=== PATIENT | female | born 1940 | race Caucasian/White ===

== ENCOUNTER 2020-05-16 11:43 | Outpatient (REF) | payer MEDICARE, SELFPAY ==
--- NOTE | 2020-05-16 | CT_ITS ---
CT ANGIOGRAM BRAIN, HEAD CLINICAL INFORMATION: Cerebral aneurysm. COMPARISON: MRA head 01/11/2019. TECHNIQUE: Test bolus sequences followed by intravenous administration 75 mL of Omnipaque 350 intravenous contrast. Helical imaging was performed in the axial plane from the skull base to the vertex. Delayed postcontrast imaging of the head was also performed. The data was processed at the creative technologist workstation for generation of MIP sequences. Three-dimensional volume rendered reformatted images were also generated at an offline 3-D workstation. Stenoses are graded per criteria similar to NASCET. This CT examination was performed using dose optimization techniques as appropriate, variously including the following: *Automated exposure control *Adjustment of mA and/or kV according to patient size (this includes techniques or standardized protocols for targeted exams where dose is matched to indication/reason for exam; i.e. 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 No new aneurysms. There is a stable 1.8 cm arachnoid cyst within the anterior aspect of left middle cranial fossa. There is no pathologic enhancement intracranially. There is no intracranial hemorrhage, hydrocephalus, extra-axial surface collection, midline shift, or other herniation pattern. Culver to white matter differentiation is diffusely maintained without evidence of an evolved acute territorial infarct. The basilar cisterns are preserved. No significant soft tissue abnormality. No acute osseous abnormality. There is a fluid level within the right sphenoid sinus. The remaining paranasal sinuses and the mastoid air cells are clear. 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 - Stable 1.8 cm arachnoid cyst within the anterior aspect of the left middle cranial fossa.
[2020-05-16] MEDS: iohexoL 350 MG/ML 100 ML INFUS..BTL IV (10:15)
== END 2020-05-16 11:44 | disposition home or self-care (01) ==
LOC: HO.CT 11:43
PROVIDERS: PCP Internal Medicine; Visit Provider Psychiatry & Neurology Neurology
DX: I67.1 Cerebral aneurysm, nonruptured (principal)
CPT/HCPCS: 70496; Q9967

== ENCOUNTER 2020-11-25 11:35 | Emergency (ER) | payer MEDICARE, SELFPAY ==
--- NOTE | ~2020-11-25 | XR_ITS ---
EXAMINATION: XR ABDOMEN KUB CLINICAL INDICATION: Question obstruction COMPARISON: CT abdomen pelvis 02/22/2019 TECHNIQUE: AP view of the abdomen. FINDINGS: No dilated air-filled loops of small bowel to suggest an obstructive process. Mild to moderate stool burden throughout the colon. Surgical clips in the right upper quadrant consistent with prior cholecystectomy. Visualized lung bases are well aerated. Small pelvic calcifications are likely vascular in nature. No acute osseous abnormality. XR/XR KUB IMPRESSION: Nonobstructing bowel gas pattern.
--- NOTE | ~2020-11-25 | CT_ITS ---
EXAMINATION: CT HEAD WITHOUT CONTRAST CLINICAL INFORMATION: Left arm numbness. COMPARISON: None TECHNIQUE: Contiguous axial imaging was performed from the skull base to vertex without intravenous administration of contrast. This CT examination was performed using dose optimization techniques as appropriate, variously including the following: *Automated exposure control *Adjustment of mA and/or kV according to patient size (this includes techniques or standardized protocols for targeted exams where dose is matched to indication/reason for exam; i.e. extremities or head) *Use of iterative reconstruction technique DLP: 597 mGy-cm FINDINGS: There is no evidence of acute intracranial hemorrhage or territorial infarction. No abnormal mass effect or midline shift is seen. Culver to white matter differentiation is well preserved. No extra-axial fluid collections are identified. There is a punctate calcification in the left basal ganglia likely vascular. The ventricles are normal in size. There is no abnormal attenuation within the brain parenchyma. The osseous structures and soft tissues are normal. The mastoid air cells and visualized portions of the paranasal sinuses are well aerated. CT/CT head/brain wo con IMPRESSION: No acute intracranial process seen.
--- NOTE | ~2020-11-25 | CT_ITS ---
EXAMINATION: CT ANGIOGRAM OF THE HEAD CT ANGIOGRAM OF THE NECK CLINICAL INFORMATION: Headache and aneurysm. COMPARISON: Concurrent CT scan of the head 11/25/2020. CT angiogram of the head 05/16/2020. MRA scan of the head 01/11/2019. TECHNIQUE: Test bolus series followed by intravenous administration 70 mL of Omnipaque 350. Helical imaging was performed in the axial plane from the mediastinum to the skull vertex. The degree of stenosis is based off NASCET criteria. The data was processed at the cytotechnologist/histotechnologist workstation for generation of MIP images. Three-dimensional volume rendered reformatted images were also generated at an offline 3-D workstation. This CT examination was performed using dose optimization techniques as appropriate, variously including the following: *Automated exposure control *Adjustment of mA and/or kV according to patient size (this includes techniques or standardized protocols for targeted exams where dose is matched to indication/reason for exam; i.e. extremities or head) *Use of iterative reconstruction technique DLP: 1421 mGy-cm. FINDINGS: CT Head: There is no evidence of acute intracranial hemorrhage or territorial infarction. No abnormal mass-effect or midline shift is seen. Culver to white matter differentiation is well preserved. No extra-axial fluid collections are identified. There is no abnormal enhancement. The ventricles are normal in size. There are a few scattered foci of low-attenuation in the periventricular and subcortical white matter, most consistent with chronic microvascular ischemic changes. The study redemonstrates an arachnoid cyst in the anterior left middle cranial fossa, which appears stable. The osseous structures and soft tissues are normal. The mastoid air cells and visualized portions of the paranasal sinuses are well-aerated. CTA Neck: There is a classic configuration of the arch of the aorta. There are mild atheromatous calcifications at the origins of the brachiocephalic and left subclavian arteries and of the aortic arch. The great vessels of the neck are patent. The proximal right common carotid artery is ectatic and tortuous, but not frankly aneurysmal. Both common carotid arteries are patent. There are mild atheromatous calcifications at the bilateral carotid bifurcations without evidence of significant stenosis. There are mild atheromatous calcifications of the proximal left internal carotid artery. Both internal carotid arteries are patent. The origins of both vertebral arteries are well-demonstrated. The vertebral arteries are codominant and are patent throughout their cervical course extending intradurally. Nonvascular: The visualized lung west are well-aerated. The thyroid gland is not enlarged. There is no cervical lymphadenopathy. There are degenerative anterolistheses of C4 on C5 and C5 on C6 and there are spondylitic changes at C6-C7. The patient is edentulous in the mandible and the maxilla. CTA Head: There are atheromatous calcifications of the bilateral cavernous internal carotid arteries, but the vessels are patent bilaterally. There are also calcifications of the bilateral supraclinoid internal carotid arteries. The study redemonstrates a bilobed aneurysm off the bifurcation of the left middle cerebral artery posteriorly, which measures 0.7 cm, similar compared to prior imaging. The right middle and bilateral anterior cerebral arteries demonstrate normal caliber with no evidence of focal stenosis, aneurysm or vascular malformation. There is normal arborization of the middle cerebral artery branches. The anterior communicating artery is normal. In the posterior circulation, the vertebral arteries are codominant. They have minimal atheromatous calcification. The basilar artery is patent with uniform caliber. The posterior cerebral arteries are patent bilaterally. The venous sinuses opacify normally. CT/CT angio head neck IMPRESSION: CTA head and neck: 1. The study redemonstrates a bilobed aneurysm projecting posteriorly at the level of the left middle cerebral artery bifurcation. 2. There are atheromatous calcifications at multiple levels in the head and neck circulation without significant stenosis. There are no vascular malformations. CT head and neck: 1. There are no acute bleeds or infarcts. There are no masses or areas of abnormal enhancement. 2. The study redemonstrates an arachnoid cyst in the anterior left middle cranial fossa. 3. There are multilevel spondylitic changes in the cervical spine.
[2020-11-25 11:44] VITALS: BP 184/88; PULSE 80; RESP 18; TEMP 36.6; O2SAT 99; BMI 29.1
--- NOTE | 2020-11-25 13:06 | ECG_ITS ---
Test Reason : FACIAL NUMBNESS Blood Pressure : / mmHG Vent. Rate : 063 BPM Atrial Rate : 063 BPM P-R Int : 170 ms QRS Dur : 086 ms QT Int : 398 ms P-R-T Axes : 030 011 052 degrees QTc Int : 407 ms Normal sinus rhythm with sinus arrhythmia Normal ECG When compared with ECG of 22-FEB-2019 16:35, No significant change was found Referred By: Vj Jones Electronically Signed By:KATHIE JASSO
--- NOTE | 2020-11-25 13:08 | ED_ITS ---
HPI - General Adult General Chief complaint: General Medical Stated complaint: L ARM AND TOUNGE NUMBNESS Time Seen by Provider: 11/25/20 12:58 Source: patient Mode of arrival: ambulatory Limitations: no limitations History of Present Illness HPI narrative: Patient presents to ED for multiple complaints. Patient's 1st complaint tongue and left arm numbness since yesterday at 13:00. patient states she also had headache yesterday that resolved on its own. Patient states no facial droop, paralysis of extremities, dizziness, chest pain, shortness of breath, or loss of vision. Patient states tongue of left arm numbness has actually improved. Patient's secondary complaint is epigastric pain. Patient states history of gastritis but does not have any of her antacid medication. Patient states pain after she eats. Patient's gallbladder removed in the past Related Data Allergies Allergy/AdvReac Type Severity Reaction Status Date / Time No Known Allergies Allergy Unverified 03/21/20 15:16 [No Known Allergies*] Review of Systems Review of Systems: Yes all other systems are reviewed and are negative Constitutional: Constitutional: Reports as per HPI and Reports no additional constitutional complaints Eyes: Eyes: Reports as per HPI and Reports no additional eye complaints ENT: Reports system reviewed and no additional complaints, except as documented and Reports as per HPI Cardiovascular: Cardiovascular: Reports as per HPI and Reports no additional cardiovascular complaints Respiratory: Respiratory: Reports as per HPI and Reports no additional respiratory complaints Gastrointestinal: Gastrointestinal: Reports as per HPI, Reports no additional gastrointestinal complaints and Reports abdominal pain (Epigastric) Comments: Epigastric abdominal pain Genitourinary: Genitourinary: Reports no additional female genitourinary complaints and Reports as per HPI Musculoskeletal: Musculoskeletal: Reports no additional musculoskeletal complaints, Reports as per HPI and Reports numbness (Tongue/left arm) Neurologic: Reports system reviewed and no additional complaints, except as documented and Reports numbness (Tongue/left arm) Psychiatric: Psychiatric: Reports no additional psychiatric complaints and Reports as per HPI [facility] Past Medical History Medical History (Updated 11/25/20 @ 19:02 by COURTNEY Link) Anxiety Asthma Diabetes HTN (hypertension) Social History Social History Alcohol intake: never Smoking Status: Never smoker Use of substances other than those prescribed or required for medical reasons: No Advance Directives: No Advance Directives Information Provided: Yes Physical Exam Vital Signs: Vital Signs: Last Vital Signs Temp 98.6 F 11/25/20 13:31 Pulse 63 11/25/20 13:31 Resp 12 11/25/20 13:31 BP 178/83 H 11/25/20 13:31 Pulse Ox 100 11/25/20 13:31 Body Mass Index 29.1 Const: General: cooperative, healthy appearing, comfortable, no acute distress, well developed, alert, awake and Physically active Orientation/consciousness: patient oriented x3 HENMT: Head: Yes normal to inspection, Yes No palpable skull fracture present, Yes normocephalic, Yes atraumatic and No abrasion Eyes: General: appearance normal, both eyes and all related structures Neck: Neck: Yes normal visual inspection, Yes full ROM, Yes no lymphadenopathy, Yes no meningeal signs, Yes trachea midline, Yes supple and No tender Chest: Chest palpation & inspection: normal inspection of the chest and normal palpation of entire chest wall Resp: Effort & Inspection: normal respiratory effort and able to speak in complete sentences Auscultation: clear to auscultation bilaterally Cardio: Jugular venous distension: no JVD Heart sounds: S1 normal heart sound present and S2 normal heart sound present GI: Inspection: Yes normal to inspection and No abdominal wall ecchymosis Palpation (GI): Soft to palpation, not firm, Tenderness to palpation present (GI) in the epigastrum; not in the LLQ, not in the RLQ, not in the LUQ, not in the RUQ, not at McBurney's point, not periumbilically, not suprapubicly, Herr's sign negative, obturator sign negative, psoas sign negative, with no rebound tenderness and Rovsing's sign negative, no guarding and not rigid : General: No CVA tenderness and Yes no CVA tenderness Back/Spine/Pelvis: Back: no CVA tenderness, No CVA tenderness and No back tenderness Skin: General skin exam: no rashes or lesions noted and elasticity normal Neuro: Other: Negative facial droop. Negative slurred speech. All extremities equal strength 5+. Negative pronator drift. Vascular/motor/neuro exam of all extremities are intact and equal. Niilvy-mr-ehjl and rapid hand m ovements intact. Negative Romberg General: patient oriented x3, gait normal, no meningeal signs and CN's II-XI intact bilaterally Extrem: General: Yes normal to inspection and Yes full ROM Psych: Appearance: grossly normal, well kempt and not disheveled Course Course Course Narrative: Presently negative for any neuro deficits. A due to symptoms of numbness will send for head CT. EKG and troponin and other labs will be ordered. Antacid med will be given. Reevaluation(s) Reevaluation #1: Head CT normal. Patient was sent for head CT a. Patient labs at baseline. Will send patient for head CTA aneurysm has worsening. Patient has a Knoqn aneurysm from prior head CT a. Patient presently is asymptomatic. Abdominal CT scan was ordered to evaluate for epigastric pain. Radiologist Dr. Moreno calling state abdominal CT should not be recommended because patient will have too much exposure to radiation. Recommends KUB and ultrasound. Patient will be sent for ultrasound to evaluate for dilated CBD/retained gallstones. Patient will be sent for abdominal x-ray to make sure there is no obstruction although very unlikely. Patient having normal bowel movement. Patient presently like to leave and wants to eat food. Was encouraged to wait for imaging and results. Reevaluation #2: Head CT does not show stroke or any other new acute changes. No increased aneurysm size. Patient does not want to wait for 2nd troponin. Patient refused ultrasound to evaluate common bile duct. Patient would like to be discharged. Patient alert oriented x3. No neuro deficits. Patient states she follow-up with her doctor. Son was witness and states patient does not want to stay and he will bring her back if she has any new complaints. Patient was informed of risk of due to her not having 2nd troponin to rule out MO. patient informal ultrasound is necessary to make sure there is no retained gallstone due to her stating epigastric pain but patient also refused. Patient educated on risk of infection, , decreased quality of life, disability, and patient still agreeable to sign out against medical advice. Son states he will bring mother back to the ER if she has any complaints Medical Decision Making MDM Narrative Medical decision making narrative: Paresthesia, GERD, abdominal pain Lab Data Result diagrams: 11/25/20 13:48 11/25/20 13:47 Labs: Lab Results 11/25/20 11/25/20 11/25/20 Range/Units 13:47 13:47 13:47 WBC (4.8-10.8) X10*3/uL RBC (4.20-5.50) X10*6/uL Hgb (12.0-16.0) g/dl Hct (37-47) % MCV (80-98) fL MCH (27.0-33.0) pg MCHC (31.0-35.0) g/dl RDW (11.0-16.0) % Plt Count (160-400) X10*3/uL MPV (9.4-12.3) fL Immature Gran % (Auto) (0.0-0.4) % Neut % (Auto) (45-73) % Lymph % (Auto) (20-40) % Mcdonough % (Auto) (2-11) % Eos % (Auto) (0-4) % Baso % (Auto) (0-2) % Lymph # (Auto) (1.2-4.9) X10*3/uL Mcdonough # (Auto) (0.1-1.2) X10*3/uL Eos # (Auto) (0.0-0.4) X10*3/uL Baso # (Auto) (0.0-0.2) X10*3/uL Abs Immat Gran (auto) (0.00-0.03) X10*3/uL Absolute Neuts (auto) (2.0-8.3) X10*3/uL Absolute Nucleated RBC (0.0-0.012) X10*3/uL Nucleated RBC % (auto) (0.0-0.2) /100WBC PT 12.9 (10.8-13.0) SEC INR 1.1 (0.9-1.1) APTT 32.3 (24.1-38.0) SEC Sodium 140 (135-145) mmol/L Potassium 4.2 (3.3-5.1) mmol/L Chloride 111 H (96-108) mmol/L Carbon Dioxide 19 L (22-29) mmol/L Anion Gap 14 (12-20) BUN 21 H (9-16) mg/dL Creatinine 1.20 (0.5-1.4) mg/dL Estim Creat Clear Calc 39.5 Estimated GFR 43 Random Glucose 102 (60-115) mg/dL Calcium 9.9 (8.4-10.2) mg/dL Magnesium (1.6-2.6) mg/dL Total Bilirubin 0.6 (0.0-1.0) mg/dL Direct Bilirubin 0.2 (0.0-0.5) mg/dL AST 20 (5-31) U/L ALT 13 (0-31) U/L Alkaline Phosphatase 49 (39-117) U/L Total Creatine Kinase (26-140) U/L Troponin I High Sens 6.6 (<3.5-17.0) ng/L Total Protein 7.1 (6.5-8.0) g/dL Albumin 4.1 (3.5-5.0) g/dL Lipase 36 (8-78) U/L Urine Color Urine Appearance Urine pH (5.0-8.0) Ur Specific [place] (1.005-1.025) Urine Protein (NEG-TRACE) MG/DL Urine Glucose (UA) (NEG) MG/DL Urine Ketones (NEG) MG/DL Urine Blood (NEG) Urine Nitrite (NEG) Ur Leukocyte Esterase (NEG) COVID-19 (RUSSELL) (Negative) COVID-19 Clin Com 11/25/20 11/25/20 11/25/20 Range/Units 13:47 13:48 13:48 WBC 4.0 L (4.8-10.8) X10*3/uL RBC 3.66 L (4.20-5.50) X10*6/uL Hgb 11.6 L (12.0-16.0) g/dl Hct 36.1 L (37-47) % MCV 98.6 H (80-98) fL MCH 31.7 (27.0-33.0) pg MCHC 32.1 (31.0-35.0) g/dl RDW 13.6 (11.0-16.0) % Plt Count 152 L (160-400) X10*3/uL MPV 9.9 (9.4-12.3) fL Immature Gran % (Auto) 0.0 (0.0-0.4) % Neut % (Auto) 61.1 (45-73) % Lymph % (Auto) 26.3 (20-40) % Mcdonough % (Auto) 11.3 H (2-11) % Eos % (Auto) 0.8 (0-4) % Baso % (Auto) 0.5 (0-2) % Lymph # (Auto) 1.1 L (1.2-4.9) X10*3/uL Mcdonough # (Auto) 0.5 (0.1-1.2) X10*3/uL Eos # (Auto) 0.0 (0.0-0.4) X10*3/uL Baso # (Auto) 0.0 (0.0-0.2) X10*3/uL Abs Immat Gran (auto) 0.00 (0.00-0.03) X10*3/uL Absolute Neuts (auto) 2.4 (2.0-8.3) X10*3/uL Absolute Nucleated RBC 0.000 (0.0-0.012) X10*3/uL Nucleated RBC % (auto) 0.0 (0.0-0.2) /100WBC PT (10.8-13.0) SEC INR (0.9-1.1) APTT (24.1-38.0) SEC Sodium (135-145) mmol/L Potassium (3.3-5.1) mmol/L Chloride (96-108) mmol/L Carbon Dioxide (22-29) mmol/L Anion Gap (12-20) BUN (9-16) mg/dL Creatinine (0.5-1.4) mg/dL Estim Creat Clear Calc Estimated GFR Random Glucose (60-115) mg/dL Calcium (8.4-10.2) mg/dL Magnesium 2.3 (1.6-2.6) mg/dL Total Bilirubin (0.0-1.0) mg/dL Direct Bilirubin (0.0-0.5) mg/dL AST (5-31) U/L ALT (0-31) U/L Alkaline Phosphatase (39-117) U/L Total Creatine Kinase 143 H (26-140) U/L Troponin I High Sens (<3.5-17.0) ng/L Total Protein (6.5-8.0) g/dL Albumin (3.5-5.0) g/dL Lipase (8-78) U/L Urine Color Urine Appearance Urine pH (5.0-8.0) Ur Specific [place] (1.005-1.025) Urine Protein (NEG-TRACE) MG/DL Urine Glucose (UA) (NEG) MG/DL Urine Ketones (NEG) MG/DL Urine Blood (NEG) Urine Nitrite (NEG) Ur Leukocyte Esterase (NEG) COVID-19 (RUSSELL) Negative (Negative) COVID-19 Clin Com See Note 11/25/20 Range/Units 16:31 WBC (4.8-10.8) X10*3/uL RBC (4.20-5.50) X10*6/uL Hgb (12.0-16.0) g/dl Hct (37-47) % MCV (80-98) fL MCH (27.0-33.0) pg MCHC (31.0-35.0) g/dl RDW (11.0-16.0) % Plt Count (160-400) X10*3/uL MPV (9.4-12.3) fL Immature Gran % (Auto) (0.0-0.4) % Neut % (Auto) (45-73) % Lymph % (Auto) (20-40) % Mcdonough % (Auto) (2-11) % Eos % (Auto) (0-4) % Baso % (Auto) (0-2) % Lymph # (Auto) (1.2-4.9) X10*3/uL Mcd[place] # (Auto) (0.1-1.2) X10*3/uL Eos # (Auto) (0.0-0.4) X10*3/uL Baso # (Auto) (0.0-0.2) X10*3/uL Abs Immat Gran (auto) (0.00-0.03) X10*3/uL Absolute Neuts (auto) (2.0-8.3) X10*3/uL Absolute Nucleated RBC (0.0-0.012) X10*3/uL Nucleated RBC % (auto) (0.0-0.2) /100WBC PT (10.8-13.0) SEC INR (0.9-1.1) APTT (24.1-38.0) SEC Sodium (135-145) mmol/L Potassium (3.3-5.1) mmol/L Chloride (96-108) mmol/L Carbon Dioxide (22-29) mmol/L Anion Gap (12-20) BUN (9-16) mg/dL Creatinine (0.5-1.4) mg/dL Estim Creat Clear Calc Estimated GFR Random Glucose (60-115) mg/dL Calcium (8.4-10.2) mg/dL Magnesium (1.6-2.6) mg/dL Total Bilirubin (0.0-1.0) mg/dL Direct Bilirubin (0.0-0.5) mg/dL AST (5-31) U/L ALT (0-31) U/L Alkaline Phosphatase (39-117) U/L Total Creatine Kinase (26-140) U/L Troponin I High Sens (<3.5-17.0) ng/L Total Protein (6.5-8.0) g/dL Albumin (3.5-5.0) g/dL Lipase (8-78) U/L Urine Color YELLOW Urine Appearance CLEAR Urine pH 7.0 (5.0-8.0) Ur Specific [place] 1.010 (1.005-1.025) Urine Protein NEG (NEG-TRACE) MG/DL Urine Glucose (UA) NEG (NEG) MG/DL Urine Ketones NEG (NEG) MG/DL Urine Blood NEG (NEG) Urine Nitrite NEG (NEG) Ur Leukocyte Esterase NEG (NEG) COVID-19 (RUSSELL) (Negative) COVID-19 Clin Com ECG Data Interpretation: Normal sinus rhythm. Ventricular rate 63. Pr interval 170. QRS 86. QTC 4 7. Negative STEMI Discharge Plan Discharge Clinical Impression: Paresthesia, Gastritis Patient Disposition: Left Against Medical Advice Instructions: Gastritis (ED), Paresthesia (ED) Additional Instructions: Regrese al servicio de urgencias si tiene dolor en el pecho, dificultad para respirar, v?mitos con pete, pete en las heces, empeoramiento del dolor abdominal, mareos, dificultad para hablar, p?rdida de la visi?n, par?lisis de las extremidades, ca?da de la lin o cualquier otro s?ntoma preocupante. No quer?a quedarse en la anthony de emergencias para que le hicieran un [place] an?lisis de pete del coraz?n para asegurarse de que no tuviera un ataque card?aco. No deseaba que la ecograf?a se asegurara de que no hubiera geetha?n c?lculo retenido en el conducto col?doco. Est? cerrando la sesi?n en contra del consejo m?dico, conociendo el riesgo de muerte, ataque card?aco, sepsis / infecci?n y / o etioligias m?dicas / quir?rgicas abdominales. Stand Alone Forms: Against Medical Advice Interventions: ED Discharge Assessment Last Done: 11/25/20 19:06 Discharge Date/Time: 11/25/20 19:07 Print Language: Mongolian
[2020-11-25 13:31] VITALS: BP 178/83; PULSE 63; RESP 12; TEMP 37; O2SAT 100
[2020-11-25 14:13] LABS: MANUAL DIFF FLAG NO
[2020-11-25 14:16] LABS: Basophils Percent Auto 0.5 % (0-2); Eosinophils Percent Auto 0.8 % (0-4); Hematocrit 36.1 % (37-47); Hemoglobin 11.6 g/dl (12.0-16.0); Lymphocytes Absolute Auto 1.1 X10*3/uL (1.2-4.9); Lymphocytes Percent Auto 26.3 % (20-40); Mean Corpuscular HGB Conc 32.1 g/dl (31.0-35.0); Mean Corpuscular Hemoglobin 31.7 pg (27.0-33.0); Mean Corpuscular Volume 98.6 fL (80-98); Mean Platelet Volume 9.9 fL (9.4-12.3); Monocytes Absolute Auto 0.5 X10*3/uL (0.1-1.2); Monocytes Percent Auto 11.3 % (2-11); Neutrophils Absolute Auto 2.4 X10*3/uL (2.0-8.3); Neutrophils Percent Auto 61.1 % (45-73); Platelet Count 152 X10*3/uL (160-400); Red Blood Count 3.66 X10*6/uL (4.20-5.50); Red Cell Distribution Width 13.6 % (11.0-16.0)
[2020-11-25 14:20] LABS: INTERNATIONAL NORM RATIO 1.1 (0.9-1.1); Prothrombin Time 12.9 SEC (10.8-13.0)
[2020-11-25 14:23] LABS: Partial Thromboplastin Time 32.3 SEC (24.1-38.0)
[2020-11-25] MEDS: PHENobarb/Hyoscy/Atropine/Scop 10 ML ELIXIR PO (14:24)
[2020-11-25] MEDS: Lidocaine HCl Viscous 2 % 15 ML SOLUTION MUCOUS MEM (14:24)
[2020-11-25] MEDS: 0.9 % Sodium Chloride 1,000 ML 999 ML IV (14:24)
[2020-11-25] MEDS: Famotidine/PF 20 MG/2 ML VIAL IVPUSH (14:25)
[2020-11-25] MEDS: Magnesium Hydrox/Alum Hydrox 30 ML ORAL.SUSP PO (14:25)
[2020-11-25 14:28] LABS: COVID-19 Test Negative (Negative)
[2020-11-25 14:48] LABS: Magnesium 2.3 mg/dL (1.6-2.6)
[2020-11-25 14:50] LABS: Alanine Aminotransferase 13 U/L (0-31); Albumin Level 4.1 g/dL (3.5-5.0); Alkaline Phosphatase 49 U/L (39-117); Anion Gap 14 (12-20); Aspartate Amino Transferase 20 U/L (5-31); Bilirubin Direct 0.2 mg/dL (0.0-0.5); Bilirubin Total 0.6 mg/dL (0.0-1.0); Blood Urea Nitrogen 21 mg/dL (9-16); Calcium 9.9 mg/dL (8.4-10.2); Carbon Dioxide 19 mmol/L (22-29); Chloride 111 mmol/L (96-108); Creatinine Clr Calc Pharmacy 39.5; Estimated Glomerular Filt Rate 43; Glucose Random 102 mg/dL (60-115); Lipase 36 U/L (8-78); Potassium 4.2 mmol/L (3.3-5.1); Sodium 140 mmol/L (135-145); Total Protein 7.1 g/dL (6.5-8.0)
[2020-11-25 14:53] LABS: Troponin-I High Sensitivity 6.6 ng/L (<3.5-17.0)
[2020-11-25 16:46] LABS: Glucose Urine UA NEG (NEG); Leukocyte Esterase Urine NEG (NEG); Nitrite Urine NEG (NEG); Urine Blood NEG (NEG); Urine Ketones NEG (NEG); Urine Protein NEG (NEG-TRACE)
[2020-11-25 16:47] LABS: Appearance Urine CLEAR; Color Urine YELLOW
[2020-11-25] MEDS: iohexoL 350 MG/ML 100 ML INFUS..BTL IV (17:49)
--- NOTE | 2020-11-25 19:04 | PC.NURSE ---
Pt RN entered room, pt yelling, stating she has been her hours without any medications, interventions, asking to leave. Attempted to reassure pt, provider at bedside, encouraged to draw additional labs- pt declined/refused. Left AMA.
== END 2020-11-25 19:07 | disposition left against medical advice (07) ==
PROVIDERS: Physician Assistant; Emergency Provider Emergency Medicine; PCP Internal Medicine
DX: R20.2 Paresthesia of skin (principal); K29.70 Gastritis, unspecified, without bleeding; R51.9 Headache, unspecified; R10.13 Epigastric pain; Z20.822 Contact with and (suspected) exposure to COVID-19; E11.9 Type 2 diabetes mellitus without complications; I10 Essential (primary) hypertension; Z90.49 Acquired absence of other specified parts of digestive tract
CPT/HCPCS: 36415; 70450; 70496; 70498; 74018; 80053; 80076; 81003; 82248; 82550; 83690; 83735; 84484; 85025; 85610; 85730; 87635; 93005; 99285; Q9967

== ENCOUNTER 2021-06-17 08:30 | Outpatient (REF) | payer MEDICARE, SELFPAY ==
[2021-06-17 10:31] LABS: Hematocrit 35.6 % (37.0-47.0); Hemoglobin 11.5 g/dl (12.0-16.0); Mean Corpuscular HGB Conc 32.3 g/dl (31.0-35.0); Mean Corpuscular Hemoglobin 31.4 pg (27.0-33.0); Mean Corpuscular Volume 97.3 fL (80.0-98.0); Mean Platelet Volume 9.9 fL (9.4-12.3); Platelet Count 173 X10*3/uL (160-400); Red Blood Count 3.66 X10*6/uL (4.20-5.50); Red Cell Distribution Width 13.7 % (11.0-16.0); White Blood Count 4.2 X10*3/uL (4.8-10.8)
[2021-06-17 10:49] LABS: Alanine Aminotransferase 11 U/L (0-31); Albumin Level 4.1 g/dL (3.5-5.0); Alkaline Phosphatase 46 U/L (39-117); Anion Gap 10 (12-20); Aspartate Amino Transferase 18 U/L (5-31); Bilirubin Total 0.4 mg/dL (0.0-1.0); Blood Urea Nitrogen 20 mg/dL (9-16); Calcium 9.4 mg/dL (8.4-10.2); Carbon Dioxide 22 mmol/L (22-29); Chloride 112 mmol/L (96-108); Estimated Glomerular Filt Rate 34; Glucose Random 128 mg/dL (60-115); Potassium 3.9 mmol/L (3.3-5.1); Sodium 140 mmol/L (135-145); Total Protein 7.1 g/dL (6.5-8.0)
[2021-06-19 07:57] LABS: Transglutaminase Ab IgG <1.0 U/mL; Transglutaminase IgA <1.0 U/mL
== END 2021-06-17 08:31 | disposition home or self-care (01) ==
LOC: HO.LAB 08:30
PROVIDERS: PCP Internal Medicine; Referring Provider Internal Medicine; Visit Provider Nurse Practitioner Family
DX: K21.9 Gastro-esophageal reflux disease without esophagitis (principal); D64.9 Anemia, unspecified; K58.2 Mixed irritable bowel syndrome; R14.0 Abdominal distension (gaseous); R10.11 Right upper quadrant pain
CPT/HCPCS: 36415; 80053; 83516; 85027; 99212

== ENCOUNTER 2022-09-27 13:42 | Emergency (ER) | payer MEDICARE, SELFPAY ==
--- NOTE | ~2022-09-27 | CT_ITS ---
EXAMINATION: CT HEAD WITHOUT CONTRAST CLINICAL INFORMATION: Dizziness. COMPARISON: CT head 11/25/2020. TECHNIQUE: Contiguous axial imaging was performed from the skull base to vertex without intravenous administration of contrast. This CT examination was performed using dose optimization techniques as appropriate, variously including the following: *Automated exposure control *Adjustment of mA and/or kV according to patient size (this includes techniques or standardized protocols for targeted exams where dose is matched to indication/reason for exam; i.e. extremities or head) *Use of iterative reconstruction technique DLP: 579 mGy-cm FINDINGS: There is no evidence of acute intracranial hemorrhage or edematous territorial infarction. A few foci of hypoattenuation in the periventricular and deep white matter are consistent with mild microangiopathy. Culver-white matter differentiation is preserved. Proportional prominence of the ventricles and sulcal spaces. No evidence for obstructive hydrocephalus. No abnormal mass effect or midline shift. No extra-axial fluid collections. No acute soft tissue or osseous abnormalities. Mild mucosal thickening of the paranasal sinuses. No air-fluid levels. The mastoids and middle ear cavities are clear. CT/CT head/brain wo IV con IMPRESSION: No evidence of acute intracranial hemorrhage or edematous territorial infarction.
[2022-09-27 14:24] VITALS: BP 172/77; PULSE 72; RESP 18; TEMP 36.6; O2SAT 98; BMI 31.1
--- NOTE | 2022-09-27 14:28 | ECG_ITS ---
Test Reason : DIZZINESS Blood Pressure : / mmHG Vent. Rate : 066 BPM Atrial Rate : 066 BPM P-R Int : 144 ms QRS Dur : 084 ms QT Int : 398 ms P-R-T Axes : 009 021 062 degrees QTc Int : 417 ms Normal sinus rhythm Normal ECG When compared with ECG of 25-NOV-2020 13:24, No significant change was found Referred By: Vj Jones Electronically Signed By:KATHIE JSASO
--- NOTE | 2022-09-27 14:35 | ED_ITS ---
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 Per patient when she 1st woke up this morning and set up she felt very lightheaded and dizzy but this resolved after several minutes. At same time she experienced pain in her left side of her head. This pain has been constant since it 1st began. No associated vomiting, photophobia, phonophobia, neck pain, fevers, chills, weakness, numbness or tingling of the extremities. Patient reports she has blurry vision in her left eye at baseline and has been like this for months and is not a new finding. No new vision change <Rosi Snider NP - Last Filed: 09/27/22 17:20> Related Data Home medications: Home Medications Medication Instructions Recorded Confirmed amlodipine 10 mg tablet 10 mg PO DAILY 06/17/21 aspirin 81 mg tablet,delayed 81 mg PO DAILY 06/17/21 release ergocalciferol (vitamin D2) 1,250 1,250 mcg PO QWEEK 06/17/21 mcg (50,000 unit) capsule fluticasone propionate 50 1 - 2 spray intranasal DAILY PRN 06/17/21 mcg/actuation nasal spray,suspension lisinopril 30 mg tablet 30 mg PO DAILY 06/17/21 loratadine 10 mg tablet 10 mg PO DAILY 06/17/21 metformin 500 mg tablet,extended 500 mg PO TID 06/17/21 release 24 hr sitagliptin phosphate 25 mg tablet 25 mg PO DAILY 06/17/21 (Januvia) topiramate 100 mg tablet 100 mg PO DAILY 06/17/21 Previous Rx's Medication Instructions Recorded [id number] 1 cap PO QID #120 caps 06/17/21 12,000-38,000-60,000 unit capsule,delayed rel (Creon) methylcellulose (laxative) 500 mg 500 mg PO DAILY #30 tabs 06/17/21 tablet (Citrucel) pantoprazole 40 mg tablet,delayed 40 mg PO BID #60 tabs 06/17/21 release sennosides 8.6 mg tablet (Natural 8.6 mg PO BEDTIME constipation #90 11/07/21 Senna Laxative) tabs <COURTNEY Link - Last Filed: 09/28/22 11:54> Allergies/adverse reactions: Allergies Allergy/AdvReac Type Severity Reaction Status Date / Time No Known Allergies Allergy Verified 06/17/21 08:50 [No Known Allergies*] <COURTNEY Link - Last Filed: 09/28/22 11:54> Review of Systems Review of Systems: Yes all other systems are reviewed and are negative <Rosi Snider NP - Last Filed: 09/27/22 17:20> Constitutional: Constitutional: Reports no additional constitutional complaints, Denies body ache(s), Denies chills, Denies fever(s), Denies headache(s) and Denies weakness <Rosi Snider NP - Last Filed: 09/27/22 17:20> Eyes: Eyes: Reports no additional eye complaints, Reports blurry vision and Denies change in vision <Rosi Snider NP - Last Filed: 09/27/22 17:20> ENT: Reports system reviewed and no additional complaints, except as documented, Reports dizziness, Denies headache(s), Denies nasal congestion, De nies nasal discharge and Denies neck pain <Rosi Snider NP - Last Filed: 09/27/22 17:20> Cardiovascular: Cardiovascular: Reports no additional cardiovascular complaints, Denies chest pain, Denies leg edema and Denies dyspnea <Rosi Snider NP - Last Filed: 09/27/22 17:20> Respiratory: Respiratory: Reports no additional respiratory complaints, Denies cough and Denies dyspnea <Rosi Snider NP - Last Filed: 09/27/22 17:20> Gastrointestinal: Gastrointestinal: Reports no additional gastrointestinal complaints, Denies abdominal pain, Denies diarrhea, Denies nausea and Denies vomiting <Rosi Snider NP - Last Filed: 09/27/22 17:20> Genitourinary: Genitourinary: Reports no additional female genitourinary complaints and Denies urinary incontinence <Rosi Snider NP - Last Filed: 09/27/22 17:20> Musculoskeletal: Musculoskeletal: Reports no additional musculoskeletal complaints, Denies back pain, Denies arthralgias, Denies joint swelling, Denies neck pain, Denies numbness and Denies tingling <Rosi Snider NP - Last Filed: 09/27/22 17:20> Integumentary/Breasts: Skin/Breast: Reports system reviewed and no additional complaints, except as docu and Denies rash <Rosi Snider NP - Last Filed: 09/27/22 17:20> Neurologic: Reports system reviewed and no additional complaints, except as documented, Reports dizziness, Denies headache(s), Denies numbness, Denies tingling and Denies weakness <Rosi Snider NP - Last Filed: 09/27/22 17:20> PMFSH Past Medical History Attestation statement: The following information was validated with the patient. <Rosi Snider NP - Last Filed: 09/27/22 17:20> Source: old records reviewed and nursing notes reviewed <Rosi Snider NP - Last Filed: 09/27/22 17:20> Medical History: Medical History Anxiety Asthma Diabetes HTN (hypertension) <COURTNEY Link - Last Filed: 09/28/22 11:54> Social History Social History: Social History Alcohol intake: never Smoked in Last 30 Days: No Use of substances other than those prescribed or required for medical reasons: No Advance Directives: No Advance Directives Information Provided: Yes <COURTNEY Link - Last Filed: 09/28/22 11:54> Physical Exam ED Vital Signs: Vital Signs - 24 hr 09/27/22 14:24 09/27/22 14:58 09/27/22 15:49 Temperature 98 F 99.4 F Pulse Rate 72 75 70 Respiratory Rate 18 16 16 Blood Pressure 172/77 H 141/73 H 151/72 H Pulse Oximetry 98 100 98 Oxygen Delivery Method Room Air Room Air Room Air 09/27/22 15:53 09/27/22 18:00 09/27/22 18:16 Temperature 98.2 F 98.4 F Pulse Rate 70 67 Respiratory Rate 14 16 19 Blood Pressure 158/80 H 190/76 H Pulse Oximetry 97 100 Oxygen Delivery Method Room Air Room Air BMI result Body Mass Index 31.1 <COURTNEY Link - Last Filed: 09/28/22 11:54> Vital Signs - 24 hr 09/27/22 14:24 09/27/22 14:58 09/27/22 15:49 Temperature 98 F 99.4 F Pulse Rate 72 75 70 Respiratory Rate 18 16 16 Blood Pressure 172/77 H 141/73 H 151/72 H Pulse Oximetry 98 100 98 Oxygen Delivery Method Room Air Room Air Room Air 09/27/22 15:53 09/27/22 18:00 09/27/22 18:16 Temperature 98.2 F 98.4 F Pulse Rate 70 67 Respiratory Rate 14 16 19 Blood Pressure 158/80 H 190/76 H Pulse Oximetry 97 100 Oxygen Delivery Method Room Air Room Air BMI result Body Mass Index 31.1 <Rosi Snider NP - Last Filed: 09/27/22 17:20> Const General: cooperative, healthy appearing, comfortable and no acute distress <Rosi Snider NP - Last Filed: 09/27/22 17:20> Orientation/consciousness: patient oriented x3 <Rosi Snider NP - Last Filed: 09/27/22 17:20> Limitations: no limitations <Rosi Snider NP - Last Filed: 09/27/22 17:20> HENMT Head: Yes normal to inspection and Yes Temporal artery tenderness present <Marielena Snider [employer]INWARE LITHOGRAPH PRESS OPERATOR - Last Filed: 09/27/22 17:20> Ears: hearing grossly normal bilaterally and TM's normal bilaterally <Rosi Snider, [employer]INWARE LITHOGRAPH PRESS OPERATOR - Last Filed: 09/27/22 17:20> General nose exam: Normal external nose present <Rosi Snider [employer]INWARE LITHOGRAPH PRESS OPERATOR - Last Filed: 09/27/22 17:20> Face and sinus: Yes normal facial exam <Rosi Snider, TINWARE LITHOGRAPH PRESS OPERATOR - Last Filed: 09/27/22 17:20> Mouth: Normal oral and palatal mucosa present <Rosi Snider [employer]INWARE LITHOGRAPH PRESS OPERATOR - Last Filed: 09/27/22 17:20> Throat: Yes posterior oropharynx normal, Yes tonsils normal and Yes uvula midline <Rosi Snider [employer]INWARE LITHOGRAPH PRESS OPERATOR - Last Filed: 09/27/22 17:20> Eyes General: appearance normal, both eyes and all related structures <Rosi Snider [employer]INWARE LITHOGRAPH PRESS OPERATOR - Last Filed: 09/27/22 17:20> Periorbital: periorbital findings normal <Rosi Snider TINWARE LITHOGRAPH PRESS OPERATOR - Last Filed: 09/27/22 17:20> Eyelids: Yes eyelids normal <Rosi Snider TINWARE LITHOGRAPH PRESS OPERATOR - Last Filed: 09/27/22 17:20> Conjunctivae: conjunctivae normal <Rosi Snider TINWARE LITHOGRAPH PRESS OPERATOR - Last Filed: 09/27/22 17:20> Sclerae: sclerae normal <Rosi Snider TINWARE LITHOGRAPH PRESS OPERATOR - Last Filed: 09/27/22 17:20> Corneas: corneas normal <Rosi Snider TINWARE LITHOGRAPH PRESS OPERATOR - Last Filed: 09/27/22 17:20> Pupils: Equal, round and reactive pupils present <Rosi Snider TINWARE LITHOGRAPH PRESS OPERATOR - Last Filed: 09/27/22 17:20> EOM: EOMs intact bilaterally <Rosi Snider TINWARE LITHOGRAPH PRESS OPERATOR - Last Filed: 09/27/22 17:20> Neck Neck: Yes normal visual inspection, Yes full ROM, Yes no lymphadenopathy and Yes no meningeal signs <Rosi Snider TINWARE LITHOGRAPH PRESS OPERATOR - Last Filed: 09/27/22 17:20> Chest Chest palpation & inspection: normal inspection of the chest <Rosimarielena Snider [employer]INWARE LITHOGRAPH PRESS OPERATOR - Last Filed: 09/27/22 17:20> Resp Effort & Inspection: normal respiratory effort <Rosimarielena Snider TINWARE LITHOGRAPH PRESS OPERATOR - Last Filed: 09/27/22 17:20> Auscultation: clear to auscultation bilaterally <Rosi Snider TINWARE LITHOGRAPH PRESS OPERATOR - Last Filed: 09/27/22 17:20> Cardio Rate: regular rate <Rosimarielena Snider, TINWARE LITHOGRAPH PRESS OPERATOR - Last Filed: 09/27/22 17:20> Rhythm: regular rhythm <Rosimarielena Snider TINWARE LITHOGRAPH PRESS OPERATOR - Last Filed: 09/27/22 17:20> Peripheral pulses: Peripheral pulses 2+ throughout <Rosimarielena Snider, TINWARE LITHOGRAPH PRESS OPERATOR - Last Filed: 3 17:20> GI Inspection: Yes normal to inspection <Rosi Snider TINWARE LITHOGRAPH PRESS OPERATOR - Last Filed: 09/27/22 17:20> Palpation (GI): Soft to palpation and nontender <Rosimarielena Snider TINWARE LITHOGRAPH PRESS OPERATOR - Last Filed: 09/27/22 17:20> General: Yes no CVA tenderness <Rosimarielena Snider TINWARE LITHOGRAPH PRESS OPERATOR - Last Filed: 09/27/22 17:20> Back/Spine/Pelvis Back: no CVA tenderness <Rosimarielena Snider TINWARE LITHOGRAPH PRESS OPERATOR - Last Filed: 09/27/22 17:20> Thoracic/Lumbar Spine: thoracic and lumbar spine normal to inspection <Rosi Snider TINWARE LITHOGRAPH PRESS OPERATOR - Last Filed: 09/27/22 17:20> Skin General skin exam: no rashes or lesions noted <Rosimarielena Snider, TINWARE LITHOGRAPH PRESS OPERATOR - Last Filed: 09/27/22 17:20> Neuro General: patient oriented x3, moves all extremities, no meningeal signs and Unable to assess gait <Rosi Snider TINWARE LITHOGRAPH PRESS OPERATOR - Last Filed: 09/27/22 17:20> Cranial nerves: Yes CN's II-XII intact bilaterally, Yes Equal, round and reactive pupils present, Yes Bilaterally intact EOM present, Yes Nystagmus not present, Yes Normal facial strength present and Yes Midline tongue present <Rosi VicentedamiryusufNELLIE - Last Filed: 09/27/22 17:20> Cognition (Neuro): normal cognition <Rosi VicentedamiryusufNELLIE - Last Filed: 09/27/22 17:20> Gait exam (Neuro): Unable to assess gait <Rosi SniderNELLIE - Last Filed: 09/27/22 17:20> Motor exam (neuro): 5/5 motor strength present throughout <Rosi VicenteNELLIE crawford - Last Filed: 09/27/22 17:20> Sensory Exam: Normal double simultaneous stimulation for sensation <Rois VicentedamiryusufNELLIE - Last Filed: 09/27/22 17:20> Extrem General: Yes normal to inspection, Yes no pedal edema and Yes no calf tenderness <Rosi SniderNELLIE - Last Filed: 09/27/22 17:20> Course Course Course Narrative: RME: Patient presents to the ED for dizziness and headache. Dizziness described room spinning. neuro exam intact. A0x3. labs, EKG, and head CT ordree <COURTNEY Link - Last Filed: 09/28/22 11:54> Reevaluation(s) Reevaluation #1: [id number]-labs are unremarkable. EKG shows no ischemic changes. CT head is negative. Patient reports pain is resolved after 2 mg of IV morphine. Doubt temporal arteritis with normal inflammatory markers. Patient does have underlying history of migraine and is followed by neurologist and is currently on Topamax. May be migraine. This was discussed with Dr. Craft who agrees temporal arteritis is less likely. Patient will be discharged home with follow- up with her neurologist. Reviewed worrisome signs and symptoms of when to return to the emergency room. Comfortable plan for discharge home <Rosi VicentedamiryusufNELLIE - Last Filed: 09/27/22 17:20> Medications Administered Discontinued Medications Generic Name Dose Route Start Last Admin Trade Name Freq PRN Reason Stop Dose Admin Sodium Chloride 1,000 mls @ 999 mls/hr 09/27/22 15:04 09/27/22 18:01 Ns IV 09/27/22 16:04 Infused .Q1H1M STA Infusion Morphine Sulfate 2 mg 09/27/22 15:04 09/27/22 15:53 Morphine Sulfate 2 Mg/Ml Cartridge IVPUSH 09/27/22 15:05 2 mg ONCE ONE Administration Protocol <COURTNEY Link - Last Filed: 09/28/22 11:54> Medications Administered Discontinued Medications Generic Name Dose Route Start Last Admin Trade Name Kellie PRN Reason Stop Dose Admin Sodium Chloride 1,000 mls @ 999 mls/hr 09/27/22 15:04 09/27/22 18:01 Ns IV 09/27/22 16:04 Infused .Q1H1M STA Infusion Morphine Sulfate 2 mg 09/27/22 15:04 09/27/22 15:53 Morphine Sulfate 2 Mg/Ml Cartridge IVPUSH 09/27/22 15:05 2 mg ONCE ONE Administration Protocol <Rosi Snider NP - Last Filed: 09/27/22 17:20> Medical Decision Making Medical Decision Making MDM Narrative: 81 yo female who is here with her daughter who are both very difficult historians but able to tell me the patient woke today with some transient dizziness and then developed a left-sided headache which is continued throughout the day. No new visual change. No associated neurological deficits or vomiting. Patient does have temporal artery tenderness on the left side with no history of temporal arteritis Will obtain labs including inflammatory markers, CT head, orthos, EKG Patient to receive analgesia <Rosi Snider NP - Last Filed: 09/27/22 17:20> Differential Diagnosis Differential Diagnoses: The differential diagnosis associated with the presentation includes <Rosi Snider NP - Last Filed: 09/27/22 17:20> Temporal arteritis, migraine Less likely subarachnoid hemorrhage, pseudotumor cerebral <Rosi Snider NP - Last Filed: 09/27/22 17:20> Lab Data [facility] Lab Attestation statement: I reviewed the patient's lab results. <Rosi Snider NP - Last Filed: 09/27/22 17:20> Result Diagrams: 09/27/22 05:10 09/27/22 14:40 <COURTNEY Link - Last Filed: 09/28/22 11:54> Labs: Lab Results 09/27/22 09/27/22 09/27/22 Range/Units 05:10 14:40 14:40 WBC 4.4 L (4.8-10.8) X10*3/uL RBC 3.65 L (4.20-5.50) X10*6/uL Hgb 11.3 L (12.0-16.0) g/dl Hct 35.3 L (37.0-47.0) % MCV 96.7 (80.0-98.0) fL MCH 31.0 (27.0-33.0) pg MCHC 32.0 (31.0-35.0) g/dl RDW 13.9 (11.0-16.0) % Plt Count 164 (160-400) X10*3/uL MPV 10.0 (9.4-12.3) fL Immature Gran % (Auto) 0.0 (0.0-0.4) % Neut % (Auto) 62.6 (45-73) % Lymph % (Auto) 24.1 (20-40) % Ashley % (Auto) 12.2 H (2-11) % Eos % (Auto) 0.9 (0-4) % Baso % (Auto) 0.2 (0-2) % Lymph # (Auto) 1.1 L (1.2-4.9) X10*3/uL Ashley # (Auto) 0.5 (0.1-1.2) X10*3/uL Eos # (Auto) 0.0 (0.0-0.4) X10*3/uL Baso # (Auto) 0.0 (0.0-0.2) X10*3/uL Abs Immat Gran (auto) 0.00 (0.00-0.03) X10*3/uL Absolute Neuts (auto) 2.7 (2.0-8.3) x10*3/uL Absolute Nucleated RBC 0.000 (0.0-0.012) X10*3/uL Nucleated RBC % (auto) 0.0 (0.0-0.2) /100WBC ESR (0-20) MM/HR PT 11.8 (10.0-13.1) SEC INR 1.0 (0.9-1.1) APTT 29.5 (26.0-36.4) SEC Sodium 142 (135-145) mmol/L Potassium 4.1 (3.3-5.1) mmol/L Chloride 111 H (96-108) mmol/L Carbon Dioxide 22 (22-29) mmol/L Anion Gap 13 (12-20) BUN 37 H (9-16) mg/dL Creatinine 1.51 H (0.5-1.4) mg/dL Estim Creat Clear Calc 28.6 Estimated GFR 33 Random Glucose 104 (60-115) mg/dL Calcium 9.6 (8.4-10.2) mg/dL Total Bilirubin 0.3 (0.0-1.0) mg/dL AST 20 (5-31) U/L ALT 11 (0-31) U/L Alkaline Phosphatase 47 (39-117) U/L Troponin I High Sens (<3.5-17.0) ng/L C-Reactive Protein (< or = 0.50) mg/dL Total Protein 7.0 (6.5-8.0) g/dL Albumin 4.1 (3.5-5.0) g/dL COVID-19 (RUSSELL) (Negative) COVID-19 Clin Com 09/27/22 09/27/22 09/27/22 Range/Units 14:40 15:21 15:21 WBC (4.8-10.8) X10*3/uL RBC (4.20-5.50) X10*6/uL Hgb (12.0-16.0) g/dl Hct (37.0-47.0) % MCV (80.0-98.0) fL MCH (27.0-33.0) pg MCHC (31.0-35.0) g/dl RDW (11.0-16.0) % Plt Count (160-400) X10*3/uL MPV (9.4-12.3) fL Immature Gran % (Auto) (0.0-0.4) % Neut % (Auto) (45-73) % Lymph % (Auto) (20-40) % Ashley % (Auto) (2-11) % Eos % (Auto) (0-4) % Baso % (Auto) (0-2) % Lymph # (Auto) (1.2-4.9) X10*3/uL Ashley # (Auto) (0.1-1.2) X10*3/uL Eos # (Auto) (0.0-0.4) X10*3/uL Baso # (Auto) (0.0-0.2) X10*3/uL Abs Immat Gran (auto) (0.00-0.03) X10*3/uL Absolute Neuts (auto) (2.0-8.3) x10*3/uL Absolute Nucleated RBC (0.0-0.012) X10*3/uL Nucleated RBC % (auto) (0.0-0.2) /100WBC ESR 8 (0-20) MM/HR PT (10.0-13.1) SEC INR (0.9-1.1) APTT (26.0-36.4) SEC Sodium (135-145) mmol/L Potassium (3.3-5.1) mmol/L Chloride (96-108) mmol/L Carbon Dioxide (22-29) mmol/L Anion Gap (12-20) BUN (9-16) mg/dL Creatinine (0.5-1.4) mg/dL Estim Creat Clear Calc Estimated GFR Random Glucose (60-115) mg/dL Calcium (8.4-10.2) mg/dL Total Bilirubin (0.0-1.0) mg/dL AST (5-31) U/L ALT (0-31) U/L Alkaline Phosphatase (39-117) U/L Troponin I High Sens 7.9 (<3.5-17.0) ng/L C-Reactive Protein < 0.10 (< or = 0.50) mg/dL Total Protein (6.5-8.0) g/dL Albumin (3.5-5.0) g/dL COVID-19 (RUSSELL) (Negative) COVID-19 Clin Com 09/27/22 Range/Units 15:23 WBC (4.8-10.8) X10*3/uL RBC (4.20-5.50) X10*6/uL Hgb (12.0-16.0) g/dl Hct (37.0-47.0) % MCV (80.0-98.0) fL MCH (27.0-33.0) pg MCHC (31.0-35.0) g/dl RDW (11.0-16.0) % Plt Count (160-400) X10*3/uL MPV (9.4-12.3) fL Immature Gran % (Auto) (0.0-0.4) % Neut % (Auto) (45-73) % Lymph % (Auto) (20-40) % Ashley % (Auto) (2-11) % Eos % (Auto) (0-4) % Baso % (Auto) (0-2) % Lymph # (Auto) (1.2-4.9) X10*3/uL Ashley # (Auto) (0.1-1.2) X10*3/uL Eos # (Auto) (0.0-0.4) X10*3/uL Baso # (Auto) (0.0-0.2) X10*3/uL Abs Immat Gran (auto) (0.00-0.03) X10*3/uL Absolute Neuts (auto) (2.0-8.3) x10*3/uL Absolute Nucleated RBC (0.0-0.012) X10*3/uL Nucleated RBC % (auto) (0.0-0.2) /100WBC ESR (0-20) MM/HR PT (10.0-13.1) SEC INR (0.9-1.1) APTT (26.0-36.4) SEC Sodium (135-145) mmol/L Potassium (3.3-5.1) mmol/L Chloride (96-108) mmol/L Carbon Dioxide (22-29) mmol/L Anion Gap (12-20) BUN (9-16) mg/dL Creatinine (0.5-1.4) mg/dL Estim Creat Clear Calc Estimated GFR Random Glucose (60-115) mg/dL Calcium (8.4-10.2) mg/dL Total Bilirubin (0.0-1.0) mg/dL AST (5-31) U/L ALT (0-31) U/L Alkaline Phosphatase (39-117) U/L Troponin I High Sens (<3.5-17.0) ng/L C-Reactive Protein (< or = 0.50) mg/dL Total Protein (6.5-8.0) g/dL Albumin (3.5-5.0) g/dL COVID-19 (RUSSELL) Negative (Negative) COVID-19 Clin Com See Note <COURTNEY Link - Last Filed: 09/28/22 11:54> Lab Results 09/27/22 09/27/22 09/27/22 Range/Units 05:10 14:40 14:40 WBC 4.4 L (4.8-10.8) X10*3/uL RBC 3.65 L (4.20-5.50) X10*6/uL Hgb 11.3 L (12.0-16.0) g/dl Hct 35.3 L (37.0-47.0) % MCV 96.7 (80.0-98.0) fL MCH 31.0 (27.0-33.0) pg MCHC 32.0 (31.0-35.0) g/dl RDW 13.9 (11.0-16.0) % Plt Count 164 (160-400) X10*3/uL MPV 10.0 (9.4-12.3) fL Immature Gran % (Auto) 0.0 (0.0-0.4) % Neut % (Auto) 62.6 (45-73) % Lymph % (Auto) 24.1 (20-40) % Ashley % (Auto) 12.2 H (2-11) % Eos % (Auto) 0.9 (0-4) % Baso % (Auto) 0.2 (0-2) % Lymph # (Auto) 1.1 L (1.2-4.9) X10*3/uL Ashley # (Auto) 0.5 (0.1-1.2) X10*3/uL Eos # (Auto) 0.0 (0.0-0.4) X10*3/uL Baso # (Auto) 0.0 (0.0-0.2) X10*3/uL Abs Immat Gran (auto) 0.00 (0.00-0.03) X10*3/uL Absolute Neuts (auto) 2.7 (2.0-8.3) x10*3/uL Absolute Nucleated RBC 0.000 (0.0-0.012) X10*3/uL Nucleated RBC % (auto) 0.0 (0.0-0.2) /100WBC ESR (0-20) MM/HR PT 11.8 (10.0-13.1) SEC INR 1.0 (0.9-1.1) APTT 29.5 (26.0-36.4) SEC Sodium 142 (135-145) mmol/L Potassium 4.1 (3.3-5.1) mmol/L Chloride 111 H (96-108) mmol/L Carbon Dioxide 22 (22-29) mmol/L Anion Gap 13 (12-20) BUN 37 H (9-16) mg/dL Creatinine 1.51 H (0.5-1.4) mg/dL Estim Creat Clear Calc 28.6 Estimated GFR 33 Random Glucose 104 (60-115) mg/dL Calcium 9.6 (8.4-10.2) mg/dL Total Bilirubin 0.3 (0.0-1.0) mg/dL AST 20 (5-31) U/L ALT 11 (0-31) U/L Alkaline Phosphatase 47 (39-117) U/L Troponin I High Sens (<3.5-17.0) ng/L C-Reactive Protein (< or = 0.50) mg/dL Total Protein 7.0 (6.5-8.0) g/dL Albumin 4.1 (3.5-5.0) g/dL COVID-19 (RUSSELL) (Negative) COVID-19 Clin Com 09/27/22 09/27/22 09/27/22 Range/Units 14:40 15:21 15:21 WBC (4.8-10.8) X10*3/uL RBC (4.20-5.50) X10*6/uL Hgb (12.0-16.0) g/dl Hct (37.0-47.0) % MCV (80.0-98.0) fL MCH (27.0-33.0) pg MCHC (31.0-35.0) g/dl RDW (11.0-16.0) % Plt Count (160-400) X10*3/uL MPV (9.4-12.3) fL Immature Gran % (Auto) (0.0-0.4) % Neut % (Auto) (45-73) % Lymph % (Auto) (20-40) % Ashley % (Auto) (2-11) % Eos % (Auto) (0-4) % Baso % (Auto) (0-2) % Lymph # (Auto) (1.2-4.9) X10*3/uL Ashley # (Auto) (0.1-1.2) X10*3/uL Eos # (Auto) (0.0-0.4) X10*3/uL Baso # (Auto) (0.0-0.2) X10*3/uL Abs Immat Gran (auto) (0.00-0.03) X10*3/uL Absolute Neuts (auto) (2.0-8.3) x10*3/uL Absolute Nucleated RBC (0.0-0.012) X10*3/uL Nucleated RBC % (auto) (0.0-0.2) /100WBC ESR 8 (0-20) MM/HR PT (10.0-13.1) SEC INR (0.9-1.1) APTT (26.0-36.4) SEC Sodium (135-145) mmol/L Potassium (3.3-5.1) mmol/L Chloride (96-108) mmol/L Carbon Dioxide (22-29) mmol/L Anion Gap (12-20) BUN (9-16) mg/dL Creatinine (0.5-1.4) mg/dL Estim Creat Clear Calc Estimated GFR Random Glucose (60-115) mg/dL Calcium (8.4-10.2) mg/dL Total Bilirubin (0.0-1.0) mg/dL AST (5-31) U/L ALT (0-31) U/L Alkaline Phosphatase (39-117) U/L Troponin I High Sens 7.9 (<3.5-17.0) ng/L C-Reactive Protein < 0.10 (< or = 0.50) mg/dL Total Protein (6.5-8.0) g/dL Albumin (3.5-5.0) g/dL COVID-19 (RUSSELL) (Negative) COVID-19 Clin Com 09/27/22 Range/Units 15:23 WBC (4.8-10.8) X10*3/uL RBC (4.20-5.50) X10*6/uL Hgb (12.0-16.0) g/dl Hct (37.0-47.0) % MCV (80.0-98.0) fL MCH (27.0-33.0) pg MCHC (31.0-35.0) g/dl RDW (11.0-16.0) % Plt Count (160-400) X10*3/uL MPV (9.4-12.3) fL Immature Gran % (Auto) (0.0-0.4) % Neut % (Auto) (45-73) % Lymph % (Auto) (20-40) % Ashley % (Auto) (2-11) % Eos % (Auto) (0-4) % Baso % (Auto) (0-2) % Lymph # (Auto) (1.2-4.9) X10*3/uL Ashley # (Auto) (0.1-1.2) X10*3/uL Eos # (Auto) (0.0-0.4) X10*3/uL Baso # (Auto) (0.0-0.2) X10*3/uL Abs Immat Gran (auto) (0.00-0.03) X10*3/uL Absolute Neuts (auto) (2.0-8.3) x10*3/uL Absolute Nucleated RBC (0.0-0.012) X10*3/uL Nucleated RBC % (auto) (0.0-0.2) /100WBC ESR (0-20) MM/HR PT (10.0-13.1) SEC INR (0.9-1.1) APTT (26.0-36.4) SEC Sodium (135-145) mmol/L Potassium (3.3-5.1) mmol/L Chloride (96-108) mmol/L Carbon Dioxide (22-29) mmol/L Anion Gap (12-20) BUN (9-16) mg/dL Creatinine (0.5-1.4) mg/dL Estim Creat Clear Calc Estimated GFR Random Glucose (60-115) mg/dL Calcium (8.4-10.2) mg/dL Total Bilirubin (0.0-1.0) mg/dL AST (5-31) U/L ALT (0-31) U/L Alkaline Phosphatase (39-117) U/L Troponin I High Sens (<3.5-17.0) ng/L C-Reactive Protein (< or = 0.50) mg/dL Total Protein (6.5-8.0) g/dL Albumin (3.5-5.0) g/dL COVID-19 ([facility]) Negative (Negative) COVID-19 Clin Com See Note <Rosi Snider NP - Last Filed: 09/27/22 17:20> Independent Interpretation I performed an independent interpretation of an: EKG and CT Scan <Rosi Snider NP - Last Filed: 09/27/22 17:20> Interpretation: I independently reviewed the EKG which shows normal sinus rhythm with a rate of 66, normal WI, normal QRS, normal QT I indepedentely reviewed the CT scan agree with radiologist's report <Rosi Snider NP - Last Filed: 09/27/22 17:20> Radiology Impression Discussion of test interpretation with radiology: I have reviewed the radiologist's reading. <Rosi Snider NP - Last Filed: 09/27/22 17:20> Independent Historian Daughter <Rosi Snider NP - Last Filed: 09/27/22 17:20> Discharge Plan Discharge Clinical Impression: Headache <COURTNEY Link - Last Filed: 09/28/22 11:54> Patient Disposition: Home, Self-Care <COURTNEY Link - Last Filed: 09/28/22 11:54> Instructions: Acute Headache (DC) <COURTNEY Link Last Filed: 09/28/22 11:54> Additional Instructions: Please follow-up with your neurologist Return for any worsening symptoms <COURTNEY Link - Last Filed: 09/28/22 11:54> Prescriptions: No Action sennosides [Natural Senna Laxative] 8.6 mg tablet 8.6 mg PO BEDTIME Qty: 90 3RF ergocalciferol (vitamin D2) 1,250 mcg (50,000 unit) capsule 1,250 mcg PO QWEEK Januvia 25 mg tablet 25 mg PO DAILY loratadine 10 mg tablet 10 mg PO DAILY fluticasone propionate 50 mcg/actuation spray,suspension 1 - 2 spray intranasal DAILY PRN topiramate 100 mg tablet 100 mg PO DAILY amlodipine 10 mg tablet 10 mg PO DAILY aspirin 81 mg tablet,delayed release (DR/EC) 81 mg PO DAILY lisinopril 30 mg tablet 30 mg PO DAILY metformin 500 mg tablet extended release 24 hr 500 mg PO TID pantoprazole 40 mg tablet,delayed release (DR/EC) 40 mg PO BID Qty: 60 3RF Citrucel 500 mg tablet 500 mg PO DAILY Qty: 30 2RF Rx Instructions: take it with full glass of water Creon 12,000-38,000 -60,000 unit capsule,delayed release(DR/EC) 1 cap PO QID Qty: 120 0RF Rx Instructions: administer with meals and/or snacks <COURTNEY Link - Last Filed: 09/28/22 11:54> Referrals: Eri Rodriguez MD [Primary Care Provider] - 1 week <COURTNEY Link - Last Filed: 09/28/22 11:54> Interventions: ED Discharge Assessment Last Done: 09/27/22 18:42 <COURTNEY Link - Last Filed: 09/28/22 11:54> Discharge Date/Time: 09/27/22 18:43 <COURTNEY Link - Last Filed: 09/28/22 11:54>
[2022-09-27 14:45] LABS: MANUAL DIFF FLAG NO
[2022-09-27 14:46] LABS: Basophils Percent Auto 0.2 % (0-2); Eosinophils Percent Auto 0.9 % (0-4); Hematocrit 35.3 % (37.0-47.0); Hemoglobin 11.3 g/dl (12.0-16.0); Lymphocytes Absolute Auto 1.1 X10*3/uL (1.2-4.9); Lymphocytes Percent Auto 24.1 % (20-40); Mean Corpuscular Volume 96.7 fL (80.0-98.0); Monocytes Absolute Auto 0.5 X10*3/uL (0.1-1.2); Monocytes Percent Auto 12.2 % (2-11); Neutrophils Absolute Auto 2.7 x10*3/uL (2.0-8.3); Neutrophils Percent Auto 62.6 % (45-73); Platelet Count 164 X10*3/uL (160-400); Red Blood Count 3.65 X10*6/uL (4.20-5.50); Red Cell Distribution Width 13.9 % (11.0-16.0); White Blood Count 4.4 X10*3/uL (4.8-10.8)
[2022-09-27 14:52] LABS: Prothrombin Time 11.8 SEC (10.0-13.1)
[2022-09-27 14:55] LABS: Partial Thromboplastin Time 29.5 SEC (26.0-36.4)
[2022-09-27 14:58] VITALS: BP 141/73; PULSE 75; RESP 16; O2SAT 100
[2022-09-27 15:01] LABS: Alanine Aminotransferase 11 U/L (0-31); Albumin Level 4.1 g/dL (3.5-5.0); Alkaline Phosphatase 47 U/L (39-117); Anion Gap 13 (12-20); Aspartate Amino Transferase 20 U/L (5-31); Bilirubin Total 0.3 mg/dL (0.0-1.0); Blood Urea Nitrogen 37 mg/dL (9-16); Calcium 9.6 mg/dL (8.4-10.2); Carbon Dioxide 22 mmol/L (22-29); Chloride 111 mmol/L (96-108); Creatinine Clr Calc Pharmacy 28.6; Estimated Glomerular Filt Rate 33; Glucose Random 104 mg/dL (60-115); Potassium 4.1 mmol/L (3.3-5.1); Sodium 142 mmol/L (135-145)
[2022-09-27 15:08] LABS: Troponin-I High Sensitivity 7.9 ng/L (<3.5-17.0)
--- NOTE | 2022-09-27 15:28 | PC.NURSE ---
pt presets to the ED with an episode of dizziness and left sided head pain when awoke this am. vitals stable, neuros grossly intact. labs drawn, IV access established. pt currently stable and going to x-ray at this time. daughter at bedside.
[2022-09-27 15:40] LABS: C Reactive Protein < 0.10 mg/dL (< or = 0.50)
[2022-09-27 15:42] LABS: COVID-19 Test Negative (Negative); IDNOW Serial# BCCEAD1C
[2022-09-27 15:49] VITALS: BP 151/72; PULSE 70; RESP 16; TEMP 37.4; O2SAT 98
[2022-09-27 15:53] VITALS: RESP 14
[2022-09-27] MEDS: Morphine Sulfate 2 MG/ML CARTRIDGE IVPUSH (15:53)
[2022-09-27] MEDS: 0.9 % Sodium Chloride 1,000 ML 999 ML IV (15:53)
[2022-09-27 16:01] LABS: Erythrocyte Sedimentation Rate 8 MM/HR (0-20)
[2022-09-27 18:00] VITALS: BP 158/80; PULSE 70; RESP 16; TEMP 36.8; O2SAT 97
[2022-09-27 18:16] VITALS: BP 190/76; PULSE 67; RESP 19; TEMP 36.9; O2SAT 100
== END 2022-09-27 18:43 | disposition home or self-care (01) ==
PROVIDERS: Nurse Practitioner Family; Physician Assistant; Emergency Provider Emergency Medicine; PCP Internal Medicine
DX: R42 Dizziness and giddiness (principal); R51.9 Headache, unspecified; H53.8 Other visual disturbances; Z79.899 Other long term (current) drug therapy; Z20.822 Contact with and (suspected) exposure to COVID-19; Z20.828 Contact with and (suspected) exposure to other viral communicable diseases
CPT/HCPCS: 36415; 70450; 80053; 84484; 85025; 85610; 85652; 85730; 86140; 87635; 93005; 96361; 96374; 99284; 99285; J2270

== ENCOUNTER 2023-01-02 16:21 | Emergency (ER) | payer MEDICARE, SELFPAY ==
[2023-01-02 16:23] VITALS: BP 130/54; PULSE 77; RESP 18; TEMP 36.2; O2SAT 99; BMI 29.3
--- NOTE | 2023-01-02 16:27 | ED.GENADULT ---
HPI - General Adult General Chief complaint: Abdominal Pain Stated complaint: stomach pain , dizzy, weak Time Seen by Provider: 01/02/23 18:08 Source: patient, family (daughter), RN notes reviewed, old records reviewed and central supply tech Mode of arrival: ambulatory Limitations: language barrier History of Present Illness HPI narrative: 82-year-old female presents for evaluation of weakness. Patient presents with her daughter and reports that she is had increasing depression for the last month. She states that her dog about a month ago she states that she has not been eating or drinking Patient reports that she occasionally has abdominal pain after eating She reports that her legs feel weak when she was trying to do the laundry today. Patient reports that her legs sometimes feel numb and her tongue feels numb Denies any chest pain or shortness of breath No other complaints or concerns at this time Related Data Home Medications Medication Instructions Recorded Confirmed amlodipine 10 mg tablet 10 mg PO DAILY 06/17/21 aspirin 81 mg tablet,delayed 81 mg PO DAILY 06/17/21 release ergocalciferol (vitamin D2) 1,250 1,250 mcg PO QWEEK 06/17/21 mcg (50,000 unit) capsule fluticasone propionate 50 1 - 2 spray intranasal DAILY PRN 06/17/21 mcg/actuation nasal spray,suspension lisinopril 30 mg tablet 30 mg PO DAILY 06/17/21 loratadine 10 mg tablet 10 mg PO DAILY 06/17/21 metformin 500 mg tablet,extended 500 mg PO TID 06/17/21 release 24 hr sitagliptin phosphate 25 mg tablet 25 mg PO DAILY 06/17/21 (Januvia) topiramate 100 mg tablet 100 mg PO DAILY 06/17/21 Previous Rx's Medication Instructions Recorded [id number] 1 cap PO QID #120 caps 06/17/21 12,000-38,000-60,000 unit capsule,delayed rel (Creon) methylcellulose (laxative) 500 mg 500 mg PO DAILY #30 tabs 06/17/21 tablet (Citrucel) pantoprazole 40 mg tablet,delayed 40 mg PO BID #60 tabs 06/17/21 release sennosides 8.6 mg tablet (Natural 8.6 mg PO BEDTIME constipation #90 11/07/21 Senna Laxative) tabs Allergies Allergy/AdvReac Type Severity Reaction Status Date / Time No Known Allergies Allergy Verified 06/17/21 08:50 [No Known Allergies*] Review of Systems Constitutional: Constitutional: Reports as per HPI, Denies chills, Denies fever(s) and Denies headache(s) ENT: Denies headache(s) Cardiovascular: Cardiovascular: Denies chest pain and Denies dyspnea Respiratory: Respiratory: Denies cough and Denies dyspnea Gastrointestinal: Gastrointestinal: Denies constipation and Denies vomiting Genitourinary: Genitourinary: Denies dysuria Neurologic: Denies headache(s) and Denies focal weakness [facility] Past Medical History Medical History Anxiety Asthma Diabetes HTN (hypertension) Social History Social History Alcohol intake: never Smoked in Last 30 Days: No Use of substances other than those prescribed or required for medical reasons: No Advance Directives: No Advance Directives Information Provided: No Physical Exam ED Vital Signs: Vital Signs - 24 hr 01/02/23 16:23 01/02/23 18:00 Temperature 97.2 F 97.7 F Pulse Rate 77 65 Respiratory Rate 18 16 Blood Pressure 130/54 L 120/56 L Pulse Oximetry 99 99 Oxygen Delivery Method Room Air Room Air BMI result Body Mass Index 29.3 Const General: healthy appearing, comfortable, no acute distress, alert and awake Nutritional Appearance: well nourished Orientation/consciousness: patient oriented x3 HENMT Head: Yes normocephalic and Yes atraumatic Eyes Eyelids: Yes eyelids normal Conjunctivae: conjunctivae normal Sclerae: sclerae normal Corneas: corneas normal Pupils: Equal, round and reactive pupils present EOM: EOMs intact bilaterally Neck Neck: Yes full ROM Resp Effort & Inspection: normal respiratory effort, able to speak in complete sentences, no audible wheezes and not labored Auscultation: clear to auscultation bilaterally Cardio Rate: regular rate Rhythm: regular rhythm GI Inspection: No distended Palpation (GI): Soft to palpation, not firm, nontender, no guarding and not rigid Auscultation: normoactive bowel sounds Skin General skin exam: no rashes or lesions noted and elasticity normal Neuro General: patient oriented x3 Cranial nerves: Yes CN's II-XII intact bilaterally, Yes Equal, round and reactive pupils present and Yes Bilaterally intact EOM present Cognition (Neuro): normal cognition Extrem Other: Moving all extremities well without any obvious deformities Course Course Course Narrative: RME performed by Michelle Baldwin PA-C. Patient is a 82 year old assigned female at presenting to the emergency department with abdominal pain. Labs ordered. Patient placed back in the waiting room pending room availability and results. Reevaluation(s) Reevaluation #1: Patient requesting to leave against medical advice. [employer] central supply tech to help discussed. The patient states that she would likely because her other dog is home by himself? it is getting late. ? The patient agreed to stay for 1 more hour to receive IV fluids. She does not wish to speak to the care team about her depression but again has never stated that she was suicidal. The patient's daughter is bedside and I asked her to follow up the patient's PCP pressure Time: 19:28 Medications Administered Generic Name Dose Route Start Last Admin Trade Name Freq PRN Reason Stop Dose Admin Sodium Chloride 1,000 mls @ 999 mls/hr 01/02/23 19:15 01/02/23 19:27 Ns IV 01/02/23 20:15 999 mls/hr .Q1H1M YOHANNES Administration Medical Decision Making Medical Decision Making [facility] Narrative: 82-year-old female presents for evaluation of weakness, decreased appetite for the last month. Patient believes her abdominal pain is ?related to crying. ? Says she states that she has been crying every day for last month. She reports that she is on medication for anxiety but not for depression. Denies any suicidal ideation. The will treat her CHRIS with IV fluids. Your abdominal exam is reassuring, soft, nontender, nondistended. Less likely be a surgical abdomen. Differential Diagnosis Depression Suicidal ideation CHRIS Peptic ulcer disease Lab Data [facility] Lab Attestation statement: I reviewed the patient's lab results. (Mild anemia consistent the patient's baseline with a hemoglobin 11.3 and a hematocrit of 33.9. Sodium and potassium within normal limits, patient has a creatinine of 2.31 with a BUN of 54 which is increased from her baseline for a few months ago.) 01/02/23 16:34 01/02/23 16:34 Labs: Lab Results 01/02/23 01/02/23 01/02/23 Range/Units 16:34 16:34 18:07 WBC 4.7 L (4.8-10.8) X10*3/uL RBC 3.55 L (4.20-5.50) X10*6/uL Hgb 11.3 L (12.0-16.0) g/dl Hct 33.9 L (37.0-47.0) % MCV 95.5 (80.0-98.0) fL MCH 31.8 (27.0-33.0) pg MCHC 33.3 (31.0-35.0) g/dl RDW 13.0 (11.0-16.0) % Plt Count 166 (160-400) X10*3/uL MPV 9.9 (9.4-12.3) fL Immature Gran % (Auto) 0.0 (0.0-0.4) % Neut % (Auto) 52.4 (45-73) % Lymph % (Auto) 37.8 (20-40) % Dawson % (Auto) 9.2 (2-11) % Eos % (Auto) 0.4 (0-4) % Baso % (Auto) 0.2 (0-2) % Lymph # (Auto) 1.8 (1.2-4.9) X10*3/uL Dawson # (Auto) 0.4 (0.1-1.2) X10*3/uL Eos # (Auto) 0.0 (0.0-0.4) X10*3/uL Baso # (Auto) 0.0 (0.0-0.2) X10*3/uL Abs Immat Gran (auto) 0.00 (0.00-0.03) X10*3/uL Absolute Neuts (auto) 2.5 (2.0-8.3) x10*3/uL Absolute Nucleated RBC 0.000 (0.0-0.012) X10*3/uL Nucleated RBC % (auto) 0.0 (0.0-0.2) /100WBC Sodium 140 (135-145) mmol/L Potassium 4.1 (3.3-5.1) mmol/L Chloride 110 H (96-108) mmol/L Carbon Dioxide 18 L (22-29) mmol/L Anion Gap 16 (12-20) BUN 54 H (9-16) mg/dL Creatinine 2.31 H (0.5-1.4) mg/dL Estim Creat Clear Calc 16.4 Estimated GFR 20 Random Glucose 71 (60-115) mg/dL Calcium 9.9 (8.4-10.2) mg/dL Magnesium 2.6 (1.6-2.6) mg/dL Total Bilirubin 0.4 (0.0-1.0) mg/dL AST 15 (5-31) U/L ALT 9 (0-31) U/L Alkaline Phosphatase 38 L (39-117) U/L Total Protein 7.4 (6.5-8.0) g/dL Albumin 4.2 (3.5-5.0) g/dL Urine Color Yellow Urine Appearance Clear Urine pH 5.5 (5.0-9.0) Ur Specific Minerva 1.015 (1.005-1.025) Urine Protein Negative (Neg-Trace) mg/dL Urine Glucose (UA) Negative (Negative) mg/dL Urine Ketones Negative (Negative) mg/dL Urine Blood Negative (Negative) Urine Nitrite Negative (Negative) Ur Leukocyte Esterase Trace H (Negative) Urine RBC 0-2 (0-2) /HPF Urine WBC 0-5 (0-5) /HPF Ur Squamous Epith Cells 6-10 (0-2) /HPF Urine Bacteria Trace (None Seen) Hyaline Casts 0-2 (0-2) /LPF Discharge Plan Discharge Clinical Impression: CHRIS (acute kidney injury), Depression Patient Disposition: Home, Self-Care Instructions: Acute Kidney Injury (DC), Depression (ED) Additional Instructions: You have a mild CHRIS which is likely due to decreased p.o. intake You need to drink more fluids at home Follow-up with your primary doctor regarding your acute kidney injury You were treated with IV fluids You also need to follow-up with your primary doctor regarding your depression You requested to be discharged prior to speaking to the care team today Prescriptions: No Action sennosides [Natural Senna Laxative] 8.6 mg tablet 8.6 mg PO BEDTIME Qty: 90 3RF ergocalciferol (vitamin D2) 1,250 mcg (50,000 unit) capsule 1,250 mcg PO QWEEK Januvia 25 mg tablet 25 mg PO DAILY loratadine 10 mg tablet 10 mg PO DAILY fluticasone propionate 50 mcg/actuation spray,suspension 1 - 2 spray intranasal DAILY PRN topiramate 100 mg tablet 100 mg PO DAILY amlodipine 10 mg tablet 10 mg PO DAILY aspirin 81 mg tablet,delayed release (DR/EC) 81 mg PO DAILY lisinopril 30 mg tablet 30 mg PO DAILY metformin 500 mg tablet extended release 24 hr 500 mg PO TID pantoprazole 40 mg tablet,delayed release (DR/EC) 40 mg PO BID Qty: 60 3RF Citrucel 500 mg tablet 500 mg PO DAILY Qty: 30 2RF Rx Instructions: take it with full glass of water Creon 12,000-38,000 -60,000 unit capsule,delayed release(DR/EC) 1 cap PO QID Qty: 120 0RF Rx Instructions: administer with meals and/or snacks
[2023-01-02 18:00] VITALS: BP 120/56; PULSE 65; RESP 16; TEMP 36.5; O2SAT 99
--- NOTE | 2023-01-02 19:31 | PC.NURSE ---
Assumed care of pt. probe operator and provider at bedside. With abnormal labs, plan to start IV and IVF to improve hydration status. VS stable at this time.
[2023-01-02 19:52] VITALS: BP 116/62; PULSE 70; RESP 18; O2SAT 100
== END 2023-01-02 20:16 | disposition home or self-care (01) ==
PROVIDERS: Emergency Provider Emergency Medicine; PCP Internal Medicine
DX: N17.9 Acute kidney failure, unspecified (principal); F32.A Depression, unspecified; I10 Essential (primary) hypertension; Z79.899 Other long term (current) drug therapy
CPT/HCPCS: 36415; 80053; 81001; 83735; 85025; 96360; 99284

== ENCOUNTER 2023-02-01 10:41 | Emergency (ER) | payer MEDICARE, SELFPAY ==
[2023-02-01 10:47] VITALS: BP 119/54; PULSE 73; RESP 15; TEMP 36.2; O2SAT 100; BMI 23.7
== END 2023-02-01 16:47 | disposition left against medical advice (07) ==
LOC: HO.ED 16:07
PROVIDERS: Emergency Provider Emergency Medicine; PCP Internal Medicine
DX: Z04.3 Encounter for examination and observation following other accident (principal); M54.50 Low back pain, unspecified
CPT/HCPCS: 99281

== ENCOUNTER 2023-02-24 09:17 | Outpatient (REF) | payer OTHER, SELFPAY ==
--- NOTE | ~2023-02-24 | XR_ITS ---
EXAMINATION: XR LUMBAR SPINE XR HIP, RIGHT XR HIP, LEFT CLINICAL INFORMATION: Fall with back and hip pain. COMPARISON: CT abdomen/pelvis 06/08/2018, lumbar spine 03/10/2018. TECHNIQUE: 3 views lumbar spine, 2 views each hip. FINDINGS: LUMBAR SPINE: Degenerative changes are present in the lumbar spine most marked at L4-L5 with disc space narrowing and endplate sclerosis. There is a new compression fracture involving the T12 vertebral body and to a lesser extent the L1 vertebral body compared to 2018. Exact age is indeterminate. No bony destructive lesions are seen. Surgical clips are present in the gallbladder fossa. BILATERAL HIPS: No significant bone, joint or soft tissue abnormality is seen involving the hips. XR/XR hip LT min 2V IMPRESSION: Degenerative changes in the lumbar spine with new compression fractures involving T12 and L1. Exact age is indeterminate. MRI could be performed to determine if there is edema if this is clinically important.
--- NOTE | ~2023-02-24 | XR_ITS ---
EXAMINATION: XR LUMBAR SPINE XR HIP, RIGHT XR HIP, LEFT CLINICAL INFORMATION: Fall with back and hip pain. COMPARISON: CT abdomen/pelvis 06/08/2018, lumbar spine 03/10/2018. TECHNIQUE: 3 views lumbar spine, 2 views each hip. FINDINGS: LUMBAR SPINE: Degenerative changes are present in the lumbar spine most marked at L4-L5 with disc space narrowing and endplate sclerosis. There is a new compression fracture involving the T12 vertebral body and to a lesser extent the L1 vertebral body compared to 2018. Exact age is indeterminate. No bony destructive lesions are seen. Surgical clips are present in the gallbladder fossa. BILATERAL HIPS: No significant bone, joint or soft tissue abnormality is seen involving the hips. XR/XR hip RT min 2V IMPRESSION: Degenerative changes in the lumbar spine with new compression fractures involving T12 and L1. Exact age is indeterminate. MRI could be performed to determine if there is edema if this is clinically important.
--- NOTE | ~2023-02-24 | XR_ITS ---
EXAMINATION: XR LUMBAR SPINE XR HIP, RIGHT XR HIP, LEFT CLINICAL INFORMATION: Fall with back and hip pain. COMPARISON: CT abdomen/pelvis 06/08/2018, lumbar spine 03/10/2018. TECHNIQUE: 3 views lumbar spine, 2 views each hip. FINDINGS: LUMBAR SPINE: Degenerative changes are present in the lumbar spine most marked at L4-L5 with disc space narrowing and endplate sclerosis. There is a new compression fracture involving the T12 vertebral body and to a lesser extent the L1 vertebral body compared to 2018. Exact age is indeterminate. No bony destructive lesions are seen. Surgical clips are present in the gallbladder fossa. BILATERAL HIPS: No significant bone, joint or soft tissue abnormality is seen involving the hips. XR/XR lumbar spine 2-3V IMPRESSION: Degenerative changes in the lumbar spine with new compression fractures involving T12 and L1. Exact age is indeterminate. MRI could be performed to determine if there is edema if this is clinically important.
== END 2023-02-24 09:18 | disposition home or self-care (01) ==
LOC: HO.XRAY 09:17
PROVIDERS: PCP Internal Medicine; Visit Provider Internal Medicine
DX: M54.50 Low back pain, unspecified (principal); M25.551 Pain in right hip; M25.552 Pain in left hip
CPT/HCPCS: 72100; 73502

== ENCOUNTER 2023-03-15 12:06 | Outpatient (REF) | payer OTHER, SELFPAY ==
[2023-03-15 13:20] LABS: MANUAL DIFF FLAG NO
[2023-03-15 13:41] LABS: Basophils Percent Auto 0.4 % (0-2); Eosinophils Percent Auto 0.4 % (0-4); Hematocrit 32.8 % (37.0-47.0); Hemoglobin 10.7 g/dl (12.0-16.0); Imm Gran Abs Auto 0.02 X10*3/uL (0.00-0.03); Imm Gran Pct Auto 0.4 % (0.0-0.4); Lymphocytes Absolute Auto 1.3 X10*3/uL (1.2-4.9); Mean Corpuscular HGB Conc 32.6 g/dl (31.0-35.0); Mean Corpuscular Hemoglobin 31.2 pg (27.0-33.0); Mean Corpuscular Volume 95.6 fL (80.0-98.0); Mean Platelet Volume 10.2 fL (9.4-12.3); Monocytes Absolute Auto 0.4 X10*3/uL (0.1-1.2); Monocytes Percent Auto 9.2 % (2-11); Neutrophils Absolute Auto 2.9 x10*3/uL (2.0-8.3); Neutrophils Percent Auto 62.6 % (45-73); Platelet Count 188 X10*3/uL (160-400); Red Blood Count 3.43 X10*6/uL (4.20-5.50); Red Cell Distribution Width 13.3 % (11.0-16.0); White Blood Count 4.7 X10*3/uL (4.8-10.8)
[2023-03-15 13:56] LABS: Anion Gap 16 (12-20); Blood Urea Nitrogen 47 mg/dL (9-16); Calcium 10.6 mg/dL (8.4-10.2); Carbon Dioxide 21 mmol/L (22-29); Chloride 103 mmol/L (96-108); Estimated Glomerular Filt Rate 17; Glucose Random 229 mg/dL (60-115); Potassium 3.8 mmol/L (3.3-5.1); Sodium 136 mmol/L (135-145)
== END 2023-03-15 12:07 | disposition home or self-care (01) ==
LOC: HO.HHCL 12:06
PROVIDERS: Visit Provider Internal Medicine
DX: N17.9 Acute kidney failure, unspecified (principal); N18.32 Chronic kidney disease, stage 3b; D63.1 Anemia in chronic kidney disease
CPT/HCPCS: 36415; 80048; 85025

== ENCOUNTER 2023-04-19 10:34 | Outpatient (REF) | payer OTHER, SELFPAY ==
--- NOTE | ~2023-04-19 | MR_ITS ---
EXAMINATION: MR LUMBAR SPINE WITHOUT CONTRAST CLINICAL INFORMATION: Compression fracture of L1. COMPARISON: Lumbar spine radiographs 02/24/2023 TECHNIQUE: MRI of the lumbar spine was obtained using routine sequences without contrast. FINDINGS: There is an acute edematous compression fracture of L1 without the 50% height loss and minimal retropulsion. No associated narrowing the spinal canal. No additional compression fractures seen. There is minimal anterolisthesis of L4 on L5 with alignment otherwise preserved. Moderate disc height loss is seen at L5-S1. There is a rounded focus of STIR hyperintensity in the L5 vertebral body measuring up to 8 mm. The visualized paraspinal muscles and intra-abdominal and pelvic contents are within normal limits. SPINAL LEVELS: L1-L2: Disc bulging with small central protrusion and mild retropulsion. No spinal canal stenosis. No neural foraminal stenosis. L2-L3: Disc bulging with central annular fissuring. No spinal canal stenosis. Mild right neural foraminal stenosis. L3-L4: Disc bulging with central annular fissuring and mild facet arthropathy. No spinal canal or neural foraminal stenosis. L4-L5: Disc bulging with ligamentum flavum infolding and moderate to severe facet arthropathy. Mild spinal canal stenosis. Bulging disc extends into the neural foramina resulting in mild compression of the exiting left more than right L4 nerve roots. L5-S1: Disc bulging with moderate facet arthropathy. No spinal canal stenosis. Mild compression of the exiting left more than right L5 nerve roots. S1-S2: Hypoplastic disc. No spinal canal or neural foraminal stenosis. MR/MR lumbar spine wo con IMPRESSION: 1. Acute edematous compression fracture of L1 with 50% height loss and minimal retropulsion. No spinal canal stenosis. 2. Nonspecific 8 mm rounded focus of STIR hyperintensity in the L5 vertebral body. This could represent an atypical (lipid poor) hemangioma. Consider follow-up MRI in 3-6 months to ensure stability. 3. Multilevel degenerative spondylosis without significant narrowing of the spinal canal. Mild compression of the exiting left more than right L4 and L5 nerve roots.
== END 2023-04-19 10:35 | disposition home or self-care (01) ==
LOC: HO.MRI 10:34
PROVIDERS: PCP Internal Medicine; Visit Provider Internal Medicine
DX: S32.010A Wedge compression fracture of first lumbar vertebra, initial encounter for closed fracture (principal)
CPT/HCPCS: 72148

== ENCOUNTER 2023-04-26 10:32 | Inpatient (IN) | payer OTHER, SELFPAY ==
--- NOTE | ~2023-04-26 | CT_ITS ---
EXAMINATION: CT ABDOMEN AND PELVIS WITHOUT CONTRAST CLINICAL INFORMATION: Abdominal pain. COMPARISON: MRI lumbar spine 04/19/2023 TECHNIQUE: Multidetector volumetric imaging was performed from the superior aspect of the liver through the pubic symphysis. Sagittal and coronal reformatted images were obtained on the technologist's workstation. This CT examination was performed using dose optimization techniques as appropriate, variously including the following: *Automated exposure control *Adjustment of mA and/or kV according to patient size (this includes techniques or standardized protocols for targeted exams where dose is matched to indication/reason for exam; i.e. extremities or head) *Use of iterative reconstruction technique DLP: 536 mGy-cm FINDINGS: LUNG BASES: No pleural or pericardial effusion. LIVER, GALLBLADDER, AND BILIARY TREE: Nodular surface contour of the liver. No biliary ductal dilatation is present. The gallbladder is surgically absent. PANCREAS: No ductal dilatation. SPLEEN: Not enlarged. ADRENAL GLANDS: No adrenal mass KIDNEYS AND URETERS: The kidneys are symmetric in size and enhancement. No hydronephrosis or perinephric stranding. BLADDER: Mild circumferential bladder wall thickening. GASTROINTESTINAL TRACT: Small and large bowel loops are of normal caliber. No small bowel obstruction. Appendix is within normal limits. There is diverticular disease of the colon. ABDOMINAL WALL: No significant hernia is appreciated. LYMPH NODES: No bulky abdominal or pelvic lymphadenopathy. VASCULAR: Unremarkable. PELVIC VISCERA: Unremarkable. OSSEOUS STRUCTURES: Moderate height loss of L1 vertebral body previously characterized. CT/CT abdomen pelvis wo IV con IMPRESSION: No acute abnormality in the abdomen or pelvis.
--- NOTE | ~2023-04-26 | CT_ITS ---
CT HEAD WITHOUT CONTRAST CLINICAL INFORMATION: Fall/weakness. COMPARISON: Head CT 09/27/2022. TECHNIQUE: Contiguous axial imaging was performed from the skull base to vertex without intravenous administration of contrast. This CT examination was performed using dose optimization techniques as appropriate, variously including the following: *Automated exposure control *Adjustment of mA and/or kV according to patient size (this includes techniques or standardized protocols for targeted exams where dose is matched to indication/reason for exam; i.e. 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 Stable arachnoid cyst within the anterior aspect of the left middle cranial fossa. There is no intracranial hemorrhage, hydrocephalus, extra-axial surface collection, midline shift, or other herniation pattern. Culver to white matter differentiation is diffusely maintained without evidence of an evolved acute territorial infarct. The basilar cisterns are preserved. There is a multiloculated cyst within the midline tongue that is likely similar to the CTA head and neck dated 11/25/2020. Major differential considerations include a dermoid or a foregut duplication cyst. This can be more definitively assessed with MRI as clinically indicated. No acute osseous abnormality. Fluid level within the right sphenoid sinus which exhibits sclerotic wall thickening as the sequela of chronic sinusitis. CT/CT head/brain wo IV con IMPRESSION: - No acute intracranial abnormality. Stable arachnoid cyst within the anterior aspect of the left middle cranial fossa. 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 - There is a multiloculated cyst within the midline tongue that is likely similar to the CTA head and neck dated 11/25/2020. Major differential considerations include a dermoid or a foregut duplication cyst. This can be more definitively assessed with MRI as clinically indicated. - Fluid level within the right sphenoid sinus which exhibits sclerotic wall thickening as the sequela of chronic sinusitis.
[2023-04-26 10:35] VITALS: BP 96/60; PULSE 90; RESP 18; TEMP 36.6; BMI 27.4
[2023-04-26] MEDS: Ondansetron ODT 4 MG TAB.RAPDIS TRANSLINGU (10:44)
--- NOTE | 2023-04-26 10:55 | ED.ABDPAIN ---
HPI - Abdominal Pain General Chief Complaint: Abdominal Pain Stated Complaint: abd pain vomiting Time Seen by Provider: 04/26/23 10:55 Source: patient, family and diplomatic interpreter/translator Mode of arrival: ambulatory Limitations: language barrier (Vietnamese-speaking, diplomatic interpreter/translator used) History of Present Illness HPI narrative: This is a 82-year-old Vietnamese-speaking female, with a past medical history of hypothyroidism, hypertension, hyper cholesterolemia, cerebral aneurysm, GERD, cirrhosis, and diabetes presenting to the emergency department, accompanied by her daughter, Monique, with complaints intermittent abdominal pain x 2 weeks. Patient had a unwitnessed fall 2 weeks ago - patient reports that this was a mechanical fall after tripping over a mop. She was seen by her primary care physician who ordered an MRI of the lumbar spine which showed acute edematous compression fracture of L1 with 50% height loss and minimal retropulsion. Patient states that since this fall she has had intermittent abdominal pain with associated nausea and vomiting. Also endorsing weakness since the fall. She states that she now needs more assistance while she is walking given generalized weakness. She has had intermittent diarrhea. No other complaints or concerns at this time. MD elicited complaint: abdominal pain Pertinent past history: none Onset (ago): week(s) Pain Consistency: intermittent and now resolved Location: diffuse Severity: moderate Quality: cramping Radiation: none Migration to: no migration Exacerbating factors: nothing Relieving factors: nothing Associated symptoms: nausea, vomiting and diarrhea Related Data Home Medications Medication Instructions Recorded Confirmed amlodipine 10 mg tablet 10 mg PO DAILY 06/17/21 aspirin 81 mg tablet,delayed 81 mg PO DAILY 06/17/21 release ergocalciferol (vitamin D2) 1,250 1,250 mcg PO QWEEK 06/17/21 mcg (50,000 unit) capsule fluticasone propionate 50 1 - 2 spray intranasal DAILY PRN 06/17/21 mcg/actuation nasal spray,suspension lisinopril 30 mg tablet 30 mg PO DAILY 06/17/21 loratadine 10 mg tablet 10 mg PO DAILY 06/17/21 metformin 500 mg tablet,extended 500 mg PO TID 06/17/21 release 24 hr sitagliptin phosphate 25 mg tablet 25 mg PO DAILY 06/17/21 (Januvia) topiramate 100 mg tablet 100 mg PO DAILY 06/17/21 Previous Rx's Medication Instructions Recorded uafwfi-jtveocjt-wuhdiey 1 cap PO QID #120 caps 06/17/21 12,000-38,000-60,000 unit capsule,delayed rel (Creon) methylcellulose (laxative) 500 mg 500 mg PO DAILY #30 tabs 06/17/21 tablet (Citrucel) pantoprazole 40 mg tablet,delayed 40 mg PO BID #60 tabs 06/17/21 release sennosides 8.6 mg tablet (Natural 8.6 mg PO BEDTIME constipation #90 01/08/23 Senna Laxative) tabs Allergies Allergy/AdvReac Type Severity Reaction Status Date / Time No Known Allergies Allergy Verified 06/17/21 08:50 [No Known Allergies*] Review of Systems Review of Systems Yes all other systems are reviewed and are negative Constitutional: Reports as per [facility] Past Medical History Attestation statement: The following information was validated with the patient. Medical History Anxiety Diabetes HTN (hypertension) Asthma Social History Social History Unable to assess alcohol history related to: Unknown Alcohol intake: never Smoked in Last 30 Days: No Use of substances other than those prescribed or required for medical reasons: No Advance Directives: No Advance Directives Information Provided: Yes Physical Exam ED Vital Signs: Vital Signs - 24 hr 04/26/23 10:35 04/26/23 13:05 Temperature 97.8 F Pulse Rate 90 85 Respiratory Rate 18 13 Blood Pressure 96/60 121/57 L Pulse Oximetry 97 Oxygen Delivery Method Room Air BMI result Body Mass Index 27.4 Const General: cooperative, comfortable and no acute distress Orientation/consciousness: patient oriented x3 Limitations: no limitations [facility] Head: Yes normal to inspection, Yes normocephalic and Yes atraumatic Ears: hearing grossly normal bilaterally General nose exam: Normal external nose present Face and sinus: Yes normal facial exam Mouth: Normal oral and palatal mucosa present, oropharynx normal and moist mucous membranes Throat: Yes posterior oropharynx normal Eyes General: appearance normal, both eyes and all related structures Eyelids: Yes eyelids normal Conjunctivae: conjunctivae normal Sclerae: sclerae normal Pupils: Equal, round and reactive pupils present EOM: EOMs intact bilaterally Neck Neck: Yes normal visual inspection, Yes full ROM and Yes no lymphadenopathy Lymphatic: no lymphadenopathy noted Chest Chest palpation & inspection: normal inspection of the chest Resp Effort & Inspection: normal respiratory effort and able to speak in complete sentences Auscultation: clear to auscultation bilaterally, no crackles, no rales, no rhonchi and no wheezes Cardio Rate: regular rate Rhythm: regular rhythm Heart sounds: S1 normal heart sound present and S2 normal heart sound present GI Other: Abdomen is nontender, non distended Inspection: Yes normal to inspection Skin General skin exam: no rashes or lesions noted Trauma: no lacerations or abrasions Wounds: no wounds Neuro General: patient oriented x3 and moves all extremities Cranial nerves: Yes CN's II-XII intact bilaterally, Yes Equal, round and reactive pupils present, Yes Normal facial strength present and Yes Ability to bilaterally elevate shoulders present Cognition (Neuro): normal cognition Motor exam (neuro): 5/5 motor strength present throughout and Pronator motor function not present Extrem General: Yes normal to inspection Right upper extremity: normal to inspection Left upper extremity: normal to inspection Right lower extremity: normal to inspection Left lower extremity: normal to inspection Course Reevaluation(s) Reevaluation #1: Critical calcium level elevated at 14.1. Creatinine 3.36, BUN 65. Difficult creatinine lives around 1.2-1.5. Patient meeting qualifications for acute kidney injury. Will hydrate with IV fluids, will obtain CT abdomen to rule out obstructive uropathy. Will also obtain CT head given increased weakness and unwitnessed fall 2 weeks ago. Discussed findings with daughter, Monique,who understands and agree with this plan, she may have to leave the emergency room, her number is #[phone]. PTH, TSH, vitamin-D, urine creatinine, and urine sodium ordered. Time: 12:16 Reevaluation #2: CT abdomen and pelvis shows no acute abnormality. Of note, patient has mild circumferential bladder wall thickening. 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 There is moderate height loss of the L1 vertebral body. CT head showing no acute intracranial abnormality. There is a stable arachnoid cyst within the anterior aspect of the left middle cranial fossa. A left MCA bifurcation aneurysm is better seen on the CTA of the head and neck dated 01/25/2021. There is also a multi loculated cyst within the midline tongue that is likely similar to the CTA head and neck dated 11/25/2020. Chronic sinusitis also seen. Given patient's creatinine, and hypercalcemia, patient needs to be admitted for further workup. Repeat chemistry was ordered. Will consult with hospitalist for further evaluation and treatment. Time: 14:46 Reevaluation #3: Case discussed with hospitalist, Wendi Pierce, patient will be admitted for CHRIS and hypercalcemia. I called and spoke to daughter, Monique, informed of hospitalist admission and no acute findings on CT abdomen Medical Decision Making Medical Decision Making [facility] Narrative: 82-year-old female with a past medical history of hypothyroidism, hypertension, hyper cholesterolemia, cerebral aneurysm, GERD, cirrhosis, and diabetes presenting to the emergency department for evaluation of intermittent abdominal pain, decreased appetite, nausea, and intermittent vomiting. On arrival, blood pressure 96/60, all other vital signs within normal limits. Abdomen is soft, nontender, nondistended. Differential diagnoses include acute kidney injury, small-bowel obstruction, gastritis, gastroenteritis. Plan: Labs, UA, EKG Differential Diagnosis Differential Diagnoses: The differential diagnosis associated with the presentation includes See above Admission/Observation Consideration of admission/observation: Escalation of care including admission/observation considered Lab Data [facility] Lab Attestation statement: I reviewed the patient's lab results. 04/26/23 10:55 04/26/23 14:24 Labs: Lab Results 04/26/23 04/26/23 04/26/23 Range/Units 10:55 11:52 12:42 WBC 5.1 (4.8-10.8) X10*3/uL RBC 3.60 L (4.20-5.50) X10*6/uL Hgb 11.6 L (12.0-16.0) g/dl Hct 34.6 L (37.0-47.0) % MCV 96.1 (80.0-98.0) fL MCH 32.2 (27.0-33.0) pg MCHC 33.5 (31.0-35.0) g/dl RDW 13.5 (11.0-16.0) % Plt Count 217 (160-400) X10*3/uL MPV 10.1 (9.4-12.3) fL Immature Gran % (Auto) 0.2 (0.0-0.4) % Neut % (Auto) 70.3 (45-73) % Lymph % (Auto) 19.5 L (20-40) % [place] % (Auto) 9.4 (2-11) % Eos % (Auto) 0.4 (0-4) % Baso % (Auto) 0.2 (0-2) % Lymph # (Auto) 1.0 L (1.2-4.9) X10*3/uL [place] # (Auto) 0.5 (0.1-1.2) X10*3/uL Eos # (Auto) 0.0 (0.0-0.4) X10*3/uL Baso # (Auto) 0.0 (0.0-0.2) X10*3/uL Abs Immat Gran (auto) 0.01 (0.00-0.03) X10*3/uL Absolute Neuts (auto) 3.6 (2.0-8.3) x10*3/uL Absolute Nucleated RBC 0.000 (0.0-0.012) X10*3/uL Nucleated RBC % (auto) 0.0 (0.0-0.2) /100WBC Sodium 140 (135-145) mmol/L Potassium 4.2 (3.3-5.1) mmol/L Chloride 104 (96-108) mmol/L Carbon Dioxide 23 (22-29) mmol/L Anion Gap 17 (12-20) BUN 65 H (9-16) mg/dL Creatinine 3.36 H (0.5-1.4) mg/dL Estim Creat Clear Calc 13.7 Estimated GFR 13 Random Glucose 226 H (60-115) mg/dL Calcium 14.1 H* D (8.4-10.2) mg/dL Total Bilirubin 0.6 (0.0-1.0) mg/dL Direct Bilirubin 0.2 (0.0-0.5) mg/dL AST 21 (5-31) U/L ALT 13 (0-31) U/L Alkaline Phosphatase 40 (39-117) U/L Total Protein 8.2 H (6.5-8.0) g/dL Albumin 4.5 (3.5-5.0) g/dL 25-OH Vitamin D Total 68.0 (>30) ng/mL TSH 2.07 (0.32-4.0) uIU/mL Urine Color Dark Yellow Urine Appearance Cloudy Urine pH 6.5 (5.0-9.0) Ur Specific [place] 1.020 (1.005-1.025) Urine Protein 30 (1+) H (Neg-Trace) mg/dL Urine Glucose (UA) Negative (Negative) mg/dL Urine Ketones Trace (Negative) mg/dL Urine Blood Negative (Negative) Urine Nitrite Negative (Negative) Ur Leukocyte Esterase Small (1+) H (Negative) Urine RBC 0-2 (0-2) /HPF Urine WBC 11-20 H (0-5) /HPF Ur Squamous Epith Cells >20 (0-2) /HPF Urine Bacteria 1+ (None Seen) Hyaline Casts 3-5 (0-2) /LPF 04/26/23 Range/Units 14:24 WBC (4.8-10.8) X10*3/uL RBC (4.20-5.50) X10*6/uL Hgb (12.0-16.0) g/dl Hct (37.0-47.0) % MCV (80.0-98.0) fL MCH (27.0-33.0) pg MCHC (31.0-35.0) g/dl RDW (11.0-16.0) % Plt Count (160-400) X10*3/uL MPV (9.4-12.3) fL Immature Gran % (Auto) (0.0-0.4) % Neut % (Auto) (45-73) % Lymph % (Auto) (20-40) % [place] % (Auto) (2-11) % Eos % (Auto) (0-4) % Baso % (Auto) (0-2) % Lymph # (Auto) (1.2-4.9) X10*3/uL [place] # (Auto) (0.1-1.2) X10*3/uL Eos # (Auto) (0.0-0.4) X10*3/uL Baso # (Auto) (0.0-0.2) X10*3/uL Abs Immat Gran (auto) (0.00-0.03) X10*3/uL Absolute Neuts (auto) (2.0-8.3) x10*3/uL Absolute Nucleated RBC (0.0-0.012) X10*3/uL Nucleated RBC % (auto) (0.0-0.2) /100WBC Sodium 142 (135-145) mmol/L Potassium 4.1 (3.3-5.1) mmol/L Chloride 110 H (96-108) mmol/L Carbon Dioxide 24 (22-29) mmol/L Anion Gap 12 (12-20) BUN 61 H (9-16) mg/dL Creatinine 2.98 H (0.5-1.4) mg/dL Estim Creat Clear Calc 15.5 Estimated GFR 15 Random Glucose 78 (60-115) mg/dL Calcium 12.5 H* D (8.4-10.2) mg/dL Total Bilirubin 0.4 (0.0-1.0) mg/dL Direct Bilirubin (0.0-0.5) mg/dL AST 18 (5-31) U/L ALT 11 (0-31) U/L Alkaline Phosphatase 33 L (39-117) U/L Total Protein 6.7 (6.5-8.0) g/dL Albumin 3.7 (3.5-5.0) g/dL 25-OH Vitamin D Total (>30) ng/mL TSH (0.32-4.0) uIU/mL Urine Color Urine Appearance Urine pH (5.0-9.0) Ur Specific [place] (1.005-1.025) Urine Protein (Neg-Trace) mg/dL Urine Glucose (UA) (Negative) mg/dL Urine Ketones (Negative) mg/dL Urine Blood (Negative) Urine Nitrite (Negative) Ur Leukocyte Esterase (Negative) Urine RBC (0-2) /HPF Urine WBC (0-5) /HPF Ur Squamous Epith Cells (0-2) /HPF Urine Bacteria (None Seen) Hyaline Casts (0-2) /LPF Radiology Impression Discussion of test interpretation with radiology: I have reviewed the radiologist's reading. External Record Review External record reviewed: Inpatient record, Office record, Outpatient record, Prior outpatient labs, Prior outpatient radiology, Primary care record and Outside ED record Medications Administered Discontinued Medications Generic Name Dose Route Start Last Admin Trade Name Freq PRN Reason Stop Dose Admin Sodium Chloride 1,000 mls @ 999 mls/hr 04/26/23 11:56 04/26/23 12:43 Ns IV 04/26/23 12:56 999 mls/hr .Q1H1M ONE Administration Ondansetron HCl 4 mg 04/26/23 10:42 04/26/23 10:44 Ondansetron Odt 4 Mg Tab.Katdis FILIPEU 04/26/23 10:43 4 mg ONCE ONE Administration Discharge Plan Discharge Patient Disposition: Admitted As Inpatient Prescriptions: No Action sennosides [Natural Senna Laxative] 8.6 mg tablet 8.6 mg PO BEDTIME Qty: 90 3RF ergocalciferol (vitamin D2) 1,250 mcg (50,000 unit) capsule 1,250 mcg PO QWEEK Januvia 25 mg tablet 25 mg PO DAILY loratadine 10 mg tablet 10 mg PO DAILY fluticasone propionate 50 mcg/actuation spray,suspension 1 - 2 spray intranasal DAILY PRN topiramate 100 mg tablet 100 mg PO DAILY amlodipine 10 mg tablet 10 mg PO DAILY aspirin 81 mg tablet,delayed release (DR/EC) 81 mg PO DAILY lisinopril 30 mg tablet 30 mg PO DAILY metformin 500 mg tablet extended release 24 hr 500 mg PO TID pantoprazole 40 mg tablet,delayed release (DR/EC) 40 mg PO BID Qty: 60 3RF Citrucel 500 mg tablet 500 mg PO DAILY Qty: 30 2RF Rx Instructions: take it with full glass of water Creon 12,000-38,000 -60,000 unit capsule,delayed release(DR/EC) 1 cap PO QID Qty: 120 0RF Rx Instructions: administer with meals and/or snacks
[2023-04-26 10:59] LABS: MANUAL DIFF FLAG NO
[2023-04-26 11:02] LABS: Basophils Percent Auto 0.2 % (0-2); Eosinophils Percent Auto 0.4 % (0-4); Hematocrit 34.6 % (37.0-47.0); Hemoglobin 11.6 g/dl (12.0-16.0); Imm Gran Abs Auto 0.01 X10*3/uL (0.00-0.03); Imm Gran Pct Auto 0.2 % (0.0-0.4); Lymphocytes Percent Auto 19.5 % (20-40); Mean Corpuscular HGB Conc 33.5 g/dl (31.0-35.0); Mean Corpuscular Hemoglobin 32.2 pg (27.0-33.0); Mean Corpuscular Volume 96.1 fL (80.0-98.0); Mean Platelet Volume 10.1 fL (9.4-12.3); Monocytes Absolute Auto 0.5 X10*3/uL (0.1-1.2); Monocytes Percent Auto 9.4 % (2-11); Neutrophils Absolute Auto 3.6 x10*3/uL (2.0-8.3); Neutrophils Percent Auto 70.3 % (45-73); Platelet Count 217 X10*3/uL (160-400); Red Cell Distribution Width 13.5 % (11.0-16.0); White Blood Count 5.1 X10*3/uL (4.8-10.8)
[2023-04-26 11:29] LABS: Alanine Aminotransferase 13 U/L (0-31); Albumin Level 4.5 g/dL (3.5-5.0); Alkaline Phosphatase 40 U/L (39-117); Anion Gap 17 (12-20); Aspartate Amino Transferase 21 U/L (5-31); Bilirubin Direct 0.2 mg/dL (0.0-0.5); Bilirubin Total 0.6 mg/dL (0.0-1.0); Blood Urea Nitrogen 65 mg/dL (9-16); Carbon Dioxide 23 mmol/L (22-29); Chloride 104 mmol/L (96-108); Creatinine Clr Calc Pharmacy 13.7; Estimated Glomerular Filt Rate 13; Glucose Random 226 mg/dL (60-115); Potassium 4.2 mmol/L (3.3-5.1); Sodium 140 mmol/L (135-145); Total Protein 8.2 g/dL (6.5-8.0)
[2023-04-26 11:48] LABS: Calcium 14.1 mg/dL (8.4-10.2)
--- NOTE | 2023-04-26 11:49 | ECG_ITS ---
Test Reason : HYPERGLYCEMIA Blood Pressure : / mmHG Vent. Rate : 080 BPM Atrial Rate : 080 BPM P-R Int : 162 ms QRS Dur : 078 ms QT Int : 364 ms P-R-T Axes : 065 023 061 degrees QTc Int : 419 ms Normal sinus rhythm Normal ECG When compared with ECG of 27-SEP-2022 14:33, No significant change was found Referred By: Velma Bullock Electronically Signed By:JERRICA LAUREN MD
[2023-04-26 12:01] LABS: Appearance Urine Cloudy; Color Urine Dark Yellow; Glucose Urine UA Negative (Negative); Leukocyte Esterase Urine Small (1+) (Negative); Nitrite Urine Negative (Negative); PH 6.5 (5.0-9.0); UMIC TRIGGER UACC YES; Urine Blood Negative (Negative); Urine Ketones Trace mg/dL (Negative); Urine Protein 30 (1+) mg/dL (Neg-Trace)
[2023-04-26 12:14] LABS: Bacteria Urine 1+ (None Seen); RBC Urine 0-2 /HPF (0-2); Squamous Epithelial Cell Urine >20 /HPF (0-2); UACC Culture Trigger YES
[2023-04-26] MEDS: 0.9 % Sodium Chloride 1,000 ML 999 ML IV (12:43)
[2023-04-26 13:05] VITALS: BP 121/57; PULSE 85; RESP 13; O2SAT 97
[2023-04-26 13:27] LABS: TSH reflex Free T4 2.07 uIU/mL (0.32-4.0)
[2023-04-26 14:52] LABS: Alanine Aminotransferase 11 U/L (0-31); Albumin Level 3.7 g/dL (3.5-5.0); Alkaline Phosphatase 33 U/L (39-117); Anion Gap 12 (12-20); Aspartate Amino Transferase 18 U/L (5-31); Bilirubin Total 0.4 mg/dL (0.0-1.0); Blood Urea Nitrogen 61 mg/dL (9-16); Calcium 12.5 mg/dL (8.4-10.2); Carbon Dioxide 24 mmol/L (22-29); Chloride 110 mmol/L (96-108); Creatinine Clr Calc Pharmacy 15.5; Estimated Glomerular Filt Rate 15; Glucose Random 78 mg/dL (60-115); Potassium 4.1 mmol/L (3.3-5.1); Sodium 142 mmol/L (135-145); Total Protein 6.7 g/dL (6.5-8.0)
--- NOTE | 2023-04-26 15:31 | PM.IMHP ---
History of Present Illness Date of Service: 04/26/23 Chief Complaint: confusion, poor appetite 82 year old women with history of hypertension, diabetes mellitus, depression presenting to the ER with complaints of and pain off and on for 2 weeks, as well as mechanical fall at home when she tripped on a mop. since the fall she has had intermit abd pain with some associated nausea and vomiting. She notes some general weakness as well. She denied chest pain, sob, fever, chills, recent illness, recent travel. She was noted to have an elevated calcium level of 14 with some improvement after IV fluids, creatinine elevated at 3.36 with hx of CKD stage 4. Stable HH. No fever, chills or leukocytosis. UA positive. In the ED, given a dose of Rocephin. IV Fluids and zofran. Will admit for further management and treatment of encephalopathy secondary to UTI. Review of Systems Review of Systems: Denies any recent fever chills or decrease in appetite respiratory denies any shortness of breath coverage production cardiovascular Denied chest pain gastrointestinal denies any dysphagia abdominal pain nausea vomiting or diarrhea genitourinary denies any dysuria frequency or hematuria musculoskeletal denies any joint pain or swelling neuropsych denies any weakness or seizures all other systems reviewed are negative [facility] Medical History (Updated 04/26/23 @ 14:50 by COURTNEY Barr) Anxiety Diabetes HTN (hypertension) Asthma Pertinent family history: unknown Surgical History (Updated 04/26/23 @ 16:22 by Wendi Pierce NP) Hx laparoscopic cholecystectomy H/O colonoscopy H/O esophagogastroduodenoscopy Social History Unable to assess alcohol history related to: Unknown Alcohol intake: never Smoked in Last 30 Days: No Use of substances other than those prescribed or required for medical reasons: No Advance Directives: No Advance Directives Information Provided: Yes Meds Allergies Allergy/AdvReac Type Severity Reaction Status Date / Time No Known Allergies Allergy Verified 06/17/21 08:50 [No Known Allergies*] Active Medications: Current Medications Acetaminophen (Acetaminophen 325 Mg Tablet) 650 mg PO Q6H PRN PRN Reason: Pain, Mild (Pain Scale 1-3) Heparin Sodium (Porcine) (Heparin Sodium,Porcine 5,000 Unit/Ml Vial) 5,000 unit SUBCUT Q12H YOHANNES Ceftriaxone Sodium 1 gm/ (Sodium Chloride) 50 mls @ 100 mls/hr IV Q24H [facility] Ondansetron HCl (Ondansetron Hcl 4 Mg/2 Ml Vial) 4 mg IVPUSH Q8H PRN PRN Reason: Nausea and Vomiting Sodium Chloride (0.9 % Sodium Chloride Flush 3 Ml Syringe) 3 ml IVFLUSH QSHIFT [facility] Home Medications Medication Instructions Recorded Confirmed Last Taken Type aspirin 81 mg tablet,delayed 81 mg PO QAM 04/26/23 04/26/23 Unknown History release calcium carbonate 300 mg (750 mg) 1 tab PO QAM 04/26/23 04/26/23 Unknown History chewable tablet (Antacid Extra Strength (calcium carb)) cholecalciferol (vitamin D3) 50 50 mcg PO DAILY 04/26/23 04/26/23 Unknown History mcg (2,000 unit) capsule (Vitamin D3) ferrous gluconate 324 mg (38 mg 324 mg PO Q OTHER DAY 04/26/23 04/26/23 Unknown History iron) tablet fluticasone propionate 50 1 - 2 spray intranasal DAILY PRN 04/26/23 04/26/23 Unknown History mcg/actuation nasal ALLERGIES spray,suspension glimepiride 1 mg tablet 1 mg PO BID 04/26/23 04/26/23 Unknown History hydrochlorothiazide 25 mg tablet 25 mg PO QAM 04/26/23 04/26/23 Unknown History levothyroxine 50 mcg tablet 50 mcg PO DAILY 04/26/23 04/26/23 Unknown History lisinopril 40 mg tablet 40 mg PO DAILY 04/26/23 04/26/23 Unknown History oxycodone 5 mg tablet 5 mg PO Q12H PRN severe pain 04/26/23 04/26/23 Unknown History paroxetine HCl 40 mg tablet 40 mg PO DAILY 04/26/23 04/26/23 Unknown History quetiapine 25 mg tablet 25 mg PO BEDTIME 04/26/23 04/26/23 Unknown History sucralfate 1 gram tablet 1 g PO QID 04/26/23 04/26/23 Unknown History topiramate 100 mg tablet 100 mg PO DAILY 04/26/23 04/26/23 Unknown History Physical Exam Vital Signs and Narrative: Vital Signs: Last Vital Signs Temp 97.8 F 04/26/23 10:35 Pulse 85 04/26/23 13:05 Resp 13 04/26/23 13:05 BP 121/57 L 04/26/23 13:05 Pulse Ox 97 04/26/23 13:05 O2 Del Method Room Air 04/26/23 13:05 BMI result Body Mass Index 27.4 Appearing in no acute distress head is normocephalic atraumatic eyes pupils are PERRLA sclera is anicteric mouth throat mucous membranes are intact and moist neck is supple no lymphadenopathy, no JVD noted lung sounds are clear to auscultation heart regular rate rhythm, clear S1, S2 positive bowel sounds, abdomen is soft, nontender neuro patient is alert to self and place only Results Labs 04/26/23 10:55 04/26/23 14:24 Labs: Laboratory Results - last 24 hr 04/26/23 04/26/23 04/26/23 10:55 11:52 12:42 MCV 96.1 MCH 32.2 MCHC 33.5 RDW 13.5 Plt Count 217 MPV 10.1 Immature Gran % (Auto) 0.2 Neut % (Auto) 70.3 Lymph % (Auto) 19.5 L [place] % (Auto) 9.4 Eos % (Auto) 0.4 Baso % (Auto) 0.2 Lymph # (Auto) 1.0 L [place] # (Auto) 0.5 Eos # (Auto) 0.0 Baso # (Auto) 0.0 Abs Immat Gran (auto) 0.01 Absolute Neuts (auto) 3.6 Absolute Nucleated RBC 0.000 Nucleated RBC % (auto) 0.0 Anion Gap 17 Estim Creat Clear Calc 13.7 Estimated GFR 13 Random Glucose 226 H Calcium 14.1 H* D Total Bilirubin 0.6 Direct Bilirubin 0.2 AST 21 ALT 13 Alkaline Phosphatase 40 Total Protein 8.2 H Albumin 4.5 25-OH Vitamin D Total 68.0 TSH 2.07 Urine Color Dark Yellow Urine Appearance Cloudy Urine pH 6.5 Ur Specific [place] 1.020 Urine Protein 30 (1+) H Urine Glucose (UA) Negative Urine Ketones Trace Urine Blood Negative Urine Nitrite Negative Ur Leukocyte Esterase Small (1+) H Urine RBC 0-2 Urine WBC 11-20 H Ur Squamous Epith Cells >20 Urine Bacteria 1+ Hyaline Casts 3-5 04/26/23 14:24 MCV MCH MCHC RDW Plt Count MPV Immature Gran % (Auto) Neut % (Auto) Lymph % (Auto) [place] % (Auto) Eos % (Auto) Baso % (Auto) Lymph # (Auto) [place] # (Auto) Eos # (Auto) Baso # (Auto) Abs Immat Gran (auto) Absolute Neuts (auto) Absolute Nucleated RBC Nucleated RBC % (auto) Anion Gap 12 Estim Creat Clear Calc 15.5 Estimated GFR 15 Random Glucose 78 Calcium 12.5 H* D Total Bilirubin 0.4 Direct Bilirubin AST 18 ALT 11 Alkaline Phosphatase 33 L Total Protein 6.7 Albumin 3.7 25-OH Vitamin D Total TSH Urine Color Urine Appearance Urine pH Ur Specific [place] Urine Protein Urine Glucose (UA) Urine Ketones Urine Blood Urine Nitrite Ur Leukocyte Esterase Urine RBC Urine WBC Ur Squamous Epith Cells Urine Bacteria Hyaline Casts Imaging Radiologist's Impressions: Impressions Abdomen/Pelvis CT 04/26/23 13:11 IMPRESSION: No acute abnormality in the abdomen or pelvis. Head CT 04/26/23 13:11 IMPRESSION: - No acute intracranial abnormality. Stable arachnoid cyst within the anterior aspect of the left middle cranial fossa. 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 - There is a multiloculated cyst within the midline tongue that is likely similar to the CTA head and neck dated 11/25/2020. Major differential considerations include a dermoid or a foregut duplication cyst. This can be more definitively assessed with MRI as clinically indicated. - Fluid level within the right sphenoid sinus which exhibits sclerotic wall thickening as the sequela of chronic sinusitis. Assessment and Plan (1) CHRIS (acute kidney injury): Status: Acute Plan 82 year old women admitted with encephalopathy secondary to UTI UTI positive ua treat with IV rocephin follow urine cx CHRIS on CKD 4 secondary to UTI likely IV fluids treat UTI Hypercalcemia likely secondary to dehydration IV fluids Encephalopathy oriented to self and place only secondary to UTI treat infection Diabetes mellitus 2 ss, ada diet Hypertension stable BP hold lisinopril and HCTZ due to CHRIS Mental health continue home medications Hypothyroidism continue levothyroxine DVT prophylaxis with Heparin Full code 2 inpatient midnights for tx of UTI requiring Abx Time Spent With Patient Time: Total time managing care of this patient today ____ minutes. Quality Stroke Does the patient have a stroke diagnosis?: No VTE Prior VTE?: No VTE Risk Level:: Medical - moderate - high VTE Device Contraindication: Treatment Not Indicated VTE Drug Contraindication: N/A - Med Ordered
[2023-04-26] MEDS: cefTRIAXone sodium 1 GM in 0.9 % Sodium Chloride 50 ML IV (15:53)
[2023-04-26] MEDS: Heparin Sodium,Porcine 5,000 UNIT/ML VIAL 5000 UNIT SUBCUT (15:54)
[2023-04-26] MEDS: 0.9 % Sodium Chloride Flush 3 ML SYRINGE IVFLUSH (15:54)
--- NOTE | 2023-04-26 16:15 | PHA.MEDREC ---
Pharmacy Consult ? Medication Reconciliation Pharmacy has completed the medication reconciliation.
[2023-04-26 16:23] VITALS: BP 116/54; PULSE 72; RESP 12; TEMP 36.7; O2SAT 100
[2023-04-26 16:30] LABS: Glucose, Whole Blood 71 mg/dL (60-115)
[2023-04-26] MEDS: Sucralfate 1 GM TABLET PO ×2 (17:56→21:44)
[2023-04-26 20:02] VITALS: BP 121/77; PULSE 76; RESP 16; O2SAT 97
[2023-04-26 20:38] VITALS: BP 125/65; PULSE 83; RESP 16; O2SAT 98
--- NOTE | 2023-04-26 20:52 | PC.NURSE ---
pt daughter Rachel called stating pt has been calling son wanting to leave the hospital. Daughter would like to speak with provider. Wendi BALLARD notified.
[2023-04-26 21:12] LABS: Glucose, Whole Blood 124 mg/dL (60-115)
[2023-04-26] MEDS: QUEtiapine Fumarate 25 MG TABLET PO (21:44)
--- NOTE | 2023-04-26 22:08 | PC.NURSE ---
pt resting in stretcher; sats 97% on RA. poc 124 no insulin coverage needed per sliding scale. pt denies questions/concerns at this time; states would like to try and sleep. extra blanket given. call nicole within reach.
--- NOTE | 2023-04-26 23:59 | PC.NURSE ---
report given to S3 RN.
[2023-04-27] MEDS: 0.9 % Sodium Chloride Flush 3 ML SYRINGE IVFLUSH (00:19)
[2023-04-27 00:25] VITALS: BMI 21.8
[2023-04-27 00:40] VITALS: BP 132/95; PULSE 83; RESP 18; TEMP 36.6; O2SAT 100
[2023-04-27] MEDS: Heparin Sodium,Porcine 5,000 UNIT/ML VIAL 5000 UNIT SUBCUT ×2 (03:33→15:39)
[2023-04-27 06:01] LABS: MANUAL DIFF FLAG NO
[2023-04-27 06:06] LABS: Basophils Percent Auto 0.4 % (0-2); Eosinophils Absolute Auto 0.1 X10*3/uL (0.0-0.4); Eosinophils Percent Auto 1.2 % (0-4); Imm Gran Abs Auto 0.01 X10*3/uL (0.00-0.03); Imm Gran Pct Auto 0.2 % (0.0-0.4); Lymphocytes Absolute Auto 1.9 X10*3/uL (1.2-4.9); Lymphocytes Percent Auto 38.9 % (20-40); Mean Corpuscular HGB Conc 32.3 g/dl (31.0-35.0); Mean Corpuscular Hemoglobin 32.2 pg (27.0-33.0); Mean Corpuscular Volume 99.7 fL (80.0-98.0); Mean Platelet Volume 10.2 fL (9.4-12.3); Monocytes Absolute Auto 0.5 X10*3/uL (0.1-1.2); Neutrophils Absolute Auto 2.3 x10*3/uL (2.0-8.3); Neutrophils Percent Auto 48.3 % (45-73); Platelet Count 165 X10*3/uL (160-400); Red Blood Count 3.11 X10*6/uL (4.20-5.50); Red Cell Distribution Width 13.7 % (11.0-16.0); White Blood Count 4.8 X10*3/uL (4.8-10.8)
[2023-04-27 06:25] LABS: Anion Gap 13 (12-20); Blood Urea Nitrogen 59 mg/dL (9-16); Carbon Dioxide 23 mmol/L (22-29); Chloride 110 mmol/L (96-108); Creatinine Clr Calc Pharmacy 14.4; Estimated Glomerular Filt Rate 16; Glucose Random 81 mg/dL (60-115); Sodium 142 mmol/L (135-145)
[2023-04-27 07:12] LABS: Glucose, Whole Blood 72 mg/dL (60-115)
[2023-04-27 07:13] VITALS: BP 114/61; PULSE 71; RESP 12; TEMP 36.9; O2SAT 97
[2023-04-27] MEDS: 0.9 % Sodium Chloride 1,000 ML 100 ML IVCONT ×2 (08:00→18:14)
[2023-04-27] MEDS: Sucralfate 1 GM TABLET PO ×4 (08:00→19:16)
[2023-04-27] MEDS: Calcium Carbonate 750 MG TAB.CHEW 300 MG PO (08:00)
[2023-04-27] MEDS: Topiramate 100 MG TABLET PO (08:01)
[2023-04-27] MEDS: Levothyroxine Sodium 50 MCG TABLET PO (08:01)
[2023-04-27] MEDS: Cholecalciferol (Vitamin D3) 25 MCG TABLET 50 MCG PO (08:02)
[2023-04-27] MEDS: Aspirin Enteric Coated 81 MG TABLET.DR PO (08:02)
[2023-04-27] MEDS: PARoxetine HCL 40 MG TABLET PO (08:12)
--- NOTE | 2023-04-27 08:12 | P.PNIM_ITS ---
Subjective Subjective Date of Service: 04/27/23 Review of Systems Follow up encephalopathy and UTI still with nausea, no vomiting Physical Exam 2 Vital Signs: Vital Signs: Last Vital Signs Temp 98.4 F 04/27/23 07:13 Pulse 71 04/27/23 07:13 Resp 12 04/27/23 07:13 BP 114/61 04/27/23 07:13 Pulse Ox 97 04/27/23 07:13 O2 Del Method Room Air 04/27/23 07:13 BMI result Body Mass Index 21.8 Appearing in no acute distress lung sounds are clear to auscultation heart regular rate rhythm, clear S1, S2 positive bowel sounds, abdomen is soft, nontender neuro patient is alert to self only Objective Data Active Medications Acetaminophen (Acetaminophen 325 Mg Tablet) 650 mg PO Q6H PRN PRN Reason: Pain, Mild (Pain Scale 1-3) Aspirin (Aspirin Enteric Coated 81 Mg Tablet.) 81 mg PO DAILY [facility] Last Admin: 04/27/23 08:02 Dose: 81 mg Documented By: SARAVANAN Calcium Carbonate (Calcium Carbonate 750 Mg Tab.Chew) 300 mg PO DAILY [facility] Last Admin: 04/27/23 08:00 Dose: 300 mg Documented By: SARAVANAN Dextrose (Dextrose 50 % 25 Gm/50 Ml Syringe) 25 gm IVPUSH Q15M PRN; Protocol PRN Reason: per Hypoglycemia Standing Ord. Ferrous Sulfate (Ferrous Sulfate 324 Mg Tablet.) 324 mg PO Q48H [facility] Glucose (Glucose Gel 15 Gm Gel..Gram.) 15 gm PO Q15M PRN; Protocol PRN Reason: per Hypoglycemia Standing Ord. Heparin Sodium (Porcine) (Heparin Sodium,Porcine 5,000 Unit/Ml Vial) 5,000 unit SUBCUT Q12H [facility] Last Admin: 04/27/23 03:33 Dose: 5,000 unit Documented By: JACKELIN Ceftriaxone Sodium 1 gm/ (Sodium Chloride) 50 mls @ 100 mls/hr IV Q24H [facility] Last Infusion: 04/26/23 16:53 Dose: Infused Documented By: OG Sodium Chloride (Ns) 1,000 mls @ 100 mls/hr IVCONT .Q10H [facility] Last Admin: 04/27/23 08:00 Dose: 100 mls/hr Documented By: SARAVANAN Insulin Human Lispro (Insulin Lispro 100 Unit/Ml 3 Ml Vial) 0 unit SUBCUT QIDACHS [facility]; Protocol Last Admin: 04/27/23 08:08 Dose: Not Given Documented By: SARAVANAN Non-Admin Reason: No Access Levothyroxine Sodium (Levothyroxine Sodium 50 Mcg Tablet) 50 mcg PO DAILY [facility] Last Admin: 04/27/23 08:01 Dose: 50 mcg Documented By: SARAVANAN Ondansetron HCl (Ondansetron Hcl 4 Mg/2 Ml Vial) 4 mg IVPUSH Q8H PRN PRN Reason: Nausea and Vomiting Oxycodone HCl (Oxycodone Hcl Immed Release 5 Mg Tablet) 5 mg PO Q12H PRN PRN Reason: severe pain Paroxetine HCl (Paroxetine Hcl 40 Mg Tablet) 40 mg PO DAILY [facility] Last Admin: 04/27/23 08:12 Dose: 40 mg Documented By: SARAVANAN Quetiapine Fumarate (Quetiapine Fumarate 25 Mg Tablet) 25 mg PO BEDTIME [facility] Last Admin: 04/26/23 21:44 Dose: 25 mg Documented By: RUCHI Sodium Chloride (0.9 % Sodium Chloride Flush 3 Ml Syringe) 3 ml IVFLUSH QSHIFT [facility] Last Admin: 04/27/23 08:08 Dose: Not Given Documented By: SARAVANAN Non-Admin Reason: IV Running Sucralfate (Sucralfate 1 Gm Tablet) 1 gm PO QID [facility] Last Admin: 04/27/23 08:00 Dose: 1 gm Documented By: SARAVANAN Topiramate (Topiramate 100 Mg Tablet) 100 mg PO DAILY [facility] Last Admin: 04/27/23 08:01 Dose: 100 mg Documented By: SARAVANAN Vitamin D (Cholecalciferol (Vitamin D3) 25 Mcg Tablet) 50 mcg PO DAILY [facility] Last Admin: 04/27/23 08:02 Dose: 50 mcg Documented By: SARAVANAN Labs 04/27/23 05:43 04/27/23 05:43 Labs: Laboratory Results - last 24 hr 04/26/23 04/26/23 04/26/23 10:55 11:52 12:42 MCV 96.1 MCH 32.2 MCHC 33.5 RDW 13.5 Plt Count 217 MPV 10.1 Immature Gran % (Auto) 0.2 Neut % (Auto) 70.3 Lymph % (Auto) 19.5 L [place] % (Auto) 9.4 Eos % (Auto) 0.4 Baso % (Auto) 0.2 Lymph # (Auto) 1.0 L [place] # (Auto) 0.5 Eos # (Auto) 0.0 Baso # (Auto) 0.0 Abs Immat Gran (auto) 0.01 Absolute Neuts (auto) 3.6 Absolute Nucleated RBC 0.000 Nucleated RBC % (auto) 0.0 Anion Gap 17 Estim Creat Clear Calc 13.7 Estimated GFR 13 POC Glucose Random Glucose 226 H Calcium 14.1 H* D Total Bilirubin 0.6 Direct Bilirubin 0.2 AST 21 ALT 13 Alkaline Phosphatase 40 Total Protein 8.2 H Albumin 4.5 25-OH Vitamin D Total 68.0 TSH 2.07 Urine Color Dark Yellow Urine Appearance Cloudy Urine pH 6.5 Ur Specific [place] 1.020 Urine Protein 30 (1+) H Urine Glucose (UA) Negative Urine Ketones Trace Urine Blood Negative Urine Nitrite Negative Ur Leukocyte Esterase Small (1+) H Urine RBC 0-2 Urine WBC 11-20 H Ur Squamous Epith Cells >20 Urine Bacteria 1+ Hyaline Casts 3-5 04/26/23 04/26/23 04/26/23 14:24 16:26 21:08 MCV MCH MCHC RDW Plt Count MPV Immature Gran % (Auto) Neut % (Auto) Lymph % (Auto) [place] % (Auto) Eos % (Auto) Baso % (Auto) Lymph # (Auto) [place] # (Auto) Eos # (Auto) Baso # (Auto) Abs Immat Gran (auto) Absolute Neuts (auto) Absolute Nucleated RBC Nucleated RBC % (auto) Anion Gap 12 Estim Creat Clear Calc 15.5 Estimated GFR 15 POC Glucose 71 124 H Random Glucose 78 Calcium 12.5 H* D Total Bilirubin 0.4 Direct Bilirubin AST 18 ALT 11 Alkaline Phosphatase 33 L Total Protein 6.7 Albumin 3.7 25-OH Vitamin D Total TSH Urine Color Urine Appearance Urine pH Ur Specific [place] Urine Protein Urine Glucose (UA) Urine Ketones Urine Blood Urine Nitrite Ur Leukocyte Esterase Urine RBC Urine WBC Ur Squamous Epith Cells Urine Bacteria Hyaline Casts 04/27/23 04/27/23 05:43 07:09 MCV 99.7 H MCH 32.2 MCHC 32.3 RDW 13.7 Plt Count 165 MPV 10.2 Immature Gran % (Auto) 0.2 Neut % (Auto) 48.3 Lymph % (Auto) 38.9 [place] % (Auto) 11.0 Eos % (Auto) 1.2 Baso % (Auto) 0.4 Lymph # (Auto) 1.9 [place] # (Auto) 0.5 Eos # (Auto) 0.1 Baso # (Auto) 0.0 Abs Immat Gran (auto) 0.01 Absolute Neuts (auto) 2.3 Absolute Nucleated RBC 0.000 Nucleated RBC % (auto) 0.0 Anion Gap 13 Estim Creat Clear Calc 14.4 Estimated GFR 16 POC Glucose 72 Random Glucose 81 Calcium 12.0 H Total Bilirubin Direct Bilirubin AST ALT Alkaline Phosphatase Total Protein Albumin 25-OH Vitamin D Total TSH Urine Color Urine Appearance Urine pH Ur Specific [place] Urine Protein Urine Glucose (UA) Urine Ketones Urine Blood Urine Nitrite Ur Leukocyte Esterase Urine RBC Urine WBC Ur Squamous Epith Cells Urine Bacteria Hyaline Casts Assessment and Plan (1) Hypercalcemia: Status: Acute Plan 82 year old women admitted with encephalopathy secondary to UTI Hypercalcemia. Trending down likely secondary to dehydration IV fluids nephrology consultation pending UTI positive ua, waiting on repeat urine sample continue IV rocephin follow urine cx CHRIS on CKD 4. Trending down secondary to UTI likely IV fluids treat UTI Encephalopathy chronic forgetfullness oriented to self and place only secondary to UTI treat infection Diabetes mellitus 2 ss, ada diet Hypertension stable BP hold lisinopril and HCTZ due to CHRIS Mental health continue home medications Hypothyroidism continue levothyroxine DVT prophylaxis with Heparin Attending Dr. Ocampo Full code continued hospital stay for tx of UTI requiring Abx Time Spent With Patient Time: Total time managing care of this patient today ____ minutes. Quality Stroke Does the patient have a stroke diagnosis?: No VTE Prior VTE?: No VTE Risk Level:: Medical - moderate - high VTE Device Contraindication: Treatment Not Indicated VTE Drug Contraindication: N/A - Med Ordered
--- NOTE | 2023-04-27 09:40 | MHC.CM.PN ---
with interpertator pt explains that she lives with dgter who is her assurance assistant and that her dgter will drive her home dc plan home w/family and assurance assistant
[2023-04-27 11:08] LABS: Glucose, Whole Blood 88 mg/dL (60-115)
[2023-04-27 11:17] LABS: Appearance Urine Clear; Color Urine Yellow; Glucose Urine UA Negative (Negative); Leukocyte Esterase Urine Trace (Negative); Nitrite Urine Negative (Negative); PH 6.5 (5.0-9.0); Specific Gravity - Urine 1.015 (1.005-1.025); UMIC TRIGGER UACC YES; Urine Blood Negative (Negative); Urine Ketones Negative (Negative); Urine Protein Negative (Neg-Trace)
[2023-04-27 11:24] LABS: Bacteria Urine None Seen (None Seen); Hyaline Casts Urine 0-2 /LPF (0-2); RBC Urine 0-2 /HPF (0-2); WBC Urine 0-5 /HPF (0-5)
[2023-04-27] MEDS: ondansetron HCL 4 MG/2 ML VIAL IVPUSH (11:56)
[2023-04-27 14:02] LABS: Creatinine Urine 95.82 mg/dL
[2023-04-27 14:52] LABS: Anion Gap 16 (12-20); Blood Urea Nitrogen 54 mg/dL (9-16); Calcium 11.7 mg/dL (8.4-10.2); Carbon Dioxide 20 mmol/L (22-29); Chloride 108 mmol/L (96-108); Creatinine Clr Calc Pharmacy 15.3; Estimated Glomerular Filt Rate 17; Glucose Random 94 mg/dL (60-115); Potassium 3.8 mmol/L (3.3-5.1); Sodium 140 mmol/L (135-145)
[2023-04-27] MEDS: cefTRIAXone sodium 1 GM in 0.9 % Sodium Chloride 50 ML IV (15:30)
[2023-04-27] MEDS: polyethylene glycoL 3350 17 GM POWD.PACK PO (15:34)
[2023-04-27 15:39] VITALS: BP 142/54; PULSE 62; RESP 16; TEMP 36.4; O2SAT 100
[2023-04-27 16:10] LABS: Glucose, Whole Blood 86 mg/dL (60-115)
[2023-04-27] MEDS: QUEtiapine Fumarate 25 MG TABLET PO (19:16)
[2023-04-27] MEDS: Omeprazole 20 MG CAPSULE.DR PO (19:16)
[2023-04-27 19:43] VITALS: BP 181/80; PULSE 63; RESP 16; TEMP 36.6; O2SAT 96
[2023-04-27 20:25] LABS: Glucose, Whole Blood 78 mg/dL (60-115)
[2023-04-27 20:30] VITALS: BP 152/54
--- NOTE | 2023-04-27 21:25 | PM.EVENT ---
Event Note Date of Service: 04/27/23 Event Note: Chart reviewed Pt seen and examined Full consult to follow 82 year old women admitted with encephalopathy secondary to UTI 1. CHRIS - Multifactorial - Prerenal/ DOMENICA/ HCTZ / Sepsis induced renal hypoperfusion / Hypercalcemia 2. CKD stage 4 at baseline 2.3- 2.7 3. Hypercalcemia. HCTZ effect likely secondary to dehydration 4. UTI Urine studies ordered IV fluids Avoid HCTZ Continue to hold AVE IV antibiotics CAn use amlodipine Chack Vit D / PTH levels / F/u Ca levels D/w Medical team Thx Will follow Dr. Goins Time Spent With Patient Time: Total time managing care of this patient today ____ minutes.
[2023-04-28] MEDS: 0.9 % Sodium Chloride 1,000 ML 100 ML IVCONT (02:55)
[2023-04-28] MEDS: Heparin Sodium,Porcine 5,000 UNIT/ML VIAL 5000 UNIT SUBCUT (02:56)
[2023-04-28 03:28] VITALS: PULSE 61; RESP 16; TEMP 36.8; O2SAT 99
[2023-04-28] MEDS: Omeprazole 20 MG CAPSULE.DR PO (05:45)
[2023-04-28 06:30] LABS: Magnesium 1.9 mg/dL (1.6-2.6)
[2023-04-28 06:33] LABS: Anion Gap 11 (12-20); Blood Urea Nitrogen 44 mg/dL (9-16); Calcium 10.1 mg/dL (8.4-10.2); Carbon Dioxide 19 mmol/L (22-29); Chloride 115 mmol/L (96-108); Estimated Glomerular Filt Rate 20; Glucose Random 78 mg/dL (60-115); Potassium 4.1 mmol/L (3.3-5.1); Sodium 141 mmol/L (135-145)
[2023-04-28 07:14] LABS: Glucose, Whole Blood 74 mg/dL (60-115)
[2023-04-28 07:47] VITALS: BP 129/62; PULSE 66; RESP 16; TEMP 36; O2SAT 98
[2023-04-28] MEDS: PARoxetine HCL 40 MG TABLET PO (08:58)
[2023-04-28] MEDS: Topiramate 100 MG TABLET PO (08:58)
[2023-04-28] MEDS: Ferrous Sulfate 324 MG TABLET.DR PO (08:58)
[2023-04-28] MEDS: Levothyroxine Sodium 50 MCG TABLET PO (08:58)
[2023-04-28] MEDS: Aspirin Enteric Coated 81 MG TABLET.DR PO (08:58)
[2023-04-28] MEDS: Sucralfate 1 GM TABLET PO (08:59)
--- NOTE | 2023-04-28 09:53 | PM.DS ---
DS: Providers Provider Date of Service: 04/28/23 Date of admission: 04/26/23 15:28 Primary care physician: Irma Alexander MD Consults: 04/27/23 11:40 Consult to Nephrology Routine Consulting Provider: Daniel Goins Reason for consultation: hypercalcemia DS: Diagnosis Discharge Diagnosis (1) Hypercalcemia: Status: Acute DS: Summary Hospital Course Hospital Course: from initial hpi: 82 year old women with history of hypertension, diabetes mellitus, depression presenting to the ER with complaints of and pain off and on for 2 weeks, as well as mechanical fall at home when she tripped on a mop. since the fall she has had intermit abd pain with some associated nausea and vomiting. She notes some general weakness as well. She denied chest pain, sob, fever, chills, recent illness, recent travel. She was noted to have an elevated calcium level of 14 with some improvement after IV fluids, creatinine elevated at 3.36 with hx of CKD stage 4. Stable HH. No fever, chills or leukocytosis. UA positive. In the ED, given a dose of Rocephin. IV Fluids and zofran. Will admit for further management and treatment of encephalopathy secondary to UTI. hospital course: Patient was admitted for acute metabolic encephalopathy due to hypercalcemia and urinary tract infection complicated by acute kidney injury. Hypercalcemia was multifactorial due to dehydration, hydrochlorothiazide, vitamin-D and calcium supplements. She was given IV fluids, hydrochlorothiazide and lisinopril held as well as vitamin-D and calcium supplements. Calcium returned to normal. Mental status returned to baseline. PTH related peptide is still pending and should be followed up as outpatient. For urinary tract infection she was given ceftriaxone and will continue 3 more days of cefuroxime, urine culture grew mixed korey. For acute kidney injury on CKD 4 patient returned to baseline. For diabetes she was given insulin sliding scale. For hypertension her lisinopril and hydrochlorothiazide have been held. For hypothyroidism she was continued on Synthroid. Patient is now back to baseline will be discharged home. She should repeat labs in about 1 week. Time Spent with Patient Time attestation: Total time managing care of this patient today ____ minutes. Discharge coordination time: Greater than 30 minutes Quality: Safe Use of Opioids Does Pt have an Active Cancer Diagnosis on the Problem List?: No Quality: Stroke Does the patient have a stroke diagnosis?: No Physical Exam Vital Signs: Vital Signs: Last Vital Signs Temp 96.8 F 04/28/23 07:47 Pulse 66 04/28/23 07:47 Resp 16 04/28/23 07:47 BP 129/62 04/28/23 07:47 Pulse Ox 98 04/28/23 07:47 O2 Del Method Room Air 04/28/23 07:47 BMI result Body Mass Index 21.8 Appearing in no acute distress lung sounds are clear to auscultation heart regular rate rhythm, clear S1, S2 positive bowel sounds, abdomen is soft, nontender neuro patient is alert to self only DS: Data Data Completed and Pending Labs on day of discharge: Laboratory Results - last 24 hr 04/27/23 04/27/23 04/27/23 10:35 11:02 14:28 Hold Purple Top Sodium 140 Potassium 3.8 Chloride 108 Carbon Dioxide 20 L Anion Gap 16 BUN 54 H Creatinine 2.69 H Estim Creat Clear Calc 15.3 Estimated GFR 17 POC Glucose 88 Random Glucose 94 Calcium 11.7 H Magnesium Urine Color Yellow Urine Appearance Clear Urine pH 6.5 Ur Specific [place] 1.015 Urine Protein Negative Urine Glucose (UA) Negative Urine Ketones Negative Urine Blood Negative Urine Nitrite Negative Ur Leukocyte Esterase Trace H Urine RBC 0-2 Urine WBC 0-5 Ur Squamous Epith Cells 11-20 Urine Bacteria None Seen Hyaline Casts 0-2 Ur Random Sodium 58.0 Urine Creatinine 95.82 04/27/23 04/27/23 04/28/23 16:04 20:20 05:41 Hold Purple Top Sodium 141 Potassium 4.1 Chloride 115 H Carbon Dioxide 19 L Anion Gap 11 L BUN 44 H Creatinine 2.29 H Estim Creat Clear Calc 18.0 Estimated GFR 20 POC Glucose 86 78 Random Glucose 78 Calcium 10.1 D Magnesium 1.9 Urine Color Urine Appearance Urine pH Ur Specific [place] Urine Protein Urine Glucose (UA) Urine Ketones Urine Blood Urine Nitrite Ur Leukocyte Esterase Urine RBC Urine WBC Ur Squamous Epith Cells Urine Bacteria Hyaline Casts Ur Random Sodium Urine Creatinine 04/28/23 04/28/23 06:10 07:09 Hold Purple Top SEE NOTE Sodium Potassium Chloride Carbon Dioxide Anion Gap BUN Creatinine Estim Creat Clear Calc Estimated GFR POC Glucose 74 Random Glucose Calcium Magnesium Urine Color Urine Appearance Urine pH Ur Specific [place] Urine Protein Urine Glucose (UA) Urine Ketones Urine Blood Urine Nitrite Ur Leukocyte Esterase Urine RBC Urine WBC Ur Squamous Epith Cells Urine Bacteria Hyaline Casts Ur Random Sodium Urine Creatinine Discharge Plan Discharge Anticipated Discharge Date/Time: 04/28/23 09:49 Patient Disposition: Home Health Service Discharge Diagnosis: kim, hypercalcemia Referrals: Irma Brennan MD [Primary Care Provider] - 1 Week Discharge Medications: New cefuroxime axetil 250 mg tablet 250 mg PO BID Qty: 6 0RF Continued quetiapine 25 mg tablet 25 mg PO BEDTIME sucralfate 1 gram tablet 1 g PO QID aspirin 81 mg tablet,delayed release (DR/EC) 81 mg PO QAM glimepiride 1 mg tablet 1 mg PO BID levothyroxine 50 mcg tablet 50 mcg PO DAILY paroxetine HCl 40 mg tablet 40 mg PO DAILY topiramate 100 mg tablet 100 mg PO DAILY fluticasone propionate 50 mcg/actuation spray,suspension 1 - 2 spray intranasal DAILY PRN (Reason: ALLERGIES) oxycodone 5 mg tablet 5 mg PO Q12H PRN (Reason: severe pain) ferrous gluconate 324 mg (38 mg iron) tablet 324 mg PO Q OTHER DAY Discontinued calcium carbonate [Antacid Ext Str (calcium carb)] 300 mg (750 mg) tablet,chewable 1 tab PO QAM hydrochlorothiazide 25 mg tablet 25 mg PO QAM lisinopril 40 mg tablet 40 mg PO DAILY cholecalciferol (vitamin D3) [Vitamin D3] 50 mcg (2,000 unit) capsule 50 mcg PO DAILY Discharge Orders: Discharge Order (Routine); Ordered 04/28/23 Ordered By: Tremaine Cardenas Diet: Advance to usual diet Activity on Discharge: As tolerated Stand Alone Forms: Patient Portal Discharge page Care Plan Goals: recovery Health Concerns: uti, hypercalcemia, kim Plan of Treatment: stop calcium, vit d, hctz, lisinopril, repeat labs in 1 week, Assessment: see above
--- NOTE | 2023-04-28 10:32 | MHC.CM.PN ---
IMM 04/26/23 Patient is discharged to home today. Home health aide services will resume. Patient has arranged for transportation home.
[2023-04-28 11:16] LABS: Glucose, Whole Blood 75 mg/dL (60-115)
--- NOTE | 2023-05-03 01:22 | CONS_ITS ---
DATE OF SERVICE: 04/27/2023 REASON FOR CONSULTATION: Consult requested by the medical team to evaluate and help in management of patient with acute kidney injury. HISTORY OF PRESENT ILLNESS: The patient is an 82-year-old female with past medical history of hypertension, type 2 diabetes mellitus, depression, who presents to the emergency room, complains of pain, has been on and off for the last 2 weeks as well as a mechanical fall at home. Apparently, she tripped and fell on a mop. She had intermittent abdominal pain, nausea, and vomiting. She also has generalized weakness. She was noted to have an elevated calcium level of 14 with some improvement of with IV fluids. Creatinine level was 3.36. She does have stage IV CKD at baseline, baseline creatinine ranging around 2.5. She denies having any chest pain, shortness of breath, fever. There is no recent illness. Lab workup in the ED showed patient had UTIs and was started on IV Rocephin. She is admitted for further evaluation and management. REVIEW OF SYSTEMS: As noted above. Other system reviewed and negative. PAST MEDICAL HISTORY: History of hypertension, type 2 diabetes mellitus, depression, anxiety, asthma. PAST SURGICAL HISTORY: Laparoscopic cholecystectomy, colonoscopy, endoscopies. PERSONAL AND SOCIAL HISTORY: Patient's alcohol intake is unknown. Nonsmoker. ALLERGIES: PATIENT HAS NO KNOWN DRUG ALLERGIES. MEDICATIONS: As an outpatient, inpatient reviewed in detail. PHYSICAL EXAMINATION: GENERAL: Patient is resting in the bed. VITAL SIGNS: Blood pressure was 121/57, pulse 85, afebrile. HEENT: Shows pupils equal, round, and reactive bilaterally to light. No jugular venous distention is noted. NECK: Supple. CARDIOVASCULAR SYSTEM: S1, S2 without rub or murmur. RESPIRATORY SYSTEM: Decreased in bases. ABDOMEN: Soft, nontender. No guarding or rigidity. Bowel sounds normal. EXTREMITIES: Showed no significant edema. NEURO: Patient was alert, but oriented x2. LABORATORY DATA: Labs done recently; hemoglobin 11.6, hematocrit 35. Sodium 142, potassium 4.1, chloride 110, CO2 of 24, BUN 61, creatinine 2.98. IMPRESSION: 1. Elderly female with acute kidney injury. Acute kidney injury in this patient likely due to multifactorial reasons. Patient has prerenal azotemia. She was also on DOMENICA inhibitor and hydrochlorothiazide and sepsis-induced renal hypoperfusion, which is worsening renal function. She had hypercalcemia, which can also cause polyuria and worsening renal function. 2. Chronic kidney disease stage 2 at baseline in the setting of longstanding diabetes and hypertension. 3. Hypercalcemia in the setting of hydrochlorothiazide use. She also was dehydrated, which could worsen the calcium level. 4. Urinary tract infection. RECOMMENDATIONS: At this juncture, I have taken liberty to order spot urine for electrolytes, protein, creatinine. We agree with IV hydration, which will help with prerenal state and for treatment of hypercalcemia with saline diuresis. I would avoid using hydrochlorothiazide in this patient. We should also hold off on DOMENICA inhibitor for now. IV antibiotics as per medical team. We can use amlodipine for hypertension as needed. For workup for hypercalcemia, I have taken liberty to order vitamin D level, 25-hydroxy, PTH level and we will repeat calcium levels. The above plan was discussed with the medical team. Thank you for allowing me to participate in medical management of the patient. MD DEANDRE Webster/GOPAL / [id number]
[2023-05-05 17:24] LABS: Parathyroid Hormone Related Pr 24 pg/mL (11-20)
== END 2023-04-28 11:37 | disposition home or self-care (01) | DRG 682 ==
LOC: HO.ED 15:36 → HO.EDOVER 15:44 → HO.S3 23:04
PROVIDERS: Physician Assistant Medical; Admitting Provider Nurse Practitioner Acute Care; Emergency Provider Emergency Medicine; PCP Internal Medicine; Visit Provider Internal Medicine
DX: N17.9 Acute kidney failure, unspecified (principal); G93.41 Metabolic encephalopathy; N39.0 Urinary tract infection, site not specified; N18.4 Chronic kidney disease, stage 4 (severe); E83.52 Hypercalcemia; F41.9 Anxiety disorder, unspecified; E03.9 Hypothyroidism, unspecified; E86.0 Dehydration; T50.2X5A Adverse effect of carbonic-anhydrase inhibitors, benzothiadiazides and other diuretics, initial encounter; T45.2X5A Adverse effect of vitamins, initial encounter; I12.9 Hypertensive chronic kidney disease with stage 1 through stage 4 chronic kidney disease, or unspecified chronic kidney disease; E11.22 Type 2 diabetes mellitus with diabetic chronic kidney disease; Z79.82 Long term (current) use of aspirin; Z79.890 Hormone replacement therapy; Z79.899 Other long term (current) drug therapy
CPT/HCPCS: 36415; 70450; 74176; 80048; 80053; 80076; 81001; 81003; 82306; 82570; 82947; 83519; 83735; 84300; 84443; 85025; 87086; 93005; 99285; J0696; J1643; J2405

== ENCOUNTER → 2023-04-26 15:28 | Outpatient (BNV) | payer OTHER, SELFPAY | PROVIDERS: Admitting Provider Nurse Practitioner Acute Care; Emergency Provider Emergency Medicine; PCP Internal Medicine; Visit Provider Nurse Practitioner Acute Care | DX: E83.52 Hypercalcemia (principal) | CPT/HCPCS: 99223; 99232; 99239 ==

== ENCOUNTER 2023-05-06 08:31 | Outpatient (REF) | payer OTHER, SELFPAY ==
[2023-05-06 09:40] LABS: Alanine Aminotransferase 11 U/L (0-31); Albumin Level 3.7 g/dL (3.5-5.0); Alkaline Phosphatase 38 U/L (39-117); Anion Gap 11 (12-20); Aspartate Amino Transferase 19 U/L (5-31); Bilirubin Direct 0.2 mg/dL (0.0-0.5); Bilirubin Total 0.4 mg/dL (0.0-1.0); Blood Urea Nitrogen 24 mg/dL (9-16); Calcium 10.9 mg/dL (8.4-10.2); Carbon Dioxide 21 mmol/L (22-29); Chloride 110 mmol/L (96-108); Estimated Glomerular Filt Rate 29; Glucose Random 122 mg/dL (60-115); Potassium 3.2 mmol/L (3.3-5.1); Sodium 139 mmol/L (135-145); Total Protein 6.8 g/dL (6.5-8.0)
== END 2023-05-06 08:32 | disposition home or self-care (01) ==
LOC: HO.LAB 08:31
PROVIDERS: Absent Provider Internal Medicine; PCP Internal Medicine; Visit Provider Internal Medicine
DX: N17.9 Acute kidney failure, unspecified (principal); N18.9 Chronic kidney disease, unspecified; E83.52 Hypercalcemia
CPT/HCPCS: 36415; 80048; 80076

== ENCOUNTER 2023-07-03 14:32 | Emergency (ER) | payer OTHER, SELFPAY ==
--- NOTE | ~2023-07-03 | CT_ITS ---
EXAMINATION: CT ABDOMEN AND PELVIS WITHOUT CONTRAST CLINICAL INFORMATION: Abdominal pain. COMPARISON: 04/26/2023 CT scan. TECHNIQUE: Multidetector volumetric imaging was performed from the superior aspect of the liver through the pubic symphysis without contrast per request. Sagittal and coronal reformatted images were obtained on the technologist workstation. This CT examination was performed using dose optimization techniques as appropriate, variously including the following: *Automated exposure control *Adjustment of mA and/or kV according to patient size (this includes techniques or standardized protocols for targeted exams where dose is matched to indication/reason for exam; i.e. extremities or head) *Use of iterative reconstruction technique DLP: 403 mGy-cm. FINDINGS: LUNG BASES: The visualized lung bases are unremarkable. LIVER, GALLBLADDER, BILIARY TREE: Liver is atrophic but I do not appreciate any focal mass lesion on this noncontrast study. The gallbladder is surgically absent PANCREAS: Unremarkable. SPLEEN: Unremarkable. ADRENAL GLANDS: Unremarkable. KIDNEYS AND URETERS: The kidneys are normal in size, shape, and attenuation. No hydronephrosis, hydroureter, or perinephric stranding. No calculi. BLADDER: Mild concentric bladder wall thickening similar to the prior study GASTROINTESTINAL TRACT: Scattered colonic diverticulosis. There is nonspecific colonic wall thickening seen more so in the transverse colon to the distal descending colon. Infectious or inflammatory colitis would be favored with this distribution. No obstructive changes seen to the more proximal bowel. ABDOMINAL WALL: No significant hernia is appreciated. LYMPHOVASCULAR STRUCTURES: Vascular calcification within the aorta iliac system. PELVIC VISCERA: Unremarkable. OSSEUS STRUCTURES: Chronic compression deformity of T12 again noted CT/CT abdomen pelvis wo IV con IMPRESSION: Nonspecific colonic wall thickening more so in the transverse colon to the distal descending colon. Infectious or inflammatory colitis would be favored with this distribution.
[2023-07-03 16:35] VITALS: BP 217/108; PULSE 85; RESP 18; TEMP 36; O2SAT 98; BMI 25.5
[2023-07-03 17:03] LABS: MANUAL DIFF FLAG NO
[2023-07-03 17:05] LABS: Basophils Percent Auto 0.1 % (0-2); Eosinophils Percent Auto 0.1 % (0-4); Hematocrit 33.5 % (37.0-47.0); Hemoglobin 11.1 g/dl (12.0-16.0); Imm Gran Abs Auto 0.01 X10*3/uL (0.00-0.03); Imm Gran Pct Auto 0.1 % (0.0-0.4); Lymphocytes Absolute Auto 0.5 X10*3/uL (1.2-4.9); Lymphocytes Percent Auto 7.6 % (20-40); Mean Corpuscular HGB Conc 33.1 g/dl (31.0-35.0); Mean Corpuscular Hemoglobin 31.9 pg (27.0-33.0); Mean Corpuscular Volume 96.3 fL (80.0-98.0); Mean Platelet Volume 9.8 fL (9.4-12.3); Monocytes Absolute Auto 0.4 X10*3/uL (0.1-1.2); Neutrophils Absolute Auto 6.2 x10*3/uL (2.0-8.3); Neutrophils Percent Auto 87.1 % (45-73); Platelet Count 140 X10*3/uL (160-400); Red Blood Count 3.48 X10*6/uL (4.20-5.50); Red Cell Distribution Width 13.3 % (11.0-16.0); White Blood Count 7.1 X10*3/uL (4.8-10.8)
[2023-07-03 17:24] LABS: Alanine Aminotransferase 7 U/L (0-31); Albumin Level 4.5 g/dL (3.5-5.0); Alkaline Phosphatase 39 U/L (39-117); Anion Gap 16 (12-20); Aspartate Amino Transferase 18 U/L (5-31); Bilirubin Total 0.9 mg/dL (0.0-1.0); Blood Urea Nitrogen 29 mg/dL (9-16); Calcium 10.9 mg/dL (8.4-10.2); Carbon Dioxide 19 mmol/L (22-29); Chloride 110 mmol/L (96-108); Creatinine Clr Calc Pharmacy 18.3; Estimated Glomerular Filt Rate 25; Glucose Random 179 mg/dL (60-115); Potassium 4.2 mmol/L (3.3-5.1); Sodium 141 mmol/L (135-145); Total Protein 7.7 g/dL (6.5-8.0)
[2023-07-03 17:48] LABS: Influenza A PCR NEGATIVE (Negative); Influenza B PCR NEGATIVE (Negative); Resp Syncy Virus RNA Qual PCR NEGATIVE (Negative); SARS COV2 PCR INHOUSE NEGATIVE (Negative)
[2023-07-03 19:43] VITALS: BP 209/105; PULSE 101; RESP 18; TEMP 36.8; O2SAT 99
[2023-07-03 20:13] LABS: Glucose, Whole Blood 161 mg/dL (60-115)
--- NOTE | 2023-07-03 20:19 | ED.GENADULT ---
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 Patient states that this started few days ago. Patient states that today she has been feeling nauseous, vomiting. Patient reports that she is unable to move her bowels. Constipated. Patient was placed on sucralfate by her PCP. Not on any PPI. Patient denies any melena, hematochezia, unintentional weight loss or ribbon like stools. Reports dyspepsia without dysphagia or odynophagia. Onset (ago): day(s) Related Data Home Medications Medication Instructions Recorded Confirmed aspirin 81 mg tablet,delayed 81 mg PO QAM 04/26/23 04/26/23 release ferrous gluconate 324 mg (38 mg 324 mg PO Q OTHER DAY 04/26/23 04/26/23 iron) tablet fluticasone propionate 50 1 - 2 spray intranasal DAILY PRN 04/26/23 04/26/23 mcg/actuation nasal ALLERGIES spray,suspension glimepiride 1 mg tablet 1 mg PO BID 04/26/23 04/26/23 levothyroxine 50 mcg tablet 50 mcg PO DAILY 04/26/23 04/26/23 oxycodone 5 mg tablet 5 mg PO Q12H PRN severe pain 04/26/23 04/26/23 paroxetine HCl 40 mg tablet 40 mg PO DAILY 04/26/23 04/26/23 quetiapine 25 mg tablet 25 mg PO BEDTIME 04/26/23 04/26/23 sucralfate 1 gram tablet 1 g PO QID 04/26/23 04/26/23 topiramate 100 mg tablet 100 mg PO DAILY 04/26/23 04/26/23 Previous Rx's Medication Instructions Recorded cefuroxime axetil 250 mg tablet 250 mg PO BID #6 tabs 04/28/23 levofloxacin 500 mg tablet 500 mg PO DAILY #7 tabs 07/03/23 metronidazole 500 mg tablet 500 mg PO Q12H 7 days #14 tabs 07/03/23 ondansetron 4 mg disintegrating 4 mg PO Q8H PRN nausea and 07/03/23 tablet vomiting #10 tabs polyethylene glycol 3350 17 17 g PO DAILY #510 grams 07/03/23 gram/dose oral powder (Miralax) Allergies Allergy/AdvReac Type Severity Reaction Status Date / Time No Known Allergies Allergy Verified 07/03/23 16:35 [No Known Allergies*] Review of Systems Constitutional: Constitutional: Denies weight gain and Denies weight loss ENT: Reports system reviewed and no additional complaints, except as documented, Denies dysphagia and Denies odynophagia Cardiovascular: Cardiovascular: Reports no additional cardiovascular complaints Respiratory: Respiratory: Reports no additional respiratory complaints Gastrointestinal: Gastrointestinal: Reports abdominal pain (Middle of abdomen), Denies belching, Denies melena, Denies bloating, Reports constipation, Denies dysphagia, Denies excessive flatus, Denies dyspepsia, Denies heartburn, Denies diarrhea, Denies loose stools, Reports nausea, Denies odynophagia and Reports vomiting Genitourinary: Genitourinary: Reports no additional female genitourinary complaints Musculoskeletal: Musculoskeletal: Reports no additional musculoskeletal complaints Neurologic: Reports system reviewed and no additional complaints, except as documented Psychiatric: Psychiatric: Reports no additional psychiatric complaints Endocrine: Endocrine: Reports no additional endocrine complaints [facility] Past Medical History Medical History (Updated 07/05/23 @ 00:01 by Russell Arnold) Anxiety Diabetes HTN (hypertension) Asthma Surgical History (Updated 04/26/23 @ 16:22 by Wendi Pierce NP) Hx laparoscopic cholecystectomy H/O colonoscopy H/O esophagogastroduodenoscopy Social History Social History Household Members: None Do you presently have visiting nurse or other home services: No Unable to assess alcohol history related to: Unknown Alcohol intake: never Patient Tobacco Use Status: Never used Tobacco Advance Directives: No Advance Directives Information Provided: Yes service: No Physical Exam ED Vital Signs: Vital Signs - 24 hr 07/03/23 16:35 07/03/23 19:43 07/03/23 21:45 Temperature 96.8 F 98.3 F 100.4 F Pulse Rate 85 101 H 85 Respiratory Rate 18 18 16 Blood Pressure 217/108 H 209/105 H 161/93 H Pulse Oximetry 98 99 100 Oxygen Delivery Method Room Air Room Air Room Air BMI result Body Mass Index 25.5 Const General: healthy appearing, no acute distress and well developed Nutritional Appearance: well nourished Orientation/consciousness: patient oriented x3 HENMT Head: Yes normal to inspection, Yes normocephalic and Yes atraumatic Face and sinus: Yes normal facial exam Mouth: Normal oral and palatal mucosa present Throat: Yes posterior oropharynx normal, Yes tonsils normal and Yes uvula midline Eyes General: appearance normal, both eyes and all related structures Neck Neck: Yes normal visual inspection, Yes full ROM and Yes trachea midline Thyroid: Thyroid normal Resp Effort & Inspection: normal respiratory effort, able to speak in complete sentences, no tracheal deviation and symmetric chest movement Auscultation: clear to auscultation bilaterally Cardio Rate: regular rate GI Inspection: Yes normal to inspection and No distended Palpation (GI): Soft to palpation, not firm, nontender and No hepatosplenomegaly present Auscultation: normal bowel sounds General: Yes no CVA tenderness Back/Spine/Pelvis Back: no CVA tenderness Skin General skin exam: elasticity normal, turgor normal and dry skin Neuro General: patient oriented x3 Psych Appearance: grossly normal Mental Status: mental status grossly normal Course Course Course Narrative: 80-year-old female with past medical history of hypothyroidism, hypertension, hypercholesteremia, cerebral aneurysm status post surgery, GERD, cirrhosis, diabetes, acute kidney failure is here today for complaining of abdominal pain, nausea and vomiting. Patient states that this started few days ago. Patient states that today she has been feeling nauseous, vomiting. Patient reports that she is unable to move her bowels. Constipated. Patient was placed on sucralfate by her PCP. Not on any PPI. Patient denies any melena, hematochezia, unintentional weight loss or ribbon like stools. Reports dyspepsia without dysphagia or odynophagia. Reevaluation(s) Reevaluation #1: Patient reports abdominal pain getting worse, no nausea or vomiting, lab work reviewed. Will send patient for CT scan. Patient is refusing, however the importance of getting can discussed patient her daughter. Reevaluation #2: CT scan shows nonspecific colonic wall thickening more so in the transverse colon to the distal descending colon. First dose of antibiotics Levaquin and metronidazole given to patient. Importance of hydrating and clear liquid diet for the next 2-3 days. No leukocytosis Medications Administered Discontinued Medications Generic Name Dose Route Start Last Admin Trade Name Kellie PRN Reason Stop Dose Admin Levofloxacin 500 mg 07/03/23 23:14 07/04/23 00:43 Levofloxacin 500 Mg Tablet PO 07/03/23 23:15 500 mg ONCE ONE Administration Metronidazole 500 mg 07/03/23 23:14 07/04/23 00:43 Metronidazole 500 Mg Tablet PO 07/03/23 23:15 500 mg ONCE ONE Administration Morphine Sulfate 2 mg 07/03/23 22:21 07/03/23 22:25 Morphine Sulfate 2 Mg/Ml Cartridge IVPUSH 07/03/23 22:22 2 mg ONCE ONE Administration Protocol Medical Decision Making Medical Decision Making [facility] Narrative: 80-year-old female with past medical history of hypothyroidism, hypertension, hypercholesteremia, cerebral aneurysm status post surgery, GERD, cirrhosis, diabetes, acute kidney failure is here today for complaining of abdominal pain, nausea and vomiting. Patient states that this started few days ago. Patient states that today she has been feeling nauseous, vomiting. Patient reports that she is unable to move her bowels. Constipated. Patient was placed on sucralfate by her PCP. Not on any PPI. Patient denies any melena, hematochezia, unintentional weight loss or ribbon like stools. Reports dyspepsia without dysphagia or odynophagia. CT scan shows nonspecific colonic wall thickening more so in the transverse colon to the distal descending colon. Patient will be given 1st dose of antibiotics in the ER. Course of 7 days of antibiotic will be sent to pharmacy. Patient was encouraged to drink plenty fluids. Patient most likely is dehydrated to vomiting. Patient denies any diarrhea. Will send patient script for MiraLax to help her move her bowels better. Patient will follow-up with PCP and GI. Differential Diagnosis Differential Diagnoses: The differential diagnosis associated with the presentation includes Diverticulitis, colitis, intussusception, bowel obstruction Lab Data [facility] Lab Attestation statement: I reviewed the patient's lab results. 07/03/23 17:00 07/03/23 17:00 Labs: Lab Results 07/03/23 07/03/23 Range/Units 17:00 20:07 WBC 7.1 (4.8-10.8) X10*3/uL RBC 3.48 L (4.20-5.50) X10*6/uL Hgb 11.1 L (12.0-16.0) g/dl Hct 33.5 L (37.0-47.0) % MCV 96.3 (80.0-98.0) fL MCH 31.9 (27.0-33.0) pg MCHC 33.1 (31.0-35.0) g/dl RDW 13.3 (11.0-16.0) % Plt Count 140 L (160-400) X10*3/uL MPV 9.8 (9.4-12.3) fL Immature Gran % (Auto) 0.1 (0.0-0.4) % Neut % (Auto) 87.1 H (45-73) % Lymph % (Auto) 7.6 L (20-40) % [place] % (Auto) 5.0 (2-11) % Eos % (Auto) 0.1 (0-4) % Baso % (Auto) 0.1 (0-2) % Lymph # (Auto) 0.5 L (1.2-4.9) X10*3/uL [place] # (Auto) 0.4 (0.1-1.2) X10*3/uL Eos # (Auto) 0.0 (0.0-0.4) X10*3/uL Baso # (Auto) 0.0 (0.0-0.2) X10*3/uL Abs Immat Gran (auto) 0.01 (0.00-0.03) X10*3/uL Absolute Neuts (auto) 6.2 (2.0-8.3) x10*3/uL Absolute Nucleated RBC 0.000 (0.0-0.012) X10*3/uL Nucleated RBC % (auto) 0.0 (0.0-0.2) /100WBC Sodium 141 (135-145) mmol/L Potassium 4.2 D (3.3-5.1) mmol/L Chloride 110 H (96-108) mmol/L Carbon Dioxide 19 L (22-29) mmol/L Anion Gap 16 (12-20) BUN 29 H (9-16) mg/dL Creatinine 1.94 H (0.5-1.4) mg/dL Estim Creat Clear Calc 18.3 Estimated GFR 25 POC Glucose 161 H (60-115) mg/dL Random Glucose 179 H (60-115) mg/dL Calcium 10.9 H (8.4-10.2) mg/dL Total Bilirubin 0.9 (0.0-1.0) mg/dL AST 18 (5-31) U/L ALT 7 (0-31) U/L Alkaline Phosphatase 39 (39-117) U/L Total Protein 7.7 (6.5-8.0) g/dL Albumin 4.5 (3.5-5.0) g/dL Influenza Type A (PCR) NEGATIVE (Negative) Influenza Type B (PCR) NEGATIVE (Negative) RSV RNA Qual (PCR) NEGATIVE (Negative) SARS-CoV-2 RNA (RT-PCR) NEGATIVE (Negative) Independent Interpretation I performed an independent interpretation of an: CT Scan Radiology Impression Discussion of test interpretation with radiology: I have reviewed the radiologist's reading. Radiologist Impression: CT scan of abdomen and pelvis FINDINGS: LUNG BASES: The visualized lung bases are unremarkable. LIVER, GALLBLADDER, BILIARY TREE: Liver is atrophic but I do not appreciate any focal mass lesion on this noncontrast study. The gallbladder is surgically absent PANCREAS: Unremarkable. SPLEEN: Unremarkable. ADRENAL GLANDS: Unremarkable. KIDNEYS AND URETERS: The kidneys are normal in size, shape, and attenuation. No hydronephrosis, hydroureter, or perinephric stranding. No calculi. BLADDER: Mild concentric bladder wall thickening similar to the prior study GASTROINTESTINAL TRACT: Scattered colonic diverticulosis. There is nonspecific colonic wall thickening seen more so in the transverse colon to the distal descending colon. Infectious or inflammatory colitis would be favored with this distribution. No obstructive changes seen to the more proximal bowel. ABDOMINAL WALL: No significant hernia is appreciated. LYMPHOVASCULAR STRUCTURES: Vascular calcification within the aorta iliac system. PELVIC VISCERA: Unremarkable. OSSEUS STRUCTURES: Chronic compression deformity of T12 again noted CT/CT abdomen pelvis wo IV con IMPRESSION: Nonspecific colonic wall thickening more so in the transverse colon to the distal descending colon. Infectious or inflammatory colitis would be favored with this distribution. Discharge Plan Discharge Clinical Impression: Gastroenteritis, Colitis Patient Disposition: Home, Self-Care Instructions: Constipation (ED), Gastroenteritis (DC), Colitis (ED) Additional Instructions: La tomograf?a computarizada muestra inflamaci?n en el colon. Enrique an?lisis de pete muestra que est? deshidratado. Le recetar?n antibi?ticos. Aseg?rese de no ingerir geetha?n alimento s?lido ho los pr?ximos 2 d?as. Se recomienda maida dieta de l?quidos patrick. Puedes comer gelatina, beber grady agua, tambi?n puedes beber Caldo de elinor. Comenzar? a ashleigh antibi?ticos y se le administrar? la primera dosis en la anthony de emergencias. Aseg?rate de terminar todos los antibi?ticos. No bro alcohol ni nada que contenga vinagre. Le yenni? un constance?n para un medicamento para las n?useas. Por favor josé antonio un seguimiento con enrique M?dico de atenci?n primaria y especialidad gastrointestinal.Recibir? maida receta de MiraLax para ayudarle a defecar. Usar seg?n lo prescrito diariamente Prescriptions: New metronidazole 500 mg tablet 500 mg PO Q12H 7 Days Qty: 14 0RF levofloxacin 500 mg tablet 500 mg PO DAILY Qty: 7 0RF ondansetron 4 mg tablet,disintegrating 4 mg PO Q8H PRN (Reason: nausea and vomiting) Qty: 10 0RF polyethylene glycol 3350 [Miralax] 17 gram/dose powder 17 g PO DAILY Qty: 510 0RF No Action quetiapine 25 mg tablet 25 mg PO BEDTIME sucralfate 1 gram tablet 1 g PO QID aspirin 81 mg tablet,delayed release (DR/EC) 81 mg PO QAM glimepiride 1 mg tablet 1 mg PO BID levothyroxine 50 mcg tablet 50 mcg PO DAILY paroxetine HCl 40 mg tablet 40 mg PO DAILY topiramate 100 mg tablet 100 mg PO DAILY fluticasone propionate 50 mcg/actuation spray,suspension 1 - 2 spray intranasal DAILY PRN (Reason: ALLERGIES) oxycodone 5 mg tablet 5 mg PO Q12H PRN (Reason: severe pain) ferrous gluconate 324 mg (38 mg iron) tablet 324 mg PO Q OTHER DAY cefuroxime axetil 250 mg tablet 250 mg PO BID Qty: 6 0RF Referrals: Eri Rodriguez MD [Primary Care Provider] - Flakita Fisher MD [Physician] - Interventions: ED Discharge Assessment Last Done: 07/03/23 23:14 Discharge Date/Time: 07/03/23 23:14 Print Language: Liberian
[2023-07-03 21:45] VITALS: BP 161/93; PULSE 85; RESP 16; TEMP 38; O2SAT 100
[2023-07-03] MEDS: Morphine Sulfate 2 MG/ML CARTRIDGE IVPUSH (22:25)
[2023-07-04] MEDS: levoFLOXacin 500 MG TABLET PO (00:43)
[2023-07-04] MEDS: metroNIDAZOLE 500 MG TABLET PO (00:43)
== END 2023-07-03 23:14 | disposition home or self-care (01) ==
PROVIDERS: Emergency Provider Emergency Medicine; PCP Internal Medicine
DX: K52.9 Noninfective gastroenteritis and colitis, unspecified (principal); R11.2 Nausea with vomiting, unspecified; Z79.899 Other long term (current) drug therapy; R10.9 Unspecified abdominal pain; Z20.822 Contact with and (suspected) exposure to COVID-19; Z20.828 Contact with and (suspected) exposure to other viral communicable diseases
CPT/HCPCS: 0241U; 74176; 80053; 82947; 85025; 96374; 99284; J2270

== ENCOUNTER 2023-07-15 11:48 | Emergency (ER) | payer OTHER, SELFPAY ==
--- NOTE | ~2023-07-15 | XR_ITS ---
EXAMINATION: XR CHEST CLINICAL INFORMATION: Pain, shortness of breath COMPARISON: 11/09/2018 TECHNIQUE: 2 views of the chest were obtained. FINDINGS: No acute finding. No focal infiltrate. No effusion. The cardiac silhouette is felt to be comparable. The hilar regions do not appear pathologically enlarged. Tortuous versus ectatic arch and descending aorta. XR/XR chest 2V IMPRESSION: No acute finding.
--- NOTE | 2023-07-15 11:50 | ECG_ITS ---
Test Reason : chest pain Blood Pressure : / mmHG Vent. Rate : 067 BPM Atrial Rate : 067 BPM P-R Int : 152 ms QRS Dur : 076 ms QT Int : 384 ms P-R-T Axes : 071 051 076 degrees QTc Int : 405 ms Normal sinus rhythm Normal ECG When compared with ECG of 26-APR-2023 12:30, No significant change was found Referred By: Generic ED Physician Electronically Signed By:BELLO BORUGEOIS MD
--- NOTE | 2023-07-15 12:26 | ED_ITS ---
HPI - General Adult General Chief complaint: Chest Pain Stated complaint: chest pain/ diff breathing Time Seen by Provider: 07/15/23 12:26 Source: patient and family (Daughter) Mode of arrival: ambulatory Limitations: no limitations History of Present Illness HPI narrative: 82 year-old female with history of hypertension, hypercholesterolemia, hypothyroidism, diabetes, GI ulcer, panic attacks, and colitis arrives to emergency department with a complaint of chest pain, shortness of breath, and abdominal pain. The patient states that the chest pain and SOB started this morning 07/15/2023 when she woke up and got out of bed. She describes it as pressure on her chest with left hand numbness and tingling. She states she has never had this type of chest pain previously. Her abdominal pain started two weeks ago 07/01/2023 and has had no appetite after being treated for colitis with antibiotics. She reports she has only been able to tolerate Ensure by mouth. She endorses diarrhea for the past three days and lightheadedness. She denies fever, night sweats, double vision, palpitations, loss of consciousness, dyspnea, headache, dizziness, vomiting, melena, hematochezia, and changes in urination. The patient has no sick contacts or traveling history in the last month. Location: chest and abdomen Radiation: extremity (left hand) Quality: other (Pressure on chest ) Pain Consistency: now resolved Relieving factors: none Exacerbating factors: none Treatments prior to arrival: none Related Data Home Medications Medication Instructions Recorded Confirmed aspirin 81 mg tablet,delayed 81 mg PO QAM 04/26/23 04/26/23 release ferrous gluconate 324 mg (38 mg 324 mg PO Q OTHER DAY 04/26/23 04/26/23 iron) tablet fluticasone propionate 50 1 - 2 spray intranasal DAILY PRN 04/26/23 04/26/23 mcg/actuation nasal ALLERGIES spray,suspension glimepiride 1 mg tablet 1 mg PO BID 04/26/23 04/26/23 levothyroxine 50 mcg tablet 50 mcg PO DAILY 04/26/23 04/26/23 oxycodone 5 mg tablet 5 mg PO Q12H PRN severe pain 04/26/23 04/26/23 paroxetine HCl 40 mg tablet 40 mg PO DAILY 04/26/23 04/26/23 quetiapine 25 mg tablet 25 mg PO BEDTIME 04/26/23 04/26/23 sucralfate 1 gram tablet 1 g PO QID 04/26/23 04/26/23 topiramate 100 mg tablet 100 mg PO DAILY 04/26/23 04/26/23 Previous Rx's Medication Instructions Recorded cefuroxime axetil 250 mg tablet 250 mg PO BID #6 tabs 04/28/23 levofloxacin 500 mg tablet 500 mg PO DAILY #7 tabs 07/03/23 metronidazole 500 mg tablet 500 mg PO Q12H 7 days #14 tabs 07/03/23 ondansetron 4 mg disintegrating 4 mg PO Q8H PRN nausea and 07/03/23 tablet vomiting #10 tabs polyethylene glycol 3350 17 17 g PO DAILY #510 grams 07/03/23 gram/dose oral powder (Miralax) Allergies Allergy/AdvReac Type Severity Reaction Status Date / Time No Known Allergies Allergy Verified 07/03/23 16:35 [No Known Allergies*] Review of Systems 2 Constitutional: Constitutional: Reports no additional constitutional complaints, Denies chills, Denies fever(s) and Denies night sweats Eyes: Eyes: Reports no additional eye complaints, Denies blurry vision, Denies change in vision, Denies diplopia, Denies eye discharge, Denies loss of vision and Denies eye pain ENT: Denies dizziness Cardiovascular: Cardiovascular: Reports no additional cardiovascular complaints, Reports chest pain (now resolved), Denies lightheadedness, Denies Loss of Consciousness and Denies dyspnea Respiratory: Respiratory: Reports no additional respiratory complaints and Denies dyspnea Gastrointestinal: Gastrointestinal: Reports no additional gastrointestinal complaints, Reports abdominal pain (now resolved), Denies melena, Denies hematochezia, Denies change in bowel habits, Denies change in stool character and Reports nausea (with eating) Genitourinary: Genitourinary: Denies hematuria, Denies urinary frequency, Denies dysuria, Denies urinary incontinence, Denies urinary hesitancy and Denies urinary urgency Musculoskeletal: Musculoskeletal: Reports no additional musculoskeletal complaints, Denies numbness and Denies tingling Neurologic: Denies dizziness, Denies loss of vision, Denies numbness and Denies tingling Psychiatric: Psychiatric: Reports no additional psychiatric complaints Endocrine: Endocrine: Reports no additional endocrine complaints Hematologic/Lymphatic: Hematologic/Lymphatic: Reports no additional hematologic/lymphatic complaints Allergic/Immunologic: Allergic/Immunologic: Reports no additional allergic/immunologic complaints PMFSH Past Medical History Attestation statement: The following information was validated with the patient. (all information validated with the patient's daughter) Source: old records reviewed, obtained from family (patient's daughter provided additional history and confirmed the history provided by the patient.) and nursing notes reviewed Onset Date is defined in the Problem List Problems that require an onset date and time if occurred within 24 hrs of arrival to the ED Aortic Dissection and Rupture; Neurologic impairment; Cardiopulmonary Arrest; Endotracheal Intubation; Insertion or Replacement of Mechanical Circulatory Assist Device Medical History Anxiety Diabetes HTN (hypertension) Asthma Surgical History Hx laparoscopic cholecystectomy H/O colonoscopy H/O esophagogastroduodenoscopy Social History Social History Household Members: None Do you presently have visiting nurse or other home services: No Unable to assess alcohol history related to: Unknown Alcohol intake: never Patient Tobacco Use Status: Never used Tobacco Smoked in Last 30 Days: No Use of substances other than those prescribed or required for medical reasons: No Advance Directives: No Advance Directives Information Provided: Yes service: No Physical Exam ED Vital Signs: Vital Signs - 24 hr 07/15/23 12:44 07/15/23 12:44 07/15/23 14:37 Temperature 97.9 F 98.7 F 97.9 F Pulse Rate 66 74 68 Respiratory Rate 17 16 15 Blood Pressure 129/69 151/76 H 164/73 H Pulse Oximetry 100 100 99 Oxygen Delivery Method Room Air Room Air Room Air BMI result Body Mass Index 23.1 Const General: cooperative, no acute distress, alert and awake Nutritional Appearance: well nourished Orientation/consciousness: patient oriented x3 Limitations: no limitations HENMT Head: Yes normal to inspection and Yes atraumatic Ears: hearing grossly normal bilaterally and external ears normal General nose exam: Normal external nose present, no nasal discharge noted and no epistaxis Face and sinus: Yes normal facial exam, No abrasion and No laceration Mouth: Normal oral and palatal mucosa present, no drooling and no muffled voice Eyes General: appearance normal, both eyes and all related structures Periorbital: periorbital findings normal Eyelids: Yes eyelids normal Conjunctivae: conjunctivae normal Pupils: Equal, round and reactive pupils present EOM: EOMs intact bilaterally Neck Neck: Yes normal visual inspection, Yes full ROM and Yes no lymphadenopathy Chest Chest palpation & inspection: normal inspection of the chest Resp Effort & Inspection: normal respiratory effort and able to speak in complete sentences Auscultation: clear to auscultation bilaterally Cardio Rate: regular rate Rhythm: regular rhythm GI Inspection: Yes normal to inspection Palpation (GI): Soft to palpation, not firm, nontender and no guarding Neuro General: patient oriented x3 and moves all extremities Cranial nerves: Yes Equal, round and reactive pupils present Cognition (Neuro): normal cognition Motor exam (neuro): 5/5 motor strength present throughout Sensory Exam: Normal double simultaneous stimulation for sensation Coordination: [id number] test normal Extrem General: Yes normal to inspection, Yes full ROM and Yes capillary refill normal Psych Appearance: grossly normal Mental Status: mental status grossly normal Affect: normal affect Attitude: cooperative Thought process: Normal thought process present Thought content: Normal thought content present Insight: Good insight present (Psych) Medications Administered Discontinued Medications Generic Name Dose Route Start Last Admin Trade Name Freq PRN Reason Stop Dose Admin Sodium Chloride 1,000 mls @ 999 mls/hr 07/15/23 13:30 07/15/23 14:00 Ns IV 07/15/23 14:30 999 mls/hr .Q1H1M YOHANNES Administration Medical Decision Making Medical Decision Making [facility] Narrative: Patient is an 82 year old assigned female at with a history of h ypertension, hypercholesterolemia, hypothyroidism, diabetes, GI ulcer, panic attacks, and colitis presenting to the emergency department today with abdominal pain and chest pain. Patient's physical exam was unremarkable. Patient's blood work showed a mildly elevated CR but was otherwise unremarkable. Patient's urine showed no acute process. Patient's EKG was unremarkable. Patient's chest x-ray showed no acute process. I explained my physical exam findings as well as all test results to the patient and the patient's daughter. I answered all questions asked by the patient and the patient's daughter. Patient received IV fluids which she stated helped her symptoms significantly. I stressed the importance of the patient taking her medication as prescribed. I stressed the importance of the patient following up with her primary care provider. I stressed the importance of the patient returning to the emergency department immediately if her symptoms were to worsen or if she were to develop any dizziness, shortness of breath, difficulty breathing, chest pain, blurry vision, loss of vision, nausea, vomiting, abdominal pain, fever, chills, back pain, or any other complaints. Patient and the patient's daughter verbalized agreement and understanding with this treatment plan and discharge. Differential Diagnosis Differential Diagnoses: The differential diagnosis associated with the presentation includes Abdominal pain Chest pain Colitis CHRIS UTI Admission/Observation Consideration of admission/observation: Escalation of care including admission/observation considered Patient would have been admitted to the hospital had her work up had any findings where hospital admission was appropriate and her clinical presentation warranted hospital admission. Lab Data [facility] Lab Attestation statement: I reviewed the patient's lab results. My interpretation of these results are in the [facility] Rationale portion of this note. 07/15/23 12:56 07/15/23 12:56 Labs: Lab Results 07/15/23 07/15/23 Range/Units 12:56 15:25 WBC 4.6 L (4.8-10.8) X10*3/uL RBC 3.14 L (4.20-5.50) X10*6/uL Hgb 10.0 L (12.0-16.0) g/dl Hct 30.3 L (37.0-47.0) % MCV 96.5 (80.0-98.0) fL MCH 31.8 (27.0-33.0) pg MCHC 33.0 (31.0-35.0) g/dl RDW 14.7 (11.0-16.0) % Plt Count 174 (160-400) X10*3/uL MPV 9.8 (9.4-12.3) fL Immature Gran % (Auto) 0.4 (0.0-0.4) % Neut % (Auto) 69.1 (45-73) % Lymph % (Auto) 14.4 L (20-40) % [place] % (Auto) 15.7 H (2-11) % Eos % (Auto) 0.2 (0-4) % Baso % (Auto) 0.2 (0-2) % Lymph # (Auto) 0.7 L (1.2-4.9) X10*3/uL [place] # (Auto) 0.7 (0.1-1.2) X10*3/uL Eos # (Auto) 0.0 (0.0-0.4) X10*3/uL Baso # (Auto) 0.0 (0.0-0.2) X10*3/uL Abs Immat Gran (auto) 0.02 (0.00-0.03) X10*3/uL Absolute Neuts (auto) 3.2 (2.0-8.3) x10*3/uL Absolute Nucleated RBC 0.000 (0.0-0.012) X10*3/uL Nucleated RBC % (auto) 0.0 (0.0-0.2) /100WBC PT 12.5 (11.1-13.3) SEC INR 1.0 (0.9-1.1) APTT 28.4 (26.0-36.4) SEC Sodium 140 (135-145) mmol/L Potassium 4.0 (3.3-5.1) mmol/L Chloride 111 H (96-108) mmol/L Carbon Dioxide 23 (22-29) mmol/L Anion Gap 10 L (12-20) BUN 22 H (9-16) mg/dL Creatinine 2.30 H (0.5-1.4) mg/dL Estim Creat Clear Calc 17.9 Estimated GFR 20 Random Glucose 215 H (60-115) mg/dL Calcium 9.3 D (8.4-10.2) mg/dL Magnesium 2.3 (1.6-2.6) mg/dL Total Bilirubin 0.3 (0.0-1.0) mg/dL AST 20 (5-31) U/L ALT 6 (0-31) U/L Alkaline Phosphatase 31 L (39-117) U/L Troponin I High Sens 9.0 (<3.5-17.0) ng/L Total Protein 6.0 L (6.5-8.0) g/dL Albumin 3.4 L (3.5-5.0) g/dL Urine Color Yellow Urine Appearance Clear Urine pH >= 9.0 (5.0-9.0) Ur Specific [place] 1.015 (1.005-1.025) Urine Protein 30 (1+) H (Neg-Trace) mg/dL Urine Glucose (UA) Negative (Negative) mg/dL Urine Ketones Negative (Negative) mg/dL Urine Blood Negative (Negative) Urine Nitrite Negative (Negative) Ur Leukocyte Esterase Negative (Negative) COVID-19 (RUSSELL) Negative (Negative) COVID-19 Clin Com See Note Influenza Type A (MOMO) Negative (Negative) Influenza Type B (MOMO) Negative (Negative) Influenza A & B Note See Note Independent Interpretation I performed an independent interpretation of an: EKG and Plain X-Ray Interpretation: My interpretation is in agreement with the radiologist's impression of this imaging study. - EXAMINATION: XR CHEST CLINICAL INFORMATION: Pain, shortness of breath COMPARISON: 11/09/2018 TECHNIQUE: 2 views of the chest were obtained. FINDINGS: No acute finding. No focal infiltrate. No effusion. The cardiac silhouette is felt to be comparable. The hilar regions do not appear pathologically enlarged. Tortuous versus ectatic arch and descending aorta. XR/XR chest 2V IMPRESSION: No acute finding. Dictated By: Williams Gibson MD Signed By: Electronically signed by Williams Gibson MD 07/15/23 1452 - Vent. Rate: 067 BPM Atrial Rate: 067 BPM P-R Int: 152 ms QRS Dur: 076 ms QT Int: 384 ms P-R-T Axes: 071 051 076 degrees QTc Int: 405 ms Normal sinus rhythm Normal ECG When compared with ECG of 26-APR-2023 12:30, No significant change was found Electronically Signed By:BEN BOURGEOIS MD Dictated By: Ben Bourgeois MD Signed By: Electronically signed by Ben Bourgeois MD 07/15/23 3748 Radiology Impression Discussion of test interpretation with radiology: I have reviewed the radiologist's reading. Independent Historian Clinical information obtained from an independent historian. History obtained from or confirmed by: Other (patient's daughter provided additional history and confirmed the history provided by the patient.) Discharge Plan Discharge Clinical Impression: Chest pain, Abdominal pain, Dehydration Patient Disposition: Home, Self-Care Instructions: Chest Pain (DC), Dehydration (ED), Abdominal Pain (ED) Additional Instructions: Follow up with your primary care provider. Return to the emergency department immediately if your symptoms worsen or if you develop any dizziness, shortness of breath, difficulty breathing, chest pain, blurry vision, loss of vision, nausea, vomiting, abdominal pain, fever, chills, back pain, or any other complaints. Safia un seguimiento con edwards proveedor de atenci?n primaria. Regrese al departamento de emergencias inmediatamente si mason s?ntomas empeoran o si presenta mareos, dificultad para respirar, dificultad para respirar, dolor en el pecho, visi?n borrosa, p?rdida de la visi?n, n?useas, v?mitos, dolor abdominal, fiebre, escalofr?os, dolor de espalda o cualquier otras quejas. Prescriptions: No Action quetiapine 25 mg tablet 25 mg PO BEDTIME sucralfate 1 gram tablet 1 g PO QID aspirin 81 mg tablet,delayed release (DR/EC) 81 mg PO QAM glimepiride 1 mg tablet 1 mg PO BID levothyroxine 50 mcg tablet 50 mcg PO DAILY paroxetine HCl 40 mg tablet 40 mg PO DAILY topiramate 100 mg tablet 100 mg PO DAILY fluticasone propionate 50 mcg/actuation spray,suspension 1 - 2 spray intranasal DAILY PRN (Reason: ALLERGIES) oxycodone 5 mg tablet 5 mg PO Q12H PRN (Reason: severe pain) ferrous gluconate 324 mg (38 mg iron) tablet 324 mg PO Q OTHER DAY cefuroxime axetil 250 mg tablet 250 mg PO BID Qty: 6 0RF metronidazole 500 mg tablet 500 mg PO Q12H 7 Days Qty: 14 0RF levofloxacin 500 mg tablet 500 mg PO DAILY Qty: 7 0RF ondansetron 4 mg tablet,disintegrating 4 mg PO Q8H PRN (Reason: nausea and vomiting) Qty: 10 0RF polyethylene glycol 3350 [Miralax] 17 gram/dose powder 17 g PO DAILY Qty: 510 0RF Referrals: Irma Brennan MD [Primary Care Provider] - Print Language: [place]uran
[2023-07-15 12:44] VITALS: BP 129/69; BP 151/76; PULSE 66; PULSE 74; RESP 16; RESP 17; TEMP 36.6; TEMP 37.1; O2SAT 100; BMI 23.1
[2023-07-15 13:03] LABS: MANUAL DIFF FLAG NO
[2023-07-15 13:05] LABS: Basophils Percent Auto 0.2 % (0-2); Eosinophils Percent Auto 0.2 % (0-4); Hematocrit 30.3 % (37.0-47.0); Imm Gran Abs Auto 0.02 X10*3/uL (0.00-0.03); Imm Gran Pct Auto 0.4 % (0.0-0.4); Lymphocytes Absolute Auto 0.7 X10*3/uL (1.2-4.9); Lymphocytes Percent Auto 14.4 % (20-40); Mean Corpuscular Hemoglobin 31.8 pg (27.0-33.0); Mean Corpuscular Volume 96.5 fL (80.0-98.0); Mean Platelet Volume 9.8 fL (9.4-12.3); Monocytes Absolute Auto 0.7 X10*3/uL (0.1-1.2); Monocytes Percent Auto 15.7 % (2-11); Neutrophils Absolute Auto 3.2 x10*3/uL (2.0-8.3); Neutrophils Percent Auto 69.1 % (45-73); Platelet Count 174 X10*3/uL (160-400); Red Blood Count 3.14 X10*6/uL (4.20-5.50); Red Cell Distribution Width 14.7 % (11.0-16.0); White Blood Count 4.6 X10*3/uL (4.8-10.8)
[2023-07-15 13:14] LABS: Prothrombin Time 12.5 SEC (11.1-13.3)
[2023-07-15 13:17] LABS: Partial Thromboplastin Time 28.4 SEC (26.0-36.4)
[2023-07-15 13:19] LABS: Alanine Aminotransferase 6 U/L (0-31); Albumin Level 3.4 g/dL (3.5-5.0); Alkaline Phosphatase 31 U/L (39-117); Anion Gap 10 (12-20); Aspartate Amino Transferase 20 U/L (5-31); Bilirubin Total 0.3 mg/dL (0.0-1.0); Blood Urea Nitrogen 22 mg/dL (9-16); Calcium 9.3 mg/dL (8.4-10.2); Carbon Dioxide 23 mmol/L (22-29); Chloride 111 mmol/L (96-108); Creatinine Clr Calc Pharmacy 17.9; Estimated Glomerular Filt Rate 20; Glucose Random 215 mg/dL (60-115); Magnesium 2.3 mg/dL (1.6-2.6); Sodium 140 mmol/L (135-145)
[2023-07-15 13:59] LABS: IDNOW Serial# 9DB6401D; Influenza A Negative (Negative); Influenza B2 Negative (Negative)
[2023-07-15 14:00] LABS: COVID-19 Test Negative (Negative); IDNOW Serial# 152EDE1D
[2023-07-15] MEDS: 0.9 % Sodium Chloride 1,000 ML 999 ML IV (14:00)
[2023-07-15 14:37] VITALS: BP 164/73; PULSE 68; RESP 15; TEMP 36.6; O2SAT 99
--- NOTE | 2023-07-15 15:32 | PC.NURSE ---
assumed care of pt at 1500. pt a&o x4, calm, and cooperative. pt ambulated to the bathroom with standby assist with steady gait. pt family member at bedside. urine collected and sent to lab. pt fluids infusing per mar, slowly due to position of IV. pt resting quietly on stretcher in no apparent distress, reporting 10/10 pain. rr even/unlabored. call nicole within pt reach. plan of care ongoing.
[2023-07-15 15:37] LABS: Appearance Urine Clear; Color Urine Yellow; Glucose Urine UA Negative (Negative); Leukocyte Esterase Urine Negative (Negative); Nitrite Urine Negative (Negative); PH >= 9.0 (5.0-9.0); Specific Gravity - Urine 1.015 (1.005-1.025); UMIC TRIGGER UACC YES; Urine Blood Negative (Negative); Urine Ketones Negative (Negative); Urine Protein 30 (1+) mg/dL (Neg-Trace)
[2023-07-15 16:45] LABS: Bacteria Urine None Seen (None Seen); Hyaline Casts Urine 0-2 /LPF (0-2); RBC Urine 0-2 /HPF (0-2); WBC Urine 0-5 /HPF (0-5)
== END 2023-07-15 16:16 | disposition home or self-care (01) ==
PROVIDERS: Physician Assistant Medical; Emergency Provider Emergency Medicine; PCP Internal Medicine
DX: R07.9 Chest pain, unspecified (principal); R10.9 Unspecified abdominal pain; E86.0 Dehydration; R06.02 Shortness of breath; Z11.52 Encounter for screening for COVID-19; E11.9 Type 2 diabetes mellitus without complications; I10 Essential (primary) hypertension; E78.00 Pure hypercholesterolemia, unspecified; Z79.82 Long term (current) use of aspirin; Z79.899 Other long term (current) drug therapy
CPT/HCPCS: 71046; 80053; 81001; 83735; 84484; 85025; 85610; 85730; 87502; 87635; 93005; 96360; 96361; 99284; 99285

== ENCOUNTER → 2023-07-15 11:50 | Outpatient (BNV) | payer OTHER, SELFPAY | PROVIDERS: Emergency Provider Emergency Medicine; PCP Internal Medicine; Visit Provider Internal Medicine Cardiovascular Disease | DX: R07.9 Chest pain, unspecified (principal) | CPT/HCPCS: 93010 ==

== ENCOUNTER 2023-09-06 11:12 | Outpatient (AMB) | payer OTHER, SELFPAY ==
[2023-09-06 11:17] VITALS: BP 169/90; PULSE 80; BMI 19.4
--- NOTE | 2023-09-06 11:17 | A.OFFVIS_ITS ---
Intake Vital Signs 09/06/23 11:17 Height 5 ft 6 in Weight 119 lb 14.903 oz BMI 19.4 BP 169/90 H Blood Pressure Location Lt brachial Position Sitting Pulse 80 Intake Visit Reasons: pt req follow up Intake Note: Patient presents to in office visit today in follow up of constipation and weight loss. CC:Patient c/o constipation, nausea sometimes, and weight loss. She was seen on in the ER on 07/15 with c/o constipation, poor appetite, and abdominal pain. Patient unsure of what medications she is taking. Signals Intelligence Superintendent Required: No Allergies No Known Allergies [No Known Allergies*] Allergy (Verified 09/06/23 11:24) HPI pt req follow up HPI Details LAST VISIT 06/17/2021 GERD (gastroesophageal reflux disease) Patient reports acid reflux postprandially. Denies dyspepsia, dysphagia or odynophagia. Patient has a history of ulcerative esophagitis in the past. Patient was supposed to be on PPI twice a day. Patient reports that she has not been taking it last visit in May of 2019 no follow-up since. I will test her for H pylori. Patient will be started on pantoprazole twice a day half an hour before breakfast and half an hour before dinner IBS (irritable bowel syndrome) IBS with both loose stools and then constipation. Denies any melena, hematochezia unintentional weight loss or ribbon like stools. Discussed with patient FODMAP diet. List of food to avoid and food that is recommended given to patient. I will start her on Citrucel and Senokot. Instructions in Israeli on how to take the medication was given to patient. Postprandial bloating and cramping. I will start her on Creon. Patient will call me in 2 weeks if this will not going to be effective Anemia Patient has a history of anemia. Denies any melena, hematochezia, unintentional weight loss or ribbon like stools. Last colonoscopy in 2017. We will try to patient control acid reflux. She might be sent for possible upper endoscopy. No indication to send her for colonoscopy yet. I will see her in 4 weeks. Patient will will call me if she will have worsening symptoms or any other GI concerning symptoms. Per patient is agreeable to plan of care and verbalizes understanding of instructions. She was given the opportunity to ask questions and all questions answered. ? Thank you for allowing me to participate in the care Plan Orders Orders Comprehensive Met. Panel Today K21.9 Complete Blood Count no Diff Today K21.9 Transglutaminase IgA Today R10.11 Transglutaminase Ab IgG Today R14.0 H pylori Ag Stool Today K21.9 Medications New pantoprazole 40 mg PO BID 60 tabs 3RF methylcellulose (laxative) (Citrucel) take it with full glass of water 500 mg PO DAILY 30 tabs 2RF K59.00 sennosides (Natural Senna Laxative) 8.6 mg PO BEDTIME 30 tabs 3RF constipation K59.00 rfjhpa-lfjxkigw-sqtkrfh 12,000-38,000 -60,000 unit (Creon) administer with meals and/or snacks 1 cap PO QID 120 caps 0RF R10.9 TODAY'S VISIT Patient is here today for requested visit. Patient is accompanied by her daughter patient was last seen in June 2021 and was supposed to follow-up in 4 weeks, patient never came to the appointment. Seen in the ER was in the last month and a half or so for abdominal pain. Patient is complaining severe consti pation. No bowel movement for several days. Patient states that she use suppository and was able to go small amount. Patient is unsure what kind of medication as she take. Patient's daughter also does not remember what she is taking. Patient is not taking anything to help her move her bowels. Today patient reports that she is feeling better. Denies any abdominal pain or discomfort. Denies melena, hematochezia. Patient last few lb, however she has not had good appetite in the last few months or so. PFSH Medical History Anxiety Diabetes HTN (hypertension) Asthma Surgical History Hx laparoscopic cholecystectomy H/O colonoscopy H/O esophagogastroduodenoscopy Social History Household Members: None Do you presently have visiting nurse or other home services: No Unable to assess alcohol history related to: Unknown Alcohol intake: never Patient Tobacco Use Status: Never used Tobacco service: No Physical Exam Vital Signs: BMI result Body Mass Index 19.4 Results Reviewed Results Reviewed: ABDOMINAL CT SCAN FINDINGS: LUNG BASES: The visualized lung bases are unremarkable. LIVER, GALLBLADDER, BILIARY TREE: Liver is atrophic but I do not appreciate any focal mass lesion on this noncontrast study. The gallbladder is surgically absent PANCREAS: Unremarkable. SPLEEN: Unremarkable. ADRENAL GLANDS: Unremarkable. KIDNEYS AND URETERS: The kidneys are normal in size, shape, and attenuation. No hydronephrosis, hydroureter, or perinephric stranding. No calculi. BLADDER: Mild concentric bladder wall thickening similar to the prior study GASTROINTESTINAL TRACT: Scattered colonic diverticulosis. There is nonspecific colonic wall thickening seen more so in the transverse colon to the distal descending colon. Infectious or inflammatory colitis would be favored with this distribution. No obstructive changes seen to the more proximal bowel. ABDOMINAL WALL: No significant hernia is appreciated. LYMPHOVASCULAR STRUCTURES: Vascular calcification within the aorta iliac system. PELVIC VISCERA: Unremarkable. OSSEUS STRUCTURES: Chronic compression deformity of T12 again noted CT/CT abdomen pelvis wo IV con IMPRESSION: Nonspecific colonic wall thickening more so in the transverse colon to the distal descending colon. Infectious or inflammatory colitis would be favored with this distribution. Assessment & Plan Assessment & Plan (1) GERD (gastroesophageal reflux disease): Code(s): K21.9 - Gastro-esophageal reflux disease without esophagitis Qualifiers: Esophagitis presence: esophagitis presence not specified Qualified Code(s): K21.9 - Gastro-esophageal reflux disease without esophagitis (2) IBS (irritable bowel syndrome): Code(s): K58.9 - Irritable bowel syndrome without diarrhea Qualifiers: Irritable bowel syndrome type: without diarrhea Qualified Code(s): K58.9 - Irritable bowel syndrome without diarrhea (3) Anemia: Code(s): D64.9 - Anemia, unspecified Qualifiers: Anemia type: iron deficiency Iron deficiency anemia type: other iron deficiency Qualified Code(s): D50.8 - Other iron deficiency anemias (4) Constipation: Code(s): K59.00 - Constipation, unspecified Qualifiers: Constipation type: slow transit constipation Qualified Code(s): K59.01 - Slow transit constipation Plan Patient will start taking pantoprazole in the morning half an hour before breakfast. Patient will stop taking sucralfate. Discussed with patient avoiding dietary triggers and late night snacking. Staying upright for minimum 3 hours after meals discussed with patient. Patient will take senna and Dulcolax every evening to help her move her bowels. She will return in 4 weeks and we will discuss going for upper endoscopy and colonoscopy. Both patient and daughter are agreeable to plan of care and verbalizes understanding of instructions. They were given the opportunity to ask questions and all questions answered. Thank you for allowing me to participate in her care Orders: Referrals Nephrology Referral N18.9 - Chronic kidney disease, unspecified Medications: New pantoprazole take one tablet half an hour before breakfast 40 mg PO DAILY 30 tabs 2RF K21.9 - Gastro-esophageal reflux disease without esophagitis docusate sodium 100 mg PO DAILY 30 caps 3RF K59.00 - Constipation, unspecified sennosides (Natural Senna Laxative) 17.2 mg (2 x 8.6 mg) PO BEDTIME 60 tabs 3RF constipation K59.00 - Constipation, unspecified Coding Level of Care Code Est Pt Level 4 (90253) Diagnoses Gastroesophageal reflux disease, unspecified whether esophagitis present K21.9 Esophagitis presence: esophagitis presence not specified Irritable bowel syndrome without diarrhea K58.9 Irritable bowel syndrome type: without diarrhea Other iron deficiency anemia D50.8 Anemia type: iron deficiency Iron deficiency anemia type: other iron deficiency Slow transit constipation K59.01 Constipation type: slow transit constipation Time Spent (min) 35 Comment 20 minutes spent with patient and additional 15 minutes spent reviewing her records
== END 2023-09-06 11:56 | disposition home or self-care (01) ==
PROVIDERS: PCP Internal Medicine; Visit Provider Nurse Practitioner Family
DX: K21.9 Gastro-esophageal reflux disease without esophagitis (principal); K58.9 Irritable bowel syndrome, unspecified; D50.8 Other iron deficiency anemias; K59.01 Slow transit constipation
CPT/HCPCS: 99214

== ENCOUNTER 2023-09-06 11:12 | Outpatient (REF) | payer OTHER, SELFPAY ==
[2023-09-06 13:41] LABS: Blood Urea Nitrogen 34 mg/dL (9-16); Estimated Glomerular Filt Rate 19
== END 2023-09-06 11:13 | disposition home or self-care (01) ==
LOC: HO.LAB 11:12
PROVIDERS: Psychiatry & Neurology Neurology; PCP Internal Medicine; Visit Provider Nurse Practitioner Family
DX: I67.1 Cerebral aneurysm, nonruptured (principal)
CPT/HCPCS: 36415; 82565; 84520; 99212

== ENCOUNTER 2023-10-06 09:35 | Outpatient (AMB) | payer OTHER, SELFPAY ==
--- NOTE | 2023-10-06 09:48 | A.OFFVIS_ITS ---
Intake Vital Signs 10/06/23 09:52 Height 5 ft 6 in Weight 115 lb 8 oz BMI 18.6 BP 163/89 H Blood Pressure Location Lt brachial Position Sitting Pulse 64 Pulse Source Pulse Oximeter Pulse Oximetry (%) 97 Oxygen Delivery Method Room Air Intake Visit Reasons: 1 month follow up Intake Note: pt here for 1 month follow up, no eating well abdominal pain and nausea every day. Information Interpreted: non-clinical & clinical Accompanied by: Daughter Allergies No Known Allergies [No Known Allergies*] Allergy (Verified 10/06/23 10:28) HPI 1 month follow up HPI Details LAST VISIT: GERD (gastroesophageal reflux disease) IBS (irritable bowel syndrome) Anemia Constipation Plan Patient will start taking pantoprazole in the morning half an hour before breakfast. Patient will stop taking sucralfate. Discussed with patient avoiding dietary triggers and late night snacking. Staying upright for minimum 3 hours after meals discussed with patient. Patient will take senna and Dulcolax every evening to help her move her bowels. She will return in 4 weeks and we will discuss going for upper endoscopy and colonoscopy. Both patient and daughter are agreeable to plan of care and verbalizes understanding of instructions. They were given the opportunity to ask questions and all questions answered. ? Thank you for allowing me to participate in her care Orders Referrals Nephrology Referral N18.9 Medications New pantoprazole take one tablet half an hour before breakfast 40 mg PO DAILY 30 tabs 2RF K21.9 docusate sodium 100 mg PO DAILY 30 caps 3RF K59.00 sennosides (Natural Senna Laxative) 17.2 mg (2 x 8.6 mg) PO BEDTIME 60 tabs 3RF constipation K59.00 TODAY'S VISIT Patient is here today with her daughter for follow-up. Patient continues to lose weight, reports no appetite, frequently feeling nauseous. Patient states that she is moving her bowels better take Senokot and Colace. Referred patient to museum preparator last visit and she has an appointment with them today. Patient reports dyspepsia without dysphagia or odynophagia. Patient also reports nausea and frequent vomiting. Reports epigastric pain. Patient does not have any appetite. Daughter states that she hardly eats anything. Denies any melena, hematochezia, unintentional weight loss or ribbon like stools. Patient continues to be anemic. Patient did not show in our office for over 2 years. Patient reports abdominal cramping specially after eating. States that she does not want to eat because her that.. Postprandial abdominal bloating. Patient has protein shakes at home per her daughter, however she has not started drinking them yet. Patient reports frustration with her weight loss. Patient's daughter reports that she does not believe that she is drinking enough fluids. Diagnosed with CKD stage IV. Seen in the hospital ER multiple times last year with last visit in July. All visits were for abdominal pain with 1 admission in April of 2023 for acute kidney injury and abdominal pain. Patient has not followed up in our office. [facility] Medical History (Updated 10/06/23 @ 10:55 by Usman Larose MD) Anxiety Diabetes HTN (hypertension) Asthma Surgical History Hx laparoscopic cholecystectomy H/O colonoscopy H/O esophagogastroduodenoscopy Social History Household Members: None Do you presently have visiting nurse or other home services: No Unable to assess alcohol history related to: Unknown Alcohol intake: never Patient Tobacco Use Status: Never used Tobacco service: No Review of Systems Const Denies weight gain and Denies weight loss ENT Reports no additional complaints, Denies dysphagia and Denies odynophagia Card Reports no additional complaints Resp Reports no additional complaints GI Denies abdominal pain, Denies belching, Denies melena, Denies bloating, Denies change in bowel habits, Denies dysphagia, Denies excessive flatus, Denies dyspepsia, Reports heartburn, Denies diarrhea, Denies loose stools, Reports nausea, Denies odynophagia and Denies vomiting Reports no additional complaints Musc Reports no additional complaints Neuro Reports no additional complaints Psych Reports no additional complaints Endo Reports no additional complaints Physical Exam Vital Signs: Last Vital Signs Pulse 64 10/06/23 09:52 BP 163/89 H 10/06/23 09:52 Pulse Ox 97 10/06/23 09:52 Oxygen Delivery Method Room Air 10/06/23 09:52 BMI result Body Mass Index 18.6 Const General: no acute distress and well developed Nutritional Appearance: underweight Orientation/consciousness: patient oriented x3 Resp Effort & Inspection: normal respiratory effort, able to speak in complete sentences, no tracheal deviation and symmetric chest movement Auscultation: clear to auscultation bilaterally Cardio Rate: regular rate GI Palpation (GI): Soft to palpation, not firm, nontender and No hepatosplenomegaly present Auscultation: normal bowel sounds General: Yes no CVA tenderness Back/Spine/Pelvis Back: no CVA tenderness Skin General skin exam: elasticity normal, turgor normal and dry skin Neuro General: patient oriented x3 Psych Appearance: grossly normal Mental Status: mental status grossly normal Assessment & Plan Assessment & Plan (1) Weight loss, unintentional: Code(s): R63.4 - Abnormal weight loss (2) GERD (gastroesophageal reflux disease): Code(s): K21.9 - Gastro-esophageal reflux disease without esophagitis Qualifiers: Esophagitis presence: esophagitis presence not specified Qualified Code(s): K21.9 - Gastro-esophageal reflux disease without esophagitis (3) IBS (irritable bowel syndrome): Code(s): K58.9 - Irritable bowel syndrome without diarrhea Qualifiers: Irritable bowel syndrome type: without diarrhea Qualified Code(s): K58.9 - Irritable bowel syndrome without diarrhea (4) Anemia: Code(s): D64.9 - Anemia, unspecified Qualifiers: Anemia type: due to chronic kidney disease Chronic kidney disease stage: stage 4 (severe) Qualified Code(s): N18.4 - Chronic kidney disease, stage 4 (severe); D63.1 - Anemia in chronic kidney disease (5) Constipation: Code(s): K59.00 - Constipation, unspecified Qualifiers: Constipation type: slow transit constipation Qualified Code(s): K59.01 - Slow transit constipation Plan Will check thyroid levels, lipase, referral to dietitian and nutrition for counseling. Will send patient for MRI. Patient will be scheduled for colonoscopy and upper endoscopy. I will send her script for enzymes to see if patient will have better appetite. Will check for pancreatic insufficiency. Anemia possibly related to kidney disease, however will send patient for upper endoscopy and colonoscopy. Patient can take Zofran to help her with nausea. I have considered given patient Remeron, however due to patient's history of fall in the past I would lose want to avoid. I will see patient in 3 weeks, sooner on as needed basis. Patient is agreeable to this plan and verbalizes understanding of instructions. She was given the opportunity to ask questions and all questions answered. Thank you for allowing me to participate in her care Orders: Orders TSH reflex Free T4 Today K59.00 - Constipation, unspecified MR MRCP Today R10.9 - Unspecified abdominal pain, R63.4 - Abnormal weight loss Pancreatic Elastase-1 Today R10.9 - Unspecified abdominal pain Lipase Today R10.9 - Unspecified abdominal pain Referrals [facility] Nutrition Referral R63.4 - Abnormal weight loss Medications: New ondansetron 4 mg PO Q8H PRN 20 tabs 0RF nausea and vomiting R11.0 - Nausea xsocfj-imanxpjy-mmmjwyi 12,000-38,000 -60,000 unit (Creon) administer with meals and/or snacks 1 cap PO QID 120 caps 3RF R10.9 - Unspecified abdominal pain Coding Level of Care Code Est Pt Level 4 (26996) Diagnoses Weight loss, unintentional R63.4 Gastroesophageal reflux disease, unspecified whether esophagitis present K21.9 Esophagitis presence: esophagitis presence not specified Irritable bowel syndrome without diarrhea K58.9 Irritable bowel syndrome type: without diarrhea Anemia due to stage 4 chronic kidney disease N18.4; D63.1 Anemia type: due to chronic kidney disease Chronic kidney disease stage: stage 4 (severe) Slow transit constipation K59.01 Constipation type: slow transit constipation Time Spent (min) 40 Comment 25 minutes spent with patient and additional 15 minutes spent reviewing her records
[2023-10-06 09:52] VITALS: BP 163/89; PULSE 64; O2SAT 97; BMI 18.6
== END 2023-10-06 10:11 | disposition home or self-care (01) ==
PROVIDERS: PCP Internal Medicine; Visit Provider Nurse Practitioner Family
DX: R63.4 Abnormal weight loss (principal); K21.9 Gastro-esophageal reflux disease without esophagitis; K58.9 Irritable bowel syndrome, unspecified; N18.4 Chronic kidney disease, stage 4 (severe); D63.1 Anemia in chronic kidney disease; K59.01 Slow transit constipation
CPT/HCPCS: 99214

== ENCOUNTER → 2023-10-06 09:35 | Outpatient (BNVA) | payer OTHER, SELFPAY | PROVIDERS: PCP Internal Medicine; Visit Provider Nurse Practitioner Family | DX: I12.9 Hypertensive chronic kidney disease with stage 1 through stage 4 chronic kidney disease, or unspecified chronic kidney disease (principal); E11.22 Type 2 diabetes mellitus with diabetic chronic kidney disease; N18.4 Chronic kidney disease, stage 4 (severe); N17.9 Acute kidney failure, unspecified; E83.52 Hypercalcemia; R10.9 Unspecified abdominal pain; R11.0 Nausea; K21.9 Gastro-esophageal reflux disease without esophagitis; R63.4 Abnormal weight loss; D63.1 Anemia in chronic kidney disease; K58.1 Irritable bowel syndrome with constipation; K59.01 Slow transit constipation | CPT/HCPCS: 99202; 99212 ==

== ENCOUNTER 2023-10-06 10:21 | Outpatient (AMB) | payer OTHER, SELFPAY ==
--- NOTE | 2023-10-06 10:22 | HO.NEPHOV ---
HPI HPI Comments History of Present Illness Details 82 year old women with history of hypertension, diabetes mellitus, depression as well as advanced chronic kidney disease with on and off abdominal pain and nausea as well as vomiting has been found to have worsening renal functions. She is not eating as per the daughter since she feels quite nauseous. Her renal functions had been steadily declining. She is known to be hypertensive and had been on medications. She lost tremendous amount of weight and is being evaluated. She was seen by gastroenterology services this morning. She is going to have MRI of the abdomen as well as a colonoscopy. She denied chest pain, sob, fever, chills, recent illness, recent travel. She recently had elevated calcium level of 14 and was treated during her recent hospitalization. She denies any uremic symptoms. She denies any coronary artery disease, CVA, PVD, DAVID or excessive use of nonsteroidal anti-inflammatories. She denies any history of nephrolithiasis, hematuria or pedal edema. Her recent serum creatinine has been 2.42. [facility] Medical History (Updated 10/06/23 @ 10:55 by Usman Larose MD) Anxiety Diabetes HTN (hypertension) Asthma Surgical History Hx laparoscopic cholecystectomy H/O colonoscopy H/O esophagogastroduodenoscopy Social History Household Members: None Do you presently have visiting nurse or other home services: No Unable to assess alcohol history related to: Unknown Alcohol intake: never Patient Tobacco Use Status: Never used Tobacco service: No Vital Signs 10/06/23 10:26 Height 5 ft 6 in Weight 118 lb BMI 19.0 BP 154/60 H Blood Pressure Location Rt brachial Position Sitting Pulse 64 Pulse Source Pulse Oximeter Pulse Oximetry (%) 99 Oxygen Delivery Method Room Air Physical Exam Vital Signs: Last Vital Signs Pulse 64 10/06/23 10:26 BP 154/60 H 10/06/23 10:26 Pulse Ox 99 10/06/23 10:26 Oxygen Delivery Method Room Air 10/06/23 10:26 BMI result Body Mass Index 19.0 Const Other: Cachectic General: comfortable and no acute distress Orientation/consciousness: patient oriented x3 HEENT Head: Yes normocephalic Mouth: Normal oral and palatal mucosa present Eyes EOM: EOMs intact bilaterally Neck Neck: Yes supple Resp Auscultation: clear to auscultation bilaterally Cardio Jugular venous distension: no JVD Rate: regular rate GI Palpation (GI): Soft to palpation Auscultation: normal bowel sounds General: Yes no CVA tenderness Back/Spine/Pelvis Back: no CVA tenderness Skin General skin exam: no rashes or lesions noted Neuro General: patient oriented x3 and moves all extremities Extrem General: Yes no pedal edema Assessment & Plan Assessment & Plan (1) CHRIS (acute kidney injury): Code(s): N17.9 - Acute kidney failure, unspecified (2) Hypercalcemia: Code(s): E83.52 - Hypercalcemia (3) CKD (chronic kidney disease) stage 4, GFR 15-29 ml/min: Code(s): N18.4 - Chronic kidney disease, stage 4 (severe) (4) HTN (hypertension): Code(s): I10 - Essential (primary) hypertension Qualifiers: Hypertension type: primary hypertension Qualified Code(s): I10 - Essential (primary) hypertension Plan Shellie has advanced chronic kidney disease at baseline. She has been having CHRIS on a backdrop of CKD most likely due to tubular injury. Her cachexia, ongoing nausea, anemia, recent serum calcium 14 is quite concerning. Her renal functions gotten worse most likely due to tubular injury, given she has been taking 40 mg of lisinopril when she has been having poor intake. There is no reason to suspect any GN or AIN. I discontinued her lisinopril and initiated her on amlodipine 5 mg daily. She may need increased dosage of the same. Further follow-up workup has been ordered. I may consider Doppler of her renal arteries. Further management is pending evolving data. All her and her daughter's questions were answered. Follow-up appointment given. Orders: Orders Complete Blood Count Auto Diff Today E83.52 - Hypercalcemia, I10 - Essential (primary) hypertension, N17.9 - Acute kidney failure, unspecified, N18.4 - Chronic kidney disease, stage 4 (severe) Calcium Today E83.52 - Hypercalcemia, I10 - Essential (primary) hypertension, N17.9 - Acute kidney failure, unspecified, N18.4 - Chronic kidney disease, stage 4 (severe) Electrolytes Today E83.52 - Hypercalcemia, I10 - Essential (primary) hypertension, N17.9 - Acute kidney failure, unspecified, N18.4 - Chronic kidney disease, stage 4 (severe) Creatinine Today E83.52 - Hypercalcemia, I10 - Essential (primary) hypertension, N17.9 - Acute kidney failure, unspecified, N18.4 - Chronic kidney disease, stage 4 (severe) Parathyroid Hormone Intact Today E83.52 - Hypercalcemia, I10 - Essential (primary) hypertension, N17.9 - Acute kidney failure, unspecified, N18.4 - Chronic kidney disease, stage 4 (severe) Immunofixation Pnl, Serum Today E83.52 - Hypercalcemia, I10 - Essential (primary) hypertension, N17.9 - Acute kidney failure, unspecified, N18.4 - Chronic kidney disease, stage 4 (severe) IRON PROFILE Today E83.52 - Hypercalcemia, I10 - Essential (primary) hypertension, N17.9 - Acute kidney failure, unspecified, N18.4 - Chronic kidney disease, stage 4 (severe) Blood Urea Nitrogen Today E83.52 - Hypercalcemia, I10 - Essential (primary) hypertension, N17.9 - Acute kidney failure, unspecified, N18.4 - Chronic kidney disease, stage 4 (severe) Vitamin D 25-OH Total Today E83.52 - Hypercalcemia, I10 - Essential (primary) hypertension, N17.9 - Acute kidney failure, unspecified, N18.4 - Chronic kidney disease, stage 4 (severe) Phosphorus Today E83.52 - Hypercalcemia, I10 - Essential (primary) hypertension, N17.9 - Acute kidney failure, unspecified, N18.4 - Chronic kidney disease, stage 4 (severe) Medications: New amlodipine 5 mg PO DAILY 30 days 30 tabs 3RF Coding Level of Care Code New Pt Level 4 (76859) Diagnoses CHRIS (acute kidney injury) N17.9 Hypercalcemia E83.52 CKD (chronic kidney disease) stage 4, GFR 15-29 ml/min N18.4 Primary hypertension I10 Hypertension type: primary hypertension Results Reviewed Nephrology Results: Hgb 10.0 g/dl (12.0-16.0) L 07/15/23 WBC 4.6 X10*3/uL (4.8-10.8) L 07/15/23 Plt Count 174 X10*3/uL (160-400) 07/15/23 Sodium 140 mmol/L (135-145) 07/15/23 Potassium 4.0 mmol/L (3.3-5.1) 07/15/23 Chloride 111 mmol/L (96-108) H 07/15/23 Carbon Dioxide 23 mmol/L (22-29) 07/15/23 BUN 34 mg/dL (9-16) H 09/06/23 Creatinine 2.42 mg/dL (0.5-1.4) H 09/06/23 Calcium 9.3 mg/dL (8.4-10.2) 07/15/23 Urine Protein 30 (1+) mg/dL (Neg-Trace) H 07/15/23 Urine Creatinine 95.82 mg/dL 04/27/23
[2023-10-06 10:26] VITALS: BP 154/60; PULSE 64; O2SAT 99; BMI 19.0
== END 2023-10-06 10:58 | disposition home or self-care (01) ==
PROVIDERS: PCP Internal Medicine; Referring Provider Nurse Practitioner Family; Visit Provider Internal Medicine Nephrology
DX: N17.9 Acute kidney failure, unspecified (principal); E83.52 Hypercalcemia; I12.9 Hypertensive chronic kidney disease with stage 1 through stage 4 chronic kidney disease, or unspecified chronic kidney disease; N18.4 Chronic kidney disease, stage 4 (severe)
CPT/HCPCS: 99204

== ENCOUNTER 2023-10-27 10:12 | Outpatient (REF) | payer OTHER, SELFPAY ==
[2023-10-27 10:29] LABS: MANUAL DIFF FLAG NO
[2023-10-27 10:46] LABS: Basophils Percent Auto 0.6 % (0-2); Eosinophils Percent Auto 0.3 % (0-4); Hematocrit 30.5 % (37.0-47.0); Hemoglobin 10.4 g/dl (12.0-16.0); Imm Gran Abs Auto 0.01 X10*3/uL (0.00-0.03); Imm Gran Pct Auto 0.3 % (0.0-0.4); Lymphocytes Absolute Auto 1.1 X10*3/uL (1.2-4.9); Lymphocytes Percent Auto 31.4 % (20-40); Mean Corpuscular HGB Conc 34.1 g/dl (31.0-35.0); Mean Corpuscular Volume 96.8 fL (80.0-98.0); Mean Platelet Volume 10.1 fL (9.4-12.3); Monocytes Absolute Auto 0.4 X10*3/uL (0.1-1.2); Neutrophils Absolute Auto 1.9 x10*3/uL (2.0-8.3); Neutrophils Percent Auto 55.4 % (45-73); Platelet Count 178 X10*3/uL (160-400); Red Blood Count 3.15 X10*6/uL (4.20-5.50); Red Cell Distribution Width 14.2 % (11.0-16.0); White Blood Count 3.5 X10*3/uL (4.8-10.8)
[2023-10-27 11:16] LABS: Anion Gap 12 (12-20); Blood Urea Nitrogen 31 mg/dL (9-16); Calcium 10.4 mg/dL (8.4-10.2); Carbon Dioxide 21 mmol/L (22-29); Chloride 113 mmol/L (96-108); Estimated Glomerular Filt Rate 30; Iron 103 mcg/dL (30-160); Percent Iron Saturation 42 % (15-50); Phosphorus 3.6 mg/dL (2.7-4.5); Potassium 4.3 mmol/L (3.3-5.1); Sodium 142 mmol/L (135-145); Total Iron Binding Capacity 246 mcg/dL (228-428); Unsaturated Iron Binding 143 ug/dL
[2023-10-27 11:32] LABS: Parathyroid Hormone Intact 65.2 pg/mL (8.7-77.1)
[2023-10-27 11:40] LABS: Vitamin D 25-OH Total 30.5 ng/mL (>30)
[2023-10-29 18:38] LABS: IgA 407 mg/dL (70-320); IgG 1387 mg/dL (600-1540); IgM 59 mg/dL (50-300)
== END 2023-10-27 10:13 | disposition home or self-care (01) ==
LOC: HO.LAB 10:12
PROVIDERS: Absent Provider Nurse Practitioner Family; PCP Internal Medicine; Visit Provider Internal Medicine Nephrology
DX: I12.9 Hypertensive chronic kidney disease with stage 1 through stage 4 chronic kidney disease, or unspecified chronic kidney disease (principal); N18.4 Chronic kidney disease, stage 4 (severe); E83.52 Hypercalcemia; N17.9 Acute kidney failure, unspecified
CPT/HCPCS: 36415; 80051; 82306; 82310; 82565; 82784; 83540; 83970; 84100; 84520; 85025; 86334

== ENCOUNTER 2023-11-01 10:42 | Outpatient (AMB) | payer OTHER, SELFPAY ==
--- NOTE | 2023-11-01 10:50 | MHC.OFFVIS ---
Vital Signs 11/01/23 10:56 Height 5 ft 6 in Weight 120 lb BMI 19.4 BP 140/68 H Blood Pressure Location Lt brachial Pulse 67 Intake Visit Reasons: 2 weeks follow up Intake Note: Patient is seen in office for 2 weeks follow up visit. 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 Will send patient for MRI. Patient will be scheduled for colonoscopy and upper endoscopy. I will send her script for enzymes to see if patient will have better appetite. Will check for pancreatic insufficiency. Anemia possibly related to kidney disease, however will send patient for upper endoscopy and colonoscopy. Patient can take Zofran to help her with nausea. I have considered given patient Remeron, however due to patient's history of fall in the past I would lose want to avoid. I will see patient in 3 weeks, sooner on as needed basis. Patient is agreeable to this plan and verbalizes understanding of instructions. She was given the opportunity to ask questions and all questions answered. ? Thank you for allowing me to participate in her care Orders Orders TSH reflex Free T4 Today K59.00 MR MRCP Today R10.9, R63.4 Pancreatic Elastase-1 Today R10.9 Lipase Today R10.9 Referrals Retail Planner Nutrition Referral R63.4 Medications New ondansetron 4 mg PO Q8H PRN 20 tabs 0RF nausea and vomiting R11.0 [id number] 12,000-38,000 -60,000 unit (Creon) administer with meals and/or snacks 1 cap PO QID 120 caps 3RF R10.9 TODAY'S VISIT: Patient is here today for follow-up. Patient had MRI that did not show any acute processes, except for liver cirrhosis. Patient is accompanied by her daughter. Patient reports that she has started eating better. Taking Creon with each meal. Still has occasional nausea and epigastric discomfort, however feels better. Patient gained 4 lb since last visit. Has appointment with dietitian on November 03. Occasional postprandial abdominal bloating and continues to be constipated. Currently patient is taking Colace. Does not take senna. Patient reports epigastric discomfort postprandially, however reports that it is better now that she is taking pantoprazole in the morning and famotidine b.i.d.. Patient denies melena, hematochezia. [facility] Medical History (Updated 10/06/23 @ 10:55 by Usman Larose MD) Anxiety Diabetes HTN (hypertension) Asthma Surgical History Hx laparoscopic cholecystectomy H/O colonoscopy H/O esophagogastroduodenoscopy Social History Household Members: None Do you presently have visiting nurse or other home services: No Unable to assess alcohol history related to: Unknown Alcohol intake: never Patient Tobacco Use Status: Never used Tobacco service: No Review of Systems Const Reports weight loss ENT Reports no additional complaints, Denies dysphagia and Denies odynophagia Card Reports no additional complaints Resp Reports no additional complaints GI Reports abdominal pain (Epigastric), Denies belching, Denies melena, Reports bloating, Reports constipation, Denies dysphagia, Denies excessive flatus, Denies dyspepsia, Reports heartburn, Denies diarrhea, Denies loose stools, Denies nausea, Denies odynophagia and Denies vomiting Reports no additional complaints Musc Reports no additional complaints Neuro Reports no additional complaints Psych Reports no additional complaints Endo Reports no additional complaints Physical Exam Vital Signs: Last Vital Signs Pulse 67 11/01/23 10:56 BP 140/68 H 11/01/23 10:56 BMI result Body Mass Index 19.4 Const General: no acute distress Nutritional Appearance: underweight Orientation/consciousness: patient oriented x3 Resp Effort & Inspection: normal respiratory effort, able to speak in complete sentences, no tracheal deviation and symmetric chest movement Auscultation: clear to auscultation bilaterally Cardio Rate: regular rate GI Palpation (GI): Soft to palpation, not firm, nontender and No hepatosplenomegaly present Auscultation: normal bowel sounds General: Yes no CVA tenderness Back/Spine/Pelvis Back: no CVA tenderness Skin General skin exam: elasticity normal, turgor normal and dry skin Neuro General: patient oriented x3 Psych Appearance: grossly normal Mental Status: mental status grossly normal Assessment & Plan Assessment & Plan (1) Weight loss, unintentional: Code(s): R63.4 - Abnormal weight loss (2) GERD (gastroesophageal reflux disease): Code(s): K21.9 - Gastro-esophageal reflux disease without esophagitis Qualifiers: Esophagitis presence: esophagitis presence not specified Qualified Code(s): K21.9 - Gastro-esophageal reflux disease without esophagitis (3) IBS (irritable bowel syndrome): Code(s): K58.9 - Irritable bowel syndrome without diarrhea Qualifiers: Irritable bowel syndrome type: without diarrhea Qualified Code(s): K58.9 - Irritable bowel syndrome without diarrhea (4) Anemia: Code(s): D64.9 - Anemia, unspecified Qualifiers: Anemia type: unspecified type Qualified Code(s): D64.9 - Anemia, unspecified (5) Constipation: Code(s): K59.00 - Constipation, unspecified Qualifiers: Constipation type: slow transit constipation Qualified Code(s): K59.01 - Slow transit constipation (6) Postprandial epigastric pain: Code(s): R10.13 - Epigastric pain (7) Postprandial abdominal bloating: Code(s): R14.0 - Abdominal distension (gaseous) Plan Continue current PPI and H2 blockers. Monitor kidney functions. Patient's daughter reports that she is off lisinopril now. Last kidney function improved. Liver cirrhosis found on MRI, we will rule out underlying cause, will order liver fibrosis panel as well as MRI with elastography. Patient will return in 4 weeks, sooner on as needed basis. Patient's daughter not sure if patient should follow-up with the advanced seal delivery system, encouraged patient to have a appointment with her. Both patient and her daughter are agreeable to plan care and verbalizes understanding of instructions. They were given the opportunity to ask questions and all questions answered. Thank you for allowing me to participate in her care Orders: Orders Alpha Fetoprotein Today R79.89 - Other specified abnormal findings of blood chemistry Hepatitis A,B,C Profile Today R79.89 - Other specified abnormal findings of blood chemistry Prothrombin Time INR Today R74.8 - Abnormal levels of other serum enzymes HIV Ab/Ag Today R79.89 - Other specified abnormal findings of blood chemistry Ceruloplasmin Today R79.89 - Other specified abnormal findings of blood chemistry Ferritin Today R74.8 - Abnormal levels of other serum enzymes Mitochondrial Antibody Today R79.89 - Other specified abnormal findings of blood chemistry Soluble Liver Ag Autoantibody Today K74.60 - Unspecified cirrhosis of liver Liver Fibrosis Pnl Today K74.60 - Unspecified cirrhosis of liver US abdomen calixto w elastography Today K76.9 - Liver disease, unspecified Smooth Muscle Antibody Today R79.89 - Other specified abnormal findings of blood chemistry Alpha 1 Anti-trypsin Today R74.01 - Elevation of levels of liver transaminase levels Medications: Refilled sennosides (Natural Senna Laxative) 17.2 mg (2 x 8.6 mg) PO BEDTIME 60 tabs 3RF constipation K59.00 - Constipation, unspecified Coding Level of Care Code Est Pt Level 4 (88773) Diagnoses Weight loss, unintentional R63.4 Gastroesophageal reflux disease, unspecified whether esophagitis present K21.9 Esophagitis presence: esophagitis presence not specified Irritable bowel syndrome without diarrhea K58.9 Irritable bowel syndrome type: without diarrhea Anemia, unspecified type D64.9 Anemia type: unspecified type Slow transit constipation K59.01 Constipation type: slow transit constipation Postprandial epigastric pain R10.13 Postprandial abdominal bloating R14.0 Time Spent (min) 40 Comment 25 minutes spent with patient and additional 15 minutes spent reviewing her records
[2023-11-01 10:56] VITALS: BP 140/68; PULSE 67; BMI 19.4
== END 2023-11-01 12:06 | disposition home or self-care (01) ==
PROVIDERS: PCP Internal Medicine; Visit Provider Nurse Practitioner Family
DX: R63.4 Abnormal weight loss (principal); K21.9 Gastro-esophageal reflux disease without esophagitis; K58.9 Irritable bowel syndrome, unspecified; D64.9 Anemia, unspecified; K59.01 Slow transit constipation; R10.13 Epigastric pain; R14.0 Abdominal distension (gaseous)
CPT/HCPCS: 99214

== ENCOUNTER → 2023-11-01 10:42 | Outpatient (BNVA) | payer OTHER, SELFPAY | PROVIDERS: PCP Internal Medicine; Visit Provider Nurse Practitioner Family | DX: R63.4 Abnormal weight loss (principal); Z68.1 Body mass index [BMI] 19.9 or less, adult; K21.9 Gastro-esophageal reflux disease without esophagitis; K58.9 Irritable bowel syndrome, unspecified; D64.9 Anemia, unspecified; K59.01 Slow transit constipation; R10.13 Epigastric pain; R14.0 Abdominal distension (gaseous); Z79.899 Other long term (current) drug therapy | CPT/HCPCS: 99212 ==

== ENCOUNTER 2023-11-03 11:10 | Outpatient (AMB) | payer OTHER, SELFPAY ==
--- NOTE | 2023-11-03 11:14 | HO.NEPHOV_ITS ---
Vital Signs 11/03/23 11:15 Height 5 ft 6 in Weight 122 lb 6 oz BMI 19.7 BP 140/60 H Blood Pressure Location Rt brachial Position Sitting Pulse 60 Pulse Source Pulse Oximeter Pulse Oximetry (%) 99 Oxygen Delivery Method Room Air Intake Visit Reasons: Chronic kidney disease/ 3 weeks fu/ Confirmed Retirement Sales Consultant Required: Yes Retirement Sales Consultant Name: Rachel Gill Accompanied by: Daughter Allergies No Known Allergies [No Known Allergies*] Allergy (Verified 11/03/23 11:18) HPI Comments Details: 82 year old women with history of hypertension, diabetes mellitus, depression as well as chronic kidney disease . Her abdominal pain and nausea as well as vom iting is better. She is known to be hypertensive and had been on medications. She denied chest pain, sob, fever, chills, recent illness, recent travel. She recently had elevated calcium level of 14 and was treated during her recent hospitalization. She denies any uremic symptoms. She denies any coronary artery disease, CVA, PVD, DAVID or excessive use of nonsteroidal anti- inflammatories. She denies any history of nephrolithiasis, hematuria or pedal edema. Her recent serum creatinine has improved to 1.6 [facility] Medical History (Updated 11/03/23 @ 11:44 by Usman Larose MD) Anxiety Diabetes HTN (hypertension) Asthma Surgical History Hx laparoscopic cholecystectomy H/O colonoscopy H/O esophagogastroduodenoscopy Social History Household Members: None Do you presently have visiting nurse or other home services: No Unable to assess alcohol history related to: Unknown Alcohol intake: never Patient Tobacco Use Status: Never used Tobacco service: No Physical Exam Vital Signs: Last Vital Signs Pulse 60 11/03/23 11:15 BP 140/60 H 11/03/23 11:15 Pulse Ox 99 11/03/23 11:15 Oxygen Delivery Method Room Air 11/03/23 11:15 BMI result Body Mass Index 19.7 Const General: comfortable and no acute distress Orientation/consciousness: patient oriented x3 HEENT Head: Yes normocephalic Mouth: Normal oral and palatal mucosa present Eyes EOM: EOMs intact bilaterally Neck Neck: Yes supple Resp Auscultation: clear to auscultation bilaterally Cardio Jugular venous distension: no JVD Rate: regular rate GI Palpation (GI): Soft to palpation Auscultation: normal bowel sounds General: Yes no CVA tenderness Back/Spine/Pelvis Back: no CVA tenderness Skin General skin exam: no rashes or lesions noted Neuro General: patient oriented x3 and moves all extremities Extrem General: Yes no pedal edema Results Reviewed Nephrology Results: Hgb 10.4 g/dl (12.0-16.0) L 10/27/23 WBC 3.5 X10*3/uL (4.8-10.8) L 10/27/23 Plt Count 178 X10*3/uL (160-400) 10/27/23 Sodium 142 mmol/L (135-145) 10/27/23 Potassium 4.3 mmol/L (3.3-5.1) 10/27/23 Chloride 113 mmol/L (96-108) H 10/27/23 Carbon Dioxide 21 mmol/L (22-29) L 10/27/23 BUN 31 mg/dL (9-16) H 10/27/23 Creatinine 1.63 mg/dL (0.5-1.4) H 10/27/23 Calcium 10.4 mg/dL (8.4-10.2) H 10/27/23 Phosphorus 3.6 mg/dL (2.7-4.5) 10/27/23 PTH Intact 65.2 pg/mL (8.7-77.1) 10/27/23 Urine Protein 30 (1+) mg/dL (Neg-Trace) H 07/15/23 Assessment & Plan Assessment & Plan (1) CKD (chronic kidney disease) stage 4, GFR 15-29 ml/min: Code(s): N18.4 - Chronic kidney disease, stage 4 (severe) Category: Medical (2) HTN (hypertension): Code(s): I10 - Essential (primary) hypertension Category: Medical Qualifiers: Hypertension type: primary hypertension Qualified Code(s): I10 - Essential (primary) hypertension (3) Hypercalcemia: Code(s): E83.52 - Hypercalcemia Category: Medical Plan Shellie has chronic kidney disease at baseline. Her CHRIS on a backdrop of CKD most likely due to tubular injury has resolved. I asked her to hold Vitamin D given marginally high vitamin D. ( Her renal functions gotten worse most likely due to tubular injury, given she has been taking 40 mg of lisinopril when she has been having poor intake ). There is no reason to suspect any GN or AIN. I discontinued her lisinopril at the last visit and initiated her on amlodipine 5 mg daily which we may have to increase if BP goes up. Further follow-up workup has been ordered. I may consider Doppler of her renal arteries in the future. Further management is pending evolving data. All her and her daughter's questio ns were answered. Follow-up appointment given. Coding Level of Care Code Est Pt Level 4 (10846) Diagnoses CKD (chronic kidney disease) stage 4, GFR 15-29 ml/min N18.4 Primary hypertension I10 Hypertension type: primary hypertension Hypercalcemia E83.52
[2023-11-03 11:15] VITALS: BP 140/60; PULSE 60; O2SAT 99; BMI 19.7
== END 2023-11-03 11:49 | disposition home or self-care (01) ==
PROVIDERS: PCP Internal Medicine; Visit Provider Internal Medicine Nephrology
DX: I12.9 Hypertensive chronic kidney disease with stage 1 through stage 4 chronic kidney disease, or unspecified chronic kidney disease (principal); N18.4 Chronic kidney disease, stage 4 (severe); E83.52 Hypercalcemia
CPT/HCPCS: 99214

== ENCOUNTER → 2023-11-03 11:10 | Outpatient (BNVA) | payer OTHER, SELFPAY | PROVIDERS: PCP Internal Medicine; Visit Provider Internal Medicine Nephrology | DX: I12.9 Hypertensive chronic kidney disease with stage 1 through stage 4 chronic kidney disease, or unspecified chronic kidney disease (principal); N18.4 Chronic kidney disease, stage 4 (severe); E83.52 Hypercalcemia | CPT/HCPCS: 99212 ==

== ENCOUNTER 2023-11-12 09:10 | Outpatient (REF) | payer OTHER, SELFPAY ==
--- NOTE | ~2023-11-12 | US_ITS ---
EXAMINATION: US ABDOMEN LIMITED WITH LIVER ELASTOGRAPHY CLINICAL INFORMATION: Liver disease. COMPARISON: None available. TECHNIQUE: Real-time imaging of the abdominal viscera. Noninvasive ultrasound liver fibrosis assessment is performed using Mani ElastPQ point quantification shear wave elastography (2D-SWE) with a C5-2 MHz transducer. Multiple elastography samples are obtained. FINDINGS: PANCREAS: The visualized pancreatic head and body are normal in appearance. The remainder of the pancreas is obscured from visualization by the overlying bowel gas. LIVER: The liver demonstrates normal size and contour. Echogenicity was increased consistent with hepatic steatosis. The caudate lobe appears enlarged. No focal lesion or intrahepatic biliary duct dilatation. The right lobe measures 11.5 cm in length. The left lobe measures 8.6 cm in length. Portal flow is hepatopedal. Shear wave liver elastography median stiffness is 1.92 m/s (reference: normal median stiffness is 1.3 m/s or less). IQR/median stiffness to assess sampling precision is 0.12 (reference: good quality data set is IQR/median stiffness of 0.15 or less). GALLBLADDER: Normal. The gallbladder is physiologically distended without evidence of stones, sludge, polyps, wall thickening or pericholecystic fluid. COMMON BILE DUCT: Normal in caliber measuring 0.9 cm in diameter. RIGHT KIDNEY: Normal. No hydronephrosis. No renal calculi or focal parenchymal lesions. The kidney measures 9.0 cm in maximum dimension. FREE FLUID: None. US/US abdomen calixto w elastography IMPRESSION: 1. Echogenic liver with findings suggestive of compensated advanced chronic liver disease. 2. Liver Elastography: Measurements are consistent with compensated advanced chronic liver disease. REFERENCE: Society of Radiologists in Ultrasound Liver Stiffness Thresholds (2020): LIVER STIFFNESS THRESHOLDS: *Liver Stiffness equal or less than 1.3 m/s: High probability of being normal. *Liver Stiffness less than 1.7 m/s: In the absence of other known clinical signs, rules out compensated advanced chronic liver disease. *Liver Stiffness 1.7-2.1 m/s: Suggestive of compensated advanced chronic liver disease but need further test for confirmation. *Liver Stiffness over 2.1 m/s: Rules in compensated advanced chronic liver disease. *Liver Stiffness over 2.4 m/s: Suggestive of clinically significant portal hypertension. QUALITY OF DATA SET: *IQR/Median value equal or less than 0.15 implies a quality data set. *IQR/Median value over 0.15 implies a poor quality data set. SIGNIFICANT CHANGE FROM PRIOR EXAM: Significant change if liver stiffness measurement is 10% or greater from prior exam. OTHER CONSIDERATIONS: The stage of liver fibrosis may be overestimated in the setting of acute hepatitis, liver inflammation, elevated liver function tests, hepatic vascular congestion, obstructive cholestasis, non-fasting state, and infiltrative diseases such as amyloidosis and lymphoma. In some patients with NAFLD, the liver stiffness thresholds for compensated advanced chronic liver disease may be lower. In causes other than viral hepatitis and NAFLD, liver stiffness thresholds are not well established.
== END 2023-11-12 09:11 | disposition home or self-care (01) ==
LOC: HO.US 09:10
PROVIDERS: PCP Internal Medicine; Visit Provider Nurse Practitioner Family
DX: K76.9 Liver disease, unspecified (principal)
CPT/HCPCS: 76705; 76981

== ENCOUNTER 2024-01-03 10:18 | Emergency (ER) | payer OTHER, SELFPAY ==
--- NOTE | ~2024-01-03 | CT_ITS ---
EXAMINATION: CT HEAD WITHOUT CONTRAST CLINICAL INFORMATION: Dizziness. COMPARISON: Head CT dated 04/26/2023. CT angiogram head dated 11/25/2020. TECHNIQUE: Contiguous axial imaging was performed from the skullbase to vertex without intravenous administration of contrast. This CT examination was performed using dose optimization techniques as appropriate, variously including the following: *Automated exposure control *Adjustment of mA and/or kV according to patient size (this includes techniques or standardized protocols for targeted exams where dose is matched to indication/reason for exam; i.e. extremities or head) *Use of iterative reconstruction technique DLP: 551 mGy-cm. FINDINGS: There is no evidence of acute intracranial hemorrhage or territorial infarction. No new mass effect or midline shift is seen. [place] to white matter differentiation is well preserved. Generalized brain parenchymal volume loss is stable. Small left middle cranial fossa arachnoid cyst again visible. 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 No evidence of hydrocephalus. Mild chronic white matter microangiopathic changes again noted. The osseous structures and soft tissues are normal. The mastoid air cells and visualized portions of the paranasal sinuses are well aerated. CT/CT head/brain wo IV con IMPRESSION: No acute intracranial hemorrhage or territorial infarction.
--- NOTE | ~2024-01-03 | XR_ITS ---
EXAMINATION: XR CHEST CLINICAL INFORMATION: Dizziness COMPARISON: Chest x-ray on 07/15/2023 TECHNIQUE: 2 views of the chest were obtained. FINDINGS: vascularity. LUNGS: Lungs are clear. No pneumothorax is seen. BONES: Mild wedge compression fracture of T12 is seen. XR/XR chest 2V IMPRESSION: 1. Unchanged No acute cardiopulmonary disease. 2. Unchanged Mild wedge compression fracture of T12, previously seen on CT scan of abdomen and pelvis on 07/03/2023.
[2024-01-03 10:58] VITALS: BP 144/77; PULSE 76; RESP 16; TEMP 36.8; O2SAT 99; BMI 22.1
--- NOTE | 2024-01-03 11:02 | ED_ITS ---
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 Reports she has had 2 episodes of dizziness with palpitations and nausea associated with position manager exchange the past 2 days. Dizziness resolves after lying down. These occur in the morning before she has had breakfast. Denies dizziness or palpitations at this time. No associated headache, presyncope, syncope, chest pain, shortness of breath, vomiting, abdominal pain. She does endorse nausea throughout the day, unable to identify exacerbating or alleviating factors, appears to be acute on chronic nausea for which she is following with Gastroenterology outpatient. Related Data Home Medications ?Medication ?Instructions ?Recorded ?Confirmed ferrous gluconate 324 mg (38 mg 324 mg PO Q OTHER DAY 04/26/23 04/26/23 iron) tablet quetiapine 25 mg tablet 25 mg PO BEDTIME 04/26/23 04/26/23 famotidine 40 mg tablet 40 mg PO BID 10/06/23 gabapentin 100 mg capsule mg PO 10/06/23 topiramate 50 mg tablet 50 mg PO DAILY 10/06/23 Previous Rx's ?Medication ?Instructions ?Recorded docusate sodium 100 mg capsule 100 mg PO DAILY #30 caps 09/06/23 pantoprazole 40 mg tablet,delayed 40 mg PO DAILY #30 tabs 09/06/23 release amlodipine 5 mg tablet 5 mg PO DAILY 30 days #30 tabs 10/06/23 [id number] 1 cap PO QID #120 caps 10/06/23 12,000-38,000-60,000 unit capsule,delayed rel (Creon) ondansetron 4 mg disintegrating 4 mg PO Q8H PRN nausea and 10/06/23 tablet vomiting #20 tabs bisacodyl 5 mg tablet,delayed 20 mg (4 x 5 mg) PO ONCE 1 day #4 10/13/23 release (Dulcolax (bisacodyl)) tabs polyethylene glycol 3350 17 238 g PO ONCE #238 grams 10/13/23 gram/dose oral powder (Miralax) sennosides 8.6 mg tablet (Natural 17.2 mg (2 x 8.6 mg) PO BEDTIME 11/01/23 Senna Laxative) constipation #60 tabs Allergies Allergy/AdvReac Type Severity Reaction Status Date / Time No Known Allergies Allergy Verified 01/03/24 11:02 [No Known Allergies*] Review of Systems 2 Review of Systems: Yes all other systems are reviewed and are negative [facility] Past Medical History Attestation statement: The following information was validated with the patient. Source: old records reviewed Medical History Anxiety Diabetes HTN (hypertension) Asthma Surgical History Hx laparoscopic cholecystectomy H/O colonoscopy H/O esophagogastroduodenoscopy Social History Social History Household Members: None Do you presently have visiting nurse or other home services: No Unable to assess alcohol history related to: Unknown Alcohol intake: never Patient Tobacco Use Status: Never used Tobacco Advance Directives: No Advance Directives Information Provided: Yes Do you have a plan to hurt others: No Plan service: No Physical Exam ED Vital Signs: Vital Signs - 24 hr 01/03/24 16:34 01/03/24 16:34 01/03/24 16:40 Temperature 98.3 F Pulse Rate 68 68 70 Respiratory Rate 12 Blood Pressure 197/95 H 195/91 H Pulse Oximetry 100 Oxygen Delivery Method Room Air 01/03/24 16:41 01/03/24 18:31 Temperature 0 F L Pulse Rate 78 78 Respiratory Rate 12 Blood Pressure 141/86 H 141/86 H Pulse Oximetry Oxygen Delivery Method BMI result Body Mass Index 22.1 Appearance: Alert.?Oriented to person, place and time. No acute distress.?Normal affect. Eyes: Pupils equal, round and reactive to light.? ENT: Pharynx normal.?? Neck: Normal inspection.? Neck supple.?? CVS: Heart sounds normal. Normal heart rate and rhythm.? Pulses normal.?? Respiratory: No respiratory distress.? Lung sounds clear to auscultation bilaterally?? Abdomen: Soft and non-tender. Normoactive bowel sounds. No pulsatile mass.?? Skin: Skin warm and dry.? Normal skin color.? Normal skin turgor.?? Extremities: No lower extremity edema.? No calf ttp? Neuro: Moves all extremities spontaneously. Sensation intact bilaterally. CN II- XII intact. No focal neuro deficits. Ambulates with normal steady gait. Course Course Course Narrative: RME performed by Michelle Baldwin PA-C. Patient is an 83 year old assigned female at presenting to the emergency department with dizziness, nausea, and feeling generally unwell. Patient states she has been feeling generally unwell with nausea and dizziness. Detailed physical exam and review of systems are deferred to the director data management. EKG, labs, imaging, and swabs ordered. Patient placed back in the waiting room pending room availability and results. Reevaluation(s) Reevaluation #1: Evaluation patient noted to have orthostatic hypotension from sitting to standing, endorsed feeling mildly symptomatic with dizziness upon position changing and subsequently while ambulating. I did discuss this with patient and daughter, patient requesting to leave at this time, she reports that she must get home to feed the dogs. The daughter also is requesting to be discharged. I discussed with them concerns about orthostatic hypotension, and potential for progressive symptoms that could ultimately lead to fall with subsequent injury, syncope. Discussed with them trial of IV fluids to determine whether this would improve or not. Patient and daughter have declined stating they would like to leave at this time I discussed that they would be leaving against medical advice. Time: 18:00 Medications Administered Discontinued Medications Generic Name Dose Route Start Last Admin Trade Name Freq PRN Reason Stop Dose Admin Ondansetron HCl 4 mg 01/03/24 11:03 01/03/24 11:04 Ondansetron Odt 4 Mg Tab.Rapdis TRANSLINGU 01/03/24 11:04 4 mg ONCE ONE Administration Ondansetron HCl 4 mg 01/03/24 16:33 01/03/24 16:50 Ondansetron Odt 4 Mg Tab.Rapdis TRANSLINGU 01/03/24 16:34 4 mg ONCE ONE Administration Medical Decision Making Medical Decision Making MDM Narrative: Patient is an 83-year-old female with past medical history of hypothyroidism, hypertension, hypercholesterolemia, cerebral aneurysm, GERD, cirrhosis, diabetes who presents emergency department for evaluation of episodic dizziness and palpitations as per HPI, a guarding with position change in the morning prior to breakfast not occurring later on in the day and chronic intermittent nausea. Overall she appears well. No focal neurological deficits on examination. She is speaking clear full sentences. No respiratory distress. Abdominal examination is benign. She is eating crackers and drinking a juice at the time of my evaluation. Have low suspicion for any acute abdominal etiology/surgical abdomen. Will obtain CBC to evaluate for leukocytosis/ anemia, CMP and lipase to evaluate for abnormal electrolytes /abnormal renal function/ abnormal hepatic/biliary function, and Urinalysis. Differential Diagnosis Differential Diagnoses: The differential diagnosis associated with the presentation includes (See narrative above and course narrative for further detail) Admission/Observation Consideration of admission/observation: Escalation of care including admission/observation considered Lab Data MDM Lab Attestation statement: I reviewed the patient's lab results. CBC revealing a chronic leukopenia and chronic microcytic anemia consistent with baseline. Electrolytes overall unremarkable, renal function at baseline; CKD. Non-anion gap hyperglycemia with random glucose 250. High sensitive troponin within normal range. TSH within normal range. Viral panel negative U/A without evidence of infection. 01/03/24 11:19 01/03/24 11:19 Labs: Lab Results 01/03/24 01/03/24 Range/Units 11:19 16:49 WBC 3.9 L (4.8-10.8) X10*3/uL RBC 3.31 L (4.20-5.50) X10*6/uL Hgb 10.6 L (12.0-16.0) g/dl Hct 33.0 L (37.0-47.0) % MCV 99.7 H (80.0-98.0) fL MCH 32.0 (27.0-33.0) pg MCHC 32.1 (31.0-35.0) g/dl RDW 14.3 (11.0-16.0) % Plt Count 169 (160-400) X10*3/uL MPV 9.8 (9.4-12.3) fL Immature Gran % (Auto) 0.3 (0.0-0.4) % Neut % (Auto) 73.9 H (45-73) % Lymph % (Auto) 15.8 L (20-40) % [place] % (Auto) 9.4 (2-11) % Eos % (Auto) 0.3 (0-4) % Baso % (Auto) 0.3 (0-2) % Lymph # (Auto) 0.6 L (1.2-4.9) X10*3/uL [place] # (Auto) 0.4 (0.1-1.2) X10*3/uL Eos # (Auto) 0.0 (0.0-0.4) X10*3/uL Baso # (Auto) 0.0 (0.0-0.2) X10*3/uL Abs Immat Gran (auto) 0.01 (0.00-0.03) X10*3/uL Absolute Neuts (auto) 2.9 (2.0-8.3) x10*3/uL Absolute Nucleated RBC 0.000 (0.0-0.012) X10*3/uL Nucleated RBC % (auto) 0.0 (0.0-0.2) /100WBC Sodium 140 (135-145) mmol/L Potassium 3.8 (3.3-5.1) mmol/L Chloride 109 H (96-108) mmol/L Carbon Dioxide 22 (22-29) mmol/L Anion Gap 13 (12-20) BUN 34 H (9-16) mg/dL Creatinine 1.91 H (0.5-1.4) mg/dL Estim Creat Clear Calc 18.8 Estimated GFR 25 Random Glucose 250 H (60-115) mg/dL Calcium 10.4 H (8.4-10.2) mg/dL Magnesium 2.3 (1.6-2.6) mg/dL Total Bilirubin 0.4 (0.0-1.0) mg/dL AST 19 (5-31) U/L ALT 11 (0-31) U/L Alkaline Phosphatase 44 (39-117) U/L Troponin I High Sens 11.9 (<3.5-17.0) ng/L Total Protein 7.8 (6.5-8.0) g/dL Albumin 4.3 (3.5-5.0) g/dL TSH 1.32 (0.32-4.0) uIU/mL Urine Color Yellow Urine Appearance Clear Urine pH 7.0 (5.0-9.0) Ur Specific [place] 1.015 (1.005-1.025) Urine Protein 100 (2+) H (Neg-Trace) mg/dL Urine Glucose (UA) Negative (Negative) mg/dL Urine Ketones Negative (Negative) mg/dL Urine Blood Negative (Negative) Urine Nitrite Negative (Negative) Ur Leukocyte Esterase Negative (Negative) Urine RBC 0-2 (0-2) /HPF Urine WBC 0-5 (0-5) /HPF Ur Squamous Epith Cells 6-10 (0-2) /HPF Urine Bacteria None Seen (None Seen) Hyaline Casts 3-5 (0-2) /LPF Influenza Type A (PCR) NEGATIVE (Negative) Influenza Type B (PCR) NEGATIVE (Negative) RSV RNA Qual (PCR) NEGATIVE (Negative) SARS-CoV-2 RNA (RT-PCR) NEGATIVE (Negative) Independent Interpretation I performed an independent interpretation of an: EKG, Plain X-Ray (CXR without infiltrate or consolidation) and CT Scan (No ICH, focal neurological deficits, cerebellar function testing normal; [id number], [id number] testing) Interpretation: Rate: 68 Rhythm:? Normal sinus rhythm [place]:? Normal Normal P waves.? Normal JULIAN.?? Normal QRS complex.?? ST T wave :??No ST elevation, no ST depression, no T-wave inversion qTC: 429 prior studies:? July 2023 The study has been interpreted contemporaneously by me. Radiology Impression Discussion of test interpretation with radiology: I have reviewed the radiologist's reading. Radiologist Impression: CT/CT head/brain wo IV con IMPRESSION: No acute intracranial hemorrhage or territorial infarction. XR/XR chest 2V IMPRESSION: 1. Unchanged No acute cardiopulmonary disease. 2. Unchanged Mild wedge compression fracture of T12, previously seen on CT scan of abdomen and pelvis on 07/03/2023. Independent Historian Clinical information obtained from an independent historian. History obtained from or confirmed by: Other (Daughter present who confirms history) External Record Review External record reviewed: Outpatient record (Gastroenterology) Last appointment 11/01/2023, at that time awaiting scheduling for colonoscopy and upper endoscopy, charge they advised continued use of Creon and Zofran as needed for nausea/vomiting Discharge Plan Discharge Clinical Impression: Orthostatic hypotension, Dizziness Patient Disposition: Left Against Medical Advice Additional Instructions: It was recommended that you remain in the emergency department for further evaluation and treatment as you have been experiencing dizziness and there is a drop in your blood pressure with position change. At this time you are leaving against medical advice. You should return back to emergency department with any new or worsening symptoms or concerns. Prescriptions: No Action bisacodyl [Dulcolax (bisacodyl)] 5 mg tablet,delayed release (DR/EC) 20 mg PO ONCE 1 Days Qty: 4 0RF Rx Instructions: take 4 tabs at noon the day before your colonoscopy polyethylene glycol 3350 [Miralax] 17 gram/dose powder 238 g PO ONCE Qty: 238 0RF Rx Instructions: As directed by gastroenterology department at [facility] quetiapine 25 mg tablet 25 mg PO BEDTIME ferrous gluconate 324 mg (38 mg iron) tablet 324 mg PO Q OTHER DAY docusate sodium 100 mg capsule 100 mg PO DAILY Qty: 30 3RF pantoprazole 40 mg tablet,delayed release (DR/EC) 40 mg PO DAILY Qty: 30 2RF Rx Instructions: take one tablet half an hour before breakfast famotidine 40 mg tablet 40 mg PO BID gabapentin 100 mg capsule PO ondansetron 4 mg tablet,disintegrating 4 mg PO Q8H PRN (Reason: nausea and vomiting) Qty: 20 0RF Creon 12,000-38,000 -60,000 unit capsule,delayed release(DR/EC) 1 cap PO QID Qty: 120 3RF Rx Instructions: administer with meals and/or snacks sennosides [Natural Senna Laxative] 8.6 mg tablet 17.2 mg PO BEDTIME Qty: 60 3RF topiramate 50 mg tablet 50 mg PO DAILY amlodipine 5 mg tablet 5 mg PO DAILY 30 Days Qty: 30 3RF Referrals: Irma Brennan MD [Primary Care Provider] - Stand Alone Forms: Against Medical Advice Interventions: ED Discharge Assessment Last Done: 01/03/24 18:31 Discharge Date/Time: 01/03/24 18:32 Print Language: Occitan
--- NOTE | 2024-01-03 11:03 | ECG_ITS ---
Test Reason : CP Blood Pressure : / mmHG Vent. Rate : 068 BPM Atrial Rate : 068 BPM P-R Int : 116 ms QRS Dur : 080 ms QT Int : 404 ms P-R-T Axes : 037 044 075 degrees QTc Int : 429 ms Normal sinus rhythm Normal ECG When compared with ECG of 15-JUL-2023 12:17, No significant change was found Referred By: Michelle Baldwin Electronically Signed By:KATHIE JASSO
[2024-01-03] MEDS: Ondansetron ODT 4 MG TAB.RAPDIS TRANSLINGU ×2 (11:04→16:50)
[2024-01-03 11:23] LABS: MANUAL DIFF FLAG NO
[2024-01-03 11:26] LABS: Basophils Percent Auto 0.3 % (0-2); Eosinophils Percent Auto 0.3 % (0-4); Hemoglobin 10.6 g/dl (12.0-16.0); Imm Gran Abs Auto 0.01 X10*3/uL (0.00-0.03); Imm Gran Pct Auto 0.3 % (0.0-0.4); Lymphocytes Absolute Auto 0.6 X10*3/uL (1.2-4.9); Lymphocytes Percent Auto 15.8 % (20-40); Mean Corpuscular HGB Conc 32.1 g/dl (31.0-35.0); Mean Corpuscular Volume 99.7 fL (80.0-98.0); Mean Platelet Volume 9.8 fL (9.4-12.3); Monocytes Absolute Auto 0.4 X10*3/uL (0.1-1.2); Monocytes Percent Auto 9.4 % (2-11); Neutrophils Absolute Auto 2.9 x10*3/uL (2.0-8.3); Neutrophils Percent Auto 73.9 % (45-73); Platelet Count 169 X10*3/uL (160-400); Red Blood Count 3.31 X10*6/uL (4.20-5.50); Red Cell Distribution Width 14.3 % (11.0-16.0); White Blood Count 3.9 X10*3/uL (4.8-10.8)
[2024-01-03 11:41] LABS: Alanine Aminotransferase 11 U/L (0-31); Albumin Level 4.3 g/dL (3.5-5.0); Alkaline Phosphatase 44 U/L (39-117); Anion Gap 13 (12-20); Aspartate Amino Transferase 19 U/L (5-31); Bilirubin Total 0.4 mg/dL (0.0-1.0); Blood Urea Nitrogen 34 mg/dL (9-16); Calcium 10.4 mg/dL (8.4-10.2); Carbon Dioxide 22 mmol/L (22-29); Chloride 109 mmol/L (96-108); Creatinine Clr Calc Pharmacy 18.8; Estimated Glomerular Filt Rate 25; Glucose Random 250 mg/dL (60-115); Magnesium 2.3 mg/dL (1.6-2.6); Potassium 3.8 mmol/L (3.3-5.1); Sodium 140 mmol/L (135-145); Total Protein 7.8 g/dL (6.5-8.0)
[2024-01-03 11:48] LABS: Troponin-I High Sensitivity 11.9 ng/L (<3.5-17.0)
[2024-01-03 12:06] LABS: Influenza A PCR NEGATIVE (Negative); Influenza B PCR NEGATIVE (Negative); Resp Syncy Virus RNA Qual PCR NEGATIVE (Negative); SARS COV2 PCR INHOUSE NEGATIVE (Negative)
[2024-01-03 14:04] VITALS: BP 174/76; PULSE 73; RESP 16; TEMP 37.1; O2SAT 100
[2024-01-03 16:34] VITALS: BP 197/95; PULSE 68; RESP 12; TEMP 36.8; O2SAT 100
[2024-01-03 16:40] VITALS: BP 195/91; PULSE 70
[2024-01-03 16:41] VITALS: BP 141/86; PULSE 78
[2024-01-03 16:45] LABS: TSH reflex Free T4 1.32 uIU/mL (0.32-4.0)
[2024-01-03 17:01] LABS: Appearance Urine Clear; Color Urine Yellow; Glucose Urine UA Negative (Negative); Leukocyte Esterase Urine Negative (Negative); Nitrite Urine Negative (Negative); Specific Gravity - Urine 1.015 (1.005-1.025); UMIC TRIGGER UACC YES; Urine Blood Negative (Negative); Urine Ketones Negative (Negative); Urine Protein 100 (2+) mg/dL (Neg-Trace)
[2024-01-03 17:04] LABS: Bacteria Urine None Seen (None Seen); RBC Urine 0-2 /HPF (0-2); WBC Urine 0-5 /HPF (0-5)
[2024-01-03 18:31] VITALS: BP 141/86; PULSE 78; RESP 12; TEMP -17.7; TEMP 0
== END 2024-01-03 18:32 | disposition left against medical advice (07) ==
PROVIDERS: Nurse Practitioner Family; Physician Assistant Medical; Emergency Provider Internal Medicine; PCP Internal Medicine
DX: I95.1 Orthostatic hypotension (principal); R42 Dizziness and giddiness; R00.2 Palpitations; R07.89 Other chest pain; R11.0 Nausea; Z03.818 Encounter for observation for suspected exposure to other biological agents ruled out; Z79.899 Other long term (current) drug therapy
CPT/HCPCS: 0241U; 70450; 71046; 80053; 81001; 81003; 83735; 84443; 84484; 85025; 93005; 99284

== ENCOUNTER → 2024-01-03 11:03 | Outpatient (BNV) | payer OTHER, SELFPAY | PROVIDERS: Emergency Provider Internal Medicine; PCP Internal Medicine; Visit Provider Internal Medicine | DX: R07.9 Chest pain, unspecified (principal) | CPT/HCPCS: 93010 ==

== ENCOUNTER 2024-01-07 08:26 | Outpatient (REF) | payer OTHER, SELFPAY ==
[2024-01-07 09:10] LABS: Prothrombin Time 12.6 SEC (11.1-13.3)
[2024-01-07 09:37] LABS: Anion Gap 12 (12-20); Blood Urea Nitrogen 29 mg/dL (9-16); Calcium 9.8 mg/dL (8.4-10.2); Carbon Dioxide 21 mmol/L (22-29); Chloride 112 mmol/L (96-108); Estimated Glomerular Filt Rate 28; Lipase 41 U/L (8-78); Sodium 141 mmol/L (135-145)
[2024-01-07 09:51] LABS: HBS Num1 59.93 mIU/mL (0-7.99); HBc Num1 1.01 S/CO (0.00-0.79); HBsAGNum1 0.26 S/CO (0.00-0.99); HIV AB/AG Nonreactive (Nonreactive); HIV Num 1 0.05 S/CO (0.00-0.99); Hepatitis B Surface Antigen Negative (Negative); ~Hepatitis A Antibody IgM Nonreactive (Nonreactive); ~Hepatitis B Surface Antibody REACTIVE (Nonreactive); ~Hepatitis C Antibody Nonreactive (Nonreactive)
[2024-01-07 09:58] LABS: Ferritin 97 ng/mL (10-250); TSH reflex Free T4 2.57 uIU/mL (0.32-4.0)
[2024-01-07 11:46] LABS: HBc Num2 1.02 S/CO; HBc Num3 0.99 S/CO; Hepatitis B Core Antibody Reactive (Nonreactive)
[2024-01-10 15:28] LABS: Mitochondrial Antibodies NEGATIVE (NEGATIVE)
[2024-01-11 14:24] LABS: Alpha 1 Anti-trypsin 132 mg/dL (83-199); Ceruloplasmin 21 mg/dL (14-48)
[2024-01-12 08:28] LABS: Alpha Fetoprotein 2.3 ng/mL
[2024-01-13 12:23] LABS: Soluble Liver Ag Autoantibody <20.1 U (0.0-20.0)
[2024-01-13 23:43] LABS: Smooth Muscle Antibody <20 U (<20)
[2024-01-15 17:53] LABS: FIB-ALT 8 U/L (6-29); FIB-Alpha-2-Macroglobulin 333 mg/dL (106-279); FIB-Apolipoprotein A1 211 mg/dL (101-198); FIB-GGT 27 U/L (3-65); FIB-Haptoglobin 79 mg/dL (43-212); FIB-Total Bilirubin 0.5 mg/dL (0.2-1.2); Liver Fibrosis Score 0.45; Liver Fibrosis Stage F1-F2; Nec Inflam Act Grade A0; Nec Inflam Act Score 0.02
== END 2024-01-07 08:27 | disposition home or self-care (01) ==
LOC: HO.LAB 08:26
PROVIDERS: PCP Internal Medicine; Visit Provider Nurse Practitioner Family
DX: K59.00 Constipation, unspecified (principal); R79.89 Other specified abnormal findings of blood chemistry; K74.60 Unspecified cirrhosis of liver; R74.01 Elevation of levels of liver transaminase levels; R10.9 Unspecified abdominal pain; R74.8 Abnormal levels of other serum enzymes; I12.9 Hypertensive chronic kidney disease with stage 1 through stage 4 chronic kidney disease, or unspecified chronic kidney disease; N18.4 Chronic kidney disease, stage 4 (severe); E83.52 Hypercalcemia
CPT/HCPCS: 36415; 80051; 81596; 82103; 82105; 82310; 82390; 82565; 82728; 83520; 83690; 84443; 84520; 85610; 86015; 86381; 86704; 86706; 86709; 86803; 87340; 87389

== ENCOUNTER 2024-02-09 09:30 | Outpatient (AMB) | payer OTHER, SELFPAY ==
[2024-02-09 09:34] VITALS: BP 130/70; PULSE 77; O2SAT 99; BMI 21.0
--- NOTE | 2024-02-09 09:34 | HO.NEPHOV_ITS ---
Vital Signs 02/09/24 09:34 Height 5 ft 6 in Weight 130 lb 4 oz BMI 21.0 BP 130/70 Blood Pressure Location Lt brachial Position Sitting Pulse 77 Pulse Source Pulse Oximeter Pulse Oximetry (%) 99 Oxygen Delivery Method Room Air Intake Visit Reasons: 3 mo fu w/ labs/ Conf w/daughter Senior Contracts Administrator Required: Yes Senior Contracts Administrator Language: Room Cooler Installer Services: Senior Contracts Administrator Offered & Declined (Senior Contracts Administrator services refused, refusal form signed and scanned into chart.) Senior Contracts Administrator Name: Rachel Gill (Daughter) Accompanied by: Daughter Allergies No Known Allergies [No Known Allergies*] Allergy (Verified 02/09/24 09:38) HPI Comments Details: 82 year old women with history of hypertension, diabetes mellitus, depression as well as chronic kidney disease . She is known to be hypertensive and had been on medications. She denied chest pain, sob, fever, chills, recent illness, recent travel. She recently had elevated calcium level of 14 and was treated during her recent hospitalization. She denies any coronary artery disease, CVA, PVD, DAVID or excessive use of nonsteroidal anti-inflammatories. She denies any history of nephrolithiasis, hematuria or pedal edema. Her recent serum creatinine has improved to 1.6 PFSH Medical History Anxiety Diabetes HTN (hypertension) Asthma Surgical History Hx laparoscopic cholecystectomy H/O colonoscopy H/O esophagogastroduodenoscopy Social History Household Members: None Do you presently have visiting nurse or other home services: No Unable to assess alcohol history related to: Unknown Alcohol intake: never Patient Tobacco Use Status: Never used Tobacco service: No Review of Systems Const All systems reviewed & are unremarkable except as noted in HPI and below Physical Exam Vital Signs: Last Vital Signs Pulse 77 02/09/24 09:34 BP 138/70 02/09/24 09:34 Pulse Ox 99 02/09/24 09:34 Oxygen Delivery Method Room Air 02/09/24 09:34 BMI result Body Mass Index 21.0 Const General: comfortable and no acute distress Orientation/consciousness: patient oriented x3 HEENT Head: Yes normocephalic Mouth: Normal oral and palatal mucosa present Eyes EOM: EOMs intact bilaterally Neck Neck: Yes supple Resp Auscultation: clear to auscultation bilaterally Cardio Jugular venous distension: no JVD Rate: regular rate GI Palpation (GI): Soft to palpation Auscultation: normal bowel sounds General: Yes no CVA tenderness Back/Spine/Pelvis Back: no CVA tenderness Skin General skin exam: no rashes or lesions noted Neuro General: patient oriented x3 and moves all extremities Extrem General: Yes no pedal edema Results Reviewed Nephrology Results: Hgb 10.6 g/dl (12.0-16.0) L 01/03/24 WBC 3.9 X10*3/uL (4.8-10.8) L 01/03/24 Plt Count 169 X10*3/uL (160-400) 01/03/24 Sodium 141 mmol/L (135-145) 01/07/24 Potassium 4.0 mmol/L (3.3-5.1) 01/07/24 Chloride 112 mmol/L (96-108) H 01/07/24 Carbon Dioxide 21 mmol/L (22-29) L 01/07/24 BUN 29 mg/dL (9-16) H 01/07/24 Creatinine 1.72 mg/dL (0.5-1.4) H 01/07/24 Calcium 9.8 mg/dL (8.4-10.2) 01/07/24 Phosphorus 3.6 mg/dL (2.7-4.5) 10/27/23 PTH Intact 65.2 pg/mL (8.7-77.1) 10/27/23 Urine Protein 100 (2+) mg/dL (Neg-Trace) H 01/03/24 Assessment & Plan Assessment & Plan (1) CKD (chronic kidney disease) stage 4, GFR 15-29 ml/min: Code(s): N18.4 - Chronic kidney disease, stage 4 (severe) Category: Medical (2) HTN (hypertension): Code(s): I10 - Essential (primary) hypertension Category: Medical Qualifiers: Hypertension type: primary hypertension Qualified Code(s): I10 - Essential (primary) hypertension Plan Shellie has chronic kidney disease at baseline. Her CHRIS on a backdrop of CKD most likely due to tubular injury has resolved. I asked her to restart Vitamin D. I discontinued her lisinopril at the last visit . She can continue on a mlodipine 5 mg daily which we may have to increase if BP goes up. Further follow-up workup has been ordered. I may consider Doppler of her renal arteries in the future. Further management is pending evolving data. All her and her daughter's questions were answered. Follow-up appointment given. Orders: Orders Creatinine Today I10 - Essential (primary) hypertension, N18.4 - Chronic kidney disease, stage 4 (severe) Blood Urea Nitrogen Today I10 - Essential (primary) hypertension, N18.4 - Chronic kidney disease, stage 4 (severe) Electrolytes Today I10 - Essential (primary) hypertension, N18.4 - Chronic kidney disease, stage 4 (severe) Complete Blood Count Auto Diff Today I10 - Essential (primary) hypertension, N18.4 - Chronic kidney disease, stage 4 (severe) Coding Level of Care Code Est Pt Level 4 (75917) Diagnoses CKD (chronic kidney disease) stage 4, GFR 15-29 ml/min N18.4 Primary hypertension I10 Hypertension type: primary hypertension
== END 2024-02-09 10:00 | disposition home or self-care (01) ==
PROVIDERS: PCP Internal Medicine; Visit Provider Internal Medicine Nephrology
DX: I12.9 Hypertensive chronic kidney disease with stage 1 through stage 4 chronic kidney disease, or unspecified chronic kidney disease (principal); N18.4 Chronic kidney disease, stage 4 (severe)
CPT/HCPCS: 99214

== ENCOUNTER → 2024-02-09 09:30 | Outpatient (BNVA) | payer OTHER, SELFPAY | PROVIDERS: PCP Internal Medicine; Visit Provider Internal Medicine Nephrology | DX: I12.9 Hypertensive chronic kidney disease with stage 1 through stage 4 chronic kidney disease, or unspecified chronic kidney disease (principal); N18.4 Chronic kidney disease, stage 4 (severe) | CPT/HCPCS: 99212 ==

== ENCOUNTER 2024-03-02 08:23 | Day surgery (SDC) | payer OTHER, SELFPAY ==
--- NOTE | 2024-03-01 08:36 | P.CONAN_ITS ---
Documented by User: Jeimy Carpenter NP 03/01/24 08:37 HPI - Anesthesia Eval Consult details Narrative: 83yo F for Upper Endoscopy and Colonoscopy PMFSH Active Problems Active Problems: All Active Problems HTN (hypertension) (Acute) CKD (chronic kidney disease) stage 4, GFR 15-29 ml/min (Acute) Hypercalcemia (Acute) CHRIS (acute kidney injury) (Acute) Past Medical History Medical History Anxiety Diabetes HTN (hypertension) Asthma Surgical History Surgical History Hx laparoscopic cholecystectomy H/O colonoscopy H/O esophagogastroduodenoscopy Social History Social History Household Members: None Are you a primary resident care manager to a significant other at home: No Do you presently have visiting nurse or other home services: No Unable to assess alcohol history related to: Unknown Alcohol intake: never Patient Tobacco Use Status: Never used Tobacco Have you been hit, kicked, punched, or otherwise hurt by someone within the past year? If so, by whom?: No Are you DNR?: No Advance Directives: No Advance Directives Information Provided: Yes Recently lost weight without trying: No Nutrition Risks: No Nutritional Risk and Anorexia service: No Meds Allergies Allergy/AdvReac Type Severity Reaction Status Date / Time No Known Allergies Allergy Verified 02/09/24 09:38 [No Known Allergies*] Home Medications ?Medication ?Instructions ?Recorded ?Confirmed ?Last Taken ?Type ferrous gluconate 324 mg (38 mg 324 mg PO Q OTHER DAY 04/26/23 04/26/23 Unknown History iron) tablet quetiapine 25 mg tablet 25 mg PO BEDTIME 04/26/23 04/26/23 Unknown History famotidine 40 mg tablet 40 mg PO BID 10/06/23 Unknown History gabapentin 100 mg capsule mg PO 10/06/23 Unknown History topiramate 50 mg tablet 50 mg PO DAILY 10/06/23 Unknown History Exam Pertinent Lab Results Pertinent Lab Results: Laboratory Tests 01/03/24 01/07/24 11:19 08:53 WBC 3.9 L Hgb 10.6 L Hct 33.0 L Plt Count 169 Sodium 141 Potassium 4.0 Chloride 112 H Carbon Dioxide 21 L BUN 29 H Creatinine 1.72 H Narrative Narrative: EKG 01/2024 Vent. Rate : 068 BPM Atrial Rate : 068 BPM P-R Int : 116 ms QRS Dur : 080 ms QT Int : 404 ms P-R-T Axes : 037 044 075 degrees QTc Int : 429 ms Normal sinus rhythm Normal ECG When compared with ECG of 15-JUL-2023 12:17, No significant change was found Assessment and Plan Assessment Anesthesia Assessment: Chart Reviewed Documented by User: Hosea Mckinley MD 03/02/24 10:17 FORMERLY [facility], [facility] Past Medical History Medical History Anxiety Diabetes HTN (hypertension) Asthma Family History Family history of problems with anesthesia: No Surgical History Surgical History Hx laparoscopic cholecystectomy H/O colonoscopy H/O esophagogastroduodenoscopy History of Problems with Anesthesia: No Social History Social History Household Members: None Are you a primary resident care manager to a significant other at home: No Do you presently have visiting nurse or other home services: No Unable to assess alcohol history related to: Unknown Alcohol intake: never Patient Tobacco Use Status: Never used Tobacco Have you been hit, kicked, punched, or otherwise hurt by someone within the past year? If so, by whom?: No Are you DNR?: No Advance Directives: No Advance Directives Information Provided: Yes Recently lost weight without trying: No Nutrition Risks: No Nutritional Risk and Anorexia service: No Meds Allergies Allergy/AdvReac Type Severity Reaction Status Date / Time No Known Allergies Allergy Verified 02/09/24 09:38 [No Known Allergies*] Home Medications ?Medication ?Instructions ?Recorded ?Confirmed ?Last Taken ?Type ferrous gluconate 324 mg (38 mg 324 mg PO Q OTHER DAY 04/26/23 04/26/23 Unknown History iron) tablet quetiapine 25 mg tablet 25 mg PO BEDTIME 04/26/23 04/26/23 Unknown History famotidine 40 mg tablet 40 mg PO BID 10/06/23 Unknown History gabapentin 100 mg capsule mg PO 10/06/23 Unknown History topiramate 50 mg tablet 50 mg PO DAILY 10/06/23 Unknown History Exam Airway Mallampati Class: II TM Dist: <=3cm Neck ROM: Full Denture: Upper and Lower Heart: ok Lungs: ok Assessment and Plan Assessment Anesthesia Assessment: Anesthesia Plan Discussed Final Anesthetic Review Family History of Problems with Anesthesia: No History of Problems with Anesthesia: No NPO: Yes ASA Class: IV Final Preanesthetic Review: No Changes in Pt Med Stat, Meds/Allgs Chart Reviewed, Consent Obtained/Reviewed and Anes Risks/Benef Reviewed Patient Risk: High Procedure Risk: Intermediate Anesthetic Plan Anesthetic Plan: Agree w/ Assess. and Plan and TIVA Disposition: Standard PACU
--- NOTE | 2024-03-02 09:05 | MHC.SHP ---
Pre-Procedural Eval Section A - 24 Hr Update-Section A only Date of Service: 03/02/24 Section B - Complete if H&P > 30 days Chief Complaint: ANemia Details of Present Illness: Chronic liver disease Anxiety Diabetes HTN (hypertension) Asthma Surgical History Hx laparoscopic cholecystectomy H/O colonoscopy H/O esophagogastroduodenoscopy Present Medications: see Short Stay Collaborative assessment Allergies: Allergies Allergy/AdvReac Type Severity Reaction Status Date / Time No Known Allergies Allergy Verified 02/09/24 09:38 [No Known Allergies*] Review of Systems Review of Systems Comment: Ten point ROS negative Exam Exam Comment: Gen appear: No acute distress HEENT: no icterus Chest: No overt resp distress Abd: soft, nontender, nondistended Psych: Stable affect, answering questions appropriately Neuro: A/Ox3 noted to move all extremities spontaneously Ext: no peripheral edema Plan Diagnosis/Plan: Unchanged I have reviewed the history and physical and performed a pertinent physical examination on my patient. No changes have occurred unless specified. Pt also reporting black stools in pre-op Time Spent With Patient Time: Total time managing care of this patient today ____ minutes.
[2024-03-02 09:33] VITALS: BP 184/93; PULSE 64; RESP 18; TEMP 37; O2SAT 100; BMI 21.5
[2024-03-02] MEDS: Sodium Phosphate,Mono-Dibasic 133 ML ENEMA PR (09:53)
[2024-03-02] MEDS: Lactated Ringers 1,000 ML 100 ML IVCONT (10:18)
--- NOTE | 2024-03-02 10:20 | PC.NURSE ---
enema given to pt results clear flakey when anesthesia attempted to get consent pt seemed confused through interpreter and translator. telephone consent obtained by daughter usha johnsonreta
--- NOTE | 2024-03-02 11:00 | P.OPN-COLO_ITS ---
Colonoscopy Operative Note Operative Note Date of Service: 03/02/24 Narrative: Procedure: Upper endoscopy and colonoscopy Indication: Anemia Endoscopist: Bonnie Espinosa MD Anesthesia Provider: Anesthesia type: MAC Instrument: [id number] and [id number] EGD Procedure:?? The procedure, indications, preparation and potential complications were reviewed with the patient with the help of a spanish interpreter, who indicated understanding and gave written informed consent to proceed. The endoscope was introduced through the mouth, and advanced to the 2nd part of the duodenum. The mucosa was carefully examined on slow withdrawal of the endoscope. The patient tolerated the procedure well. There were no immediate complications.? EGD Findings:? * Oropharynx: Boggy, edematous, vascularized lesion noted just proximal to the epiglottis. There was a small clot on it that dislodged spontaneously and was pushed into the esophagus. * Esophagus:? A small localized patch of heterotopic gastric mucosa was noted at the opening of the esophagus. The Z line was at 33 cm. There was a moderate sized hiatal hernia. * Stomach:? Erosions in the stomach body and antrum were noted. Retroflexion was performed in the cardia. Random cold forceps biopsies were taken from the stomach to rule out H Pylori. * Duodenum:? Erythema in the duodenal bulb was noted. Cold forceps biopsies were taken from the duodenal bulb and 2nd portion of the duodenum to rule out raghavendra c sprue. Colonoscopy Procedure:? The patient was then turned for the colonoscopy. A digital rectal exam was performed which was normal.? A distal attachment cap was affixed to the tip of the scope and the colonoscope was then inserted through the anus and advanced through the colon and advanced to the cecum at 75 cm.? Appendiceal orifice and ileocecal valve were identified. Mucosa was carefully examined under high definition white light as the instrument was slowly withdrawn in a retrograde panoramic fashion. Retroflexion was performed in rectum. The procedure was not difficult. The quality of the prep was BBPS: 2+2+3 = adequate Withdrawal time 10 minutes Limitations: No limitations Findings: Mucosa: Hyperpigmentation of the mucosa josé luis on the right side consistent with melanosis coli vs staining from PO iron supplements. Cold forceps biopsies were taken to rule out microscopic colitis. Protruding lesions: * One sessile polyp of size 2 mm was noted in the ascending colon. Cold forceps polypectomy was performed. The polyp was completely removed and retrieved. * One sessile polyp of size 3 mm was seen in the sigmoid colon. Cold snare polypectomy was performed. The polyp was completely removed and retrieved. * Large internal hemorrhoids without stigmata of recent bleeding. Excavated lesions: * Moderate to severe diverticulosis of the left colon. Impression: 1. Lesion in oropharynx 2. Inlet patch 3. Hiatal hernia 4. Gastritis (biopsy) 5. Duodenitis (biopsy) 6. Melanosis coli 7. 2 polyps removed 8. Diverticulosis 9. Internal hemorrhoids Recommendations:?? * Recommend ENT referral for further evaluation * Follow-up path results * Avoid NSAIDs * Cont PPI once daily * Consider Hematology evaluation for non-iron deficiency normocytic anemia * Repeat colonoscopy for polyp surveillance not recommended due to age
[2024-03-02 11:07] VITALS: BP 140/68; PULSE 58; RESP 18; TEMP 36.1; O2SAT 96
[2024-03-02 11:23] VITALS: BP 173/79; PULSE 71; RESP 18; O2SAT 98
[2024-03-02 11:38] VITALS: BP 168/76; PULSE 64; RESP 18; TEMP 36.1; O2SAT 100
--- NOTE | 2024-03-02 12:13 | PC.NURSE ---
INTREPRETER USED FOR DISCHARGE INSTRUCTIONS AND THIS RN CALLED PATIENT'S DAUGHTER AND GIVEN DC IINSTRUCTIONS WELL. DAUGHTER SPEAKS [place].
== END 2024-03-02 12:14 | disposition home or self-care (01) ==
PROVIDERS: PCP Internal Medicine; Visit Provider Internal Medicine
PROC: (CPT 45385; principal; 2024-03-02 10:00)
DX: D64.9 Anemia, unspecified (principal); D12.2 Benign neoplasm of ascending colon; K63.5 Polyp of colon; K57.30 Diverticulosis of large intestine without perforation or abscess without bleeding; K64.8 Other hemorrhoids; K63.89 Other specified diseases of intestine; K58.9 Irritable bowel syndrome, unspecified; K21.9 Gastro-esophageal reflux disease without esophagitis; K29.50 Unspecified chronic gastritis without bleeding; K29.80 Duodenitis without bleeding; J39.2 Other diseases of pharynx; K44.9 Diaphragmatic hernia without obstruction or gangrene; Q39.8 Other congenital malformations of esophagus; K76.9 Liver disease, unspecified; I10 Essential (primary) hypertension; E11.9 Type 2 diabetes mellitus without complications; J45.909 Unspecified asthma, uncomplicated; F41.9 Anxiety disorder, unspecified; Z79.899 Other long term (current) drug therapy; Z90.49 Acquired absence of other specified parts of digestive tract
CPT/HCPCS: 45385; 45380; 43239; 88305; 88313; 88342; J2704

== ENCOUNTER → 2024-03-02 08:23 | Outpatient (BNV) | payer OTHER, SELFPAY | PROVIDERS: PCP Internal Medicine; Visit Provider Internal Medicine | DX: D64.9 Anemia, unspecified (principal); K63.89 Other specified diseases of intestine; D12.2 Benign neoplasm of ascending colon; K52.9 Noninfective gastroenteritis and colitis, unspecified; K29.80 Duodenitis without bleeding; K29.70 Gastritis, unspecified, without bleeding | CPT/HCPCS: 43239; 45380 ==

== ENCOUNTER 2024-03-20 11:29 | Outpatient (AMB) | payer OTHER, SELFPAY ==
[2024-03-20 11:42] VITALS: BP 152/88; PULSE 88; O2SAT 100; BMI 21.9
--- NOTE | 2024-03-20 11:42 | A.OFFVIS_ITS ---
Vital Signs 03/20/24 11:42 Height 5 ft 6 in Weight 135 lb 12.876 oz BMI 21.9 BP 152/88 H Blood Pressure Location Rt brachial Position Sitting Pulse 88 Pulse Source Pulse Oximeter Pulse Oximetry (%) 100 Oxygen Delivery Method Room Air Intake Visit Reasons: S/P Double; Dr. Espinosa Intake Note: Shellie presents in office today for a scheduled s.p. FUV. CC; Pt denies any complications or new concerns post op. Pt is here to discuss results of their procedure. Pt daughter requests refill of senna if possible. Certified Histologic Technician Required: Yes Certified Histologic Technician Services: Certified Histologic Technician Present Certified Histologic Technician Name: Family Information Interpreted: non-clinical & clinical Accompanied by: Daughter Allergies No Known Allergies [No Known Allergies*] Allergy (Verified 03/20/24 11:43) HPI HPI S/P Double; Dr. Espinosa: Details: LAST VISIT Weight loss, unintentional GERD (gastroesophageal reflux disease) IBS (irritable bowel syndrome) Anemia Constipation Postprandial epigastric pain Postprandial abdominal bloating Plan Continue current PPI and H2 blockers. Monitor kidney functions. Patient's daughter reports that she is off lisinopril now. Last kidney function improved. Liver cirrhosis found on MRI, we will rule out underlying cause, will order liver fibrosis panel as well as MRI with elastography. Patient will return in 4 weeks, sooner on as needed basis. Patient's daughter not sure if patient should follow-up with the oxygen therapist, encouraged patient to have a appointment with her. Both patient and her daughter are agreeable to plan care and verbalizes understanding of instructions. They were given the opportunity to ask questions and all questions answered. ? Thank you for allowing me to participate in her care Orders Orders Alpha Fetoprotein Today R79.89 Hepatitis A,B,C Profile Today R79.89 Prothrombin Time INR Today R74.8 HIV Ab/Ag Today R79.89 Ceruloplasmin Today R79.89 Ferritin Today R74.8 Mitochondrial Antibody Today R79.89 Soluble Liver Ag Autoantibody Today K74.60 Liver Fibrosis Pnl Today K74.60 US abdomen calixto w elastography Today K76.9 Smooth Muscle Antibody Today R79.89 Alpha 1 Anti-trypsin Today R74.01 Medications Refilled sennosides (Natural Senna Laxative) 17.2 mg (2 x 8.6 mg) PO BEDTIME 60 tabs 3RF constipation K59.00 UPPER ENDOSCOPY AND COLONOSCOPY EGD Findings:? * Oropharynx: Boggy, edematous, vascularized lesion noted just proximal to the epiglottis. There was a small clot on it that dislodged spontaneously and was pushed into the esophagus. * Esophagus:? A small localized patch of heterotopic gastric mucosa was noted at the opening of the esophagus. The Z line was at 33 cm. There was a moderate sized hiatal hernia. * Stomach:? Erosions in the stomach body and antrum were noted. Retroflexion was performed in the cardia. Random cold forceps biopsies were taken from the stomach to rule out H Pylori. * Duodenum:? Erythema in the duodenal bulb was noted. Cold forceps biopsies were taken from the duodenal bulb and 2nd portion of the duodenum to rule out celiac sprue. Colonoscopy Findings: Mucosa: Hyperpigmentation of the mucosa josé luis on the right side consistent with melanosis coli vs staining from PO iron supplements. Cold forceps biopsies were taken to rule out microscopic colitis. Protruding lesions: * One sessile polyp of size 2 mm was noted in the ascending colon. Cold forceps polypectomy was performed. The polyp was completely removed and retrieved. * One sessile polyp of size 3 mm was seen in the sigmoid colon. Cold snare polypectomy was performed. The polyp was completely removed and retrieved. * Large internal hemorrhoids without stigmata of recent bleeding.Excavated lesions: * Moderate to severe diverticulosis of the left colon. Impression: 1. Lesion in oropharynx 2. Inlet patch 3. Hiatal hernia 4. Gastritis (biopsy) 5. Duodenitis (biopsy) 6. Melanosis coli 7. 2 polyps removed 8. Diverticulosis 9. Internal hemorrhoids Recommendations:?? * Recommend ENT referral for further evaluation * Follow-up path results * Avoid NSAIDs * Cont PPI once daily * Consider Hematology evaluation for non-iron deficiency normocytic anemia * Repeat colonoscopy for polyp surveillance not recommended due to age PATHOLOGY RESULTS Diagnosis A. Duodenum, biopsy: Duodenal mucosa within normal limits. B. Stomach, random, biopsy: Oxyntic mucosa with mild chronic inactive inflammati on; no Helicobacter organisms seen. C. GE junction, biopsy: - Cardiofundic-type mucosa with mild chronic inactive inflammation; no intestinal metaplasia seen. - Squamous mucosa within normal limits. D. Colon, sigmoid, polypectomy: Hyperplastic mucosal polyp. E. Colon, right, biopsy: Mild melanosis coli; otherwise colonic mucosa within normal limits. F. Colon, ascending, polypectomy: Tubular adenoma; negative for high-grade dysplasia or carcinoma. G. Colon, left, biopsy: Focally active colitis TODAY'S VISIT Patient is here today for follow-up and to discuss upper endoscopy and colonoscopy. Patient denies ill effects from the prep, anesthesia or procedure itself. Patient reports that she is feeling better, however she continues to occasionally have epigastric discomfort postprandially. Patient actually gained weight and is feeling little better. Chronic mild inactive gastritis and duodenitis seen. No H pylori found. Oropharynx small lesion will send referral to ENT. Ascending colon tubular adenoma found without high-grade dysplasia or carcinoma. 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 Will stop senna. Given patient's age no follow-up colonoscopy recommended. Patient denies any melena, hematochezia. Patient denies any other GI concerning symptoms. [facility] Medical History Anxiety Diabetes HTN (hypertension) Asthma Surgical History Hx laparoscopic cholecystectomy H/O colonoscopy H/O esophagogastroduodenoscopy Social History Household Members: None Are you a primary day care home mother to a significant other at home: No Do you presently have visiting nurse or other home services: No Unable to assess alcohol history related to: Unknown Alcohol intake: never Patient Tobacco Use Status: Never used Tobacco service: No Review of Systems Const Denies weight gain and Denies weight loss ENT Reports no additional complaints, Denies dysphagia and Denies odynophagia Card Reports no additional complaints Resp Reports no additional complaints GI Denies abdominal pain, Denies belching, Denies melena, Denies bloating, Denies change in bowel habits, Denies dysphagia, Denies excessive flatus, Denies dyspepsia, Denies heartburn, Denies diarrhea, Denies loose stools, Denies nausea, Denies odynophagia and Denies vomiting Musc Reports no additional complaints Neuro Reports no additional complaints Psych Reports no additional complaints Endo Reports no additional complaints Physical Exam Vital Signs: Last Vital Signs Pulse 88 03/20/24 11:42 BP 152/88 H 03/20/24 11:42 Pulse Ox 100 03/20/24 11:42 Oxygen Delivery Method Room Air 03/20/24 11:42 BMI result Body Mass Index 21.9 Const General: no acute distress Nutritional Appearance: well nourished Orientation/consciousness: patient oriented x3 HEENT Face and sinus: Yes normal facial exam Neck Neck: Yes normal visual inspection, Yes full ROM and Yes trachea midline Thyroid: Thyroid normal Resp Effort & Inspection: normal respiratory effort, able to speak in complete sentences, no tracheal deviation and symmetric chest movement Auscultation: clear to auscultation bilaterally Cardio Rate: regular rate GI Inspection: Yes normal to inspection and No distended Palpation (GI): Soft to palpation, not firm, nontender and No hepatosplenomegaly present Auscultation: normal bowel sounds General: Yes no CVA tenderness Back/Spine/Pelvis Back: no CVA tenderness Skin General skin exam: elasticity normal, turgor normal and dry skin Neuro General: patient oriented x3 Psych Appearance: grossly normal Mental Status: mental status grossly normal Speech and movement: Normal speech and movement present Assessment & Plan Assessment & Plan (1) Weight loss, unintentional: Code(s): R63.4 - Abnormal weight loss (2) GERD (gastroesophageal reflux disease): Code(s): K21.9 - Gastro-esophageal reflux disease without esophagitis Qualifiers: Esophagitis presence: esophagitis presence not specified Qualified Code(s): K21.9 - Gastro-esophageal reflux disease without esophagitis (3) IBS (irritable bowel syndrome): Code(s): K58.9 - Irritable bowel syndrome without diarrhea Qualifiers: Irritable bowel syndrome type: with constipation Qualified Code(s): K58.1 - Irritable bowel syndrome with constipation (4) Anemia: Code(s): D64.9 - Anemia, unspecified Qualifiers: Anemia type: unspecified type Qualified Code(s): D64.9 - Anemia, unspecified (5) Constipation: Code(s): K59.00 - Constipation, unspecified Qualifiers: Constipation type: slow transit constipation Qualified Code(s): K59.01 - Slow transit constipation (6) Postprandial epigastric pain: Code(s): R10.13 - Epigastric pain (7) Postprandial abdominal bloating: Code(s): R14.0 - Abdominal distension (gaseous) (8) Gastritis and duodenitis: Code(s): K29.90 - Gastroduodenitis, unspecified, without bleeding Plan Patient gained 15 lb since last visit in October. Patient will continue to take pantoprazole in the morning and will add sucralfate at bedtime. Patient will start taking Dulcolax tablets and stop taking senna. 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 Referral to ENT, small vascularized lesion in oropharynx found on endoscopy, small clot noted. Unsure if this would be the reason patient is anemic. Referral to Hematology. Patient will be seen in 6 months, sooner on as needed basis. She is agreeable to this plan and verbalizes understanding of instructions. She was given the opportunity to ask questions and all questions answered. Thank you for allowing me to participate in her care Orders: Orders Complete Blood Count no Diff Today K21.9 - Gastro-esophageal reflux disease without esophagitis IRON PROFILE Today D64.9 - Anemia, unspecified Referrals Ear/Nose/Throat Referral J39.2 - Other diseases of pharynx Hematology & Oncology Referral D64.9 - Anemia, unspecified Medications: New sucralfate 1 g PO BEDTIME 30 tabs 4RF R19.7 - Diarrhea, unspecified bisacodyl (Dulcolax (bisacodyl)) 10 mg (2 x 5 mg) PO BEDTIME 60 tabs 4RF Refilled pantoprazole take one tablet half an hour before breakfast 40 mg PO DAILY 30 tabs 2RF K21.9 - Gastro-esophageal reflux disease without esophagitis [id number] 12,000-38,000 -60,000 unit (Creon) administer with meals and/or snacks 1 cap PO QID 120 caps 3RF R10.9 - Unspecified abdominal pain Coding Level of Care Code Est Pt Level 4 (69333) Diagnoses Weight loss, unintentional R63.4 Gastroesophageal reflux disease, unspecified whether esophagitis present K21.9 Esophagitis presence: esophagitis presence not specified Irritable bowel syndrome with constipation K58.1 Irritable bowel syndrome type: with constipation Anemia, unspecified type D64.9 Anemia type: unspecified type Slow transit constipation K59.01 Constipation type: slow transit constipation Postprandial epigastric pain R10.13 Postprandial abdominal bloating R14.0 Gastritis and duodenitis K29.90 Time Spent (min) 35 Comment 25 minutes spent with patient and additional 10 minutes spent reviewing her records
== END 2024-03-20 12:55 | disposition home or self-care (01) ==
PROVIDERS: PCP Internal Medicine; Visit Provider Nurse Practitioner Family
DX: R63.4 Abnormal weight loss (principal); K21.9 Gastro-esophageal reflux disease without esophagitis; K58.1 Irritable bowel syndrome with constipation; D64.9 Anemia, unspecified; K59.01 Slow transit constipation; R10.13 Epigastric pain; R14.0 Abdominal distension (gaseous); K29.90 Gastroduodenitis, unspecified, without bleeding
CPT/HCPCS: 99214

== ENCOUNTER → 2024-03-20 11:29 | Outpatient (BNVA) | payer OTHER, SELFPAY | PROVIDERS: PCP Internal Medicine; Visit Provider Nurse Practitioner Family | DX: R63.4 Abnormal weight loss (principal); K21.9 Gastro-esophageal reflux disease without esophagitis; K58.1 Irritable bowel syndrome with constipation; K59.01 Slow transit constipation; D64.9 Anemia, unspecified; R10.13 Epigastric pain; R14.0 Abdominal distension (gaseous); K29.90 Gastroduodenitis, unspecified, without bleeding | CPT/HCPCS: 99212 ==

== ENCOUNTER 2024-03-24 08:22 | Outpatient (REF) | payer OTHER, SELFPAY ==
[2024-03-24 09:44] LABS: Hematocrit 32.3 % (37.0-47.0); Hemoglobin 10.3 g/dl (12.0-16.0); Mean Corpuscular HGB Conc 31.9 g/dl (31.0-35.0); Mean Corpuscular Hemoglobin 31.6 pg (27.0-33.0); Mean Corpuscular Volume 99.1 fL (80.0-98.0); Mean Platelet Volume 10.2 fL (9.4-12.3); Platelet Count 147 X10*3/uL (160-400); Red Blood Count 3.26 X10*6/uL (4.20-5.50); Red Cell Distribution Width 14.1 % (11.0-16.0); White Blood Count 3.4 X10*3/uL (4.8-10.8)
[2024-03-24 10:14] LABS: Iron 100 mcg/dL (30-160); Percent Iron Saturation 40 % (15-50); Total Iron Binding Capacity 250 mcg/dL (228-428); Unsaturated Iron Binding 150 ug/dL
== END 2024-03-24 08:23 | disposition home or self-care (01) ==
LOC: HO.LAB 08:22
PROVIDERS: PCP Internal Medicine; Visit Provider Nurse Practitioner Family
DX: K21.9 Gastro-esophageal reflux disease without esophagitis (principal); D64.9 Anemia, unspecified
CPT/HCPCS: 36415; 83540; 85027

== ENCOUNTER 2024-04-07 09:53 | Outpatient (AMB) | payer OTHER, SELFPAY ==
[2024-04-07 10:13] VITALS: BP 150/80; PULSE 74; O2SAT 98; BMI 22.5
--- NOTE | 2024-04-07 10:13 | HO.NEPHOV_ITS ---
Vital Signs 04/07/24 10:13 Height 5 ft 6 in Weight 139 lb 6 oz BMI 22.5 BP 150/80 H Blood Pressure Location Lt brachial Position Sitting Pulse 74 Pulse Source Pulse Oximeter Pulse Oximetry (%) 98 Oxygen Delivery Method Room Air Intake Visit Reasons: CKD/ LVM Uppers Edge Burnisher Required: Yes Uppers Edge Burnisher Services: Uppers Edge Burnisher Offered & Declined ([facility] [place]ppers Edge Burnisher services [place], pt's daughter will be spanish interpreter/translator) Uppers Edge Burnisher Name: Rachel Gill Accompanied by: Daughter Allergies No Known Allergies [No Known Allergies*] Allergy (Verified 04/07/24 10:16) HPI Comments Details: 82 year old women with history of hypertension, diabetes mellitus, depression as well as chronic kidney disease . She is known to be hypertensive and had been on medications. She denied chest pain, sob, fever, chills, recent illness, recent travel. She recently had elevated calcium level of 14 and was treated during her recent hospitalization. She denies any coronary artery disease, CVA, PVD, DAVID or excessive use of nonsteroidal anti-inflammatories. She denies any history of nephrolithiasis, hematuria or pedal edema. Her recent serum creatinine is 1.7 PFSH Medical History Anxiety Diabetes HTN (hypertension) Asthma Surgical History Hx laparoscopic cholecystectomy H/O colonoscopy H/O esophagogastroduodenoscopy Social History Household Members: None Are you a primary pet care attendant to a significant other at home: No Do you presently have visiting nurse or other home services: No Unable to assess alcohol history related to: Unknown Alcohol intake: never Patient Tobacco Use Status: Never used Tobacco service: No Review of Systems Const All systems reviewed & are unremarkable except as noted in HPI and below Physical Exam Vital Signs: Last Vital Signs Pulse 74 04/07/24 10:13 BP 150/80 H 04/07/24 10:13 Pulse Ox 98 04/07/24 10:13 Oxygen Delivery Method Room Air 04/07/24 10:13 BMI result Body Mass Index 22.5 Const General: comfortable and no acute distress Orientation/consciousness: patient oriented x3 HEENT Head: Yes normocephalic Mouth: Normal oral and palatal mucosa present Eyes EOM: EOMs intact bilaterally Neck Neck: Yes supple Resp Auscultation: clear to auscultation bilaterally Cardio Jugular venous distension: no JVD Rate: regular rate GI Palpation (GI): Soft to palpation Auscultation: normal bowel sounds General: Yes no CVA tenderness Back/Spine/Pelvis Back: no CVA tenderness Skin General skin exam: no rashes or lesions noted Neuro General: patient oriented x3 and moves all extremities Extrem General: Yes no pedal edema Results Reviewed Nephrology Results: Hgb 10.3 g/dl (12.0-16.0) L 03/24/24 WBC 3.4 X10*3/uL (4.8-10.8) L 03/24/24 Plt Count 147 X10*3/uL (160-400) L 03/24/24 Sodium 141 mmol/L (135-145) 01/07/24 Potassium 4.0 mmol/L (3.3-5.1) 01/07/24 Chloride 112 mmol/L (96-108) H 01/07/24 Carbon Dioxide 21 mmol/L (22-29) L 01/07/24 BUN 29 mg/dL (9-16) H 01/07/24 Creatinine 1.72 mg/dL (0.5-1.4) H 01/07/24 Calcium 9.8 mg/dL (8.4-10.2) 01/07/24 Urine Protein 100 (2+) mg/dL (Neg-Trace) H 01/03/24 Assessment & Plan Assessment & Plan (1) CKD (chronic kidney disease) stage 4, GFR 15-29 ml/min: Code(s): N18.4 - Chronic kidney disease, stage 4 (severe) Category: Medical (2) HTN (hypertension): Code(s): I10 - Essential (primary) hypertension Category: Medical Qualifiers: Hypertension type: primary hypertension Qualified Code(s): I10 - Essential (primary) hypertension (3) Hypercalcemia: Code(s): E83.52 - Hypercalcemia Category: Medical Plan Shellie has chronic kidney disease at baseline. Her CHRIS on a backdrop of CKD most likely due to tubular injury has resolved. She is off lisinopril. I increased her amlodipine to 5 mg daily which we may have to increase if BP goes up. I may consider Doppler of her renal arteries in the future. Further management is pending evolving data. All her and her daughter's questions were answered. Follow-up appointment given. Medications: Changed From amlodipine 5 mg PO DAILY To amlodipine 5 mg PO DAILY 30 days 30 tabs 6RF Refilled amlodipine 5 mg PO DAILY 30 days 30 tabs 6RF Coding Level of Care Code Est Pt Level 4 (19713) Diagnoses CKD (chronic kidney disease) stage 4, GFR 15-29 ml/min N18.4 Primary hypertension I10 Hypertension type: primary hypertension Hypercalcemia E83.52
== END 2024-04-07 10:37 | disposition home or self-care (01) ==
PROVIDERS: PCP Internal Medicine; Visit Provider Internal Medicine Nephrology
DX: I12.9 Hypertensive chronic kidney disease with stage 1 through stage 4 chronic kidney disease, or unspecified chronic kidney disease (principal); N18.4 Chronic kidney disease, stage 4 (severe); E83.52 Hypercalcemia
CPT/HCPCS: 99214

== ENCOUNTER → 2024-04-07 09:53 | Outpatient (BNVA) | payer OTHER, SELFPAY | PROVIDERS: PCP Internal Medicine; Visit Provider Internal Medicine Nephrology | DX: I12.9 Hypertensive chronic kidney disease with stage 1 through stage 4 chronic kidney disease, or unspecified chronic kidney disease (principal); E11.22 Type 2 diabetes mellitus with diabetic chronic kidney disease; N18.4 Chronic kidney disease, stage 4 (severe); E83.52 Hypercalcemia | CPT/HCPCS: 99212 ==

== ENCOUNTER 2024-05-04 09:14 | Outpatient (REF) | payer OTHER, SELFPAY ==
[2024-05-04 09:39] LABS: MANUAL DIFF FLAG NO
[2024-05-04 10:25] LABS: Basophils Percent Auto 0.5 % (0-2); Eosinophils Percent Auto 0.7 % (0-4); Hematocrit 30.8 % (37.0-47.0); Hemoglobin 10.2 g/dl (12.0-16.0); Lymphocytes Absolute Auto 1.1 X10*3/uL (1.2-4.9); Lymphocytes Percent Auto 27.7 % (20-40); Mean Corpuscular HGB Conc 33.1 g/dl (31.0-35.0); Mean Corpuscular Hemoglobin 31.9 pg (27.0-33.0); Mean Corpuscular Volume 96.3 fL (80.0-98.0); Monocytes Absolute Auto 0.5 X10*3/uL (0.1-1.2); Monocytes Percent Auto 12.5 % (2-11); Neutrophils Absolute Auto 2.4 x10*3/uL (2.0-8.3); Neutrophils Percent Auto 58.6 % (45-73); Platelet Count 177 X10*3/uL (160-400); Red Cell Distribution Width 13.6 % (11.0-16.0)
[2024-05-04 10:33] LABS: Estimated Average Glucose 128 mg/dL; Hemoglobin A1C 120.6274 umol/L; Hemoglobin A1c % 6.1 % (<6.0); Total Hemoglobin (HGBA1C) 2783.9082 umol/L
[2024-05-04 11:04] LABS: Anion Gap 13 (12-20); Blood Urea Nitrogen 35 mg/dL (9-16); Carbon Dioxide 22 mmol/L (22-29); Chloride 108 mmol/L (96-108); Cholesterol 233 mg/dL (<200); Estimated Glomerular Filt Rate 24; HDL Cholesterol 76 mg/dL (>40); LDL Cholesterol Calculated 140 mg/dL (<100); Potassium 4.1 mmol/L (3.3-5.1); Sodium 139 mmol/L (135-145); Triglycerides 85 mg/dL (<150)
[2024-05-04 11:40] LABS: Reflex LDLD? No
== END 2024-05-04 09:15 | disposition home or self-care (01) ==
LOC: HO.LAB 09:14
PROVIDERS: PCP Internal Medicine; Visit Provider Internal Medicine Nephrology
DX: I10 Essential (primary) hypertension (principal); N18.4 Chronic kidney disease, stage 4 (severe); E11.21 Type 2 diabetes mellitus with diabetic nephropathy
CPT/HCPCS: 36415; 80051; 80061; 82565; 83036; 84520; 85025

== ENCOUNTER → 2024-05-04 09:45 | Outpatient (BNV) | payer OTHER, SELFPAY | PROVIDERS: PCP Internal Medicine; Visit Provider Internal Medicine Medical Oncology | DX: D72.819 Decreased white blood cell count, unspecified (principal); D50.9 Iron deficiency anemia, unspecified | CPT/HCPCS: 99204; 99213 ==

== ENCOUNTER 2024-05-08 09:27 | Outpatient (AMB) | payer OTHER, SELFPAY ==
[2024-05-08 09:37] VITALS: BP 152/90; BMI 22.7
--- NOTE | 2024-05-08 09:37 | HO.NEPHOV ---
Vital Signs 05/08/24 09:37 Height 5 ft 6 in Weight 140 lb 8 oz BMI 22.7 BP 152/90 H Blood Pressure Location Lt brachial Position Sitting Intake Visit Reasons: CKD-Conf w/daughter Mine Motor Operator Required: Yes Mine Motor Operator Language: Sports Book Server Services: Mine Motor Operator Offered & Declined ([facility] [place] [facility] sales senior executive services refused. Pt's daughter will interpret.) Mine Motor Operator Name: Rachel- Daughter Accompanied by: Daughter Allergies No Known Allergies [No Known Allergies*] Allergy (Verified 05/08/24 09:39) HPI Comments Details: 82 year old women with history of hypertension, diabetes mellitus, depression as well as chronic kidney disease . She is known to be hypertensive and had been on medications. She denied chest pain, sob, fever, chills, recent illness, recent travel. She recently had elevated calcium level of 14 and was treated during her recent hospitalization. She denies any coronary artery disease, CVA, PVD, DAVID or excessive use of nonsteroidal anti-inflammatories. She denies any history of nephrolithiasis, hematuria or pedal edema. Her recent serum creatinine is 2.1. She developed edema and she reduced her Amlodipine to 2.5 mg with absolute improvement. [facility] Medical History Anxiety Diabetes HTN (hypertension) Asthma Surgical History Hx laparoscopic cholecystectomy H/O colonoscopy H/O esophagogastroduodenoscopy Social History Household Members: None Are you a primary career development counselor to a significant other at home: No Do you presently have visiting nurse or other home services: No Unable to assess alcohol history related to: Unknown Alcohol intake: never Patient Tobacco Use Status: Never used Tobacco service: No Review of Systems Const All systems reviewed & are unremarkable except as noted in HPI and below Physical Exam Vital Signs: Last Vital Signs BP 152/90 H 05/08/24 09:37 BMI result Body Mass Index 22.7 Const General: comfortable and no acute distress Orientation/consciousness: patient oriented x3 HEENT Head: Yes normocephalic Mouth: Normal oral and palatal mucosa present Eyes EOM: EOMs intact bilaterally Neck Neck: Yes supple Resp Auscultation: clear to auscultation bilaterally Cardio Jugular venous distension: no JVD Rate: regular rate GI Palpation (GI): Soft to palpation Auscultation: normal bowel sounds General: Yes no CVA tenderness Back/Spine/Pelvis Back: no CVA tenderness Skin General skin exam: no rashes or lesions noted Neuro General: patient oriented x3 and moves all extremities Extrem General: Yes no pedal edema Results Reviewed Nephrology Results: Hgb 10.2 g/dl (12.0-16.0) L 05/04/24 WBC 4.0 X10*3/uL (4.8-10.8) L 05/04/24 Plt Count 177 X10*3/uL (160-400) 05/04/24 Sodium 139 mmol/L (135-145) 05/04/24 Potassium 4.1 mmol/L (3.3-5.1) 05/04/24 Chloride 108 mmol/L (96-108) 05/04/24 Carbon Dioxide 22 mmol/L (22-29) 05/04/24 BUN 35 mg/dL (9-16) H 05/04/24 Creatinine 2.01 mg/dL (0.5-1.4) H 05/04/24 Calcium 9.8 mg/dL (8.4-10.2) 01/07/24 Urine Protein 100 (2+) mg/dL (Neg-Trace) H 01/03/24 Assessment & Plan Assessment & Plan (1) CKD (chronic kidney disease) stage 4, GFR 15-29 ml/min: Code(s): N18.4 - Chronic kidney disease, stage 4 (severe) Category: Medical (2) Normochromic normocytic anemia: Code(s): D64.9 - Anemia, unspecified Category: Medical (3) HTN (hypertension): Code(s): I10 - Essential (primary) hypertension Category: Medical Qualifiers: Hypertension type: primary hypertension Qualified Code(s): I10 - Essential (primary) hypertension Plan Shellie has chronic kidney disease at baseline. . She is off lisinopril. She is on amlodipine. She likely will need more BP medications to keep her BP at goal. . I ordered Doppler of her renal arteries . Further management is pending evolving data. All her and her daughter's questions were answered. Follow-up appointment given Orders: Orders Creatinine 3 Weeks N18.4 - Chronic kidney disease, stage 4 (severe) Blood Urea Nitrogen 3 Weeks N18.4 - Chronic kidney disease, stage 4 (severe) Electrolytes 3 Weeks N18.4 - Chronic kidney disease, stage 4 (severe) US renal doppler Today N18.4 - Chronic kidney disease, stage 4 (severe) US renal BI Today N18.4 - Chronic kidney disease, stage 4 (severe) Medications: Changed From amlodipine 5 mg PO DAILY 30 days 30 tabs 6RF To amlodipine 2.5 mg PO DAILY 30 days 30 tabs 6RF Coding Level of Care Code Est Pt Level 4 (89783) Diagnoses CKD (chronic kidney disease) stage 4, GFR 15-29 ml/min N18.4 Normochromic normocytic anemia D64.9 Primary hypertension I10 Hypertension type: primary hypertension
== END 2024-05-08 09:56 | disposition home or self-care (01) ==
LOC: HO.HKA 09:28
PROVIDERS: PCP Internal Medicine; Visit Provider Internal Medicine Nephrology
DX: I12.9 Hypertensive chronic kidney disease with stage 1 through stage 4 chronic kidney disease, or unspecified chronic kidney disease (principal); N18.4 Chronic kidney disease, stage 4 (severe); D63.1 Anemia in chronic kidney disease
CPT/HCPCS: 99214

== ENCOUNTER → 2024-05-08 09:27 | Outpatient (BNVA) | payer OTHER, SELFPAY | PROVIDERS: PCP Internal Medicine; Visit Provider Internal Medicine Nephrology | DX: I12.9 Hypertensive chronic kidney disease with stage 1 through stage 4 chronic kidney disease, or unspecified chronic kidney disease (principal); N18.4 Chronic kidney disease, stage 4 (severe); D63.1 Anemia in chronic kidney disease | CPT/HCPCS: 99212 ==

== ENCOUNTER 2024-05-18 08:14 | Outpatient (REF) | payer OTHER, SELFPAY ==
--- NOTE | ~2024-05-18 | US_ITS ---
EXAMINATION: US RETROPERITONEAL LIMITED (RENAL ONLY) CLINICAL INFORMATION: Chronic kidney disease, stage IV. COMPARISON: Abdominal ultrasound dated 11/12/2023. TECHNIQUE: Real-time imaging of the kidneys. FINDINGS: RIGHT KIDNEY: 8.4 x 4.8 x 4.6 cm (SAG x AP x TRV). The kidney is normal in size, contour, and echogenicity. Renal cortical thickness is normal. No calculi or focal parenchymal lesions. No hydronephrosis. LEFT KIDNEY: 9.3 x 5.3 x 5.0 cm (SAG x AP x TRV). The kidney is normal in size, contour, and echogenicity. Renal cortical thickness is normal. No calculi or focal parenchymal lesions. No hydronephrosis. US/US renal BI IMPRESSION: Unremarkable examination. Electronically signed by: Thierno Watson MD 05/18/2024 10:06 PM CALEB SIMS
== END 2024-05-18 08:15 | disposition home or self-care (01) ==
LOC: HO.HMGCX 08:14
PROVIDERS: PCP Internal Medicine; Visit Provider Internal Medicine Nephrology
DX: N18.4 Chronic kidney disease, stage 4 (severe) (principal)
CPT/HCPCS: 76775; 93975

== ENCOUNTER 2024-06-09 08:54 | Outpatient (REF) | payer OTHER, SELFPAY ==
[2024-06-09 10:00] LABS: Anion Gap 11 (12-20); Blood Urea Nitrogen 34 mg/dL (9-16); Carbon Dioxide 23 mmol/L (22-29); Chloride 111 mmol/L (96-108); Estimated Glomerular Filt Rate 22; Sodium 141 mmol/L (135-145)
== END 2024-06-09 08:55 | disposition home or self-care (01) ==
LOC: HO.LAB 08:54
PROVIDERS: PCP Internal Medicine; Visit Provider Internal Medicine Nephrology
DX: N18.4 Chronic kidney disease, stage 4 (severe) (principal)
CPT/HCPCS: 36415; 80051; 82565; 84520

== ENCOUNTER 2024-06-12 09:19 | Outpatient (AMB) | payer OTHER, SELFPAY ==
--- NOTE | 2024-06-12 09:38 | HO.NEPHOV_ITS ---
Vital Signs 06/12/24 09:39 Height 5 ft 6 in Weight 136 lb 8 oz BMI 22.0 BP 180/80 H Blood Pressure Location Lt brachial Position Sitting Intake Visit Reasons: CKD/ LVM Hardness Tester Required: Yes Hardness Tester Language: Therapist Phys Services: Hardness Tester Offered & Declined ([facility] [place]. [place] Accompanied by: Daughter Allergies No Known Allergies [No Known Allergies*] Allergy (Verified 06/12/24 09:39) HPI Comments Details: 82 year old women with history of hypertension, diabetes mellitus, depression as well as chronic kidney disease . She is known to be hypertensive and had been on medications. She denied chest pain, sob, fever, chills, recent illness, recent travel. She recently had elevated calcium level of 14 and was treated d uring her recent hospitalization. She denies any coronary artery disease, CVA, PVD, DAVID or excessive use of nonsteroidal anti-inflammatories. She denies any history of nephrolithiasis, hematuria or pedal edema. Her recent serum creatinine is 2.1. She developed edema and she reduced her Amlodipine to 2.5 mg with absolute improvement in edema. She has not taken her medication this morning [facility] Medical History Anxiety Diabetes HTN (hypertension) Asthma Surgical History Hx laparoscopic cholecystectomy H/O colonoscopy H/O esophagogastroduodenoscopy Social History Household Members: None Are you a primary disabilities caregiver to a significant other at home: No Do you presently have visiting nurse or other home services: No Unable to assess alcohol history related to: Unknown Alcohol intake: never Patient Tobacco Use Status: Never used Tobacco service: No Review of Systems Const All systems reviewed & are unremarkable except as noted in HPI and below Physical Exam Vital Signs: Last Vital Signs BP 180/80 H 06/12/24 09:39 BMI result Body Mass Index 22.0 Const General: comfortable and no acute distress Orientation/consciousness: patient oriented x3 HEENT Head: Yes normocephalic Mouth: Normal oral and palatal mucosa present Eyes EOM: EOMs intact bilaterally Neck Neck: Yes supple Resp Auscultation: clear to auscultation bilaterally Cardio Jugular venous distension: no JVD Rate: regular rate GI Palpation (GI): Soft to palpation Auscultation: normal bowel sounds General: Yes no CVA tenderness Back/Spine/Pelvis Back: no CVA tenderness Skin General skin exam: no rashes or lesions noted Neuro General: patient oriented x3 and moves all extremities Extrem General: Yes no pedal edema Results Reviewed Nephrology Results: Hgb 10.8 g/dl (12.0-16.0) L 06/06/24 WBC 3.4 X10*3/uL (4.8-10.8) L 06/06/24 Plt Count 226 X10*3/uL (160-400) 06/06/24 Sodium 141 mmol/L (135-145) 06/09/24 Potassium 4.0 mmol/L (3.3-5.1) 06/09/24 Chloride 111 mmol/L (96-108) H 06/09/24 Carbon Dioxide 23 mmol/L (22-29) 06/09/24 BUN 34 mg/dL (9-16) H 06/09/24 Creatinine 2.15 mg/dL (0.5-1.4) H 06/09/24 Calcium 10.0 mg/dL (8.4-10.2) 06/06/24 Renal US 05/18/24 Assessment & Plan Assessment & Plan (1) CKD (chronic kidney disease) stage 4, GFR 15-29 ml/min: Code(s): N18.4 - Chronic kidney disease, stage 4 (severe) Category: Medical (2) HTN (hypertension): Code(s): I10 - Essential (primary) hypertension Category: Medical Qualifiers: Hypertension type: primary hypertension Qualified Code(s): I10 - Essential (primary) hypertension Plan Shellie has chronic kidney disease at baseline. She is off lisinopril. She is on amlodipine. She likely will need more BP medications to keep her BP at goal. She is going to check her BP twice a day along with her BS. I plan to adjust medications based on the data. She will be a candidate for Jardiance. All her and her daughter's questions were answered. Follow-up appointment given Coding Level of Care Code Est Pt Level 4 (13943) Diagnoses CKD (chronic kidney disease) stage 4, GFR 15-29 ml/min N18.4 Primary hypertension I10 Hypertension type: primary hypertension
[2024-06-12 09:39] VITALS: BP 180/80; BMI 22.0
== END 2024-06-12 09:56 | disposition home or self-care (01) ==
PROVIDERS: PCP Internal Medicine; Visit Provider Internal Medicine Nephrology
DX: I12.9 Hypertensive chronic kidney disease with stage 1 through stage 4 chronic kidney disease, or unspecified chronic kidney disease (principal); N18.4 Chronic kidney disease, stage 4 (severe)
CPT/HCPCS: 99214

== ENCOUNTER → 2024-06-12 09:19 | Outpatient (BNVA) | payer OTHER, SELFPAY | PROVIDERS: PCP Internal Medicine; Visit Provider Internal Medicine Nephrology | DX: I12.9 Hypertensive chronic kidney disease with stage 1 through stage 4 chronic kidney disease, or unspecified chronic kidney disease (principal); N18.4 Chronic kidney disease, stage 4 (severe) | CPT/HCPCS: 99212 ==

== ENCOUNTER 2024-06-21 10:10 | Outpatient (AMB) | payer OTHER, SELFPAY ==
--- NOTE | 2024-06-21 10:37 | HO.NEPHOV ---
Vital Signs 06/21/24 10:39 Height 5 ft 6 in Weight 144 lb BMI 23.2 BP 168/70 H Blood Pressure Location Lt brachial Position Sitting Pulse 81 Pulse Source Pulse Oximeter Pulse Oximetry (%) 97 Oxygen Delivery Method Room Air Intake Visit Reasons: CKD-Conf w/daughter Stringed Instrument Tuner Required: Yes Stringed Instrument Tuner Language: Coal Dumping Equipment Operator Services: Stringed Instrument Tuner Offered & Declined ([facility] [place] Stringed Instrument Tuner services refused ) Accompanied by: Daughter Allergies No Known Allergies [No Known Allergies*] Allergy (Verified 06/21/24 10:38) HPI Comments Details: 82 year old women with history of hypertension, diabetes mellitus, depression as well as chronic kidney disease . She is known to be hypertensive and had been on medications. She denied chest pain, sob, fever, chills, recent illness, recent travel. She recently had elevated calcium level of 14 and was treated during her recent hospitalization. She denies any coronary artery disease, CVA, PVD, DAVID or excessive use of nonsteroidal anti-inflammatories. She denies any history of nephrolithiasis, hematuria or pedal edema. Her recent serum creatinine is 2.1. She developed edema and she reduced her Amlodipine to 2.5 mg with absolute improvement in edema. She has not taken her medication this morning [facility] Medical History Anxiety Diabetes HTN (hypertension) Asthma Surgical History Hx laparoscopic cholecystectomy H/O colonoscopy H/O esophagogastroduodenoscopy Social History Household Members: None Are you a primary critical care educator to a significant other at home: No Do you presently have visiting nurse or other home services: No Unable to assess alcohol history related to: Unknown Alcohol intake: never Patient Tobacco Use Status: Never used Tobacco service: No Review of Systems Const All systems reviewed & are unremarkable except as noted in HPI and below Physical Exam Vital Signs: Last Vital Signs Pulse 81 06/21/24 10:39 BP 168/70 H 06/21/24 10:39 Pulse Ox 97 06/21/24 10:39 Oxygen Delivery Method Room Air 06/21/24 10:39 BMI result Body Mass Index 23.2 Const General: comfortable and no acute distress Orientation/consciousness: patient oriented x3 HEENT Head: Yes normocephalic Mouth: Normal oral and palatal mucosa present Eyes EOM: EOMs intact bilaterally Neck Neck: Yes supple Resp Auscultation: clear to auscultation bilaterally Cardio Jugular venous distension: no JVD Rate: regular rate Heart sounds: Murmur heart sound present GI Palpation (GI): Soft to palpation Auscultation: normal bowel sounds General: Yes no CVA tenderness Back/Spine/Pelvis Back: no CVA tenderness Skin General skin exam: no rashes or lesions noted Neuro General: patient oriented x3 and moves all extremities Extrem General: Yes no pedal edema Results Reviewed Nephrology Results: Hgb 10.8 g/dl (12.0-16.0) L 06/06/24 WBC 3.4 X10*3/uL (4.8-10.8) L 06/06/24 Plt Count 226 X10*3/uL (160-400) 06/06/24 Sodium 141 mmol/L (135-145) 06/09/24 Potassium 4.0 mmol/L (3.3-5.1) 06/09/24 Chloride 111 mmol/L (96-108) H 06/09/24 Carbon Dioxide 23 mmol/L (22-29) 06/09/24 BUN 34 mg/dL (9-16) H 06/09/24 Creatinine 2.15 mg/dL (0.5-1.4) H 06/09/24 Calcium 10.0 mg/dL (8.4-10.2) 06/06/24 Renal US 05/18/24 Assessment & Plan Assessment & Plan (1) Normochromic normocytic anemia: Code(s): D64.9 - Anemia, unspecified Category: Medical (2) HTN (hypertension): Code(s): I10 - Essential (primary) hypertension Category: Medical Qualifiers: Hypertension type: primary hypertension Qualified Code(s): I10 - Essential (primary) hypertension (3) CKD (chronic kidney disease) stage 4, GFR 15-29 ml/min: Code(s): N18.4 - Chronic kidney disease, stage 4 (severe) Category: Medical Plan Shellie has chronic kidney disease at baseline. She is off lisinopril. She is on amlodipine. I started her Carvedilol 6.25 mg bid. She likely will need more BP medications to keep her BP at goal. She is going to check her BP twice a day along with her BS. I plan to adjust medications based on the data. She may be a candidate for Jardiance. All her and her daughter's questions were answered. Follow-up appointment given Medications: New carvedilol must administer with a meal/food 6.25 mg PO BID 60 tabs 3RF Coding Level of Care Code Est Pt Level 4 (20833) Diagnoses Normochromic normocytic anemia D64.9 Primary hypertension I10 Hypertension type: primary hypertension CKD (chronic kidney disease) stage 4, GFR 15-29 ml/min N18.4
[2024-06-21 10:39] VITALS: BP 168/70; PULSE 81; O2SAT 97; BMI 23.2
== END 2024-06-21 11:05 | disposition home or self-care (01) ==
PROVIDERS: PCP Internal Medicine; Visit Provider Internal Medicine Nephrology
DX: I12.9 Hypertensive chronic kidney disease with stage 1 through stage 4 chronic kidney disease, or unspecified chronic kidney disease (principal); N18.4 Chronic kidney disease, stage 4 (severe); D63.1 Anemia in chronic kidney disease
CPT/HCPCS: 99214

== ENCOUNTER → 2024-06-21 10:10 | Outpatient (BNVA) | payer OTHER, SELFPAY | PROVIDERS: PCP Internal Medicine; Visit Provider Internal Medicine Nephrology | DX: I12.9 Hypertensive chronic kidney disease with stage 1 through stage 4 chronic kidney disease, or unspecified chronic kidney disease (principal); N18.4 Chronic kidney disease, stage 4 (severe); D64.9 Anemia, unspecified | CPT/HCPCS: 99212 ==

== ENCOUNTER 2024-07-14 10:01 | Outpatient (AMB) | payer OTHER, SELFPAY ==
[2024-07-14 10:43] VITALS: BP 160/82; BMI 23.2
--- NOTE | 2024-07-14 10:43 | HO.NEPHOV ---
Vital Signs 07/14/24 10:43 Height 5 ft 6 in Weight 144 lb BMI 23.2 BP 160/82 H Blood Pressure Location Lt brachial Position Sitting Intake Visit Reasons: CKD- Conf w/daughter Business Development Assistant Required: No Accompanied by: Daughter Allergies No Known Allergies [No Known Allergies*] Allergy (Verified 07/14/24 10:45) HPI Comments Details: 82 year old women with history of hypertension, diabetes mellitus, depression as well as chronic kidney disease . She is known to be hypertensive and had been on medications. She denied chest pain, sob, fever, chills, recent illness, recent travel. She denies any coronary artery disease, CVA, PVD, DAVID or excessive use of nonsteroidal anti-inflammatories. She denies any history of nephrolithiasis, hematuria or pedal edema. Her recent serum creatinine is 2.1. COUNTS INCLUDE 234 BEDS AT [facility] Medical History Anxiety Diabetes HTN (hypertension) Asthma Surgical History Hx laparoscopic cholecystectomy H/O colonoscopy H/O esophagogastroduodenoscopy Social History Household Members: None Are you a primary daycare director to a significant other at home: No Do you presently have visiting nurse or other home services: No Unable to assess alcohol history related to: Unknown Alcohol intake: never Patient Tobacco Use Status: Never used Tobacco service: No Review of Systems Const All systems reviewed & are unremarkable except as noted in HPI and below Physical Exam Vital Signs: Last Vital Signs BP 160/82 H 07/14/24 10:43 BMI result Body Mass Index 23.2 Const General: comfortable and no acute distress Orientation/consciousness: patient oriented x3 HEENT Head: Yes normocephalic Mouth: Normal oral and palatal mucosa present Eyes EOM: EOMs intact bilaterally Neck Neck: Yes supple Resp Auscultation: clear to auscultation bilaterally Cardio Jugular venous distension: no JVD Rate: regular rate GI Palpation (GI): Soft to palpation Auscultation: normal bowel sounds General: Yes no CVA tenderness Back/Spine/Pelvis Back: no CVA tenderness Skin General skin exam: no rashes or lesions noted Neuro General: patient oriented x3 and moves all extremities Extrem General: Yes no pedal edema Results Reviewed Nephrology Results: Hgb 10.8 g/dl (12.0-16.0) L 06/06/24 WBC 3.4 X10*3/uL (4.8-10.8) L 06/06/24 Plt Count 226 X10*3/uL (160-400) 06/06/24 Sodium 141 mmol/L (135-145) 06/09/24 Potassium 4.0 mmol/L (3.3-5.1) 06/09/24 Chloride 111 mmol/L (96-108) H 06/09/24 Carbon Dioxide 23 mmol/L (22-29) 06/09/24 BUN 34 mg/dL (9-16) H 06/09/24 Creatinine 2.15 mg/dL (0.5-1.4) H 06/09/24 Calcium 10.0 mg/dL (8.4-10.2) 06/06/24 Renal US 05/18/24 Assessment & Plan Assessment & Plan (1) CKD (chronic kidney disease) stage 4, GFR 15-29 ml/min: Code(s): N18.4 - Chronic kidney disease, stage 4 (severe) Category: Medical (2) HTN (hypertension): Code(s): I10 - Essential (primary) hypertension Category: Medical Qualifiers: Hypertension type: primary hypertension Qualified Code(s): I10 - Essential (primary) hypertension Plan Shellie has chronic kidney disease at baseline. She is off lisinopril. She is on amlodipine and Carvedilol 6.25 mg bid. She likely will need more BP medications to keep her BP at goal. She is going to check her BP twice a day along with her BS. I plan to adjust medications based on the data. She may be a candidate for Jardiance. All her and her daughter's questions were answered. Follow-up appointment given Coding Level of Care Code Est Pt Level 4 (59497) Diagnoses CKD (chronic kidney disease) stage 4, GFR 15-29 ml/min N18.4 Primary hypertension I10 Hypertension type: primary hypertension
== END 2024-07-14 11:09 | disposition home or self-care (01) ==
PROVIDERS: PCP Internal Medicine; Visit Provider Internal Medicine Nephrology
DX: I12.9 Hypertensive chronic kidney disease with stage 1 through stage 4 chronic kidney disease, or unspecified chronic kidney disease (principal); N18.4 Chronic kidney disease, stage 4 (severe)
CPT/HCPCS: 99214

== ENCOUNTER → 2024-07-14 10:01 | Outpatient (BNVA) | payer OTHER, SELFPAY | PROVIDERS: PCP Internal Medicine; Visit Provider Internal Medicine Nephrology | DX: I12.9 Hypertensive chronic kidney disease with stage 1 through stage 4 chronic kidney disease, or unspecified chronic kidney disease (principal); N18.4 Chronic kidney disease, stage 4 (severe) | CPT/HCPCS: 99212 ==

== ENCOUNTER 2024-08-16 10:37 | Outpatient (AMB) | payer OTHER, SELFPAY ==
--- NOTE | 2024-08-16 10:41 | HO.NEPHOV_ITS ---
Vital Signs 08/16/24 10:42 Height 5 ft 6 in Weight 144 lb 2 oz BMI 23.3 BP 114/70 Blood Pressure Location Rt brachial Position Sitting Pulse 73 Pulse Source Pulse Oximeter Pulse Oximetry (%) 100 Oxygen Delivery Method Room Air Intake Visit Reasons: 1mon follow-up No labs/ Conf Engine Repair Supervisor Required: Yes Engine Repair Supervisor Language: Spray Worker Services: Engine Repair Supervisor Offered & Declined ([facility] [place] [place] foreign language interpreter services refused ) Accompanied by: Daughter Allergies No Known Allergies [No Known Allergies*] Allergy (Verified 08/16/24 10:42) HPI Comments Details: 82 year old women with history of hypertension, diabetes mellitus, depression as well as chronic kidney disease . She is known to be hypertensive and had been on medications. She denied chest pain, sob, fever, chills, recent illness, recent travel. She denies any coronary artery disease, CVA, PVD, DAVID or excessive use of nonsteroidal anti-inflammatories. She denies any history of nephrolithiasis, hematuria or pedal edema. Her recent serum creatinine is 2.1. [facility] Medical History Anxiety Diabetes HTN (hypertension) Asthma Surgical History Hx laparoscopic cholecystectomy H/O colonoscopy H/O esophagogastroduodenoscopy Social History Household Members: None Are you a primary director medicare sales to a significant other at home: No Do you presently have visiting nurse or other home services: No Unable to assess alcohol history related to: Unknown Alcohol intake: never Patient Tobacco Use Status: Never used Tobacco service: No Review of Systems Const All systems reviewed & are unremarkable except as noted in HPI and below Physical Exam Vital Signs: Last Vital Signs Pulse 73 08/16/24 10:42 BP 114/70 08/16/24 10:42 Pulse Ox 100 08/16/24 10:42 Oxygen Delivery Method Room Air 08/16/24 10:42 BMI result Body Mass Index 23.3 Const General: comfortable and no acute distress Orientation/consciousness: patient oriented x3 HEENT Head: Yes normocephalic Mouth: Normal oral and palatal mucosa present Eyes EOM: EOMs intact bilaterally Neck Neck: Yes supple Resp Auscultation: clear to auscultation bilaterally Cardio Jugular venous distension: no JVD Rate: regular rate GI Palpation (GI): Soft to palpation Auscultation: normal bowel sounds General: Yes no CVA tenderness Back/Spine/Pelvis Back: no CVA tenderness Skin General skin exam: no rashes or lesions noted Neuro General: patient oriented x3 and moves all extremities Extrem General: Yes no pedal edema Results Reviewed Nephrology Results: Hgb 10.8 g/dl (12.0-16.0) L 06/06/24 WBC 3.4 X10*3/uL (4.8-10.8) L 06/06/24 Plt Count 226 X10*3/uL (160-400) 06/06/24 Sodium 141 mmol/L (135-145) 06/09/24 Potassium 4.0 mmol/L (3.3-5.1) 06/09/24 Chloride 111 mmol/L (96-108) H 06/09/24 Carbon Dioxide 23 mmol/L (22-29) 06/09/24 BUN 34 mg/dL (9-16) H 06/09/24 Creatinine 2.15 mg/dL (0.5-1.4) H 06/09/24 Calcium 10.0 mg/dL (8.4-10.2) 06/06/24 Renal US 05/18/24 Assessment & Plan Assessment & Plan (1) CKD (chronic kidney disease) stage 4, GFR 15-29 ml/min: Code(s): N18.4 - Chronic kidney disease, stage 4 (severe) Category: Medical (2) HTN (hypertension): Code(s): I10 - Essential (primary) hypertension Category: Medical Qualifiers: Hypertension type: primary hypertension Qualified Code(s): I10 - Essential (primary) hypertension Plan Shellie has chronic kidney disease at baseline. She is off lisinopril. She is on amlodipine and Carvedilol 6.25 mg bid. She does not need more BP medications to keep her BP at goal. She is going to check her BP twice a day along with her BS. I plan to adjust medications based on the data. She may be a candidate for Jardiance. All her and her daughter's questions were answered. Follow-up appointment given Orders: Orders Creatinine 3 Months I10 - Essential (primary) hypertension, N18.4 - Chronic kidney disease, stage 4 (severe) Electrolytes 3 Months I10 - Essential (primary) hypertension, N18.4 - Chronic kidney disease, stage 4 (severe) Parathyroid Hormone Intact 3 Months I10 - Essential (primary) hypertension, N18.4 - Chronic kidney disease, stage 4 (severe) Blood Urea Nitrogen 3 Months I10 - Essential (primary) hypertension, N18.4 - Chronic kidney disease, stage 4 (severe) Calcium 3 Months I10 - Essential (primary) hypertension, N18.4 - Chronic kidney disease, stage 4 (severe) Complete Blood Count Auto Diff 3 Months I10 - Essential (primary) hypertension, N18.4 - Chronic kidney disease, stage 4 (severe) Vitamin D 25-OH Total 3 Months I10 - Essential (primary) hypertension, N18.4 - Chronic kidney disease, stage 4 (severe) Phosphorus 3 Months I10 - Essential (primary) hypertension, N18.4 - Chronic kidney disease, stage 4 (severe) Coding Level of Care Code Est Pt Level 4 (81139) Diagnoses CKD (chronic kidney disease) stage 4, GFR 15-29 ml/min N18.4 Primary hypertension I10 Hypertension type: primary hypertension
[2024-08-16 10:42] VITALS: BP 114/70; PULSE 73; O2SAT 100; BMI 23.3
--- OUTSIDE RECORDS SUMMARY | 2024-08-16 12:23 | XMS_ITS | Encounter Summary ---
Demographics Address [address] [place] [address] Home Phone Mobile Phone Phone Phone Email Address Preferred Language Portuguese; Castilian Marital Status Restorationist Affiliation Unknown Race Unknown Ethnic Group or Author Organization [facility] [facility] Address [address] [place] [address] Care Team Providers Care Baker Chef Name Role Phone Irma Brennan MD Primary Care Provide r Encounter Details Date Type Department Care Team (Late st Contact Info) Description 09/12/2019 Scanned Document [facility] [address] [facility] [address] [facility] [place] [address] Jeronimo Piedra MD [address] [place] [phone] Social History Tobacco Use Types Packs/Day Years Used Date Smoking Tobacco: Never Smokeless Tobacco: Never Alcohol Use Standard Drinks/Week Comments Never 0 (1 standard drink = 0.6 oz pur e alcohol) AUDIT-C Answer Date Recorded Frequency of Alcohol Consumption Never 09/11/2019 Average Number of Drinks Not on file 020 Frequency of Binge Drinking Not on file 03/2020 Comments Unknown Sex and Gender Information Value Date Recorded Sex Assigned at Not on file Legal Sex Female 12:06 PM EST Gender Identity Not on file Sexual Orientation Not on file documented as of this encounter Plan of Treatment Not on file documented as of this encounter Visit Diagnoses Not on filedocumented in this encounter Care Teams Baker Chef Relationship Specialty Start Date End Date Irma Brennan MD [address] [facility] [address] [place] [phone] PCP - General Internal Medicine 07/11/19 documented as of this encounter
--- OUTSIDE RECORDS SUMMARY | 2024-08-16 12:23 | XMS_ITS | Encounter Summary ---
Author Organization [facility] [employer] Address [address] [facility] [address] 7[address] [place] [address] Care Team Providers Care Director Of Social Work Name Role Phone Irma Brennan MD Primary Care Provide r Encounter Details Date Type Department Care Team ([facility] st Contact Info) Description 09/06/2023 Orders Only [facility] MEDICINE [address] [place], [place] [phone] Irma Brennan MD [address] [place], [place] [phone] Social History Tobacco Use Types Packs/Day Years Used Date Smoking Tobacco: Never Passive Smoke Exposure: Never Smokeless Tobacco: Never Depression Answer Date Recorded Patient Health Questionnaire-9 Score 0 06/22/2023 Patient Health Questionnaire-9 Score 0 06/22/2023 Last PHQ-9: Questionnaire Data Not on file 1 08/23/2022 Housing Stability Answer Date Recorded What is your housing situation today? I have chelo singh 04/20/[address] you li ve. Do you have problems with any of the following? None of the above 04/20/2023 Food Insecurity Answer Date Recorded Within the past 12 months, y ou worried that your food would run out before you got money to buy more: Never True 04/20/2023 Within the past 12 months,th e food you bought just didn't last and you didn't have enough money to get more: Never True Transportation Answer Date Recorded In the past 12 months, has l ack of transportation kept you from medical appts, meetings, work or from getting things needed for daily living? No 04/20/2023 Utilities Answer Date Recorded In the past 12 months, has t he electric, gas, oil or water company threatened to shut off services in your home? No 04/20/2023 Depression Answer Date Recorded Patient Health Questionnaire-2 Score 0 06/22/2023 Comments Unknown Sex and Gender Information Value Date Recorded Sex Assigned at Female 05/04/2022 10:22 AM EDT Legal Sex Female 10:22 AM EDT Gender Identity Female 05/04/2022 10:22 AM EDT Sexual Orientation Choose not to disclose 2021 10:22 AM EDT documented as of this encounter Plan of Treatment Not on file documented as of this encounter Visit Diagnoses Not on filedocumented in this encounter Additional Health Concerns Assessment Noted Time PHQ-9 Depression Total Score: 0 06/22/20 23 9:55 AM EST documented as of this encounter Care Teams Director Of Social Work Relationship Specialty Start Date End Date Irma Brennan MD [address] [place] [address] PCP - General Family Medicine 11/09/18 documented as of this encounter
--- OUTSIDE RECORDS SUMMARY | 2024-08-16 12:23 | XMS_ITS | Encounter Summary ---
Demographics Address [address] [facility] [address] [place] [address] Home Phone Mobile Phone Phone Phone Email Address Preferred Language Guamanian; Castilian Marital Status Faith Affiliation Unknown Race Unknown Ethnic Group or Author Organization [facility] [employer] [facility] Address [address] [place] [address] Care Team Providers Care Tobacco Sprayer Name Role Phone Irma Brennan MD Primary Care Provide r Encounter Details Date Type Department Care Team (Late st Contact Info) Description 09/12/2019 Scanned Document [facility] [address] [place], [place] [phone] Jeronimo Olson MD [address] [place] [phone] Social History Tobacco Use Types Packs/Day Years [...] on filedocumented in this encounter Care Teams Tobacco Sprayer Relationship Specialty Start Date End Date Irma Brennan MD 230 [facility] [address] [place] [phone] PCP - General Internal Medicine 07/11/19 documented as of this encounter
--- OUTSIDE RECORDS SUMMARY | 2024-08-16 12:23 | XMS_ITS | Encounter Summary ---
Demographics Address [address] [facility] [address] [place] [address] Home Phone Mobile Phone Phone Phone Email Address [email or web address] Preferred Language Cypriot; Castilian Marital Status Gnosticism Affiliation Unknown Race Unknown Ethnic Group or Author Organization [facility] [employer] [facility] Address [address] [place] [address] Care Team Providers Care Senior Support Engineer Name Role Phone Irma Brennan MD Primary Care Provide r Encounter Details Date Type Department Care Team (Late st Contact Info) Description 07/11/2019 Scanned Document Neurosurgery at [address] [facility] [address] [place] [address] Provider, Historical . Social History Tobacco Use Types Packs/Day Years Used Date Smoking Tobacco: Never Assessed Comments Unknown Sex and Gender Information Value Date Recorded Sex Assigned at Not on file Legal Sex Female 12:06 PM EST Gender Identity Not on file Sexual Orientation Not on file documented as of this encounter Plan of Treatment Not on file documented as of this encounter Procedures Procedure Name Priority Date/Time Associated Diagnosis Comments MRI RESULT SCAN Routine 01/11/2019 MRI RESULT SCAN Routine 09/11/2015 documented in this encounter Results * MRI Result Scan (01/11/2019) us Historical Provider IMG SCAN REPORTS Final Resul t * MRI Result Scan (09/11/2015) us Historical Provider IMG SCAN REPORTS Final Resul t documented in this encounter Visit Diagnoses Not on filedocumented in this encounter Care Teams Senior Support Engineer Relationship Specialty Start Date End Date Irma Brennan MD 230 [facility] [address] [place] [phone] PCP - General Internal Medicine 07/11/19 documented as of this encounter
--- OUTSIDE RECORDS SUMMARY | 2024-08-16 12:23 | XMS_ITS | Clinical Summary ---
Author Organization [facility] [address] Address [address] [place] [address] Care Team Providers Care Refrigerator Car Icer Name Role Phone Irma Brennan MD Primary Care Provide r Allergies No known active allergies Medications topiramate (TOPAMAX) 100 mg tablet Take 100 mg by mouth. 01/11/2019 Active DILTIAZEM HCL ORAL Take 300 mg by mouth. Active acetaminophen (TYLENOL) 650 mg CR tablet Take 650 mg by mouth. Active aspirin 81 mg EC delayed release tablet Take 81 mg by mouth. 05/24/2019 Active aspirin 81 mg EC delayed release tablet TAKE 1 TABLET BY MOUTH EVERY DAY 12/04/2019 Active FREESTYLE LITE test strips TEST BLOOD SUGAR TWICE DAILY 11/07/2019 Active dicyclomine (BENTYL) 20 mg tablet Take 20 mg by mouth Every 6 hours as needed. 02/23/2019 Active gabapentin (NEURONTIN) 100 mg capsule Take 100 mg by mouth. 01/12/2019 Active gabapentin (NEURONTIN) 100 mg capsule TAKE 1 CAPSULE TWICE DAILY 12/04/2019 Active hydrALAZINE (APRESOLINE) 10 mg tablet Take 10 mg by mouth. Active TRUEPLUS LANCETS 33 gauge TEST BLOOD SUGAR TWICE DAILY 11/07/2019 Active levothyroxine (SYNTHROID, LEVOTHROID) 50 MCG tablet Take 50 mcg by mouth. 10/11/2018 Active levothyroxine (SYNTHROID, LEVOTHROID) 50 MCG tablet TAKE 1 TABLET BY MOUTH EVERY DAY 11/01/2019 Active lisinopriL (PRINIVIL,ZESTR IL) 20 mg tablet Take 40 mg by mouth. 09/05/2018 Active lisinopriL (PRINIVIL,ZESTR IL) 40 mg tablet TAKE 1 TABLET EVERY DAY 10/18/2019 Active loratadine (CLARITIN) 10 mg tablet Take 10 mg by mouth. Active metFORMIN (GLUCOPHAGE) 500 mg Immediate Release tablet Take 500 mg by mouth. Active metFORMIN ER (GLUCOPHAGE-XR) 500 mg XR 24 hr extended release tablet TAKE 1 TABLET EVERY DAY WITH DINNER 12/04/2019 Active omeprazole (PRILOSEC) 20 mg capsule Take 20 mg by mouth. 02/06/2019 Active omeprazole (PRILOSEC) 20 mg capsule TAKE 1 CAPSULE TWICE DAILY 10/19/2019 Active pantoprazole (PROTONIX) 40 mg tablet Take 40 mg by mouth. 05/24/2019 Active paroxetine (PAXIL) 40 mg tablet Take 40 mg by mouth. 01/06/2019 Active paroxetine (PAXIL) 40 mg tablet TAKE 1 TABLET BY MOUTH EVERY DAY 09/22/2019 Active pravastatin (PRAVACHOL) 80 mg tablet Take 80 mg by mouth. 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 Family History Medical History Relation Name Comments Cancer Father Drug abuse Other Breast cancer Paternal Aunt Cancer Paternal Uncle Relation Name Status Comments Father Other Paternal Aunt Paternal Uncle Social History Tobacco Use Types Packs/Day Years [...] on file Sexual Orientation Not on file Last Filed Vital Signs Vital Sign Reading Time Taken Comments Blood Pressure 140/82 12/11/2019 1:29 PM EDT Pulse - - Temperature - - Respiratory Rate - - Oxygen Saturation - - Inhaled Oxygen Concentration - - Weight 74.8 kg (165 lb) 12/11/2019 1:29 PM EDT Height 167.6 cm (5' 6 ) 12/11/2019 1:29 PM EDT Body Mass Index 26.63 12/11/2019 1:29 PM EDT Plan of Treatment Health Maintenance Due Date Last Done Comments HIV screening 1954 Tetanus adult (Td q 10,TDAP once) 1961 Lipid disorder screening 1981 Diabetes screening 1986 Shingles vaccine (Shingrix) (1 of 2 - Shingrix (RZV) 2 Dose Standard Series) 10/21/1991 Osteoporosis screening (bone density) 2006 Pneumo Vaccine 65+ (1 of 1 - PCV) 2006 RSV Discussion (1 - 1-dose 7 5+ series) 2016 Influenza vaccine 02/03/2024 Covid-19 vaccine series ( - 2023-25 season) 2024 Breast cancer screening Discontinued Cervical cancer screening Discontinued Meningococcal Vaccine Aged Out No driss elvin eligible based on patient's age to complete this topic Insurance MEDICARE MANAGED [facility] MEDICARE MANAGED [facility] [place] [id number] MEDICARE MANAGED [facility] Care Teams Refrigerator Car Icer Relationship Specialty Start Date End Date Irma Bernnan MD [address] [phone] PCP - General Internal Medicine 07/11/19
--- OUTSIDE RECORDS SUMMARY | 2024-08-16 12:23 | XMS_ITS | Encounter Summary ---
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) Social History Tobacco Use Types Packs/Day Years Used Date Smoking Tobacco: Never Passive Smoke Exposure: Never Smokeless Tobacco: Never Depression Answer Date Recorded Patient Health Questionnaire-9 Score 21 12/02/2022 Housing Stability Answer Date Recorded What is [...] Answer Date Recorded Patient Health Questionnaire-2 Score 6 12/02/2022 Comments Unknown Sex and Gender Information Value Date Recorded Sex Assigned at Female 05/04/2022 10:22 AM EDT Legal Sex Female 10:22 AM EDT Gender Identity Female 05/04/2022 10:22 AM EDT Sexual Orientation Choose not to disclose 2021 10:22 AM EDT documented as of this encounter Plan of Treatment Not on file documented as of this encounter Visit Diagnoses Diagnosis 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
--- OUTSIDE RECORDS SUMMARY | 2024-08-16 12:23 | XMS_ITS | Encounter Summary ---
Demographics Address [address] [facility] [address] [place] [address] Home Phone Mobile Phone Phone Phone Email Address Preferred Language Lebanese; Castilian Marital Status Muslim Affiliation Unknown Race Unknown Ethnic Group or Author Organization [facility] [employer] [facility] Address [address] [place] [address] Care Team Providers Care Home Sales Service Professional Name Role Phone Irma Brennan MD Primary Care Provide r Encounter Details Date Type Department Care Team (Late st Contact Info) Description 07/11/2019 Abstract [facility] [address] [facility] [address] [place] [address] Jeronimo Olson MD 800 [place] [phone] Social History Tobacco Use Types Packs/Day Years [...] on filedocumented in this encounter Care Teams Home Sales Service Professional Relationship Specialty Start Date End Date Irma Brennan MD 230 [facility] [address] [place] [phone] PCP - General Internal Medicine 07/11/19 documented as of this encounter
--- OUTSIDE RECORDS SUMMARY | 2024-08-16 12:23 | XMS_ITS | Encounter Summary ---
Author Organization [employer] Address [address] [facility] 7t [place] [address] Care Team Providers Care Upholsterer Outside Name Role Phone Irma Brennan MD Primary Care Provide r Reason for Visit * Reason Onset Date Comments Referral 09/15/2023 Encounter Details Date Type Department Care Team ([facility] st Contact Info) Description 09/15/2023 Telephone [facility] MED[facility]INE [address] [place], [place] [phone] Irma Brennan MD [address] [place], [place] [phone] Referral Social History Tobacco Use Types Packs/Day Years [...] AM EDT documented as of this encounter Miscellaneous Notes * Telephone Encounter - Glenis Hutchinson - 09/23/2023 3:24 PM EDT Door Serviceman called and spoke with daughter Eri. Pt had a scheduled appt and no showed. Daughter was given number to call and reschedule. * Telephone Encounter - Nany Zhao - 09/15/2023 1:13 PM EDT Tc from pt daughter requesting a referral to a marine chronometer assembler. Referral still pending from 06/22/23 documented in this encounter Plan of Treatment Not on file documented as of this encounter Visit Diagnoses Not on filedocumented in this encounter Additional Health Concerns Assessment Noted Time PHQ-9 Depression Total Score: 0 06/22/20 23 9:55 AM EST documented as of this encounter Care Teams Upholsterer Outside Relationship Specialty Start Date End Date Irma Brennan MD [address] [place] [phone] PCP - General Family Medicine 11/09/18 documented as of this encounter
--- OUTSIDE RECORDS SUMMARY | 2024-08-16 12:23 | XMS_ITS | Clinical Summary ---
Author Organization [employer] Address [address] [facility] [address] [place] [address] Care Team Providers Care Water Taxi Boat Mate Name Role Phone Irma Brennan MD Primary Care Provide r Allergies No known active allergies Medications Blood Pressure kit 1 each in the morning. Take BP daily, Call clinic if systolic (top number) is > 170 or <90 bottom number is >90 or <60. 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 1 each 01/14/20 24 Active amLODIPine (Norvasc) 5 MG tabletIndications:Es sential hypertension Take 1 tablet (5 mg) by mouth Once per day. 30 tablet 1 01/14/20 24 025 Active ondansetron ODT (Zofran-ODT) 8 MG disintegrating tabletIndications:Ch ronic gastritis without bleeding, unspecified gastritis type,Nausea DISSOLVE 1 TABLET BY MOUTH EVERY 8 HOURS NEEDED FOR NAUSEA AND VOMITING 30 tablet 1 05/05/20 24 Active PARoxetine (Paxil) 40 MG tablet TAKE 1 TABLET BY MOUTH EVERY DAY 90 tablet 1 06/15/20 24 Active topiramate (Topamax) 25 MG tabletIndications:Ch ronic migraine without aura without status migrainosus, not intractable TAKE 1 TABLET BY MOUTH EVERY DAY AT BEDTIME 30 tablet 1 06/21/20 24 Active fluticasone (Flonase) 50 MCG/ACT nasal sprayIndications:Rhi nitis, unspecified type INSTILL 1-2 SPRAYS IN EACH NOSTRIL ONCE DAILY NEEDED 48 g 1 07/12/19 25 Active Aspirin Low Dose 81 MG EC tablet TAKE 1 TABLET BY MOUTH EVERY DAY IN THE MORNING 90 tablet 1 07/12/19 25 Active ferrous gluconate (Fergon) 324 (38 Fe) MG tabletIndications:An emia due to stage 3b chronic kidney disease ([facility]) ([facility]) TAKE 1 TABLET BY MOUTH EVERY OTHER DAY 45 tablet 1 07/12/19 25 Active glimepiride (Amaryl) 1 MG tabletIndications:Ty pe 2 diabetes mellitus without complication, unspecified whether alf insulin use ([facility]) TAKE 1 TABLET BY MOUTH EVERY DAY BEFORE BREAKFAST 30 tablet 2 07/13/19 25 Active famotidine (Pepcid) 40 MG tabletIndications:Na usea TAKE 1 TABLET BY MOUTH TWICE DAILY 60 tablet 2 07/13/19 25 Active Active Problems Problem Noted Date Diagnosed Date Nausea 08/06/2023 Assessment & Plan (01/14/2024 3:08 PM EDT): Zofran prescribed Stage 4 chronic kidney disease 06/22/2023 Assessment & Plan (06/22/2023 10:44 AM EST): Referral to nephrology Forgetfulness 06/22/2023 Acute cystitis with hematuria 05/05/2023 Assessment & Plan (05/06/2023 5:07 PM EDT): -Apparently related to hyperglycemia, UTI, probably had underlying OA. Fall 05/05/2023 Assessment & Plan (05/06/2023 5:07 PM EDT): Will order PT at home, will refer to VNA for home evaluation. Children are primary caregivers. Generalized abdominal pain 03/15/2023 Assessment & Plan (03/15/2023 9:23 AM EDT): Patient is poor historian, but it seems that it could be related to previously dx gastritis/esophagitis?malignancy? Iron tbs? I will refer to GI again. I spoke with her daughter Eri and gave her this information. Counseled to use sucralfate AC meals. Take tums prn abd pain. Acute kidney injury superimp osed on chronic kidney disease ([facility]) 02/16/2023 Assessment & Plan (05/06/2023 5:07 PM EDT): -Apparently resolved. Gill Box Tender regarding hydration, check prior to next appointment. -Resolved with antibiotics. Follow up with PRN with PCP Assessment & Plan (03/15/2023 5:01 PM EDT): Unclear if RF recovered after last fall. Encourage to increase fluid intake Reminded Shellie and her daughter Eri to get labs ordered by PCP Recently, done COLEMAN Assessment & Plan (02/16/2023 12:19 PM EDT): I advise to drink plenty of water and avoid NSAIDs I advise to take her medications for BP every day I referred patient to nephrology Right hip pain 02/16/2023 Assessment & Plan (03/15/2023 9:25 AM EDT): Patient had a fall few weeks ago which has incapacitated her significantly. 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, needs OV to evaluate risk and need for assistance at home Pain in lower back 02/16/2023 Anemia due to chronic kidney disease 02/16/2023 Depression with anxiety 02/16/2023 Assessment & Plan (02/16/2023 12:19 PM EDT): Counseling done patient will benefit form therapist and psychiatrist Chronic gastritis 10/05/2022 Assessment & Plan (01/14/2024 3:08 PM EDT): Continue to follow with GI Toryfran prescribed today Assessment & Plan (08/06/2023 11:18 AM EST): I advise patient to avoid NSAIDs, spicy and acid food, I advise to eat at the same time every day, I advise to elevate the head of the bed and take medications as prescribe Assessment & Plan (06/22/2023 10:48 AM EST): I advise patient to avoid NSAIDs, spicy and acid food, I advise to eat at the same time every day, I advise to elevate the head of the bed and take medications as prescribe Peptic ulcer 12/30/2017 Impairment of balance 12/30/2017 Diabetic polyneuropathy 12/30/2017 Acquired hypothyroidism 05/14/2015 Controlled type 2 diabetes gelacio martinez with microalbuminuric diabetic nephropathy 05/14/2015 Assessment & Plan (01/14/2024 3:10 PM EDT): Diabetes is: controlled - Lab Results Component Value Date HGBA1C 5.8 01/14/2024 HGBA1C 5.9 12/02/2022 HGBA1C 6.1 (H) 02/12/2022 - Lab Results Component Value Date CREATININE 1.72 (H) 01/07/2024 -Changes: Patient only on Amaryl 1mg with breakfast, its unclear if patient is taking medication as prescribed, I will set her up for VNA services for medications administration and glucose check ups it is my medical opinion patient will benefit from this service - Diabetic eye exam:referral done - Diabetic foot exam:pending - Continue lifestyle modifications - Continue current medications - Follow up: 3 months Assessment & Plan (06/22/2023 10:45 AM EST): - Lab Results Component Value Date HGBA1C 5.9 12/02/2022 HGBA1C 6.1 (H) 02/12/2022 HGBA1C 6.1 (H) 08/15/2021 - Lab Results Component Value Date CREATININE 2.98 (H) 04/26/2023 - Diabetic eye exam:referral today - Diabetic foot exam:pending - Continue lifestyle modifications - Assessment & Plan (06/11/2023 2:08 PM EST): -patient seems to have hypoglycemia, continue holding Amaryl -follow up with PCP in 3 weeks - career technical counselor daughter and patient small and fractioned meals. I will order Glucerna Assessment & Plan (12/02/2022 10:51 AM EDT): Lab Results Component Value Date HGBA1C 6.1 (H) 02/12/2022 HGBA1C 6.1 (H) 08/15/2021 HGBA1C 6.4 (H) 07/18/2020 - Lab Results Component Value Date CREATININE 1.51 (H) 09/27/2022 - - Diabetic eye exam: up to date - Diabetic foot exam: pending - Continue lifestyle modifications - Continue current medications - Essential hypertension 05/14/2015 Assessment & Plan (01/14/2024 3:08 PM EDT): Slightly elevated today, on review of notes nephrology discontinue her lisinopril and put her on amlodipine 5mg daily, unclear if patient is taking her medications as prescribed I will set up patient for VNA services for medication administration and blood pressure check, it is my medical opinion patient will benefit form service Assessment & Plan (06/22/2023 10:43 AM EST): - low-sodium diet (goal: <2g/day) and heart healthy diet such as DASH to reduce BP and prevent ASCVD. - Home BP monitoring 1-2 x day with goal of <140/90. - Seek immediate medical attention for chest pain, palpitations, SOB, syncope, or sudden changes in mental status. Assessment & Plan (05/06/2023 5:06 PM EDT): -continue of all medication due to hypertension. Check BP every other day. Check PCP in 2 weeks. -Daughter will call if BP if greater than 160/100. Assessment & Plan (12/02/2022 10:50 AM EDT): - Aerobic exercise - low-sodium diet (goal: <2g/day) and heart healthy diet such as DASH to reduce BP and prevent ASCVD. - Home BP monitoring 1-2 x day with goal of <140/90. - Seek immediate medical attention for chest pain, palpitations, SOB, syncope, or sudden changes in mental status. - Do not change or discontinue current prescriptions without first consulting health care provider, I explain to patient she needs to take both medications lisinopril and hydrochlorothiazide for BP RTC 2 weeks nurse visit for BP check then 3 months with me Gastroesophageal reflux disease 07/24/2014 Dyslipidemia 04/19/2013 Mood disorder 01/12/2013 Migraine 07/07/2012 Obesity 03/04/2012 Constipation 03/04/2012 Chronic kidney disease, stage III (moderate) Depressive disorder 01/21/2012 Temporal headache 01/21/2012 Cerebral aneurysm, nonruptured 10/22/2011 Overview (03/10/2023): 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 Encounters Date Type Department Care Team Description 07/13/2024 Refill [facility] [address], [place] [phone] Irma Brennan MD Type 2 diabetes mellitus without complication, 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 [address] Irma Brennan MD 06/09/2024 Orders Only GENERIC EXTERNAL DATA DEPARTMENT Provider, Generic External Data from Last 3 Months Immunizations Name Administration Dates Next Due Hep B, adult 09/13/2017,02/01/2014 Influenza High-dose Quadrivalent Preservative Fr ee 04/18/2020 Influenza Quadrivalent Adjuvanted 06/26/2021 Influenza injectable quadriv alent IIV4 with preservative 07/26/2017,05/14/2015 Influenza injectable quadrivalent preservative f ree 09/12/2018 Influenza, High Dose Seasonal, Preservative Free 06/23/2019,04/21/2018 Influenza, IIV3, injectable 07/24/2014, 1 Influenza, Split (incl. purified surface antigen ) 03/30/2013,03/04/2012 Pneumococcal Conjugate PCV 13 04/02/2015 Pneumococcal Polysaccharide PPSV23 08/10/2011 Tdap 08/10/2011 Zoster, live 07/24/2014 Social History Tobacco Use Types Packs/Day Years Used Date Smoking Tobacco: Never Passive Smoke Exposure: Never Smokeless Tobacco: Never Tobacco Cessation:Counseling Given: Not Answered Depression Answer Date Recorded Patient Health Questionnaire-9 Score 0 06/22/2023 Patient Health Questionnaire-9 Score 0 06/22/2023 Last PHQ-9: Questionnaire Data Not on file 1 08/23/2022 Housing Stability Answer Date Recorded What is your housing situation today? I have [place] 01/14/[address] you li ve. Do you have problems with any of the following? None of the above 01/14/2024 Food Insecurity Answer Date Recorded Within the past 12 months, y ou worried that your food would run out before you got money to buy more: Never True 01/14/2024 Within the past 12 months,th e food you bought just didn't last and you didn't have enough money to get more: Never True 06/2024 Transportation Answer Date Recorded In the past 12 months, has l ack of transportation kept you from medical appts, meetings, work or from getting things needed for daily living? No 01/14/2024 Utilities Answer Date Recorded In the past 12 months, has t he electric, gas, oil or water company threatened to shut off services in your home? No 01/14/2024 Depression Answer Date Recorded Patient Health Questionnaire-2 Score 0 06/22/2023 Internet Access Answer Date Recorded Internet Access Q1 No 03/06/2024 Internet Access Q2 I do not want or need it 08/2023 Comments Unknown Sex and Gender Information Value Date Recorded Sex Assigned at Female 05/04/2022 10:22 AM EDT Legal Sex Female 10:22 AM EDT Gender Identity Female 05/04/2022 10:22 AM EDT Sexual Orientation Choose not to disclose 2021 10:22 AM EDT Last Filed Vital Signs Vital Sign Reading Time Taken Comments Blood Pressure 149/96 01/14/2024 10:46 AM EDT Pulse 98 01/14/2024 10:46 AM EDT Temperature 37.2 ??C (98.9 ??F) 01/14/2024 10:46 AM E DT Respiratory Rate 18 01/14/2024 10:46 AM EDT Oxygen Saturation 99% 12/02/2022 10:04 AM EDT Inhaled Oxygen Concentration - - Weight 59.4 kg (131 lb) 01/14/2024 10:46 AM EDT Height 165.1 cm (5' 5 ) 01/14/2024 10:46 AM EDT Body Mass Index 21.8 01/14/2024 10:46 AM EDT Plan of Treatment Health Maintenance Due Date Last Done Comments Diabetes: Foot Exam 10[birth year]21/1950 Eye Exam 10/21/1951 Alcohol/Substance Use Screening 1952 Zoster Vaccines (2 of 3) 09/18/2014 07/24/2014 RSV Patients and Patients Aged 60 years or older (1 - 1-dose 75+ series) 2016 Hepatitis B Vaccines (3 of 3 - 19+ 3-dose series) 11/08/2017 09/13/2017, 02/01/2014 DTaP/Tdap/Td Vaccines (2 - Td or Tdap) 08/10/2021 08/10/2011 Lipid Panel 08/15/2022 08/15/2021, 07/18/2020 COVID-19 Vaccine ( - season) 2024 Influenza Vaccine (#1) 2024 , 04/18/2020, 06/23/2019, Additional history exists Depression Screening 06/22/2024 06/22/2023, 06/22/20 Diabetes: Hemoglobin A1C 11/01/2024 024, 01/14/2024, 12/02/2022, Additional history exists SDOH Screening 01/13/2025 01/14/2024 Tobacco Screening 01/13/2025 01/14/2024 Pneumococcal Vaccine: 50+ Years Completed 04/02/2015, 08/10/2011 HIB Vaccines Aged Out No longer eligi ble based on patient's age to complete this topic HPV Vaccines Aged Out No longer eligi ble based on patient's age to complete this topic Hepatitis A Vaccines Aged Out No long er eligible based on patient's age to complete this topic IPV Vaccines Aged Out No longer eligi ble based on patient's age to complete this topic Meningococcal Vaccine Aged Out No driss elvin eligible based on patient's age to complete this topic RSV under 20 months Aged Out No longe r eligible based on patient's age to complete this topic Rotavirus Vaccines Aged Out No longer eligible based on patient's age to complete this topic Procedures Procedure Name Priority Date/Time Associated Diagnosis Comments CREATININE, SERUM Routine 06/09/2024 9:1 9 AM EST UREA NITROGEN (BUN) Routine 06/09/2024 9 :19 AM EST ELECTROLYTE PANEL Routine 06/09/2024 9:1 9 AM EST US RENAL DOPPLER Routine 05/18/2024 8:16 AM EST US RENAL BI Routine 05/18/2024 8:16 AM EST HEMOGLOBIN A1C Routine 05/04/2024 9:36 AM EDT 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 ([facility]) LIPID PANEL, STANDARD Routine 08/15/2021 3:16 PM EST from Last 3 Months or Most Recently Relevant to Health Maintenance Results * (ABNORMAL) Creatinine, Serum (06/09/2024 9:19 AM EST) Creatinine, Serum 2.15(H) 0.5 - 1.4 mg/dL [facility] Estimated Glomerular Filt Rate 22 [facility] Comment:Chronic Kidney Disea se: Estimated GFR < 60 mL/min/[id number] Kidney Disease: Estimated GFR < 15 mL/min/1.73m2 06/09/2024 9:19 AM EST 06/09/2024 9:19 AM EST Generic External Data Provider LAB BLOOD ORDERAB LES Final Result Performing Organization Address [facility]/ZIP Co de Phone Number [facility] [address] [place] [phone] * (ABNORMAL) BUN (Blood Urea Nitrogen) (06/09/2024 9:19 AM EST) Urea Nitrogen (BUN) 34(H) 9 - 16 mg/dL [facility] 06/09/2024 9:19 AM EST 06/09/2024 9:19 AM EST Generic External Data Provider LAB BLOOD ORDERAB LES Final Result Performing Organization Address [facility]/ZIP Co de Phone Number [facility] [address] [place] [phone] * (ABNORMAL) Electrolyte Panel (06/09/2024 9:19 AM EST) Sodium 141 135 - 145 mmol/L [facility] Potassium 4.0 3.3 - 5.1 mmol/L [facility] Chloride 111(H) 96 - 108 mmol/L [facility] Carbon Dioxide 23 22 - 29 mmol/L [facility] Anion Gap 11(L) 12 - 20 [facility] 06/09/2024 9:19 AM EST 06/09/2024 9:19 AM EST us Generic External Data Provider LAB BLOOD ORDERAB LES Final Result [facility] [address] [place] [address] [phone] * US RENAL DOPPLER (05/18/2024 8:16 AM EST) Anatomical Region Laterality Modality Abdomen Ultrasound 05/18/2024 8:16 AM EST Narrative 08/02/2024 11:47 AM EST ? [facility] ?[address] ? [place] [address] ? Ultrasound Report ? Signed ? Patient: Manuel,Shellie ?MR#: [id number] ?? [id number] ? : 1940 ?Acct:[id number] ? Age/Sex: 83 / F ?ADM Date: 05/18/24 ? Loc: HO.[facility] ? Attending Dr: Usman Larose MD ? Ordering Physician: Usman Larose MD ?? Date of Service: 05/18/24 ?? Procedure(s): US renal doppler ?? Accession Number(s): [id number] ? cc: Irma Brennan MD; Usman Larose MD ? EXAMINATION: ?? US RETROPERITONEAL LIMITED (RENAL ONLY) ? CLINICAL INFORMATION: ?? Chronic kidney disease, stage IV. ? COMPARISON: ?? Abdominal ultrasound dated 11/12/2023. ? TECHNIQUE: ?? Real-time imaging of the kidneys. ? FINDINGS: ? RIGHT KIDNEY: 8.4 x 4.8 x 4.6 cm (SAG x AP x TRV). The kidney is normal ?? in size, contour, and echogenicity. Renal cortical thickness is normal. ?? No calculi or focal parenchymal lesions. No hydronephrosis. ? LEFT KIDNEY: 9.3 x 5.3 x 5.0 cm (SAG x AP x TRV). The kidney is normal ?? in size, contour, and echogenicity. Renal cortical thickness is normal. ?? No calculi or focal parenchymal lesions. No hydronephrosis. ? US/US renal doppler ?? IMPRESSION: ?? Unremarkable examination. ? Electronically signed by: ??Thierno Watson MD ??05/18/2024 10:06 PM EST RP ? Dictated By: ?Thierno Watson MD ? Signed By: ?<Electronically signed by Thierno Watson MD in OV> ? 08/02/24 1147 ? DD/ 0816 ? TD/TT: 05/18/24 0904 ? Photographer News: KADE ? Procedure Note Donotmartainterpreter, Image - 08/02/2024 [facility] [address] [place] [address] [place] [address] Ultrasound Report Signed Patient: Shellie JacksonMR#: [id number] : 2Acct:[id number] Age/Sex: 83 / FADM Date: 05/18/24 [facility] Dr: Usman Larose MD Ordering Physician: Usman Larose MD Date of Service: 05/18/24 Procedure(s): US renal doppler Accession Number(s): [id number] cc: Irma Brennan MD; Usman Larose MD EXAMINATION: US RETROPERITONEAL LIMITED (RENAL ONLY) CLINICAL INFORMATION: Chronic kidney disease, stage IV. COMPARISON: Abdominal ultrasound dated 11/12/2023. TECHNIQUE: Real-time imaging of the kidneys. FINDINGS: RIGHT KIDNEY: 8.4 x 4.8 x 4.6 cm (SAG x AP x TRV). The kidney is normal in size, contour, and echogenicity. Renal cortical thickness is normal. No calculi or focal parenchymal lesions. No hydronephrosis. LEFT KIDNEY: 9.3 x 5.3 x 5.0 cm (SAG x AP x TRV). The kidney is normal in size, contour, and echogenicity. Renal cortical thickness is normal. No calculi or focal parenchymal lesions. No hydronephrosis. US/US renal doppler IMPRESSION: Unremarkable examination. Electronically signed by: Thierno Watson MD 05/18/2024 10:06 PM EST RP Dictated By: Thierno Watson MD Signed By: <Electronically signed by Thierno Watson MD in OV> 08/02/24 1147 DD/ 0816 TD/TT: 05/18/24 0904 Photographer News: KADE [facility] External Provider IMG US PROCEDURES Edited Result - Final * US RENAL BI (05/18/2024 8:16 AM EST) Anatomical Region Laterality Modality Abdomen Ultrasound 05/18/2024 8:16 AM EST Narrative 05/18/2024 10:09 PM EST ? [facility] ?[address] ? [place] [address] ? Ultrasound Report ? Signed ? Patient: Manuel,Shellie ?MR#: [id number] ?? 819 ? : 1940 ?Acct:[id number] ? Age/Sex: 83 / F ?ADM Date: 05/18/24 ? Loc: HO.[facility] ? Attending Dr: Usman Larose MD ? Ordering Physician: Usman Larose MD ?? Date of Service: 05/18/24 ?? Procedure(s): US renal BI ?? Accession Number(s): [id number] ? cc: Irma Brennan MD; Usman Larose MD ? EXAMINATION: ?? US RETROPERITONEAL LIMITED (RENAL ONLY) ? CLINICAL INFORMATION: ?? Chronic kidney disease, stage IV. ? COMPARISON: ?? Abdominal ultrasound dated 11/12/2023. ? TECHNIQUE: ?? Real-time imaging of the kidneys. ? FINDINGS: ? RIGHT KIDNEY: 8.4 x 4.8 x 4.6 cm (SAG x AP x TRV). The kidney is normal ?? in size, contour, and echogenicity. Renal cortical thickness is normal. ?? No calculi or focal parenchymal lesions. No hydronephrosis. ? LEFT KIDNEY: 9.3 x 5.3 x 5.0 cm (SAG x AP x TRV). The kidney is normal ?? in size, contour, and echogenicity. Renal cortical thickness is normal. ?? No calculi or focal parenchymal lesions. No hydronephrosis. ? US/US renal BI ?? IMPRESSION: ?? Unremarkable examination. ? Electronically signed by: ??Thierno Watson MD ??05/18/2024 10:06 PM EST RP ? Dictated By: ?Thierno Watson MD ? Signed By: ?<Electronically signed by Thierno Watson MD in OV> ? 08/02/24 1147 ? DD/ 0816 ? TD/TT: 05/18/24 0904 ? Photographer News: KADE ? Procedure Note Donotuseinterpreter, Image - 08/02/2024 [facility] [address] [place] [address] [place] [address] Ultrasound Report Signed Patient: Shellie JacksonMR#: [id number] : 1940cct:[id number] Age/Sex: 83 / FADM Date: 05/18/24 [facility] Att[facility] Dr: Usman Larose MD Ordering Physician: Usman Larose MD Date of Service: 05/18/24 Procedure(s): US renal BI Accession Number(s): [id number] cc: Irma Brennan MD; Usman Larose MD EXAMINATION: US RETROPERITONEAL LIMITED (RENAL ONLY) CLINICAL INFORMATION: Chronic kidney disease, stage IV. COMPARISON: Abdominal ultrasound dated 11/12/2023. TECHNIQUE: Real-time imaging of the kidneys. FINDINGS: RIGHT KIDNEY: 8.4 x 4.8 x 4.6 cm (SAG x AP x TRV). The kidney is normal in size, contour, and echogenicity. Renal cortical thickness is normal. No calculi or focal parenchymal lesions. No hydronephrosis. LEFT KIDNEY: 9.3 x 5.3 x 5.0 cm (SAG x AP x TRV). The kidney is normal in size, contour, and echogenicity. Renal cortical thickness is normal. No calculi or focal parenchymal lesions. No hydronephrosis. US/US renal BI IMPRESSION: Unremarkable examination. Electronically signed by: Thierno Watson MD 05/18/2024 10:06 PM [facility] Dictated By: Thierno Watson MD Signed By: <Electronically signed by Thierno Watson MD in OV> 08/02/24 1147 DD/ 0816 TD/TT: 05/18/24 0904 Photographer News: KADE us [facility] External Provider IMG US PROCEDURES Edited Result - Final * (ABNORMAL) Hemoglobin A1c (05/04/2024 9:36 AM EDT) Hemoglobin A1c 6.1(H) <6.0 % [facility] Comment:Hemoglobin A1C Refer ence Range Adults: 4.8 - 6.0 % Non diabetic: < 6.0 % Goal: < 7.0 %Additional Action Suggested: > 8.0 %Note: Hemoglobin A1c results are invalid for patients with abnormal amounts of HbF. Blood transfusions may impact the HbA1c concentration in the patient sample. Estimated Average Glucose 128 mg/dL [facility] Comment:eAG = Estimated ave rage glucose which is %A1C expressed asaverage glucose, using the formula of the T2G-ZebimjnJmnffuy Glucose study (ADAG), Diabetes Care, Vol.31,#8,Feb. 2007 Blood Venous blood specimen / Unknown 05/04/2024 9:36 AM EDT 05/04/2024 9:38 AM EDT Irma Alexander MD LAB BLOOD ORDERABLES Final Result [facility] [address] [place] [phone] * (ABNORMAL) LIPID PANEL, STANDARD (08/15/2021 3:16 PM EST) Chol/HDLC Ratio 3.3 <5.0 (calc) [facility] Cholesterol, Total 231(H) <200 mg/dL [facility] HDL Cholesterol 71 > OR = 50 mg/dL [facility] LDL Cholesterol 142(H) mg/dL (calc) [facility] Comment: Reference range: <100 ?? Desirable range <100 mg/dL for primary prevention; ?? <70 mg/dL for patients with CHD or diabetic patients ?? with > or = 2 CHD risk factors. ?? LDL-C is now calculated using the Vishal-Diaz ?? calculation, which is a validated novel method providing ?? better accuracy than the Friedewald equation in the ?? estimation of LDL-C. ?? Vishal THOMAS et al. GARCÍA. 2013;310(19): 9701-5557 ?? (http://education.[employer]/faq/DDI298) Non-HDL Cholesterol 160(H) <130 mg/dL (calc) [facility] Comment: For patients with diabetes plus 1 major ASCVD risk ?? factor, treating to a non-HDL-C goal of <100 mg/dL ?? (LDL-C of <70 mg/dL) is considered a therapeutic ?? option. Triglycerides 78 <150 mg/dL [facility] 08/15/2021 3:16 PM EST Irma Alexander MD LAB BLOOD ORDERABLES Final Result [facility] [address] [place] [address], from Last 3 Months or Most Recently Relevant to Health Maintenance Insurance [facility] ADV STANDARD Care Teams Water Taxi Boat Mate Relationship Specialty Start Date End Date Irma Brennan MD [address] [place] [phone] PCP - General Family Medicine 11/09/18
--- OUTSIDE RECORDS SUMMARY | 2024-08-16 12:23 | XMS_ITS | Encounter Summary ---
Author Organization [employer] Address [address] [facility] 7t [place] [address] Care Team Providers Care Precision Honing Machine Operator Name Role Phone Irma Brennan MD Primary Care Provide r Reason for Visit * Reason Onset Date Comments Appointment Request 10/28/2023 Encounter Details Date Type Department Care Team ([facility] st Contact Info) Description 10/28/2023 Telephone [facility] [address] [place], [place] [phone] Irma Brennan MD [address] [place], [place] [phone] Appointment Request Social History Tobacco Use Types Packs/Day Years [...] encounter Miscellaneous Notes * Telephone Encounter - Ankit Rojas - 10/28/2023 12:25 PM EDT Tc from the patients daughter calling to cancel appt for 11/03 and would like a call back to reschedule appt headline writer did attempt to schedule however they refused and would like a Televisit appt instead documented in this encounter Plan of Treatment Not on file documented as of this encounter Visit Diagnoses Not on filedocumented in this encounter Additional Health Concerns Assessment Noted Time PHQ-9 Depression Total Score: 0 06/22/20 23 9:55 AM EST documented as of this encounter Care Teams Precision Honing Machine Operator Relationship Specialty Start Date End Date Irma Brennan MD [address] [place] [phone] PCP - General Family Medicine 11/09/18 documented as of this encounter
--- OUTSIDE RECORDS SUMMARY | 2024-08-16 12:24 | XMS_ITS | Clinical Summary ---
Author Organization [facility] Address [address] [facility] [address] [place] [address] Phone Care Team Providers Care Tax Specialist Name Role Phone Irma Brennan MD Primary Care Provide r Active Problems Problem Noted Date Diagnosed Date Chronic kidney disease stage 3 10/21/2023 Hypertensive heart and renal disease with (congestive) heart failure 10/21/2023 Family History Medical History Relation Comments Diabetes Child 1 Hypertension Child 2 Relation Status Comments Child 1 Child 2 Father Mother Social History Tobacco Use Types Packs/Day Years Used Date Smoking Tobacco: Never Alcohol Use Standard Drinks/Week Comments No 0 (1 standard drink = 0.6 oz pur e alcohol) Comments Unknown Sex and Gender Information Value Date Recorded Sex Assigned at Not on file Legal Sex Female 5:08 PM EST Gender Identity Not on file Sexual Orientation Not on file Plan of Treatment Health Maintenance Due Date Last Done Comments Pneumococcal Vaccine: 65+ Ye ars (1 of 2 - PCV) 10/21/1946 Influenza Vaccine (#1) 2024 Hepatitis B Vaccine Aged Out No longe r eligible based on patient's age to complete this topic Insurance [facility] ([id number]) [employer] ([id number]) [place] [id number] Care Teams Tax Specialist Relationship Specialty Start Date End Date Irma Brennan MD [address] [place] [address] [place] [phone] PCP - General Internal Medicine 02/23/23
--- OUTSIDE RECORDS SUMMARY | 2024-08-16 12:24 | XMS_ITS | Encounter Summary ---
Author Organization [employer] Address [address] [facility] 7t [place] [address] Care Team Providers Care Beater Tender Name Role Phone Irma Brennan MD Primary Care Provide r Encounter Details Date Type Department Care Team ([facility] st Contact Info) Description 12/31/2023 Orders Only [facility] MED[facility] [address] [place], [place] [phone] Irma Brennan MD [address] [place], [place] [phone] Type 2 diabetes mellitus without complication, unspecified whether halfway insulin use ([facility]) Social History Tobacco Use Types Packs/Day Years [...] as of this encounter Visit Diagnoses Diagnosis Type 2 diabetes mellitus without complication, unspecified whether halfway insulin use ([facility]) documented in this encounter Additional Health Concerns Assessment Noted Time PHQ-9 Depression Total Score: 0 06/22/20 23 9:55 AM EST documented as of this encounter Care Teams Beater Tender Relationship Specialty Start Date End Date Irma Brennan MD [address] [place] [phone] PCP - General Family Medicine 11/09/18 documented as of this encounter
--- OUTSIDE RECORDS SUMMARY | 2024-08-16 12:24 | XMS_ITS | Encounter Summary ---
Author Organization [employer] Address [address] [facility] 7t [place] [address] Care Team Providers Care Ink Jet Operator Name Role Phone Irma Brennan MD Primary Care Provide r Reason for Visit * Reason Comments Med Refill Encounter Details Date Type Department Care Team ([facility] st Contact Info) Description 05/31/[address] [facility] [address] [place], [place] [phone] Irma Brennan MD [address] [place], [place] [phone] Acute low back pain, unspecified back pain laterality, unspecified whether sciatica present Social History Tobacco Use Types Packs/Day Years Used Date Smoking Tobacco: Never Passive Smoke Exposure: Never Smokeless Tobacco: Never Depression Answer Date Recorded Patient Health Questionnaire-9 Score 21 12/02/2022 Housing Stability Answer Date Recorded What is your housing situation today? I have chelogenia singh 04/20/[address] you [...] encounter Miscellaneous Notes * Telephone Encounter - Jennifer Fernandez RN - 05/31/2023 2:41 PM EST 05/06/23 - spoke with dtr Eri, who stated pt does not want oxycodone anymore. 05/31/23 - received request for Oxycodone refill. TC to pt, spoke with daughter Eri. Eri again stated that patient is not taking Oxycodone anymore. Will send FYI to PCP. documented in this encounter Plan of Treatment Not on file documented as of this encounter Visit Diagnoses Diagnosis Acute low back pain, unspecified back pain laterality, unspecified whether sciatica present documented in this encounter Additional Health Concerns Assessment Noted Time PHQ-9 Depression Total Score: 21 023 10:05 AM EDT documented as of this encounter Care Teams Ink Jet Operator Relationship Specialty Start Date End Date Irma Brennan MD [address] [place] [address] PCP - General Family Medicine 11/09/18 documented as of this encounter
--- OUTSIDE RECORDS SUMMARY | 2024-08-16 12:24 | XMS_ITS | Encounter Summary ---
Author Organization [employer] Address 75 [facility] 7t [place] [address] Care Team Providers Care Tear Down Worker Name Role Phone Irma Brennan MD Primary Care Provide r Reason for Visit * Reason Onset Date Comments Nurse Triage 12/27/2023 Encounter Details Date Type Department Care Team ([facility] st Contact Info) Description 12/27/2023 Telephone [facility] 230 [place], [place] [phone] Irma Brennan MD [address] [place], [place] [phone] Nurse Triage Social History Tobacco Use Types Packs/Day Years [...] encounter Miscellaneous Notes * Telephone Encounter - Cydney Fitzpatrick LPN - 12/27/2023 11:11 AM EDT Triage call retuened to patient with Daughter Eri. Patient reports severe headache yesterday with dizziness and inability to ambulate for any distance. No facial numbness. Has migraine medicine but not helping. Patient alert and verbal as audible in background of conversation. Patient reports that previous neurologist reitred and she needs a new one. Disposition reviewed declined appt with Team provider for today due to headache and dizziness. [facility] insured and home evaluation arranged with address and phone verified at time of call.Team tasked to update PCP and telephone call request per patient. Protocol Used: Headache (Adult) Protocol-Based Disposition: See in Office or Video Visit Today Override (Final) Disposition: Discuss with PCP and Callback by Nurse Today Override Reason: No appointments available Override Notes: Patient requesting a telephone conversation with PCP. [facility] home evaluation arranged for today. Video visit not offered Positive Triage Question: * Patient wants to be seen * All higher-acuity triage questions were negative Care Advice Discussed: * Pain Medicines * Rest for Headache * Reasons To Call Back - Severe headache persists over 2 hours after pain medicine - Headache lasts over 24 hours despite using a pain medicine - You become worse * Telephone Encounter - Tiff Vaughn - 12/27/2023 10:46 AM EDT Symptom: Headache Outcome: Schedule an urgent appointment (within 4 hours) or talk to a nurse or provider soon Reason: Getting worse Daughter is requesting a neurology referral The caller accepted this outcome [place]an speaker documented in this encounter Plan of Treatment Not on file documented as of this encounter Visit Diagnoses Not on filedocumented in this encounter Additional Health Concerns Assessment Noted Time PHQ-9 Depression Total Score: 0 06/22/20 23 9:55 AM EST documented as of this encounter Care Teams Tear Down Worker Relationship Specialty Start Date End Date Irma Brennan MD [address] [place] [address] PCP - General Family Medicine 11/09/18 documented as of this encounter
--- OUTSIDE RECORDS SUMMARY | 2024-08-16 12:24 | XMS_ITS | Encounter Summary ---
Demographics Address [address] [facility] [place] [address] Home Phone Preferred Language es Marital Status Unknown Yazidi Affiliation Unknown Race White Ethnic Group Unknown Author Organization [facility], Address [address] [place] [address] Phone Care Team Providers Care Tong Setter Name Role Phone Irma Brennan MD Primary Care Provide r Encounter Details Date Type Department Care Team (Late st Contact Info) Description 02/24/2023 Documentation Only [facility], [address] [place] [address] Irma Brennan MD [address] [facility] 1 [place] [address] Social History Tobacco Use Types Packs/Day Years [...] on filedocumented in this encounter Care Teams Tong Setter Relationship Specialty Start Date End Date Irma Brennan MD [address] [facility] 1 [place] [address] PCP - General Internal Medicine 02/23/23 documented as of this encounter
--- OUTSIDE RECORDS SUMMARY | 2024-08-16 12:24 | XMS_ITS | Encounter Summary ---
Author Organization [employer] Address [address] [facility] 7t [place] [address] Care Team Providers Care Special Inspector Name Role Phone Irma Brennan MD Primary Care Provide r Reason for Visit * Reason Onset Date Comments triage 07/29/2022 Encounter Details Date Type Department Care Team ([facility] st Contact Info) Description 07/29/2022 Telephone [facility] MEDICINE [address] [place], [place] [phone] Irma Brennan MD [address] [place], [place] [phone] triage Social History Tobacco Use Types Packs/Day Years Used Date Smoking Tobacco: Never Assessed Depression Answer Date Recorded Patient Health Questionnaire-9 Score 0 06/22/2023 Patient Health Questionnaire-9 Score 0 06/22/2023 Last PHQ-9: Questionnaire Data Not on file 1 08/23/2022 Housing Stability Answer Date Recorded What is your housing situation today? I have chelo singh 01/14/[address] you li [...] not to disclose 2021 10:22 AM EDT COVID-19 Exposure Response Date Recorded In the last 10 days, have yo u been in contact with someone who was confirmed or suspected to have Coronavirus/COVID-19? No / Unsure 12/02/2022 9:13 AM EDT documented as of this encounter Miscellaneous Notes * Telephone Encounter - Sis Vu - 07/29/2022 11:46 AM EST Tc from pt son Jasper on hippa returning call for headache. Please contact at [phone] Speaks Slovenian documented in this encounter Plan of Treatment Not on file documented as of this encounter Visit Diagnoses Not on filedocumented in this encounter Care Teams Special Inspector Relationship Specialty Start Date End Date Irma Brennan MD [address] [place] [phone] PCP - General Family Medicine 11/09/18 documented as of this encounter
--- OUTSIDE RECORDS SUMMARY | 2024-08-16 12:24 | XMS_ITS | Encounter Summary ---
Author Organization [employer] Address [address] [facility] 7t [place] [address] Care Team Providers Care Industrial Truck Mechanic Name Role Phone Irma Brennan MD Primary Care Provide r Reason for Visit * Reason Onset Date Comments Triage 09/23/2022 Encounter Details Date Type Department Care Team ([facility] st Contact Info) Description 09/23/2022 Telephone [facility] MEDICINE [address] [place], [place] [phone] Irma Brennan MD [address] [place], [place] [phone] Triage Social History Tobacco Use Types Packs/Day [...] Miscellaneous Notes * Telephone Encounter - Jennifer Hall - 09/23/2022 3:03 PM EDT Symptoms: Vision Loss or Change, Pain - Severe Outcome: Schedule an urgent appointment (within 1 hour) or talk to a nurse or provider soon Reason: No high acuity concerns reported by caller The caller accepted this outcome Please contact pt at [phone] Danish Speaker documented in this encounter Plan of Treatment Not on file documented as of this encounter Visit Diagnoses Not on filedocumented in this encounter Care Teams Industrial Truck Mechanic Relationship Specialty Start Date End Date Irma Brennan MD [address] [place] [address] PCP - General Family Medicine 11/09/18 documented as of this encounter
--- OUTSIDE RECORDS SUMMARY | 2024-08-16 12:24 | XMS_ITS | Data Portability ---
Author Organization [employer] [employer] Address [address] [place] [address] Care Team Providers Care Licensed Mortgage Loan Officer Name Role Phone HIM CCA OTHER Assessment Encounter Date Assessment Date Assessment LastModified by Organization Details LastModified Time 02/05/2023 02/05/2023 Called to corwin peguero n 82 y/o f CKD 3, HTN, MDD s/p mechanical fall w impact to lower back w/o head strike x 6 days ago. Attempted tylenol with minimal effect. Per medic no fecal or urinary incontinence or signs of saddle anesthesia. VSS Toradol 15mg x1 Clinical picture c/w mechanical fall, reassuring no head strike or alarm sxs. Pt given toradol 15mgx1 and advised to continue supportive care. Alarm signs reviewed, advised to call 911 if onset. [email or web address] Not available 02/05/2023 15:53:12 12/28/2023 12/28/2023 I provided real -time medical direction via phone for this encounter and was available for additional phone-based assistance as needed. I have reviewed and agree with the Assessment and Plan as documented by the Cold Press Operator. Patient given the opportunity to ask questions. Our service contacted for an assessment of: Dizziness As per above, patient patient unable to give a history but does have a past medical history of hypertension. Lives alone and apparently her daughter lives next door who is the 1 who called for visit unfortunately we are unable to get touch with her. Patient is [place]-speaking only and was communicated with via an applications project manager however there does appear to be some cognitive impairment precluding accurate history taking. She is able to state she has been dizzy for quite some period of time but denies falls although I see she fell and we evaluated her in the house in February of 2023. Per bobbin painter on the scene, she has orthostatic by pulse and blood pressure with a systolic blood pressure drop between 120 and 90. There was an appropriate response and tachycardia. The patient's house is very hot and humid. The patient does appear well hydrated. The patient's medications are in a state of disarray. There are multiple prescriptions for blood pressure medicines including 2 amlodipine prescriptions 1 for 2.5 and 1 for 5 mg by 2 different doctors. She also has numerous prescriptions and pills available for Seroquel and these are by different prescribers as well. Per bobbin painter on the scene 1 of the the open pill bottles has numerous different medications in it. Patient can not give a history of what she is taken and when she takes it. Impression: Orthostatic hypotension, medication disarray Plan: Will have Care team provide support for patient in regards to a good medicine reconciliation that should be in-person and preferably with the daughter present. The bobbin painter has attempted to sort through the medications and eliminate duplicate prescriptions by placing them in a non obvious placed. Additionally we are going to stop the amlodipine. We discussed the diagnostic uncertainty of home visits and the risk associated with this. In this case, the patient and I felt this to be an acceptable and reasonable amount of risk given the benefit of avoiding an ED visit. We discussed the need to seek care urgently/emergentl y in the setting of any new or worsening serious symptoms, particularly fever chills lightheadedness altered mental status [email or web address] Not available 12/28/2023 10:54:49 Plan of Treatment Reminders Order Date Submit Date Provider Last Modified By Organization Details Last Modified Time Details Appointments None recorded. Lab BMP, serum or plasma [address], [id number], 4 14:50:21 Referral None recorded. Procedures None recorded. Surgeries None recorded. Imaging electrocard iogram [email or web address], [phone], 4 13:45:22 Medication Orders ketorolac 15 mg/mL injection solution 2022 023 [email or web address] Not available 3 11:08:40 Patient TargetsNo targets recorded. Patient InstructionsNo instructions recorded. Reason for Referral None Reported. Results Created Date Observation Date Name Description Value Unit Range Abnormal Flag Note LastModifiedBy Organization Detail LastModifiedTime 12/28/19 24 12/28/2023 javier orlando am No observ ation record ed. [facility] [address] [place] [address], [phone], 12/28/2023 12:44:49 Result Notes None recorded. Procedures Surgical History None recorded. Imaging Results Imaging Date Name Status LastModified by Organization Details LastModified Time 12/28/2023 electrocardiogram completed [facility] [address] [place] [address], [phone], 12/28/2023 12:44:49 Procedure Notes None recorded. Medical Equipment None Reported. Medications Name Sig Start Date Stop Date Status Note LastModified by Organization Details LastModified Time quetiapine 25 mg tablet TAKE 1 TABLET BY MOUTH AT BEDTIME active Not Available Not Available No t Available senna 8.6 mg tablet TAKE 1 TABLET BY MOUTH AT BEDTIME FOR CONSTIPATIO N active Not Available Not Available No t Available sucralfate 100 mg/mL oral suspension TAKE 10 ML BY MOUTH FOUR TIMES DAILY ON AN EMPTY STOMACH 1 HOUR BEFORE MEALS AND AT BEDTIME active Not Available Not Available N ot Available aspirin 81 mg tablet,delay ed release TAKE 1 TABLET BY MOUTH EVERY DAY active Not Available Not Available No t Available glimepiride 1 mg tablet TAKE 1 TABLET BY MOUTH TWICE DAILY active Not Available Not Available No t Available amlodipine 10 mg tablet TAKE 1 TABLET BY MOUTH EVERY DAY active Not Available Not Available No t Available levothyroxin e 50 mcg tablet TAKE 1 TABLET BY MOUTH ONCE DAILY active Not Available Not Available No t Available pantoprazole 40 mg tablet,delay ed release TAKE 1 TABLET BY MOUTH TWICE DAILY active Not Available Not Available No t Available lisinopril 30 mg tablet TAKE 1 TABLET BY MOUTH EVERY DAY active Not Available Not Available No t Available hydrochlorot hiazide 25 mg tablet TAKE 1 TABLET BY MOUTH EVERY MORNING active Not Available Not Available No t Available gabapentin 100 mg capsule TAKE 1 CAPSULE BY MOUTH TWICE DAILY active Not Available Not Available No t Available paroxetine 40 mg tablet TAKE 1 TABLET BY MOUTH EVERY DAY active Not Available Not Available No t Available lisinopril 40 mg tablet TAKE 1 TABLET BY MOUTH EVERY DAY active Not Available Not Available No t Available topiramate 100 mg tablet TAKE 1 TABLET BY MOUTH ONCE DAILY active Not Available Not Available No t Available fluticasone propionate 50 mcg/actuatio n nasal spray,suspen ari INSTILL 1-2 SPRAYS IN EACH NOSTRIL ONCE DAILY NEEDED active Not Available Not Available No t Available loratadine 10 mg tablet TAKE 1 TABLET BY MOUTH EVERY MORNING active Not Available Not Available No t Available Januvia 25 mg tablet TAKE 1 TABLET BY MOUTH EVERY DAY active Not Available Not Available No t Available FreeStyle Lite Strips TEST BLOOD SUGAR TWICE DAILY active Not Available Not Available No t Available Fiber Laxative (methylcellu lose) 500 mg tablet TAKE 1 TABLET BY MOUTH EVERY DAY WITH UN GLASS OF WATER FULL active Not Available Not Available N ot Available Vitamin D3 50 mcg (2,000 unit) capsule TAKE 1 CAPSULE BY MOUTH ONCE DAILY active Not Available Not Available No t Available TRUEplus Lancets 33 gauge TEST BLOOD SUGAR TWICE DAILY active Not Available Not Available No t Available Paxlovid 300 mg (150 mg x 2)-100 mg tablets in a dose pack PLEASE SEE ATTACHED FOR DETAILED DIRECTIONS active Not Available Not Available N ot Available Vitals Date Recorded Oxygen saturation Oxygen saturation in Arterial blood by Pulse oximetry Body temperature Body height Heart rate Body weight Respiratory rate Systolic blood pressure Diastolic blood pressure Provider Name and Address Organization Details Last Updated DateTime 3 98 % 98 % 97.4 [degF] 157.48 cm 84 /min 62356 g 18 /min 142 mm[Hg] 84 mm[Hg] Not Available [employer] 3 10:50:30 Date Recorded Respiratory rate Oxygen saturation Oxygen saturation in Arterial blood by Pulse oximetry Heart rate Body temperature Heart rate Systolic blood pressure Diastolic blood pressure Systolic blood pressure Diastolic blood pressure Provider Name and Address Organization Details Last Updated DateTime 4 16 /min 98 % 98 % 89 /min 98 [degF] 100 /min 123 mm[Hg] 79 mm[Hg] 92 mm[Hg] 66 mm[Hg] Not Available [employer] 4 10:41:25 Social History None recorded. Functional Status None recorded. Mental Status None recorded. Family History Nothing Reported. Medical History No medical history recorded. Gynecological HistoryNo gynecological history recorded. Obstetrics History GPAL:G 0 P 0 0 0 0 Past Encounters Encounter ID Performer Location Encounter Start Date Encounter Closed Date Diagnosis/Indication Diagnosis SNOMED-CT Code Diagnosis ICD10 Code Diagnosis Note [id number] Denise Mcgarry MD [facility] [address] [place] [phone] 02/05/2023 10:47:03 02/05/2023 15:53:23 Fall [id number].XXXA [id number] Janis Ellis MD [facility] [address] [place] [phone] 12/28/2023 10:41:08 12/28/2023 16:17:45 Chronic orthostatic hypotension 75240951 I95.1 Health Concerns Section Related Observation LastModified by Organization Detai ls LastModified Time None Recorded Concern Status LastModified by Organization Details LastModified Time None Recorded Advance Directives Directive None Recorded Payers Encounter Date Sequence Insurance Name Policy Number Policy Felix Covered Member ID Felix Member ID Guarantor Name 02/05/2023 1 [facility] - DOS ON OR AFTER 2022 - DUAL ELIGIBLE - CARE HOME OPTIONS AND ONE CARE (MEDICARE REPLACEMENT/ADV ANTAGE - HMO) Shellie Jackson [id number] Shellie Jackson 12/28/2023 1 [facility] - DOS ON OR AFTER 2022 - DUAL ELIGIBLE - CARE HOME OPTIONS AND ONE CARE (MEDICARE REPLACEMENT/ADV ANTAGE - HMO) Shellie Jackson [id number] Shellie Jackson Notes Date Note Type Note Provider Name and Address Organization Details Recorded Time 02/05/2023 text/html HPI: 82 Year old, female, [place] speaking, reporting a fall on 02/01/2023, [place] [facility] [place] after waiting for hrs, stated fell on her back, still has lingering moderate pains on lower back, ablet to stand and walk with her son's help and feeling overall weak and in pain. Member does not wish to go to the ER again and asked for a visit to ensure she is OK. Stated to feel weak and in pain. Denied hitting her head, denied open wounds or cuts, nor fevers, chills or abdonminal pains. 1. Depressive disorder, not elsewhere classified - F32.9 2. Essential hypertension, benign - I10 3. Seborrhea - L21.9 4. Other specified acquired hypothyroidism - E03.8 5. Proteinuria - R80.9 6. Cerebral aneurysm, nonruptured - I67.1 7. Mixed hyperlipidemia - E78.2 8. Migraine, unspecified, not intractable, without status migrainosus - G43.909 9. Esophageal reflux - K21.9 10. 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 Diverticulosis of colon (without mention of hemorrhage) - K57.30 12. Constipation - functional - K59.09 13. Obesity - E66.9 14. Diabetic polyneuropathy - E11.42 15. CKD (chronic kidney disease), stage III - N18.3 16. Delusional disorder - F22, per neurology claims data 17. Back pain - M54.9 18. Forgetfulness - R68.89 19. Delusional disorders - F22 20. Major depressive disorder, single episode, unspecified - F32.9 .................... .................... .................... .................... .................... .................... .................... . CRC Nursing Assessment: Comments: CRC RN did not require any additional information to process this visit. .................... .................... .................... .................... .................... .................... .................... . Cold Press Operator Note From Yasir Reyna: Pt caox3 complains of lower left back pain after a slip and fall in the bathroom ? ? 6 days ago. Pt went to ED but wasn't seen due to wait. Pt states it's been hard to walk. Pt insists on washing dishes during examination. Pt walks with a limp favoring her right side. Pt denies other pain or complaints. Pt denies hitting her head or LOC. Pt pink warm and dry, secondary exam unremarkable. Right hip normal color, no deformity, some tenderness on palpation. Positive CSMs in all , no shortening or rotation. advises pt to continue tylenol for pain, and orders toradol, administered as noted. Red flags and pt education discussed. [facility] Medication Orders: ketorolac 15 mg/mL injection solution: Administered Comment: pain decreased .................... .................... .................... .................... .................... .................... .................... . Disposition: Fulfilled Denise Mcgarry MD [address] [place] [address],[address], [place], [phone], [employer] 02/05/2023 15:53:19 12/28/2023 text/html HPI: HX: DM,LOONEY, GERD,MIGRAINE: CKD; HTN; IMPAIRED BALANCE.Patient with complaint of sever headache and dizziness yesterday. Takes med for Migraines Daughter unable to identify. Remains dizzy off balance and not walking well. PCP for new provider .................... .................... .................... .................... .................... .................... .................... . CRC Nurse Triage Notes (Jeimy Watson): Comments: Reviewed HPI and [facility] place [facility] and wanted visit r/s , Mother is asleep .................... .................... .................... .................... .................... .................... .................... . Baseline Information: Baseline Hb: 10.4 g/dL Baseline HCt: 30% Baseline Creatinine: 1.63 mg/dL .................... .................... .................... .................... .................... .................... .................... . Cold Press Operator Note From Km Lai: Pt is an 83 [place] speaking female who lives alone (daughter lives next door). Pt sts she has felt dizzy ? f or a while.? Pt sts she only feels dizzy when standing or moving. Pt? s daily medications are in bottles on her kitchen table. Pt is unable to articulate if she has any assistance with taking them. Pt takes ASA, levothyroxine, Paxil, topamax, seroquel, amlodipine, senna and sucralfate. Pt has multiple bottles of each, some with different doses and some bottles have several different types of pills in them. Pt has medications from two different pharmacies with multiple different prescribers. We tried several times to knock on the daughter? s door and call her number with no answer. Pt is alert, NAD. Orthostatic BP. Afebrile. Non focal neuro exam. Normal gait. Lungs CTA. Benign ABD exam. No LE edema. Unremarkable EKG. I all of her duplicate meds and d/c her amlodipine. CRC ADRIEN Martinez made aware of the pts need for VNA services, med rec, etc. .................... .................... .................... .................... .................... .................... .................... . Disposition: Fulfilled Janis Ellis MD [address] [facility],[address], [place], [address], [employer] 12/28/2023 10:55:15 OBGyn Episode No OBEpisode recorded.
--- OUTSIDE RECORDS SUMMARY | 2024-08-16 12:24 | XMS_ITS | Encounter Summary ---
Author Organization [employer] Address [address] [facility] [address] [place] [address] Care Team Providers Care Sewer And Inspector Name Role Phone Irma Brennan MD Primary Care Provide r Reason for Visit * Reason Comments Med Refill Encounter Details Date Type Department Care Team ([facility] st Contact Info) Description 12/07/2022 Refill [facility] [address] [place], [place] [phone] Eri Rodriguez MD [address] [place] [address] Seasonal allergic rhinitis, unspecified trigger Social History Tobacco Use Types Packs/Day Years Used Date Smoking Tobacco: Never Passive Smoke Exposure: Never Smokeless Tobacco: Never Depression Answer Date Recorded Patient Health Questionnaire-9 Score 21 12/02/2022 Depression Answer Date Recorded Patient Health Questionnaire-2 [...] as of this encounter Visit Diagnoses Diagnosis Seasonal allergic rhinitis, unspecified trigger documented in this encounter Additional Health Concerns Assessment Noted Time PHQ-9 Depression Total Score: 21 023 10:05 AM EDT documented as of this encounter Care Teams Sewer And Inspector Relationship Specialty Start Date End Date Irma Brennan MD [address] [place] [address] PCP - General Family Medicine 11/09/18 documented as of this encounter
--- OUTSIDE RECORDS SUMMARY | 2024-08-16 12:24 | XMS_ITS | Encounter Summary ---
Author Organization [employer] Address [address] [facility] [address] [place] [address] Care Team Providers Care Deckhand Maintenance Name Role Phone Irma Brennan MD Primary Care Provide r Reason for Visit * Reason Comments Med Refill Encounter Details Date Type Department Care Team ([facility] st Contact Info) Description 06/02/2023 Refill [facility] [address] [place], [place] [phone] Irma Brennan MD [address] [place], [place] [phone] Acute low back pain, unspecified back pain [...] documented as of this encounter Care Teams Deckhand Maintenance Relationship Specialty Start Date End Date Irma Brennan MD [address] [place] [phone] PCP - General Family Medicine 11/09/18 documented as of this encounter
--- OUTSIDE RECORDS SUMMARY | 2024-08-16 12:24 | XMS_ITS | Encounter Summary ---
Author Organization [employer] Address [address] [facility] [address] [place] [address] Care Team Providers Care Gaggerman Name Role Phone Irma Brennan MD Primary Care Provide r Reason for Visit * Reason Comments Med Refill Encounter Details Date Type Department Care Team ([facility] st Contact Info) Description 02/11/2024 Refill [facility] [address] [place], [place] [phone] Irma Brennan MD [address] [place], [place] [phone] Migraine, unspecified, not intractable, without status migrainosus Social History Tobacco Use Types Packs/Day Years [...] as of this encounter Visit Diagnoses Diagnosis Migraine, unspecified, not intractable, without status migrainosus documented in this encounter Additional Health Concerns Assessment Noted Time PHQ-9 Depression Total Score: 0 06/22/20 23 9:55 AM EST documented as of this encounter Care Teams Gaggerman Relationship Specialty Start Date End Date Irma Brennan MD [address] [place] [id number] PCP - General Family Medicine 11/09/18 documented as of this encounter
== END 2024-08-16 11:03 | disposition home or self-care (01) ==
PROVIDERS: PCP Internal Medicine; Visit Provider Internal Medicine Nephrology
DX: I12.9 Hypertensive chronic kidney disease with stage 1 through stage 4 chronic kidney disease, or unspecified chronic kidney disease (principal); N18.4 Chronic kidney disease, stage 4 (severe)
CPT/HCPCS: 99214

== ENCOUNTER → 2024-08-16 10:37 | Outpatient (BNVA) | payer OTHER, SELFPAY | PROVIDERS: PCP Internal Medicine; Visit Provider Internal Medicine Nephrology | DX: I12.9 Hypertensive chronic kidney disease with stage 1 through stage 4 chronic kidney disease, or unspecified chronic kidney disease (principal); N18.4 Chronic kidney disease, stage 4 (severe) | CPT/HCPCS: 99212 ==

== ENCOUNTER 2024-09-18 08:43 | Outpatient (AMB) | payer OTHER, SELFPAY ==
[2024-09-18 08:57] VITALS: BP 156/90; PULSE 74; O2SAT 98; BMI 23.2
--- NOTE | 2024-09-18 08:57 | A.OFFVIS_ITS ---
Vital Signs 09/18/24 08:57 Height 5 ft 6 in Weight 144 lb BMI 23.2 BP 156/90 H Blood Pressure Location Rt brachial Position Sitting Pulse 74 Pulse Source Pulse Oximeter Pulse Oximetry (%) 98 Oxygen Delivery Method Room Air Intake Visit Reasons: 6 month follow up Intake Note: ESTABLISHED PATIENT for mgmt of chronic anemia + colitis. Chief Complaint; Pt denies any GI concerns at this time, stating that sx are well controlled. Pt reports NOT taking BP medication this morning. Title Attorney Required: Yes Title Attorney Services: Title Attorney Offered & Declined Title Attorney Name: Daughter Information Interpreted: non-clinical & clinical Accompanied by: Daughter Allergies No Known Allergies [No Known Allergies*] Allergy (Verified 09/18/24 08:57) HPI HPI 6 month follow up: Details: LAST VISIT: Weight loss, unintentional GERD (gastroesophageal reflux disease) IBS (irritable bowel syndrome) Anemia Constipation Postprandial epigastric pain Postprandial abdominal bloating Gastritis and duodenitis Plan Patient gained 15 lb since last visit in October. Patient will continue to take pantoprazole in the morning and will add sucralfate at bedtime. Patient will start taking Dulcolax tablets and stop taking senna. 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 Referral to ENT, small vascularized lesion in oropharynx found on endoscopy, small clot noted. Unsure if this would be the reason patient is anemic. Referral to Hematology. Patient will be seen in 6 months, sooner on as needed basis. She is agreeable to this plan and verbalizes understanding of instructions. She was given the opportunity to ask questions and all questions answered. ? Thank you for allowing me to participate in her care Orders Orders Complete Blood Count no Diff Today K21.9 IRON PROFILE Today D64.9 Referrals Ear/Nose/Throat Referral J39.2 Hematology & Oncology Referral D64.9 Medications New sucralfate 1 g PO BEDTIME 30 tabs 4RF R19.7 bisacodyl (Dulcolax (bisacodyl)) 10 mg (2 x 5 mg) PO BEDTIME 60 tabs 4RF Refilled pantoprazole take one tablet half an hour before breakfast 40 mg PO DAILY 30 tabs 2RF K21.9 [id number]-ulelcej 12,000-38,000 -60,000 unit (Creon) administer with meals and/or snacks 1 cap PO QID 120 caps 3RF R10.9 TODAY'S VISIT Patient is here today for follow-up. Patient is accompanied by her daughter who is helping translates for us per patient request. Patient reports that she has been feeling quite well. Currently she is taking pantoprazole 40 mg daily and her symptoms are suppressed. We will decrease the dose to 20 mg. Patient reports that she is moving her bowels well, currently taking Dulcolax. Patient gained 9 lb since March. Patient's daughter reports that she has been having good appetite, denies any dyspepsia, dysphagia or odynophagia. Denies any melena, hematochezia. Patient is seen by chin strap maker. Patient denies any GI concerning symptoms today PFSH Medical History Anxiety Diabetes HTN (hypertension) Asthma Surgical History Hx laparoscopic cholecystectomy H/O colonoscopy H/O esophagogastroduodenoscopy Social History Household Members: None Are you a primary daytime caregiver to a significant other at home: No Do you presently have visiting nurse or other home services: No Unable to assess alcohol history related to: Unknown Alcohol intake: never Patient Tobacco Use Status: Never used Tobacco service: No Review of Systems Const Denies weight gain and Denies weight loss ENT Reports no additional complaints, Denies dysphagia and Denies odynophagia Card Reports no additional complaints Resp Reports no additional complaints GI Denies abdominal pain, Denies belching, Denies melena, Denies bloating, Denies change in bowel habits, Denies dysphagia, Denies excessive flatus, Denies dyspepsia, Denies heartburn, Denies diarrhea, Denies loose stools, Denies nausea, Denies odynophagia and Denies vomiting Musc Reports no additional complaints Neuro Reports no additional complaints Psych Reports no additional complaints Endo Reports no additional complaints Physical Exam Vital Signs: Last Vital Signs Pulse 74 09/18/24 08:57 BP 156/90 H 09/18/24 08:57 Pulse Ox 98 09/18/24 08:57 Oxygen Delivery Method Room Air 09/18/24 08:57 BMI result Body Mass Index 23.2 Const General: no acute distress Nutritional Appearance: well nourished Orientation/consciousness: patient oriented x3 Resp Effort & Inspection: normal respiratory effort, able to speak in complete sentences, no tracheal deviation and symmetric chest movement Auscultation: clear to auscultation bilaterally Cardio Rate: regular rate GI Inspection: Yes normal to inspection and No distended Palpation (GI): Soft to palpation, not firm, nontender and No hepatosplenomegaly present Auscultation: normal bowel sounds General: Yes no CVA tenderness Back/Spine/Pelvis Back: no CVA tenderness Skin General skin exam: elasticity normal, turgor normal and dry skin Neuro General: patient oriented x3 Psych Mental Status: mental status grossly normal Assessment & Plan Assessment & Plan (1) GERD (gastroesophageal reflux disease): Code(s): K21.9 - Gastro-esophageal reflux disease without esophagitis Qualifiers: Esophagitis presence: esophagitis presence not specified Qualified Code(s): K21.9 - Gastro-esophageal reflux disease without esophagitis (2) IBS (irritable bowel syndrome): Code(s): K58.9 - Irritable bowel syndrome, unspecified Qualifiers: Irritable bowel syndrome type: without diarrhea Qualified Code(s): K58.9 - Irritable bowel syndrome, unspecified (3) Constipation: Code(s): K59.00 - Constipation, unspecified Qualifiers: Constipation type: slow transit constipation Qualified Code(s): K59.01 - Slow transit constipation (4) Postprandial epigastric pain: Code(s): R10.13 - Epigastric pain (5) Postprandial abdominal bloating: Code(s): R14.0 - Abdominal distension (gaseous) Plan Decrease pantoprazole to 20 mg daily. Avoid dietary triggers and late night sn acking. Staying upright for minimum 3 hours after meals discussed patient. Continue Dulcolax. Follow-up in the office in 6 months, sooner on as needed basis. Patient is agreeable to this plan and verbalizes understanding of instructions. She was given the opportunity to ask questions and all questions answered. Thank you for allowing me to participate in her care Medications: New pantoprazole 20 mg PO DAILY 90 tabs 3RF Refilled docusate sodium 100 mg PO DAILY 30 caps 3RF K59.00 - Constipation, unspecified Discontinued pantoprazole take one tablet half an hour before breakfast Discontinued Reason: Doctor's Order 40 mg PO DAILY 30 tabs 2RF K21.9 - Gastro-esophageal reflux disease without esophagitis Coding Level of Care Code Est Pt Level 3 (58800) Diagnoses Gastroesophageal reflux disease, unspecified whether esophagitis present K21.9 Esophagitis presence: esophagitis presence not specified Irritable bowel syndrome without diarrhea K58.9 Irritable bowel syndrome type: without diarrhea Slow transit constipation K59.01 Constipation type: slow transit constipation Postprandial epigastric pain R10.13 Postprandial abdominal bloating R14.0 Time Spent (min) 25 Comment 15 minutes spent with patient and additional 10 minutes spent reviewing her records
--- OUTSIDE RECORDS SUMMARY | 2024-09-18 09:02 | XMS_ITS | Encounter Summary ---
Author Organization [employer] Address [address] [facility] 7t [place] [address] Care Team Providers Care Med Spec Name Role Phone Irma Brennan MD Primary Care Provide r Reason for Visit * Reason Comments Med Refill Encounter Details Date Type Department Care Team ([facility] st Contact Info) Description 05/31/2023 Refill [facility] [address] [place], [place] [phone] Irma Brennan MD [address] [place], [place] [phone] Acute low back pain, unspecified back pain [...] documented in this encounter Plan of Treatment Upcoming Encounters Date Type Department Care Team (Late st Contact Info) Description 11/30/2024 10:15 AM EDT Office Visit [facility] [address] [place] [address] Irma Brennan MD [address] [place] [address] documented as of this encounter Visit Diagnoses Diagnosis Acute low back pain, unspecified back pain laterality, unspecified whether sciatica present documented in this encounter Additional Health Concerns Assessment Noted Time PHQ-9 Depression Total Score: 21 023 10:05 AM EDT documented as of this encounter Care Teams Med Spec Relationship Specialty Start Date End Date Irma Brennan MD [address] [place], [place] [phone] PCP - General Family Medicine 11/09/18 documented as of this encounter
--- OUTSIDE RECORDS SUMMARY | 2024-09-18 09:02 | XMS_ITS | Encounter Summary ---
Author Organization [employer] Address [address] [facility] 7t [place] [address] Care Team Providers Care Loom Operator Name Role Phone Irma Brennan MD Primary Care Provide r Reason for Visit * Reason Onset Date Comments Referral 09/15/2023 Encounter Details Date Type Department Care Team ([facility] st Contact Info) Description 09/15/2023 Telephone [facility] [address] [place], [place] [phone] Irma Brennan MD [address] [place], [place] [phone] Referral Social History Tobacco Use Types Packs/Day [...] Glenis Hutchinson - 09/23/2023 3:24 PM EDT Geropsychologist called and spoke with daughter Eri. Pt had a scheduled appt and no showed. Daughter was given number to call and reschedule. * Telephone Encounter - Nany Zhao - 09/15/2023 1:13 PM EDT Tc from pt daughter requesting a referral to a cognos bi developer. Referral still pending from 06/22/23 documented in this encounter Plan of Treatment Upcoming Encounters Date Type Department Care Team (Late st Contact Info) Description 11/30/2024 10:15 AM EDT Office Visit [facility] [address] [place] [address] Irma Brennan MD [address] [place] [address] documented as of this encounter Visit Diagnoses Not on filedocumented in this encounter Additional Health Concerns Assessment Noted Time PHQ-9 Depression Total Score: 0 06/22/20 9:55 AM EST documented as of this encounter Care Teams Loom Operator Relationship Specialty Start Date End Date Irma Brennan MD [address] [place] [phone] PCP - General Family Medicine 11/09/18 documented as of this encounter
--- OUTSIDE RECORDS SUMMARY | 2024-09-18 09:02 | XMS_ITS | Encounter Summary ---
Author Organization [employer] Address [address] [facility] 7t [place] [address] Care Team Providers Care Roving Hauler Name Role Phone Irma Brennan MD Primary Care Provide r Reason for Visit * Reason Comments Med Refill Encounter Details Date Type Department Care Team ([facility] st Contact Info) Description 06/02/2023 Refill [facility] [address] [place], [place] [phone] Irma Brennan MD [address] [place], [place] [phone] Acute low back pain, unspecified back pain [...] as of this encounter Plan of Treatment Upcoming Encounters Date Type Department Care Team (Late st Contact Info) Description 11/30/2024 10:15 AM EDT Office Visit [facility] [address] [place], [place] [phone] Irma Brennan MD [address] [place], [place] [phone] documented as of this encounter Visit Diagnoses Diagnosis Acute low back pain, unspecified back pain laterality, unspecified whether sciatica present documented in this encounter Additional Health Concerns Assessment Noted Time PHQ-9 Depression Total Score: 21 023 10:05 AM EDT documented as of this encounter Care Teams Roving Hauler Relationship Specialty Start Date End Date Irma Brennan MD [address] [place] [phone] PCP - General Family Medicine 11/09/18 documented as of this encounter
--- OUTSIDE RECORDS SUMMARY | 2024-09-18 09:02 | XMS_ITS | Encounter Summary ---
Author Organization [employer] Address [address] [facility] 7t [place] [address] Care Team Providers Care Selenium Plant Operator Name Role Phone Irma Brennan MD Primary Care Provide r Reason for Visit * Reason Comments Med Refill Encounter Details Date Type Department Care Team ([facility] st Contact Info) Description 02/11/2024 Refill [facility] MED[facility]INE [address] [place], [place] [phone] Irma Brennan MD [address] [place], [place] [phone] Migraine, unspecified, not intractable, without status migrainosus [...] Description 11/30/2024 10:15 AM EDT Office Visit [facility]INE [address] [place] [address] Irma Brennan MD [address] [place] [address] documented as of this encounter Visit Diagnoses Diagnosis Migraine, unspecified, not intractable, without status migrainosus documented in this encounter Additional Health Concerns Assessment Noted Time PHQ-9 Depression Total Score: 0 06/22/20 23 9:55 AM EST documented as of this encounter Care Teams Selenium Plant Operator Relationship Specialty Start Date End Date Irma Brennan MD [address] [place] [phone] PCP - General Family Medicine 11/09/18 documented as of this encounter
--- OUTSIDE RECORDS SUMMARY | 2024-09-18 09:02 | XMS_ITS | Encounter Summary ---
Author Organization [employer] Address [address] [facility] 7t [place] [address] Care Team Providers Care Neon Sign Mechanic Name Role Phone Irma Brennan MD Primary Care Provide r Reason for Visit * Reason Onset Date Comments Nurse Triage 12/27/2023 Encounter Details Date Type Department Care Team ([facility] st Contact Info) Description 12/27/2023 Telephone [facility] [address] [place], [place] [phone] Irma Brennan MD [address] [place], [place] [phone] Nurse Triage Social History Tobacco Use Types [...] neurology referral The caller accepted this outcome Citizen [place] speaker documented in this encounter Plan of Treatment Upcoming Encounters Date Type Department Care Team (Late st Contact Info) Description 11/30/2024 10:15 AM EDT Office Visit [facility] [address] [place] [address] Irma Brennan MD [address] [place] [address] documented as of this encounter Visit Diagnoses Not on filedocumented in this encounter Additional Health Concerns Assessment Noted Time PHQ-9 Depression Total Score: 0 06/22/20 23 9:55 AM EST documented as of this encounter Care Teams Neon Sign Mechanic Relationship Specialty Start Date End Date Irma Brennan MD [address] [place] [phone] PCP - General Family Medicine 11/09/18 documented as of this encounter
--- OUTSIDE RECORDS SUMMARY | 2024-09-18 09:02 | XMS_ITS | Encounter Summary ---
Author Organization [employer] Address [address] [facility] 7t [place] [address] Care Team Providers Care Eyelet Row Marker Name Role Phone Irma Brennan MD Primary Care Provide r Encounter Details Date Type Department Care Team ([facility] st Contact Info) Description 09/06/2023 Orders Only [facility]INE [address] [place], [place] [phone] Irma Brennan MD [address] [place], [place] [phone] Social History Tobacco Use Types Packs/Day Years [...] Description 11/30/2024 10:15 AM EDT Office Visit [facility] [address] [place] [phone] Irma Brennan MD [address] [place] [phone] documented as of this encounter Visit Diagnoses Not on filedocumented in this encounter Additional Health Concerns Assessment Noted Time PHQ-9 Depression Total Score: 0 06/22/20 23 9:55 AM EST documented as of this encounter Care Teams Eyelet Row Marker Relationship Specialty Start Date End Date Irma Brennan MD [address] [place] [phone] PCP - General Family Medicine 11/09/18 documented as of this encounter
--- OUTSIDE RECORDS SUMMARY | 2024-09-18 09:02 | XMS_ITS | Clinical Summary ---
Author Organization [employer] Address [address] [facility] 7t [place] [address] Care Team Providers Care Parcel Contractor Name Role Phone Irma Brennan MD Primary Care Provide r Allergies No known active allergies Medications Blood Pressure kit 1 each in the morning. Take BP daily, Call clinic if systolic (top number) is > 170 or <90 bottom number is >90 or <60. 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 ([facility]/HCC) TEST BLOOD SUGAR ONCE DAILY IN THE MORNING 1 kit 023 Active glucose blood (FREESTYLE LITE) test stripIndications:Ty pe 2 diabetes mellitus with diabetic peripheral angiopathy without gangrene, unspecified whether longitudinal float operator insulin use ([facility]) TEST BLOOD SUGAR TWICE DAILY 100 strip 11 024 Active TRUEplus Lancets 33G miscIndications:Typ e 2 diabetes mellitus with diabetic peripheral angiopathy without gangrene, unspecified whether senior living insulin use ([facility]) TEST BLOOD SUGAR TWICE DAILY 100 each 11 024 Active Blood Pressure Monitoring (Blood Pressure Cuff) miscIndications:Ess ential hypertension 1 each Once daily. 1 each 024 Active amLODIPine (Norvasc) 5 MG tabletIndications:E ssential hypertension Take 1 tablet (5 mg) by mouth Once per day. 30 tablet 1 024 2024 Active ondansetron ODT (Zofran-ODT) 8 MG disintegrating tabletIndications:C hronic gastritis without bleeding, unspecified gastritis type,Nausea DISSOLVE 1 TABLET BY MOUTH EVERY 8 HOURS NEEDED FOR NAUSEA AND VOMITING 30 tablet 1 024 Active PARoxetine (Paxil) 40 MG tablet TAKE 1 TABLET BY MOUTH EVERY DAY 90 tablet 1 024 Active topiramate (Topamax) 25 MG tabletIndications:C hronic migraine without aura without status migrainosus, not intractable TAKE 1 TABLET BY MOUTH EVERY DAY AT BEDTIME 30 tablet 1 024 Active fluticasone (Flonase) 50 MCG/ACT nasal sprayIndications:Rh initis, unspecified type INSTILL 1-2 SPRAYS IN EACH NOSTRIL ONCE DAILY NEEDED 48 g 1 025 Active Aspirin Low Dose 81 MG EC tablet TAKE 1 TABLET BY MOUTH EVERY DAY IN THE MORNING 90 tablet 1 025 Active ferrous gluconate (Fergon) 324 (38 Fe) MG tabletIndications:A nemia due to stage 3b chronic kidney disease ([facility]/HCC) ([facility]) TAKE 1 TABLET BY MOUTH EVERY OTHER DAY 45 tablet 1 025 Active glimepiride (Amaryl) 1 MG tabletIndications:T ype 2 diabetes mellitus without complication, unspecified whether senior living insulin use ([facility]) TAKE 1 TABLET BY MOUTH EVERY DAY BEFORE BREAKFAST 30 tablet 2 025 Active famotidine (Pepcid) 40 MG tabletIndications:N ausea TAKE 1 TABLET BY MOUTH TWICE DAILY 60 tablet 2 025 Active levothyroxine (Synthroid, Levoxyl) 50 MCG tabletIndications:A cquired hypothyroidism TAKE 1 TABLET BY MOUTH EVERY MORNING 90 tablet 3 025 Active levothyroxine (Synthroid, Levoxyl) 50 MCG tabletIndications:A cquired hypothyroidism Take 1 tablet (50 mcg) by mouth in the morning. 90 tablet 3 023 2024 Discontinued Active Problems Problem Noted Date Diagnosed Date [...] injury superimp osed on chronic kidney disease ([facility]/HCC) 02/16/2023 Assessment & Plan (05/06/2023 5:07 PM EDT): -Apparently resolved. Embedded Software Engineer regarding hydration, check prior to next appointment. [...] and fu w PCP May/ not need LOAN OFFICER ASSISTANT, needs OV to evaluate risk and need for assistance at home Pain in lower back 02/16/2023 Anemia due to chronic kidney disease 02/16/2023 Depression with anxiety 02/16/2023 Assessment & Plan (02/16/2023 12:19 PM EDT): Counseling done patient will benefit form therapist and psychiatrist Chronic gastritis 10/05/2022 Assessment & Plan (01/14/2024 3:08 PM EDT): Continue to follow with MARY Garcia prescribed today Assessment & Plan (08/06/2023 11:18 [...] Acquired hypothyroidism 05/14/2015 Controlled type 2 diabetes m juan with microalbuminuric diabetic nephropathy 05/14/2015 Assessment & [...] up with PCP in 3 weeks - debt and budget counselor daughter and patient small and fractioned [...] Encounters Date Type Department Care Team Description 09/11/2024 Refill [facility] [address] [place] [address] Irma Brennan MD Acquired hypothyroidism 09/08/2024 Telephone [facility] [address] [place] [address] Irma Brennan MD Appointment Request 07/13/2024 Refill [facility] [address] [place] [address] Irma Brennan MD Type 2 diabetes mellitus without complication, unspecified whether senior living insulin use ([facility]); Nausea 07/12/2024 Refill [facility] [address] [place] [address] Irma Brennan MD Rhinitis, unspecified type; Anemia due to stage 3b chronic kidney disease ([facility]) ([facility]) 06/20/2024 Refill [facility] [address] [place], [place] [phone] Irma Brennan MD Chronic migraine without aura without status migrainosus, not intractable from Last 3 Months Immunizations Name Administration [...] 01/14/2024 10:46 AM EDT Plan of Treatment Upcoming Encounters Date Type Department Care Team (Late st Contact Info) Description 11/30/2024 10:15 AM EDT Office Visit [facility] [address] [place] [address] Irma Brennan MD [address] [place] [address] Health Maintenance Due Date Last Done Comments [...] Procedure Name Priority Date/Time Associated Diagnosis Comments HEMOGLOBIN A1C Routine 05/04/2024 9:36 AM EDT 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 Blood transfusions may impact the HbA1c concentration in the patient sample. Estimated Average Glucose 128 mg/dL [facility] Comment:eAG = Estimated ave rage glucose which is %A1C expressed asaverage glucose, using the formula of the F8D-IhalrsuNpqdxqe Glucose study (ADAG), Diabetes Care, Vol.31,#8,Feb. 2007 Blood Venous blood specimen / Unknown 05/04/2024 9:36 AM EDT 05/04/2024 9:38 AM EDT us Irma Alexander MD LAB BLOOD ORDERABLES Final Result [facility] [address] [place] [phone] * (ABNORMAL) LIPID PANEL, STANDARD (08/15/2021 [...] ?? LDL-C is now calculated using the Raymon ?? calculation, which is a validated novel method providing ?? better accuracy than the Friedewald equation in the ?? estimation of LDL-C. ?? Vishal THOMAS et al. GARCÍA. 2013;310(19): 6412-0169 ?? (http://education.GemShare/faq/QTQ153) Non-HDL Cholesterol 160(H) <130 mg/dL (calc) [facility] Comment: For patients with diabetes plus 1 major ASCVD risk ?? factor, treating to a non-HDL-C goal of <100 mg/dL ?? (LDL-C of <70 mg/dL) is considered a therapeutic ?? option. Triglycerides 78 <150 mg/dL [facility] 08/15/2021 3:16 PM EST Irma Alexander MD LAB BLOOD ORDERABLES Final Result Performing Organization Address City/State/[facility] Co de Phone Number [facility] [address] from Last 3 Months or Most Recently Relevant to Health Maintenance Insurance [facility] AD[facility] Member Subscriber Plan / Payer (Ef fective 2012-Present) Name:Shellie Jackson Relation to Subscriber:Self Name:Shellie Jackson Payer ID:Not on file Group ID:[id number] Type:Not on file Address: [address] STANDARD Care Teams Parcel Contractor Relationship Specialty Start Date End Date Irma Brennan MD [address] [place] [phone] PCP - General Family Medicine 11/09/18
--- OUTSIDE RECORDS SUMMARY | 2024-09-18 09:02 | XMS_ITS | Encounter Summary ---
Author Organization [employer] Address [address] [facility] 7t [place] [address] Care Team Providers Care Cookie Padder Name Role Phone Irma Brennan MD Primary Care Provide r Encounter Details Date Type Department Care Team ([facility] st Contact Info) Description 12/31/2023 Orders Only [facility] [address] [place], [place] [phone] Irma Brennan MD [address] [place], [place] [phone] Type 2 diabetes mellitus without complication, unspecified whether keno terminal operator insulin use ([facility]) Social History Tobacco Use Types Packs/Day Years [...] Description 11/30/2024 10:15 AM EDT Office Visit [facility] [address] [place] [phone] Irma Brennan MD [address] [place] [phone] documented as of this encounter Visit Diagnoses Diagnosis Type 2 diabetes mellitus without complication, unspecified whether keno terminal operator insulin use ([facility]) documented in this encounter Additional Health Concerns Assessment Noted Time PHQ-9 Depression Total Score: 0 06/22/20 23 9:55 AM EST documented as of this encounter Care Teams Cookie Padder Relationship Specialty Start Date End Date Irma Brennan MD [address] [place] [address] [phone] PCP - General Family Medicine 11/09/18 documented as of this encounter
--- OUTSIDE RECORDS SUMMARY | 2024-09-18 09:02 | XMS_ITS | Encounter Summary ---
Author Organization [employer] Address [address] [facility] 7t [place] [address] Care Team Providers Care Irrigation District Manager Name Role Phone Irma Brennan MD Primary Care Provide r Reason for Visit * Reason Onset Date Comments Appointment Request 09/08/2024 Encounter Details Date Type Department Care Team ([facility] st Contact Info) Description 09/08/2024 Telephone [facility] [address] [place], [place] [phone] Irma Brennan MD [address] [place], [place] [phone] Appointment Request Social History Tobacco Use Types [...] encounter Miscellaneous Notes * Telephone Encounter - Machelle Arauz [place] - 09/08/2024 1:24 PM EST TC- Patient is booked for 11/10/2023 at 9 am . documented in this encounter Plan of Treatment Upcoming Encounters Date Type Department Care Team (Late st Contact Info) Description 11/30/2024 10:15 AM EDT Office Visit [facility] [address] [place] [address] Irma Brennan MD [address] [place] [address] documented as of this encounter Visit Diagnoses Not on filedocumented in this encounter Additional Health Concerns Assessment Noted Time PHQ-9 Depression Total Score: 0 06/22/20 23 9:55 AM EST documented as of this encounter Care Teams Irrigation District Manager Relationship Specialty Start Date End Date Irma Brennan MD [address] [place] [address] PCP - General Family Medicine 11/09/18 documented as of this encounter
--- OUTSIDE RECORDS SUMMARY | 2024-09-18 09:02 | XMS_ITS | Encounter Summary ---
Author Organization [employer] Address [address] [facility] 7t [place] [address] Care Team Providers Care Shop Cooper Name Role Phone Irma Brennan MD Primary Care Provide r Reason for Visit * Reason Onset Date Comments Appointment Request 10/28/2023 Encounter Details Date Type Department Care Team ([facility] st Contact Info) Description 10/28/2023 Telephone [facility] [address] [place], [place] [phone] Irma Brennan MD [address] [place], [place] [phone] Appointment Request Social History Tobacco Use Types [...] like a call back to reschedule appt telegraphic typewriter installer did attempt to schedule however they refused and would like a Televisit appt instead documented in this encounter Plan of Treatment Upcoming Encounters Date Type Department Care Team (Late st Contact Info) Description 11/30/2024 10:15 AM EDT Office Visit [facility] [address] [place] [address] Irma Brennan MD [address] [place] [address] documented as of this encounter Visit Diagnoses Not on filedocumented in this encounter Additional Health Concerns Assessment Noted Time PHQ-9 Depression Total Score: 0 06/22/20 23 9:55 AM EST documented as of this encounter Care Teams Shop Cooper Relationship Specialty Start Date End Date Irma Brennan MD [address] [place] [address] PCP - General Family Medicine 11/09/18 documented as of this encounter
--- OUTSIDE RECORDS SUMMARY | 2024-09-18 09:02 | XMS_ITS | Encounter Summary ---
Author Organization [employer] Address [address] [facility] 7t [place] [address] Care Team Providers Care Senior Microsoft Consultant Name Role Phone Irma Brennan MD Primary Care Provide r Reason for Visit * Reason Comments Med Refill Encounter Details Date Type Department Care Team ([facility] st Contact Info) Description 09/11/2024 Refill [facility] [address] [place], [place] [phone] Irma Brennan MD [address] [place], [place] [phone] Acquired hypothyroidism Social History Tobacco Use Types Packs/Day Years [...] Description 11/30/2024 10:15 AM EDT Office Visit [facility] [address] [place] [address] Irma Brennan MD [address] [place] [phone] documented as of this encounter Visit Diagnoses Diagnosis Acquired hypothyroidism Unspecified hypothyroidism documented in this encounter Additional Health Concerns Assessment Noted Time PHQ-9 Depression Total Score: 0 06/22/20 23 9:55 AM EST documented as of this encounter Care Teams Senior Microsoft Consultant Relationship Specialty Start Date End Date Irma Brennan MD [address] [place] [phone] PCP - General Family Medicine 11/09/18 documented as of this encounter
--- OUTSIDE RECORDS SUMMARY | 2024-09-18 09:02 | XMS_ITS | Encounter Summary ---
Author Organization [facility] Address [address] [facility] 7t [place] [address] Care Team Providers Care Mobile Product Manager Name Role Phone Irma Brennan MD Primary Care Provide r Reason for Visit * Reason Comments Med Refill Encounter Details Date Type Department Care Team (Late Contact Info) Description 12/07/2022 Refill [facility] [address] [place] [address] Eri Rodriguez MD [address] [place] [address] Seasonal allergic rhinitis, unspecified trigger Social History [...] Encounters Date Type Department Care Team (Late Contact Info) Description 11/30/2024 10:15 AM EDT Office Visit [facility] [address] [place] [address] Irma Brennan MD [address] [place] [address] documented as of this encounter Visit Diagnoses Diagnosis Seasonal allergic rhinitis, unspecified trigger documented in this encounter Additional Health Concerns Assessment Noted Time PHQ-9 Depression Total Score: 21 023 10:05 AM EDT documented as of this encounter Care Teams Mobile Product Manager Relationship Specialty Start Date End Date Irma Brennan MD [address] [place] [address] PCP - General Family Medicine 11/09/18 documented as of this encounter
--- OUTSIDE RECORDS SUMMARY | 2024-09-18 09:02 | XMS_ITS | Encounter Summary ---
Author Organization [employer] Address [address] [facility] 7t [place] [address] Care Team Providers Care Internet Marketing Consultant Name Role Phone Irma Brennan MD Primary Care Provide r Reason for Visit * Reason Comments Med Refill Encounter Details Date Type Department Care Team ([facility] st Contact Info) Description 05/18/2023 Refill [facility] [address] [place], [place] [phone] Irma Brennan MD [address] [place], [place] [phone] Controlled type 2 diabetes mellitus with microalbuminuric [...] Description 11/30/2024 10:15 AM EDT Office Visit [facility] [address] [place], [place] [phone] Irma Brennan MD [address] [place], [place] [phone] documented as of this encounter Visit Diagnoses Diagnosis 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
--- OUTSIDE RECORDS SUMMARY | 2024-09-18 09:02 | XMS_ITS | Clinical Summary ---
Author Organization [facility] Address [address] [facility] [address] [place] [address] Phone Care Team Providers Care Environmental Coordinator Name Role Phone Irma Brennan MD Primary [...] patient's age to complete this topic Insurance [facility] ([id number]) [employer] ([id number]) [place] [id number] Care Teams Environmental Coordinator Relationship Specialty Start Date End Date Irma Brennan MD [address] [place] [address] [place] [phone] PCP - General Internal Medicine 02/23/23
--- OUTSIDE RECORDS SUMMARY | 2024-09-18 09:02 | XMS_ITS | Encounter Summary ---
Demographics Address [address] [place] [address] Home Phone Preferred Language es Marital Status Unknown Hinduism Affiliation Unknown Race White Ethnic Group Unknown Author Organization [facility], Address [address] [place] [address] Phone Care Team Providers Care Engineering Analyst Name Role Phone Irma Brennan MD Primary Care Provide r Encounter Details Date Type Department Care Team (Late st Contact Info) Description 02/24/2023 Documentation Only [facility], [address] [place] [address] Irma Brennan MD [address] [facility] 1 [place] [address] Social History Tobacco Use Types [...] on filedocumented in this encounter Care Teams Engineering Analyst Relationship Specialty Start Date End Date Irma Brennan MD [address] [facility] 1 [place] [phone] PCP - General Internal Medicine 02/23/23 documented as of this encounter
--- OUTSIDE RECORDS SUMMARY | 2024-09-18 09:03 | XMS_ITS | Encounter Summary ---
Author Organization [facility] Address [address] [facility] 7t [place] [address] Care Team Providers Care Room Service Waiter Name Role Phone Irma Brennan MD Primary Care Provide r Reason for Visit * Reason Onset Date Comments Triage 09/23/2022 Encounter Details Date Type Department Care Team ([facility] st Contact Info) Description 09/23/2022 Telephone [facility] [address] [place], [place] [phone] Irma Brennan MD [address] [place], [place] [phone] Triage Social History Tobacco Use Types Packs/Day [...] accepted this outcome Please contact pt at [phone] Bengali Speaker documented in this encounter Plan of Treatment Upcoming Encounters Date Type Department Care Team (Late st Contact Info) Description 11/30/2024 10:15 AM EDT Office Visit [facility] [address] [place] [address] Irma Brennan MD [address] [place] [address] documented as of this encounter Visit Diagnoses Not on filedocumented in this encounter Care Teams Room Service Waiter Relationship Specialty Start Date End Date Irma Brennan MD [address] [place] [phone] PCP - General Family Medicine 11/09/18 documented as of this encounter
--- OUTSIDE RECORDS SUMMARY | 2024-09-18 09:03 | XMS_ITS | Data Portability ---
Author Organization [employer], [place] [employer] Address [address] [place] [address] Care Team Providers Care [employer] Truck Driver Name Role Phone HIM CCA OTHER Assessment [...] Assessment and Plan as documented by the Photography Sales Associate. Patient given the opportunity to ask questions. Our service contacted for an assessment of: Dizziness As per above, patient patient unable to give a history but does have a past medical history of hypertension. Lives alone and apparently her daughter lives next door who is the 1 who called for visit unfortunately we are unable to get touch with her. Patient is Maori-speaking only and was communicated with via an invoice coder however there does appear to be some cognitive impairment precluding accurate history taking. She is able to state she has been dizzy for quite some period of time but denies falls although I see she fell and we evaluated her in the house in February of 2023. Per fire supervisor on the scene, she has orthostatic by [...] are by different prescribers as well. Per fire supervisor on the scene 1 of the the [...] and preferably with the daughter present. The fire supervisor has attempted to sort through the medications [...] BMP, serum or plasma [address], [phone], 4 14:50:21 Referral None recorded. Procedures None recorded. Surgeries None recorded. Imaging electrocard iogram [email or web address], [phone], 4 13:45:22 Medication Orders ketorolac 15 mg/mL injection solution 2022 023 [email or web address] Not available 3 11:08:40 Patient TargetsNo targets recorded. Patient InstructionsNo instructions recorded. Reason for Referral None Reported. Results Created Date Observation Date Name Description Value Unit Range Abnormal Flag Note LastModifiedBy Organization Detail LastModifiedTime 12/28/19 24 12/28/2023 javier orlando am No observ ation record ed. [facility] [address] [place] [address], [phone], 12/28/2023 12:44:49 Result Notes None recorded. Procedures Surgical History None recorded. Imaging Results Imaging Date Name Status LastModified by Organization Details LastModified Time 12/28/2023 electrocardiogram completed [facility] [address] [place] [address], [phone], 12/28/2023 12:44:49 Procedure Notes None recorded. Medical [...] % 97.4 [degF] 157.48 cm 84 /min 03909 g 18 /min 142 mm[Hg] 84 mm[Hg] Not Available [facility] 3 10:50:30 Date Recorded Respiratory rate Oxygen [...] mm[Hg] 92 mm[Hg] 66 mm[Hg] Not Available [facility] 4 10:41:25 Social History None recorded. Functional Status None recorded. Mental Status None recorded. Family History Nothing Reported. Medical History No medical history recorded. Gynecological HistoryNo gynecological history recorded. Obstetrics History GPAL:G 0 P 0 0 0 0 Past Encounters Encounter ID Performer Location Encounter Start Date Encounter Closed Date Diagnosis/Indication Diagnosis SNOMED-CT Code Diagnosis ICD10 Code Diagnosis Note [id number] Denise Mcgarry MD [facility] [address] [place] [phone] 02/05/2023 10:47:03 02/05/2023 15:53:23 Fall W19.XXXA [id number] Janis Ellis MD [facility] [address] [place] [phone] 12/28/2023 10:41:08 12/28/2023 16:17:45 Chronic orthostatic hypotension 13582629 I95.1 Health Concerns Section Related Observation LastModified by Organization Detai ls LastModified Time None Recorded Concern Status LastModified by Organization Details LastModified Time None Recorded Advance Directives Directive None Recorded Payers Encounter Date Sequence Insurance Name Policy Number Policy Felix Covered Member ID Felix Member ID Guarantor Name 02/05/2023 1 [facility] - DOS ON OR AFTER 2022 - DUAL ELIGIBLE - CORRECTION OPTIONS AND ONE CARE (MEDICARE REPLACEMENT/ADV ANTAGE - HMO) Shellie Jackson [id number] Shellie Jackson 12/28/2023 1 [facility] - DOS ON OR AFTER 2022 - DUAL ELIGIBLE - CORRECTION OPTIONS AND ONE CARE (MEDICARE REPLACEMENT/ADV ANTAGE - HMO) Shellie Jackson [id number] Shellie Jackson Notes Date Note Type Note Provider Name and Address Organization Details Recorded Time 02/05/2023 text/html HPI: 82 Year old, female, Maori speaking, reporting a fall on 02/01/2023, went to [facility] and left AMA after waiting for hrs, [...] .................... .................... .................... .................... .................... .................... . Photography Sales Associate Note From Yasir Reyna: Pt caox3 complains [...] noted. Red flags and pt education discussed. [facility] Medication Orders: ketorolac 15 mg/mL injection solution: Administered Comment: pain decreased .................... .................... .................... .................... .................... .................... .................... . Disposition: Fulfilled Denise Mcgarry MD [address] [place] [address],[address], [place], [phone], [facility] 02/05/2023 15:53:19 12/28/2023 text/html HPI: HX: DM,LOONEY, GERD,MIGRAINE: CKD; HTN; IMPAIRED BALANCE.Patient with complaint of sever headache and dizziness yesterday. Takes med for Migraines Daughter unable to identify. Remains dizzy off balance and not walking well. PCP for new provider .................... .................... .................... .................... .................... .................... .................... . CRC Nurse Triage Notes (Jeimy Watson): Comments: Reviewed HPI and [facility] place [facility] and wanted visit r/s , Mother is asleep .................... .................... .................... .................... .................... .................... .................... . Baseline Information: Baseline Hb: 10.4 g/dL Baseline HCt: 30% Baseline Creatinine: 1.63 mg/dL .................... .................... .................... .................... .................... .................... .................... . Photography Sales Associate Note From Km Lai: Pt is an 83 Maori speaking female who lives alone (daughter lives [...] . Disposition: Fulfilled Janis Ellis MD [address] [facility],[address], [place], [address], [facility] 12/28/2023 10:55:15 OBGyn Episode No OBEpisode recorded.
== END 2024-09-18 09:20 | disposition home or self-care (01) ==
LOC: HO.HGI 08:44
PROVIDERS: PCP Internal Medicine; Visit Provider Nurse Practitioner Family
DX: K21.9 Gastro-esophageal reflux disease without esophagitis (principal); K58.9 Irritable bowel syndrome, unspecified; K59.01 Slow transit constipation; R10.13 Epigastric pain; R14.0 Abdominal distension (gaseous)
CPT/HCPCS: 99213

== ENCOUNTER → 2024-09-18 08:43 | Outpatient (BNVA) | payer OTHER, SELFPAY | PROVIDERS: PCP Internal Medicine; Visit Provider Nurse Practitioner Family | DX: K58.9 Irritable bowel syndrome, unspecified (principal); K21.9 Gastro-esophageal reflux disease without esophagitis; K59.01 Slow transit constipation; D64.9 Anemia, unspecified; R10.13 Epigastric pain; R14.0 Abdominal distension (gaseous) | CPT/HCPCS: 99212 ==

== ENCOUNTER 2024-11-06 12:04 | Emergency (ER) | payer OTHER, SELFPAY ==
--- NOTE | ~2024-11-06 | CT_ITS ---
EXAMINATION: CT HEAD WITHOUT IV CONTRAST HISTORY: headache. TECHNIQUE: Unenhanced helical CT of the head was performed per standard departmental protocol. Coronal and sagittal reformats of the head were also evaluated. One or more of the following techniques was used for dose reduction: Automated exposure control, adjustment of the mA and/or kV according to patient size, use of iterative reconstruction technique. DLP: 539 mGy-cm COMPARISON: Comparison is made with the prior examination dated 01/03/2024. FINDINGS: BRAIN: There is diffuse prominence of the ventricular system and cortical sulci, consistent with atrophy. Periventricular and subcortical white matter hypodensities are noted which are nonspecific, but often seen in the setting of small vessel ischemic disease. There is no mass effect or midline shift. No intra- or extra-axial fluid collections are identified. 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 SINUSES: The visualized paranasal sinuses are clear. The mastoid air cells and middle ear cavities are well pneumatized. ORBITS: The visualized orbits are unremarkable. BONES/SOFT TISSUES: The extracranial soft tissues are unremarkable. The calvarium is intact. No suspicious lytic or sclerotic lesions. CT/CT head/brain wo IV con IMPRESSION: No acute intracranial abnormality. Electronically signed by: Brad Kan MD 11/06/2024 02:21 PM EDT
[2024-11-06 12:35] VITALS: BP 155/71; PULSE 72; RESP 19; TEMP 36.6; O2SAT 99; BMI 24.8
--- NOTE | 2024-11-06 12:39 | ECG_ITS ---
Test Reason : ABD PAIN Blood Pressure : */* mmHG Vent. Rate : 58 BPM Atrial Rate : 58 BPM P-R Int : 134 ms QRS Dur : 82 ms QT Int : 416 ms P-R-T Axes : 55 4 70 degrees QTcB Int : 408 ms Sinus bradycardia Otherwise normal ECG When compared with ECG of 03-Jan-2024 11:08, No significant change was found Referred By: Vj Jones Electronically Signed By: KATHIE JASSO
--- NOTE | 2024-11-06 12:40 | ED.GENADULT ---
HPI - General Adult General Chief complaint: Abdominal Pain Stated complaint: dizzy nausea Time Seen by Provider: 11/06/24 15:16 Source: patient and RN notes reviewed Mode of arrival: ambulatory Limitations: no limitations History of Present Illness ED Provider: Velma Gaston PA-C HPI narrative: This is a 84-year-old Uzbek-speaking female, with a past medical history of hypertension, CKD, depression, and diabetes, who presents emergency department with concerns for headaches and intermittent dizziness for the last several days. Patient states that she has a history of headaches which are managed by topiramate. She states that she has been doubling up on her dose and has run out. She states that since she is run out, she is having intermittent headaches, which occurs with positional changes. She states that she also has dizziness when she gets up too quickly. She denies any current dizziness. She denies any recent fevers, illness, congestion, chest pain, shortness for breath, abdominal pain, nausea, vomiting or diarrhea. she is not feeling dizzy at this moment, however states that if she was to get up from a seated position she would feel dizzy again. No other complaints or concerns at this time. MD complaint: Headache, intermittent dizziness Severity: moderate Quality: aching Pain Consistency: constant Relieving factors: none Exacerbating factors: movement Associated symptoms: headaches Treatments prior to arrival: none Related Data Home Medications ?Medication ?Instructions ?Recorded ?Confirmed quetiapine 25 mg tablet 25 mg PO BEDTIME 04/26/23 06/06/24 gabapentin 100 mg capsule 100 mg PO DAILY 10/06/23 06/06/24 aspirin 81 mg tablet,delayed 81 mg PO DAILY 03/20/24 06/06/24 release blood pressure test kit-large #1 03/20/24 06/06/24 blood sugar diagnostic (FreeStyle #10 03/20/24 06/06/24 Lite Strips) blood-glucose meter (FreeStyle #1 03/20/24 06/06/24 [place] Lite kit) glimepiride 1 mg tablet 1 mg PO DAILY 03/20/24 06/06/24 lancets 33 gauge (TRUEplus Lancets) #100 ea 03/20/24 06/06/24 levothyroxine 50 mcg tablet 50 mcg PO DAILY 03/20/24 06/06/24 paroxetine HCl 40 mg tablet 40 mg PO DAILY 03/20/24 06/06/24 topiramate 25 mg tablet 25 mg PO DAILY 03/20/24 06/06/24 ondansetron 8 mg disintegrating 8 mg PO DAILY PRN 07/14/24 tablet ferrous gluconate 324 mg (38 mg 324 mg PO Q OTHER DAY 09/18/24 iron) tablet Previous Rx's ?Medication ?Instructions ?Recorded bisacodyl 5 mg tablet,delayed 10 mg (2 x 5 mg) PO BEDTIME #60 03/20/24 release (Dulcolax (bisacodyl)) tabs amlodipine 2.5 mg tablet 2.5 mg PO DAILY 30 days #30 tabs 05/08/24 docusate sodium 100 mg capsule 100 mg PO DAILY #30 caps 09/18/24 pantoprazole 20 mg tablet,delayed 20 mg PO DAILY #90 tabs 09/18/24 release carvedilol 6.25 mg tablet 6.25 mg PO BID #60 tabs 10/19/24 Allergies Allergy/AdvReac Type Severity Reaction Status Date / Time No Known Allergies Allergy Verified 11/06/24 12:38 [No Known Allergies*] Review of Systems Review of Systems: Yes all other systems are reviewed and are negative Constitutional: Constitutional: Reports as per [facility] Past Medical History Medical History Anxiety Diabetes HTN (hypertension) Asthma Surgical History Hx laparoscopic cholecystectomy H/O colonoscopy H/O esophagogastroduodenoscopy Social History Social History Household Members: None Are you a primary career development director to a significant other at home: No Do you presently have visiting nurse or other home services: No Unable to assess alcohol history related to: Unknown Alcohol intake: never Patient Tobacco Use Status: Never used Tobacco Advance Directives: No Advance Directives Information Provided: No Do you have a plan to hurt others: No Plan service: No Physical Exam ED Vital Signs: Vital Signs - 24 hr 11/06/24 12:35 11/06/24 15:17 11/06/24 15:37 Temperature 98 F Pulse Rate 72 62 67 Respiratory Rate 19 Blood Pressure 155/71 H 168/69 H 168/83 H Pulse Oximetry 99 Oxygen Delivery Method Room Air 11/06/24 16:59 Temperature 98.5 F Pulse Rate 78 Respiratory Rate 16 Blood Pressure 178/67 H Pulse Oximetry Oxygen Delivery Method Room Air BMI result Body Mass Index 24.8 Const General: cooperative, comfortable and no acute distress Orientation/consciousness: patient oriented x3 Limitations: no limitations HENMT Head: Yes normal to inspection, Yes normocephalic and Yes atraumatic Ears: hearing grossly normal bilaterally General nose exam: Normal external nose present Face and sinus: Yes normal facial exam Mouth: Normal oral and palatal mucosa present, oropharynx normal and moist mucous membranes Throat: Yes posterior oropharynx normal Eyes General: appearance normal, both eyes and all related structures Eyelids: Yes eyelids normal Conjunctivae: conjunctivae normal Sclerae: sclerae normal Pupils: Equal, round and reactive pupils present EOM: EOMs intact bilaterally Neck Neck: Yes normal visual inspection, Yes full ROM and Yes no lymphadenopathy Lymphatic: no lymphadenopathy noted Chest Chest palpation & inspection: normal inspection of the chest Resp Effort & Inspection: normal respiratory effort and able to speak in complete sentences Auscultation: clear to auscultation bilaterally, no crackles, no rales, no rhonchi and no wheezes Cardio Rate: regular rate Rhythm: regular rhythm Heart sounds: S1 normal heart sound present and S2 normal heart sound present GI Inspection: Yes normal to inspection Skin General skin exam: no rashes or lesions noted Trauma: no lacerations or abrasions Wounds: no wounds Neuro General: patient oriented x3 and moves all extremities Cranial nerves: Yes CN's II-XII intact bilaterally and Yes Equal, round and reactive pupils present Cognition (Neuro): normal cognition Gait exam (Neuro): Normal gait present Motor exam (neuro): 5/5 motor strength present throughout and Pronator motor function not present Coordination: [id number] test normal and [id number] test normal Romberg Test: Negative Extrem General: Yes normal to inspection Right upper extremity: normal to inspection Left upper extremity: normal to inspection Right lower extremity: normal to inspection Left lower extremity: normal to inspection NIH Stroke Scale Internal: Initial- Upon Arrival Level of Consciousness: Alert Level of Consciousness Questions: Answers both questions correctly Level of Consciousness Commands: Performs both tasks correctly Best Gaze: Normal Visual: No visual loss Facial Palsy: Normal Motor Arm (Right): No drift Motor Arm (Left): No drift Motor Leg (Right): No drift Motor Leg (Left): No drift Limb Ataxia: Absent Sensory: Normal Best Language: No aphasia Dysarthia: Normal Extinction and Inattention: No abnormality Score: 0 Course Course Course Narrative: RME: 84-year-old female presents to ED for headache, epigastric abdominal pain with nausea for the past 2 weeks. Daughter male patient to come to the ED to be evaluated. NIH score is 0. Labs EKG ordered. Head CT scan ordered Medical Decision Making Medical Decision Making [facility] Narrative: this is a 84-year-old female, with a past medical history of hypertension, CKD, who presents emergency department with concerns for headache and dizziness for the last several days. She states that she is currently on topiramate and reports that occasionally she will take an extra dose and she has run out. She states that since she has run out she has been experiencing these symptoms. On arrival, blood pressure mildly elevated at 150 5/71, all other vital signs within normal limits. She is speaking in full sentences under no acute distress. She is neurologically intact without any focal deficits. Labs were obtained, she has no leukocytosis, H&H revealing a normocytic anemia with an H&H of 10.7/32.4, chemistry does reveal elevated creatinine at 1.88 and BUN at 27, improved from previous. CAT scan was obtained revealing no acute intracranial abnormality. Orthostatics are negative. I discussed overall workup with patient today, and I would like to obtain repeat troponin as it was 9.4, and a medicate with IV fluids and monitor to see if her symptoms improve. She adamantly refuses and would like to be discharged. I discussed with patient that if she does so she will be leaving against medical advice. She has the capacity to make these own medical decisions. She is aware of the risks and consequences of signing out AMA. Despite these consequences and risks, patient signed AMA paperwork. Given strict return precautions. Patient stable for discharge. Differential Diagnosis Differential Diagnoses: The differential diagnosis associated with the presentation includes Dehydration, electrolyte derangement, ACS, ICH, posterior CVA, CVA, medication withdrawal, migraine headache, tension headache, orthostatic hypotension Admission/Observation Consideration of admission/observation: Escalation of care including admission/observation considered Lab Data [facility] Lab Attestation statement: I reviewed the patient's lab results. see [facility] and course 11/06/24 13:08 11/06/24 13:08 Labs: Lab Results 11/06/24 Range/Units 13:08 WBC 4.5 L (4.8-10.8) X10*3/uL RBC 3.36 L (4.20-5.50) X10*6/uL Hgb 10.7 L (12.0-16.0) g/dl Hct 32.4 L (37.0-47.0) % MCV 96.4 (80.0-98.0) fL MCH 31.8 (27.0-33.0) pg MCHC 33.0 (31.0-35.0) g/dl RDW 14.0 (11.0-16.0) % Plt Count 164 D (160-400) X10*3/uL MPV 9.6 (9.4-12.3) fL Immature Gran % (Auto) 0.0 (0.0-0.4) % Neut % (Auto) 62.4 (45-73) % Lymph % (Auto) 24.2 (20-40) % [place] % (Auto) 11.9 H (2-11) % Eos % (Auto) 1.3 (0-4) % Baso % (Auto) 0.2 (0-2) % Lymph # (Auto) 1.1 L (1.2-4.9) X10*3/uL [place] # (Auto) 0.5 (0.1-1.2) X10*3/uL Eos # (Auto) 0.1 (0.0-0.4) X10*3/uL Baso # (Auto) 0.0 (0.0-0.2) X10*3/uL Abs Immat Gran (auto) 0.00 (0.00-0.03) X10*3/uL Absolute Neuts (auto) 2.8 (2.0-8.3) x10*3/uL Absolute Nucleated RBC 0.000 (0.0-0.012) X10*3/uL Nucleated RBC % (auto) 0.0 (0.0-0.2) /100WBC PT 11.6 (10.9-12.4) SEC INR 1.0 (0.9-1.1) APTT 28.7 (26.0-36.8) SEC Sodium 140 (135-145) mmol/L Potassium 4.2 (3.3-5.1) mmol/L Chloride 109 H (96-108) mmol/L Carbon Dioxide 24 (22-29) mmol/L Anion Gap 11 L (12-20) BUN 27 H (9-16) mg/dL Creatinine 1.88 H (0.5-1.4) mg/dL Estim Creat Clear Calc 20.3 Estimated GFR 26 Random Glucose 81 (60-115) mg/dL Calcium 10.0 (8.4-10.2) mg/dL Total Bilirubin 0.4 (0.0-1.0) mg/dL AST 25 (5-31) U/L ALT 16 (0-31) U/L Alkaline Phosphatase 59 (39-117) U/L Troponin I High Sens 9.4 (<3.5-17.0) ng/L Total Protein 7.4 (6.5-8.0) g/dL Albumin 4.1 (3.5-5.0) g/dL Lipase 33 (8-78) U/L Influenza Type A (PCR) NEGATIVE (Negative) Influenza Type B (PCR) NEGATIVE (Negative) RSV RNA Qual (PCR) NEGATIVE (Negative) SARS-CoV-2 RNA (RT-PCR) NEGATIVE (Negative) Independent Interpretation I performed an independent interpretation of an: EKG Interpretation: EKG sinus bradycardic at 58 beats per minute, CA interval 132, QT QTC 416/408, no ST elevation or depression. Radiology Impression Discussion of test interpretation with radiology: I have reviewed the radiologist's reading. Radiologist Impression: [place] [id number] CT Scan Report Signed Patient: Shellie Jackson MR#: [id number] : 1940 Acct:[id number] Age/Sex: 84 / F ADM Date: 11/06/24 Loc: HO.ED Attending Dr: Ordering Physician: Vj Jones Date of Service: 11/06/24 Procedure(s): CT head/brain wo IV con Accession Number(s): [id number] cc: Vj Jones; Irma Brennan MD~ Report Number: [id number]: Total DLP = 539.00 mGy-cm EXAMINATION: CT HEAD WITHOUT IV CONTRAST HISTORY: headache. TECHNIQUE: Unenhanced helical CT of the head was performed per standard departmental protocol. Coronal and sagittal reformats of the head were also evaluated. One or more of the following techniques was used for dose reduction: Automated exposure control, adjustment of the mA and/or kV according to patient size, use of iterative reconstruction technique. DLP: 539 mGy-cm COMPARISON: Comparison is made with the prior examination dated 01/03/2024. FINDINGS: BRAIN: There is diffuse prominence of the ventricular system and cortical sulci, consistent with atrophy. Periventricular and subcortical white matter hypodensities are noted which are nonspecific, but often seen in the setting of small vessel ischemic disease. There is no mass effect or midline shift. No intra- or extra-axial fluid collections are identified. 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 SINUSES: The visualized paranasal sinuses are clear. The mastoid air cells and middle ear cavities are well pneumatized. ORBITS: The visualized orbits are unremarkable. BONES/SOFT TISSUES: The extracranial soft tissues are unremarkable. The calvarium is intact. No suspicious lytic or sclerotic lesions. CT/CT head/brain wo IV con IMPRESSION: No acute intracranial abnormality. Electronically signed by: Brad Kan MD 11/06/2024 02:21 PM EDT Dictated By: Brad Kan MD Discharge Plan Discharge Clinical Impression: Headache, Dizziness Patient Disposition: Home, Self-Care Instructions: Dizziness (ED), General Headache (ED) Additional Instructions: You were seen in the emergency department and you did not stay to have your full workup completed. You were signing against medical advice, you are aware that there are life-threatening illnesses including severe injury and . Despite knowing these factors, you still want to leave. Please if any new or worsening symptoms occur including but not limited to severe dizziness, chest pain, shortness for breath, headache, please seek emergent care. Prescriptions: No Action carvedilol 6.25 mg tablet 6.25 mg PO BID Qty: 60 3RF quetiapine 25 mg tablet 25 mg PO BEDTIME gabapentin 100 mg capsule 100 mg PO DAILY ferrous gluconate 324 mg (38 mg iron) tablet 324 mg PO Q OTHER DAY docusate sodium 100 mg capsule 100 mg PO DAILY Qty: 30 3RF pantoprazole 20 mg tablet,delayed release (DR/EC) 20 mg PO DAILY Qty: 90 3RF (DME) lancets [TRUEplus Lancets] 33 gauge misc See Rx Instructions .ROUTE .MEDSUPPLY Qty: 100 Rx Instructions: As directed glimepiride 1 mg tablet 1 mg PO DAILY (DME) FreeStyle Lite Strips Strip See Rx Instructions .ROUTE BID Qty: 10 Rx Instructions: As directed topiramate 25 mg tablet 25 mg PO DAILY aspirin 81 mg tablet,delayed release (DR/EC) 81 mg PO DAILY (DME) blood pressure test kit-large Kit See Rx Instructions .ROUTE DAILY Qty: 1 Rx Instructions: As directed levothyroxine 50 mcg tablet 50 mcg PO DAILY paroxetine HCl 40 mg tablet 40 mg PO DAILY (DME) blood-glucose meter [FreeStyle [place] Lite] Kit See Rx Instructions .ROUTE .MEDSUPPLY Qty: 1 Rx Instructions: As directed bisacodyl [Dulcolax (bisacodyl)] 5 mg tablet,delayed release (DR/EC) 10 mg PO BEDTIME Qty: 60 4RF ondansetron 8 mg tablet,disintegrating 8 mg PO DAILY PRN amlodipine 2.5 mg tablet 2.5 mg PO DAILY 30 Days Qty: 30 6RF Stand Alone Forms: Against Medical Advice Interventions: ED Discharge Assessment Last Done: 11/06/24 16:59 Discharge Date/Time: 11/06/24 17:20 Print Language: Uzbek
[2024-11-06 13:12] LABS: MANUAL DIFF FLAG NO
[2024-11-06 13:14] LABS: Basophils Percent Auto 0.2 % (0-2); Eosinophils Absolute Auto 0.1 X10*3/uL (0.0-0.4); Eosinophils Percent Auto 1.3 % (0-4); Hematocrit 32.4 % (37.0-47.0); Hemoglobin 10.7 g/dl (12.0-16.0); Lymphocytes Absolute Auto 1.1 X10*3/uL (1.2-4.9); Lymphocytes Percent Auto 24.2 % (20-40); Mean Corpuscular Hemoglobin 31.8 pg (27.0-33.0); Mean Corpuscular Volume 96.4 fL (80.0-98.0); Mean Platelet Volume 9.6 fL (9.4-12.3); Monocytes Absolute Auto 0.5 X10*3/uL (0.1-1.2); Monocytes Percent Auto 11.9 % (2-11); Neutrophils Absolute Auto 2.8 x10*3/uL (2.0-8.3); Neutrophils Percent Auto 62.4 % (45-73); Platelet Count 164 X10*3/uL (160-400); Red Blood Count 3.36 X10*6/uL (4.20-5.50); White Blood Count 4.5 X10*3/uL (4.8-10.8)
[2024-11-06 13:26] LABS: Prothrombin Time 11.6 SEC (10.9-12.4)
[2024-11-06 13:29] LABS: Alanine Aminotransferase 16 U/L (0-31); Albumin Level 4.1 g/dL (3.5-5.0); Alkaline Phosphatase 59 U/L (39-117); Anion Gap 11 (12-20); Aspartate Amino Transferase 25 U/L (5-31); Bilirubin Total 0.4 mg/dL (0.0-1.0); Blood Urea Nitrogen 27 mg/dL (9-16); Carbon Dioxide 24 mmol/L (22-29); Chloride 109 mmol/L (96-108); Creatinine Clr Calc Pharmacy 20.3; Estimated Glomerular Filt Rate 26; Glucose Random 81 mg/dL (60-115); Lipase 33 U/L (8-78); Partial Thromboplastin Time 28.7 SEC (26.0-36.8); Potassium 4.2 mmol/L (3.3-5.1); Sodium 140 mmol/L (135-145); Total Protein 7.4 g/dL (6.5-8.0)
[2024-11-06 13:32] LABS: Troponin-I High Sensitivity 9.4 ng/L (<3.5-17.0)
[2024-11-06 13:50] LABS: Influenza A PCR NEGATIVE (Negative); Influenza B PCR NEGATIVE (Negative); Resp Syncy Virus RNA Qual PCR NEGATIVE (Negative); SARS COV2 PCR INHOUSE NEGATIVE (Negative)
[2024-11-06 15:17] VITALS: BP 168/69; PULSE 62
[2024-11-06 15:37] VITALS: BP 168/83; PULSE 67
--- NOTE | 2024-11-06 15:38 | PC.NURSE ---
pt orhtostatic vs as follows, 168/63 hr 67 supine 168/65 hr 60 standing. pt does report she is dizzy when she stands. she is wpd with a strong and regular radial pulse. is in no distress.
[2024-11-06 16:59] VITALS: BP 178/67; PULSE 78; RESP 16; TEMP 36.9
--- OUTSIDE RECORDS SUMMARY | 2024-11-06 17:08 | XMS_ITS | Encounter Summary ---
Author Organization [employer] Address [address] [facility] 7t [place] [address] Care Team Providers Care Information Clerk Brokerage Name Role Phone Irma Brennan MD Primary Care Provide r Reason for Visit * Reason Onset Date Comments Med Refill 11/02/2024 Encounter Details Date Type Department Care Team (Late st Contact Info) Description 11/02/2024 Refill [facility] MED & PEDS [address] [place], [place] [phone] Irma Brennan MD 230 [place] [address] Type 2 diabetes mellitus with diabetic peripheral angiopathy without gangrene, unspecified whether care home insulin use ([facility]) Social History Tobacco Use Types Packs/Day Years Used Date Smoking Tobacco: Never Passive Smoke Exposure: Never Smokeless Tobacco: Never Depression Answer Date Recorded Patient Health Questionnaire-9 Score 0 06/22/2023 Patient Health Questionnaire-9 Score 0 06/22/2023 Last PHQ-9: Questionnaire Data Not on file 1 08/23/2022 Housing Stability Answer Date Recorded What is your housing situation today? I have chelo sing 01/14/[address] you li [...] encounter Miscellaneous Notes * Telephone Encounter - Cortney Meek LPN - 11/02/2024 1:35 PM EDT Last seen 01.13.25 documented in this encounter Plan of Treatment Upcoming Encounters Date Type Department Care Team (Late st Contact Info) Description 11/30/2024 10:15 AM EDT Office Visit [facility] MEDICINE [address] [place] [address] Irma Brennan MD [address] [place] [address] 01/16/2025 2:30 PM EDT Office Visit [facility] OPTOMETRY [address] [place] [address] Jackie Araujo OD [address] [place] [address] documented as of this encounter Visit Diagnoses Diagnosis Type 2 diabetes mellitus with diabetic peripheral angiopathy without gangrene, 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
--- OUTSIDE RECORDS SUMMARY | 2024-11-06 17:08 | XMS_ITS | Encounter Summary ---
Author Organization [employer] Address [address] [facility] 7t [place] [address] Care Team Providers Care Umbrella Mender Name Role Phone Irma Brennan MD Primary Care Provide r Encounter Details Date Type Department Care Team ([facility] st Contact Info) Description 09/06/2023 Orders Only [facility] MEDICINE [address] [place], [place] [phone] Irma Brennan MD [address] [place], [place] [phone] Social History Tobacco Use Types Packs/Day Years [...] Description 11/30/2024 10:15 AM EDT Office Visit [facility] MEDICINE [address] [place] [address] Irma Brennan MD 230 [place] [address] 01/16/2025 2:30 PM EDT Office Visit [facility] OPTOMETRY [address] [place] [address] Van, Jackie, OD 230 [place] [address] documented as of this encounter Visit Diagnoses Not on filedocumented in this encounter Additional Health Concerns Assessment Noted Time PHQ-9 Depression Total Score: 0 06/22/20 23 9:55 AM EST documented as of this encounter Care Teams Umbrella Mender Relationship Specialty Start Date End Date Irma Brennan MD [address] [place] [address] PCP - General Family Medicine 11/09/18 documented as of this encounter
--- OUTSIDE RECORDS SUMMARY | 2024-11-06 17:08 | XMS_ITS | Encounter Summary ---
Author Organization [employer] [facility] Address [address] [facility] 7t [place] [address] Care Team Providers Care Pony Roll Finisher Name Role Phone Irma Brennan MD Primary Care Provide r Encounter Details Date Type Department Care Team (Late st Contact Info) Description 11/06/2024 Orders Only GENERIC EXTERNAL DATA DEPARTMENT Provider, Generic External Data Social History Tobacco Use Types Packs/Day Years [...] Description 11/30/2024 10:15 AM EDT Office Visit [facility] MEDICINE [address] [place] [address] Irma Brennan MD 230 [place] [address] 01/16/2025 2:30 PM EDT Office Visit [facility] OPTOMETRY [address] [place] [address] Jackie Araujo, OD [address] [place] [address] documented as of this encounter Procedures Procedure Name Priority Date/Time Associated Diagnosis Comments HIGH SENSITIVITY TROPONIN I Routine 11/06/2024 1:08 PM EDT SARS COV2/INFLUENZA A/B AND RSV RNA QL NAAT Routine 11/06/2024 1:08 PM EDT CBC WITH AUTO DIFFERENTIAL Routine 11/06/2024 1:08 PM EDT APTT Routine 11/06/2024 1:08 PM EDT PROTHROMBIN TIME-INR Routine 11/06/2024 1:08 PM EDT LIPASE Routine 11/06/2024 1:08 PM EDT COMPREHENSIVE METABOLIC PANEL Routine 11/06/2024 1:[address] HEAD WO CONTRAST Routine 11/06/2024 1 2:39 PM EDT documented in this encounter Results * SARS-CoV-2 RNA, Influenza A/B, and RSV RNA, Ql NAAT (11/06/2024 1:08 PM EDT) Influenza A PCR NEGATIVE Negative [facility] Influenza B PCR NEGATIVE Negative [facility] Resp Syncy Virus RNA Qual PCR NEGATIVE Negative [facility] SARS COV2 PCR NEGATIVE Negative [facility] Comment:All test results mus t be correlated with clinical findings.Negative results do not preclude SARS-CoV2, influenza Avirus, influenza B virus and/or RSV infectionand should not be used as the sole basis for treatment orother patient management decisions. Negative results must becombined with clinical observations, patient history, andepidemiological information.This test has not been evaluated for monitoring treatment ofinfection.This test has been authorized by the FDA under an EmergencyUse Authorization (EUA) for use by authorized laboratories.Testing performed on the [employer] GeneXpert utilizingreal-time RT-PCR.All SARS CoV2 and positive influenza A/B results arereported to [facility]. 11/06/2024 1:08 PM EDT 11/06/2024 1:11 PM EDT us Generic External Data Provider LAB MICROBIOLOGY - GENERAL ORDERABLES Final Result [facility] [address] [place] [phone] * High Sensitivity Troponin I (11/06/2024 1:08 PM EDT) TROPONIN I HIGH SENSITIVITY 9.4 <3.5 - 17.0 ng/L [facility] Comment:The Meyer high sens itivity Troponin-I results should beused in conjunction with other diagnostic information suchas ECG, clinical observations and information, and patientsymptoms to aid in the diagnosis of HI. 11/06/2024 1:08 PM EDT 11/06/2024 1:11 PM EDT Generic External Data Provider LAB BLOOD ORDERAB LES Final Result Performing Organization Address [facility] de Phone Number [facility] [address] [place] [phone] * Partial Thromboplastin Time, Activated (APTT) (11/06/2024 1:08 PM EDT) Partial Thromboplastin Time 28.7 26.0 - 36.8 SEC [facility] Comment:For information rega rding the monitoring of direct thrombininhibitors, please refer to Pharmacy. 11/06/2024 1:08 PM EDT 11/06/2024 1:11 PM EDT Generic External Data Provider LAB BLOOD ORDERAB LES Final Result Performing Organization Address [facility] Phone Number [facility] [address] [place] [phone] * Prothrombin Time-INR (11/06/2024 1:08 PM EDT) Prothrombin Time 11.6 10.9 - 12.4 SEC [facility] INTERNATIONAL NORM RATIO 1.0 0.9 - 1.1 [facility] Comment:INTERNATIONAL NORMAL IZED RATIO (INR) REFERENCE RANGES Reference RangeFor patients not on anticoagulant therapy: 0.9 - 1.1INR ranges for oral anticoagulanttherapy:For prevention and treatment of venous thrombosis and pulmonary embolism: 2.0 - 3.0For acute myocardial infarction with aspirin therapy: 2.0 - 3.0For acute myocardial infarction without aspirin therapy: 3.0 - 4.0For patients with mechanical prosthetic heart valves: 2.5 - 3.5 11/06/2024 1:08 PM EDT 11/06/2024 1:11 PM EDT Generic External Data Provider LAB BLOOD ORDERAB LES Final Result Performing Organization Address [facility] Co de Phone Number [facility] [address] [place] [address] [place] [phone] * Lipase (11/06/2024 1:08 PM EDT) Lipase 33 8 - 78 U/L [facility] 11/06/2024 1:08 PM EDT 11/06/2024 1:11 PM EDT us Generic External Data Provider LAB BLOOD ORDERAB LES Final Result [facility] [address] [place] [phone] [phone] * (ABNORMAL) Comprehensive Metabolic Panel (11/06/2024 1:08 PM EDT) Sodium 140 135 - 145 mmol/L [facility] Potassium 4.2 3.3 - 5.1 mmol/L [facility] Chloride 109(H) 96 - 108 mmol/L [facility] Carbon Dioxide 24 22 - 29 mmol/L [facility] Anion Gap 11(L) 12 - 20 [facility] Urea Nitrogen (BUN) 27(H) 9 - 16 mg/dL [facility] Creatinine, Serum 1.88(H) 0.5 - 1.4 mg/dL [facility] Creatinine Clr Calc Pharmacy 20.3 [facility] Comment:Provided height and weight: 160.02 cm,63.503 kg.eGFR (calculated from the MDRD study equation) and eCrCl(calculated from the Cockcroft-Gault equation) are based ondifferent parameters and may not yield comparable results.If eCrCl result is absurd, please check patient'sheight/weight. Estimated Glomerular Filt Rate 26 [facility] Comment:Chronic Kidney Disea se: Estimated GFR < 60 mL/min/1.34q5Lqlrof Kidney Disease: Estimated GFR < 15 mL/min/1.73m2 Glucose 81 60 - 115 mg/dL [facility] Calcium 10.0 8.4 - 10.2 mg/dL [facility] Bilirubin, Total 0.4 0.0 - 1.0 mg/dL [facility] Aspartate Amino Transferase 25 5 - 31 U/L [facility] Alanine Aminotransferase 16 0 - 31 U/L [facility] Total Protein 7.4 6.5 - 8.0 g/dL [facility] Albumin Level 4.1 3.5 - 5.0 g/dL [facility] Alkaline Phosphatase 59 39 - 117 U/L [facility] 11/06/2024 1:08 PM EDT 11/06/2024 1:11 PM EDT us Generic External Data Provider LAB BLOOD ORDERAB LES Final Result [facility] [address] [place] [phone] * (ABNORMAL) CBC auto differential (11/06/2024 1:08 PM EDT) White Blood Count 4.5(L) 4.8 - 10.8 X10*3/uL [facility] Red Blood Count 3.36(L) 4.20 - 5.50 X10*6/uL [facility] Hemoglobin 10.7(L) 12.0 - 16.0 g/dl [facility] Hematocrit 32.4(L) 37.0 - 47.0 % [facility] Mean Corpuscular Volume 96.4 80.0 - 98.0 fL [facility] Mean Corpuscular Hemoglobin 31.8 27.0 - 33.0 pg [facility] Mean Corpuscular HGB Conc 33.0 31.0 - 35.0 g/dl [facility] Red Cell Distribution Width 14.0 11.0 - 16.0 % [facility] Platelet Count 164 160 - 400 X10*3/uL [facility] Mean Platelet Volume 9.6 9.4 - 12.3 fL [facility] Neutrophils Percent Auto 62.4 45 - 73 % [facility] Imm Gran Pct Auto 0.0 0.0 - 0.4 % [facility] Lymphocytes Percent Auto 24.2 20 - 40 % [facility] Monocytes Percent Auto 11.9(H) 2 - 11 % [facility] Eosinophils Percent Auto 1.3 0 - 4 % [facility] Basophils Percent Auto 0.2 0 - 2 % [facility] NRBC Pct Auto 0.0 0.0 - 0.2 /100WBC [facility] Neutrophils Absolute Auto 2.8 2.0 - 8.3 x10*3/uL [facility] Imm Gran Abs Auto 0.00 0.00 - 0.03 X10*3/uL [facility] Lymphocytes Absolute Auto 1.1(L) 1.2 - 4.9 X10*3/uL [facility] Monocytes Absolute Auto 0.5 0.1 - 1.2 X10*3/uL [facility] Eosinophils Absolute Auto 0.1 0.0 - 0.4 X10*3/uL [facility] Basophils Absolute Auto 0.0 0.0 - 0.2 X10*3/uL [facility] NRBC Abs Auto 0.000 0.0 - 0.012 X10*3/uL [facility] 11/06/2024 1:08 PM EDT 11/06/2024 1:11 PM EDT us Generic External Data Provider LAB BLOOD ORDERAB LES Final Result Performing Organization Address City/State/[facility] de Phone Number [facility] [address] [place] [address] [phone] * CT Head w/o Contrast (11/06/2024 12:39 PM EDT) Anatomical Region Laterality Modality Head, Neck Computed Tomogra phy 11/06/2024 12:3 9 PM EDT Narrative 11/06/2024 2:24 PM EDT ? [facility] ?[address] ?[place] [address] ? CT Scan Report ? Signed ? Patient: Manuel,Shellie ?MR#: [id number] ?? [id number] ? : 1940 ?Acct:[id number] ? Age/Sex: 84 / F ?ADM Date: 11/06/24 ? Loc: HO.ED ? Attending Dr: ? Ordering Physician: Vj Jones ?? Date of Service: 11/06/24 ?? Procedure(s): CT head/brain wo IV con ?? Accession Number(s): [id number] ? cc: Vj Jones; Irma Brennan MD ? Report Number: ?? [id number]: Total DLP = ??539.00 mGy-cm ?? EXAMINATION: CT HEAD WITHOUT IV CONTRAST ? HISTORY: headache. ? TECHNIQUE: ? Unenhanced helical CT of the head was performed per standard ?? departmental protocol. Coronal and sagittal reformats of the head were ?? also evaluated. One or more of the following techniques was used for ?? dose reduction: Automated exposure control, adjustment of the mA and/or ?? kV according to patient size, use of iterative reconstruction technique. ? DLP: 539 mGy-cm ? COMPARISON: Comparison is made with the prior examination dated ?? 01/03/2024. ? FINDINGS: ? BRAIN: ??There is diffuse prominence of the ventricular system and ?? cortical sulci, consistent with atrophy. Periventricular and ?? subcortical white matter hypodensities are noted which are nonspecific, ?? but often seen in the setting of small vessel ischemic disease. ??There ?? is no mass effect or midline shift. ??No intra- or extra-axial fluid ?? collections are identified. There is a calcification in the region of ?? 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 ? SINUSES: The visualized paranasal sinuses are clear. ??The mastoid air ?? cells and middle ear cavities are well pneumatized. ? ORBITS: The visualized orbits are unremarkable. ? BONES/SOFT TISSUES: The extracranial soft tissues are unremarkable. The ?? calvarium is intact. No suspicious lytic or sclerotic lesions. ? CT/CT head/brain wo IV con ?? IMPRESSION: ?? No acute intracranial abnormality. ? Electronically signed by: ??Brad Kan MD ??11/06/2024 02:21 PM EDT ? Dictated By: ?Brad Kan MD ? Signed By: ?<Electronically signed by Brad Kan MD in OV> ?11/06/24 1421 ? DD/ 1239 ? TD/TT: 11/06/24 1350 ? Hedis Registered Nurse Rn: ? Procedure Note Donlydiater, Image - 11/06/[address] [address] [place] Scan Report Signed Patient: Edgardo Jackson#: [id number] : 2Acct:[id number] Age/Sex: 84 / FADM Date: 11/06/24 Loc: HO.ED Attending Dr: Ordering Physician: Vj Jones Date of Service: 11/06/24 Procedure(s): CT head/brain wo IV con Accession Number(s): [id number] cc: Vj Jones; Irma Brennan MD Report Number: [id number]: Total DLP = 539.00 mGy-cm EXAMINATION: CT HEAD WITHOUT IV CONTRAST HISTORY: headache. TECHNIQUE: Unenhanced helical CT of the head was performed per standard departmental protocol. Coronal and sagittal reformats of the head were also evaluated. One or more of the following techniques was used for dose reduction: Automated exposure control, adjustment of the mA and/or kV according to patient size, use of iterative reconstruction technique. DLP: 539 mGy-cm COMPARISON: Comparison is made with the prior examination dated 01/03/2024. FINDINGS: BRAIN: There is diffuse prominence of the ventricular system and cortical sulci, consistent with atrophy. Periventricular and subcortical white matter hypodensities are noted which are nonspecific, but often seen in the setting of small vessel ischemic disease. There is no mass effect or midline shift. No intra- or extra-axial fluid collections are identified. 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 SINUSES: The visualized paranasal sinuses are clear. The mastoid air cells and middle ear cavities are well pneumatized. ORBITS: The visualized orbits are unremarkable. BONES/SOFT TISSUES: The extracranial soft tissues are unremarkable. The calvarium is intact. No suspicious lytic or sclerotic lesions. CT/CT head/brain wo IV con IMPRESSION: No acute intracranial abnormality. Electronically signed by: Brad Kan MD 11/06/2024 02:21 PM EDT RP Dictated By: Brad Kan MD Signed By: <Electronically signed by Brad Kan MD in OV> 11/06/24 1421 DD/ 1239 TD/TT: 11/06/24 1350 Hedis Registered Nurse Rn: [facility] External Provider IMG CT PROCEDURES Final Result documented in this encounter Visit Diagnoses Not on filedocumented in this encounter Additional Health Concerns Assessment Noted Time PHQ-9 Depression Total Score: 0 06/22/20 23 9:55 AM EST documented as of this encounter Care Teams Pony Roll Finisher Relationship Specialty Start Date End Date Irma Brennan MD [address] [place] [phone] PCP - General Family Medicine 11/09/18 documented as of this encounter
--- OUTSIDE RECORDS SUMMARY | 2024-11-06 17:08 | XMS_ITS | Encounter Summary ---
Demographics Address [address] [facility] [address] [place] [address] Home Phone Mobile Phone Phone Phone Email Address Preferred Language Bulgarian; Castilian Marital Status Yazidi Affiliation Unknown Race Unknown Ethnic Group or Author Organization [facility] [employer] [facility] Address [address] [place] [address] Care Team Providers Care Laundry Pricing Clerk Name Role Phone Irma Brennan MD Primary Care Provide r Encounter Details Date Type Department Care Team (Late st Contact Info) Description 07/11/2019 Abstract [facility] [address] [facility] [place] [address] [place] [address] Jeronimo Olson MD [address] [place] [phone] Social History Tobacco Use Types Packs/Day Years [...] on filedocumented in this encounter Care Teams Laundry Pricing Clerk Relationship Specialty Start Date End Date Irma Brennan MD 230 [facility] [address] [place] [phone] PCP - General Internal Medicine 07/11/19 documented as of this encounter
--- OUTSIDE RECORDS SUMMARY | 2024-11-06 17:08 | XMS_ITS | Clinical Summary ---
Author Organization [facility] [address] Address [address] [place] [address] Care Team Providers Care Insurance Associate Name Role Phone Irma Brennan MD Primary [...] Lipid disorder screening 1981 Diabetes screening 1986 Pneumococcal Vaccine (50+ ye ars) (1 of 1 - PCV) 10/21/1991 Shingles vaccine (Shingrix) (1 of 2 - Shingrix (RZV) 2 Dose Standard Series) 10/21/1991 Osteoporosis screening (bone density) 2006 RSV Immunization (1 - 1-dose 75+ series) 2016 Covid-19 vaccine series (1 - 2023- season) 2024 Influenza vaccine 03/05/2025 Breast cancer screening Discontinued Cervical cancer screening Discontinued Colon cancer screening, Colonoscopy Discontinued Meningococcal Vaccine Aged Out No driss elvin eligible based on patient's age to complete this topic Insurance MEDICARE MANAGED [facility] [place] [address] MEDICARE MANAGED [facility] [place] [address] MEDICARE MANAGED [facility] [place] [address] Care Teams Insurance Associate Relationship Specialty Start Date End Date Irma Brennan MD [address] [phone] PCP - General Internal Medicine 07/11/19
--- OUTSIDE RECORDS SUMMARY | 2024-11-06 17:08 | XMS_ITS | Encounter Summary ---
Author Organization [employer] Address [address] [facility] 7t [place] [address] Care Team Providers Care Personal Health Coach Name Role Phone Irma Brennan MD Primary Care Provide r Reason for Visit * Reason Onset Date Comments Referral 09/15/2023 Encounter Details Date Type Department Care Team ([facility] st Contact Info) Description 09/15/2023 Telephone [facility] MEDICINE [address] [place], [place] [phone] Irma Brennan MD [address] [place], [place] [phone] Referral Social History Tobacco Use Types Packs/Day [...] Glenis Hutchinson - 09/23/2023 3:24 PM EDT Apiculturist called and spoke with daughter Eri. Pt had a scheduled appt and no showed. Daughter was given number to call and reschedule. * Telephone Encounter - Nany Zhao - 09/15/2023 1:13 PM EDT Tc from pt daughter requesting a referral to a buffing machine operator. Referral still pending from 06/22/23 documented in this encounter Plan of Treatment Upcoming Encounters Date Type Department Care Team (Late st Contact Info) Description 11/30/2024 10:15 AM EDT Office Visit [facility] MEDICINE [address] [place] [address] Irma Brennan MD [address] [place] [address] 01/16/2025 2:30 PM EDT Office Visit [facility] OPTOMETRY [address] [place] [address] Jackie Araujo, OD 230 [place] [address] documented as of this encounter Visit Diagnoses Not on filedocumented in this encounter Additional Health Concerns Assessment Noted Time PHQ-9 Depression Total Score: 0 06/22/20 23 9:55 AM EST documented as of this encounter Care Teams Personal Health Coach Relationship Specialty Start Date End Date Irma Brennan MD [address] [place] [address] PCP - General Family Medicine 11/09/18 documented as of this encounter
--- OUTSIDE RECORDS SUMMARY | 2024-11-06 17:08 | XMS_ITS | Encounter Summary ---
Demographics Address [address] [facility] [address] [place] [address] Home Phone Mobile Phone Phone Phone Email Address Preferred Language Portuguese; Castilian Marital Status Hinduism Affiliation Unknown Race Unknown Ethnic Group or Author Organization [facility] [employer] and [facility] Address [address] [place] [address] Care Team Providers Care Senior Recruiter Name Role Phone Irma Brennan MD Primary Care Provide r Encounter Details Date Type Department Care Team (Late st Contact Info) Description 09/12/2019 Scanned Document [facility] [address] [facility] [address] [facility] [place] [address] Jeronimo Piedra MD [address] [place] [phone] Social History Tobacco Use Types Packs/Day [...] filedocumented in this encounter Care Teams Senior Recruiter Relationship Specialty Start Date End Date Irma Brennan MD 230 [facility] [address] [place] [phone] PCP - General Internal Medicine 07/11/19 documented as of this encounter
--- OUTSIDE RECORDS SUMMARY | 2024-11-06 17:08 | XMS_ITS | Encounter Summary ---
Author Organization Company Address [address] [facility] 7t [place] [address] Care Team Providers Care Manager Mass Name Role Phone Irma Brennan MD Primary Care Provide r Reason for Visit * Reason Comments Med Refill Encounter Details Date Type Department Care Team ([facility] st Contact Info) Description 05/18/2023 Refill [facility] MEDICINE [address] [place], [place] [phone] Irma Brennan MD [address] [place], [place] [phone] Controlled type 2 diabetes mellitus with microalbuminuric [...] Description 11/30/2024 10:15 AM EDT Office Visit [facility] MEDICINE [address] [place] [address] Irma Brennan MD [address] [place] [address] 01/16/2025 2:30 PM EDT Office Visit [facility] OPTOMETRY [address] [place] [address] Van, Jackie, OD 230 [place] [address] documented as of this encounter Visit Diagnoses Diagnosis 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
--- OUTSIDE RECORDS SUMMARY | 2024-11-06 17:08 | XMS_ITS | Encounter Summary ---
Demographics Address [address] [facility] [address] [place] [address] Home Phone Mobile Phone Phone Phone Email Address Preferred Language Bengali; Castilian Marital Status Religion Affiliation Unknown Race Unknown Ethnic Group or Author Organization [facility] [employer] and [facility] Address [address] [place] [address] Care Team Providers Care Family Law Mediator Name Role Phone Irma Brennan MD Primary Care Provide r Encounter Details Date Type Department Care Team (Late st Contact Info) Description 09/12/2019 Scanned Document [facility] [address] [place], [place] [phone] Jeronimo Olson MD [address] [place] [phone] Social History Tobacco Use Types Packs/Day Years [...] on filedocumented in this encounter Care Teams Family Law Mediator Relationship Specialty Start Date End Date Irma Brennan MD [address] [facility] 1 [place] [phone] PCP - General Internal Medicine 07/11/19 documented as of this encounter
--- OUTSIDE RECORDS SUMMARY | 2024-11-06 17:09 | XMS_ITS | Encounter Summary ---
Author Organization [employer] Address [address] [facility] 7t [place] [address] Care Team Providers Care Line Driver Name Role Phone Irma Brennan MD Primary Care Provide r Reason for Visit * Reason Comments Med Refill Encounter Details Date Type Department Care Team ([facility] st Contact Info) Description 02/11/2024 Refill [facility] MEDICINE [address] [place], [place] [phone] Irma Brennan MD 230 [place], [place] [phone] Migraine, unspecified, not intractable, without status migrainosus [...] Description 11/30/2024 10:15 AM EDT Office Visit [facility] MEDICINE [address] [place] [address] Irma Brennan MD 230 [place] [address] 01/16/2025 2:30 PM EDT Office Visit [facility] OPTOMETRY [address] [place] [address] Van, Jackie, OD 230 [place] [address] documented as of this encounter Visit Diagnoses Diagnosis Migraine, unspecified, not intractable, without status migrainosus documented in this encounter Additional Health Concerns Assessment Noted Time PHQ-9 Depression Total Score: 0 06/22/20 23 9:55 AM EST documented as of this encounter Care Teams Line Driver Relationship Specialty Start Date End Date Irma Brennan MD 230 [place] [address] PCP - General Family Medicine 11/09/18 documented as of this encounter
--- OUTSIDE RECORDS SUMMARY | 2024-11-06 17:09 | XMS_ITS | Encounter Summary ---
Author Organization [employer] Address [address] [facility] 7t [place] [address] Care Team Providers Care Practice Lead Name Role Phone Irma Brennan MD Primary Care Provide r Reason for Visit * Reason Comments Med Refill Encounter Details Date Type Department Care Team ([facility] st Contact Info) Description 06/02/2023 Refill [facility] [address] [place], [place] [phone] Irma Brennan MD 230 [place], [place] [phone] Acute low back pain, unspecified back pain [...] Description 11/30/2024 10:15 AM EDT Office Visit [facility] [address] [place] [address] Irma Brennan MD 230 [place] [address] 01/16/2025 2:30 PM EDT Office Visit [facility] OPTOMETRY [address] [place] [address] Van, Jackie, OD 230 [place] [address] documented as of this encounter Visit Diagnoses Diagnosis Acute low back pain, unspecified back pain laterality, unspecified whether sciatica present documented in this encounter Additional Health Concerns Assessment Noted Time PHQ-9 Depression Total Score: 21 023 10:05 AM EDT documented as of this encounter Care Teams Practice Lead Relationship Specialty Start Date End Date Irma Brennan MD [address] [place] [address] PCP - General Family Medicine 11/09/18 documented as of this encounter
--- OUTSIDE RECORDS SUMMARY | 2024-11-06 17:09 | XMS_ITS | Encounter Summary ---
Author Organization [employer] [facility] Address [address] [facility] 7t [place] [address] Care Team Providers Care Staffing Assistant Name Role Phone Irma Brennan MD Primary Care Provide r Reason for Visit * Reason Comments Med Refill Encounter Details Date Type Department Care Team (Late Contact Info) Description 12/07/2022 Refill [facility] MEDICINE 230 [place] [address] Eri Rodriguez MD 230 [place] [address] Seasonal allergic rhinitis, unspecified trigger Social History [...] Description 11/30/2024 10:15 AM EDT Office Visit [facility] MEDICINE 230 [place], [place] [phone] Irma Brennan MD 230 [place] [address] 01/16/2025 2:30 PM EDT Office Visit [facility] OPTOMETRY [address] [place], [place] [phone] Van, Jackie, OD 230 [place] [address] documented as of this encounter Visit Diagnoses Diagnosis Seasonal allergic rhinitis, unspecified trigger documented in this encounter Additional Health Concerns Assessment Noted Time PHQ-9 Depression Total Score: 21 023 10:05 AM EDT documented as of this encounter Care Teams Staffing Assistant Relationship Specialty Start Date End Date Irma Brennan MD 230 [place], [place] [phone] PCP - General Family Medicine 11/09/18 documented as of this encounter
--- OUTSIDE RECORDS SUMMARY | 2024-11-06 17:09 | XMS_ITS | Encounter Summary ---
Demographics Address [address] [facility] [address] [place] [address] Home Phone Mobile Phone Phone Phone Email Address Preferred Language Korean; Castilian Marital Status Latter Day Affiliation Unknown Race Unknown Ethnic Group or Author Organization [facility] [employer] and [facility] Address [address] [place] [address] Care Team Providers Care Window Shade Estimator Name Role Phone Irma Brennan MD Primary Care Provide r Encounter Details Date Type Department Care Team (Late st Contact Info) Description 07/11/2019 Scanned Document Neurosurgery at [address] [facility] 800 [place] [address] Provider, Historical . Social History Tobacco Use [...] on filedocumented in this encounter Care Teams Window Shade Estimator Relationship Specialty Start Date End Date Irma Brennan MD 230 [facility] 1 [place] [phone] PCP - General Internal Medicine 07/11/19 documented as of this encounter
--- OUTSIDE RECORDS SUMMARY | 2024-11-06 17:09 | XMS_ITS | Encounter Summary ---
Author Organization [employer] Address [address] [facility] 7t [place] [address] Care Team Providers Care Crew Caller Name Role Phone Irma Brennan MD Primary Care Provide r Reason for Visit * Reason Comments Med Refill Encounter Details Date Type Department Care Team ([facility] st Contact Info) Description 05/31/2023 Refill [facility] MEDICINE 230 [place], [place] [phone] Irma Brennan MD 230 [place], [place] [phone] Acute low back pain, unspecified back pain [...] Visit [facility] MEDICINE [address] [place] [address] Irma Brennan MD 230 [place] [address] 01/16/2025 2:30 PM EDT Office Visit [facility] OPTOMETRY [address] [place] [address] Van, Jackie, OD 230 [place] [address] documented as of this encounter Visit Diagnoses Diagnosis Acute low back pain, unspecified back pain laterality, unspecified whether sciatica present documented in this encounter Additional Health Concerns Assessment Noted Time PHQ-9 Depression Total Score: 21 023 10:05 AM EDT documented as of this encounter Care Teams Crew Caller Relationship Specialty Start Date End Date Irma Brennan MD 230 [place] [address] PCP - General Family Medicine 11/09/18 documented as of this encounter
--- OUTSIDE RECORDS SUMMARY | 2024-11-06 17:09 | XMS_ITS | Data Portability ---
Author Organization [facility] [employer] Address [address] [place] [address] Care Team Providers Care Filling And Packing Supervisor Name Role Phone HIM CCA OTHER Assessment [...] Assessment and Plan as documented by the Helpdesk Manager. Patient given the opportunity to ask questions. Our service contacted for an assessment of: Dizziness As per above, patient patient unable to give a history but does have a past medical history of hypertension. Lives alone and apparently her daughter lives next door who is the 1 who called for visit unfortunately we are unable to get touch with her. Patient is Slovak-speaking only and was communicated with via an translator/interpreter however there does appear to be some cognitive impairment precluding accurate history taking. She is able to state she has been dizzy for quite some period of time but denies falls although I see she fell and we evaluated her in the house in February of 2023. Per supervisor extrusion on the scene, she has orthostatic by [...] are by different prescribers as well. Per supervisor extrusion on the scene 1 of the the [...] and preferably with the daughter present. The supervisor extrusion has attempted to sort through the medications [...] BMP, serum or plasma [address], [phone] 4 14:50:21 Referral None recorded. Procedures None recorded. Surgeries None recorded. Imaging electrocard iogram [email or web address], [address] 4 13:45:22 Medication Orders ketorolac 15 mg/mL injection solution 2022 023 [email or web address] Not available 3 11:08:40 Patient TargetsNo targets recorded. Patient InstructionsNo instructions recorded. Reason for Referral None Reported. Results Created Date Observation Date Name Description Value Unit Range Abnormal Flag Note LastModifiedBy Organization Detail LastModifiedTime 12/28/19 24 12/28/2023 elect stuart orlando am No observ ation record ed. [facility] - [address], [phone] 12/28/2023 12:44:49 Result Notes None recorded. Procedures Surgical History None recorded. Imaging Results Imaging Date Name Status LastModified by Organization Details LastModified Time 12/28/2023 electrocardiogram completed [facility] - [address], [phone] 12/28/2023 12:44:49 Procedure Notes None recorded. Medical [...] % 97.4 [degF] 157.48 cm 84 /min 52837 g 18 /min 142 mm[Hg] 84 mm[Hg] Not Available [facility] 3 10:50:30 Date Recorded Respiratory rate Oxygen [...] mm[Hg] 92 mm[Hg] 66 mm[Hg] Not Available [facility] 4 10:41:25 Social History None recorded. Functional Status None recorded. Mental Status None recorded. Family History Nothing Reported. Medical History No medical history recorded. Gynecological HistoryNo gynecological history recorded. Obstetrics History GPAL:G 0 P 0 0 0 0 Past Encounters Encounter ID Performer Location Encounter Start Date Encounter Closed Date Diagnosis/Indication Diagnosis SNOMED-CT Code Diagnosis ICD10 Code Diagnosis Note [id number] Denise Mcgarry MD [facility] [address] [place] [phone] 02/05/2023 10:47:03 11/03/2024 12:58:28 Fall W19.XXXA [id number] Janis Ellis MD [facility] [address] [place] [phone] 12/28/2023 10:41:08 12/28/2023 16:17:45 Chronic orthostatic hypotension 21039976 I95.1 Health Concerns Section Related Observation LastModified by Organization Detai ls LastModified Time None Recorded Concern Status LastModified by Organization Details LastModified Time None Recorded Advance Directives Directive None Recorded Payers Encounter Date Sequence Insurance Name Policy Number Policy Felix Covered Member ID Felix Member ID Guarantor Name 02/05/2023 1 [facility] - DOS ON OR AFTER 2022 - DUAL ELIGIBLE - [employer] AND ONE CARE (MEDICARE REPLACEMENT/ADV ANTAGE - HMO) Shellie Jackson [id number] Shellie Jackson 12/28/2023 1 [facility] - DOS ON OR AFTER 2022 - DUAL ELIGIBLE - [employer] AND ONE CARE (MEDICARE REPLACEMENT/ADV ANTAGE - HMO) Shellie Jackson [id number] Shellie Jackson Notes Date Note Type Note Provider Name and Address Organization Details Recorded Time 02/05/2023 text/html HPI: 82 Year old, female, Slovak speaking, reporting a fall on 02/01/2023, went to [facility] and left AMA after waiting for hrs, [...] .................... .................... .................... .................... .................... .................... . Helpdesk Manager Note From Yasir Reyna: Pt caox3 complains [...] noted. Red flags and pt education discussed. [facility] Medication Orders: ketorolac 15 mg/mL injection solution: Administered Comment: pain decreased .................... .................... .................... .................... .................... .................... .................... . Disposition: Fulfilled Denise Mcgarry MD [address] [place] [address],[address], [place], [phone] 02/05/2023 15:53:19 12/28/2023 text/html HPI: HX: DM,LOONEY, GERD,MIGRAINE: CKD; HTN; IMPAIRED BALANCE.Patient with complaint of sever headache and dizziness yesterday. Takes med for Migraines Daughter unable to identify. Remains dizzy off balance and not walking well. PCP for new provider .................... .................... .................... .................... .................... .................... .................... . [facility] Nurse Triage Notes (Jeimy Watson): Comments: Reviewed HPI and will place referral Hpatterson RNDAughter called and wanted visit r/s , Mother is asleep .................... .................... .................... .................... .................... .................... .................... . Baseline Information: Baseline Hb: 10.4 g/dL Baseline HCt: 30% Baseline Creatinine: 1.63 mg/dL .................... .................... .................... .................... .................... .................... .................... . Helpdesk Manager Note From Km Lai: Pt is an 83 Slovak speaking female who lives alone (daughter lives [...] Fulfilled Janis Ellis MD [address] [facility],[address], [place], [phone], [facility] 12/28/2023 10:55:15 OBGyn Episode No OBEpisode recorded.
--- OUTSIDE RECORDS SUMMARY | 2024-11-06 17:09 | XMS_ITS | Encounter Summary ---
Author Organization [employer] [facility] Address [address] [facility] 7t [place] [address] Care Team Providers Care Child Nutrition Director Name Role Phone Irma Brennan MD Primary Care Provide r Reason for Visit * Reason Onset Date Comments Triage 09/23/2022 Encounter Details Date Type Department Care Team ([facility] st Contact Info) Description 09/23/2022 Telephone [facility] MEDICINE 230 [place], [place] [phone] Irma Brennan MD 230 [place], [place] [phone] Triage Social History Tobacco Use Types Packs/Day [...] accepted this outcome Please contact pt at [phone] Maltese Speaker documented in this encounter Plan of Treatment Upcoming Encounters Date Type Department Care Team (Late st Contact Info) Description 11/30/2024 10:15 AM EDT Office Visit [facility] MEDICINE 230 [place] [address] Irma Brennan MD 230 [place] [address] 01/16/2025 2:30 PM EDT Office Visit [facility] OPTOMETRY [address] [place], [place] [phone] Jackie Araujo, OD 230 [place] [address] documented as of this encounter Visit Diagnoses Not on filedocumented in this encounter Care Teams Child Nutrition Director Relationship Specialty Start Date End Date Irma Brennan MD 230 [place] [address] PCP - General Family Medicine 11/09/18 documented as of this encounter
--- OUTSIDE RECORDS SUMMARY | 2024-11-06 17:09 | XMS_ITS | Encounter Summary ---
Demographics Address [address] [facility] [address] [place] [address] Home Phone Preferred Language es Marital Status Unknown Mandaen Affiliation Unknown Race White Ethnic Group Unknown Author Organization [facility], Address [address] [place] [address] Phone Care Team Providers Care Family Law Legal Assistant Name Role Phone Irma Brennan MD Primary Care Provide r Encounter Details Date Type Department Care Team (Late st Contact Info) Description 02/24/2023 Documentation Only [facility], [address] [place] [address] Irma Brennan MD 230 [facility] 1 [place] [address] Social History Tobacco Use Types [...] in this encounter Care Teams Family Law Legal Assistant Relationship Specialty Start Date End Date Irma Brennan MD [address] [facility] 1 [place] [address] PCP - General Internal Medicine 02/23/23 documented as of this encounter
--- OUTSIDE RECORDS SUMMARY | 2024-11-06 17:09 | XMS_ITS | Encounter Summary ---
Author Organization [employer] Address [address] [facility] 7t [place] [address] Care Team Providers Care Law Firm Consultant Name Role Phone Irma Brennan MD Primary Care Provide r Reason for Visit * Reason Onset Date Comments Appointment Request 10/28/2023 Encounter Details Date Type Department Care Team ([facility] st Contact Info) Description 10/28/2023 Telephone [facility] MEDICINE 230 [place], [place] [phone] Irma Brennan MD 230 [place], [place] [phone] Appointment Request Social History Tobacco Use Types [...] like a call back to reschedule appt job specification writer did attempt to schedule however they refused and would like a Televisit appt instead documented in this encounter Plan of Treatment Upcoming Encounters Date Type Department Care Team (Late st Contact Info) Description 11/30/2024 10:15 AM EDT Office Visit [facility] MEDICINE 230 [place] [address] Irma Brennan MD 230 [place] [address] 01/16/2025 2:30 PM EDT Office Visit [facility] OPTOMETRY [address] [place] [address] Van, Jackie, OD 230 [place] [address] documented as of this encounter Visit Diagnoses Not on filedocumented in this encounter Additional Health Concerns Assessment Noted Time PHQ-9 Depression Total Score: 0 06/22/20 23 9:55 AM EST documented as of this encounter Care Teams Law Firm Consultant Relationship Specialty Start Date End Date Irma Brennan MD 230 [place] [address] PCP - General Family Medicine 11/09/18 documented as of this encounter
--- OUTSIDE RECORDS SUMMARY | 2024-11-06 17:09 | XMS_ITS | Encounter Summary ---
Author Organization [employer] Address [address] [facility] 7t [place] [address] Care Team Providers Care Supervisor Costuming Name Role Phone Irma Brennna MD Primary Care Provide r Reason for Visit * Reason Onset Date Comments Nurse Triage 12/27/2023 Encounter Details Date Type Department Care Team ([facility] st Contact Info) Description 12/27/2023 Telephone [facility] 230 [place], [place] [phone] Irma Brennan MD 230 [place], [place] [phone] Nurse Triage Social History Tobacco Use Types [...] neurology referral The caller accepted this outcome Mongolian speaker documented in this encounter Plan of Treatment Upcoming Encounters Date Type Department Care Team (Late st Contact Info) Description 11/30/2024 10:15 AM EDT Office Visit [facility] 230 [place] [address] Irma Brennan MD 230 [place] [address] 01/16/2025 2:30 PM EDT Office Visit [facility] OPTOMETRY [address] [place] [address] Van, Jackie, OD 230 [place] [address] documented as of this encounter Visit Diagnoses Not on filedocumented in this encounter Additional Health Concerns Assessment Noted Time PHQ-9 Depression Total Score: 0 06/22/20 23 9:55 AM EST documented as of this encounter Care Teams Supervisor Costuming Relationship Specialty Start Date End Date Irma Brennan MD 230 [place] [address] PCP - General Family Medicine 11/09/18 documented as of this encounter
--- OUTSIDE RECORDS SUMMARY | 2024-11-06 17:09 | XMS_ITS | Clinical Summary ---
Author Organization [facility] Address [address] [facility] [address] [place] [address] Phone Care Team Providers Care Concaving Machine Operator Name Role Phone Irma Brennan [...] Due Date Last Done Comments Pneumococcal Vaccine: 50+ Ye ars (1 of 2 - PCV) 1959 Influenza Vaccine (Season Ended) 2025 Hepatitis B Vaccine Aged Out No longe r eligible based on patient's age to complete this topic Insurance [facility] [place] [facility] ([id number]) [employer] Dual SNP ([id number]) [place] [phone] Care Teams Concaving Machine Operator Relationship Specialty Start Date End Date Irma Brennan MD [address] [place] [address] [place] [phone] PCP - General Internal Medicine 02/23/23
--- OUTSIDE RECORDS SUMMARY | 2024-11-06 17:09 | XMS_ITS | Encounter Summary ---
Author Organization [employer] Address [address] [facility] 7t [place] [address] Care Team Providers Care Logistics Technician Name Role Phone Irma Brennan MD Primary Care Provide r Encounter Details Date Type Department Care Team ([facility] st Contact Info) Description 12/31/2023 Orders Only [facility] MEDICINE 230 [place], [place] [phone] Irma Brennan MD 230 [place], [place] [phone] Type 2 diabetes mellitus without complication, unspecified whether residential insulin use ([facility]) Social History Tobacco Use Types Packs/Day [...] Description 11/30/2024 10:15 AM EDT Office Visit [facility] [address] [place] [address] Irma Brennan MD 230 [place] [address] 01/16/2025 2:30 PM EDT Office Visit [facility] OPTOMETRY [address] [place] [address] Van, Jackie, OD 230 [place] [address] documented as of this encounter Visit Diagnoses Diagnosis Type 2 diabetes mellitus without complication, unspecified whether termite treater helper insulin use ([facility]) documented in this encounter Additional Health Concerns Assessment Noted Time PHQ-9 Depression Total Score: 0 06/22/20 23 9:55 AM EST documented as of this encounter Care Teams Logistics Technician Relationship Specialty Start Date End Date Irma Brennan MD [address] [place] [phone] PCP - General Family Medicine 11/09/18 documented as of this encounter
--- OUTSIDE RECORDS SUMMARY | 2024-11-06 17:09 | XMS_ITS | Clinical Summary ---
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 1 each 024 Active amLODIPine (Norvasc) 5 MG tabletIndications: Essential hypertension Take 1 tablet (5 mg) by mouth Once per day. 30 tablet 1 024 2024 Active ondansetron ODT (Zofran-ODT) 8 MG disintegrating tabletIndications: Chronic gastritis without bleeding, unspecified gastritis type,Nausea DISSOLVE 1 TABLET BY MOUTH EVERY 8 HOURS NEEDED FOR NAUSEA AND VOMITING 30 tablet 1 024 Active PARoxetine (Paxil) 40 MG tablet TAKE 1 TABLET BY MOUTH EVERY DAY 90 tablet 1 024 Active fluticasone (Flonase) 50 MCG/ACT nasal sprayIndications:R hinitis, unspecified type INSTILL 1-2 SPRAYS IN EACH NOSTRIL ONCE DAILY NEEDED 48 g 1 025 Active Aspirin Low Dose 81 MG EC tablet TAKE 1 TABLET BY MOUTH EVERY DAY IN THE MORNING 90 tablet 1 025 Active ferrous gluconate (Fergon) 324 (38 Fe) MG tabletIndications: Anemia due to stage 3b chronic kidney disease ([facility]) TAKE 1 TABLET BY MOUTH EVERY OTHER DAY 45 tablet 1 025 Active levothyroxine (Synthroid, Levoxyl) 50 MCG tabletIndications: Acquired hypothyroidism TAKE 1 TABLET BY MOUTH EVERY MORNING 90 tablet 3 025 Active topiramate (Topamax) 25 MG tabletIndications: Chronic migraine without aura without status migrainosus, not intractable TAKE 1 TABLET BY MOUTH AT BEDTIME 30 tablet 1 025 Active glimepiride (Amaryl) 1 MG tabletIndications: Type 2 diabetes mellitus without complication, unspecified whether correction insulin use ([facility] [place]) TAKE 1 TABLET BY MOUTH EVERY DAY IN THE MORNING BEFORE BREAKFAST 30 tablet 2 025 Active famotidine (Pepcid) 40 MG tabletIndications: Nausea TAKE 1 TABLET BY MOUTH TWICE DAILY 60 tablet 2 025 Active glucose blood (FREESTYLE LITE) test stripIndications:T ype 2 diabetes mellitus with diabetic peripheral angiopathy without gangrene, 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 ([facility] [place]) TEST BLOOD SUGAR TWICE DAILY 100 strip 11 025 Active TRUEplus Lancets 33G miscIndications:Ty pe 2 diabetes mellitus with diabetic peripheral angiopathy without gangrene, unspecified whether correction insulin use ([facility]) TEST BLOOD SUGAR TWICE DAILY 100 each 025 Active glucose blood (FREESTYLE LITE) test stripIndications:T ype 2 diabetes mellitus with diabetic peripheral angiopathy without gangrene, 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 ([facility]) TEST BLOOD SUGAR TWICE DAILY 100 strip 11 024 2024 Discontinued(R eorder (will not trigger notification to Pharmacy)) TRUEplus Lancets 33G miscIndications:Ty pe 2 diabetes mellitus with diabetic peripheral angiopathy without gangrene, 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 ([facility]) TEST BLOOD SUGAR TWICE DAILY 100 each 11 024 2024 Discontinued(R eorder (will not trigger notification to Pharmacy)) glimepiride (Amaryl) 1 MG tabletIndications: Type 2 diabetes mellitus without complication, unspecified whether correction insulin use ([facility]) TAKE 1 TABLET BY MOUTH EVERY DAY BEFORE BREAKFAST 30 tablet 2 025 2024 Discontinued famotidine (Pepcid) 40 MG tabletIndications: Nausea TAKE 1 TABLET BY MOUTH TWICE DAILY 60 tablet 2 025 2024 Discontinued Active Problems Problem Noted Date [...] injury superimp osed on chronic kidney disease ([facility]/HCC) 02/16/2023 Assessment & Plan (05/06/2023 5:07 PM EDT): -Apparently resolved. Dancing Master regarding hydration, check prior to next appointment. [...] and fu w PCP May/ not need SOFTWARE QUALITY ASSURANCE SPECIALIST, needs OV to evaluate risk and need for assistance at home Pain in lower back 02/16/2023 Anemia due to chronic kidney disease 02/16/2023 Depression with anxiety 02/16/2023 Assessment & Plan (02/16/2023 12:19 PM EDT): Counseling done patient will benefit form therapist and psychiatrist Chronic gastritis 10/05/2022 Assessment & Plan (01/14/2024 3:08 PM EDT): Continue to follow with GI Zofran prescribed today Assessment & Plan (08/06/2023 11:18 [...] with PCP in 3 weeks - debt management counselor daughter and patient small and fractioned [...] Encounters Date Type Department Care Team Description 11/06/2024 Orders Only GENERIC EXTERNAL DATA DEPARTMENT Provider, Generic External Data 11/02/2024 Refill [facility] [address] [place] [address] Irma Brennan MD Type 2 diabetes mellitus with diabetic peripheral angiopathy without gangrene, unspecified whether correction insulin use ([facility]) 10/19/2024 Refill [facility] [address], [place] [phone] Irma Brennan MD Type 2 diabetes mellitus without complication, unspecified whether correction insulin use ([facility]); Nausea 09/21/2024 Refill [facility] [address] [place] [address] Irma Brennan MD Chronic migraine without aura without status migrainosus, not intractable 09/11/2024 Refill [facility] [address], [place] [phone] Irma Brennan MD Acquired hypothyroidism 09/08/2024 Telephone [facility] [address], [place] [phone] Irma Brennan MD Appointment Request from Last 3 Months Immunizations Name Administration [...] Description 11/30/2024 10:15 AM EDT Office Visit [facility] [address] [place] [address] Irma Brennan MD [address] [place] [address] 01/16/2025 2:30 PM EDT Office Visit [facility] [address] [place] [address] Jackie Araujo, OD [address] [place] [address] Health Maintenance Due Date Last Done Comments [...] TROPONIN I Routine 11/06/2024 1:08 PM EDT APTT Routine 11/06/2024 1:08 PM EDT PROTHROMBIN TIME-INR Routine 11/06/2024 1:08 PM EDT LIPASE Routine 11/06/2024 1:08 PM EDT COMPREHENSIVE METABOLIC PANEL Routine 11/06/2024 1:08 PM EDT CBC WITH AUTO DIFFERENTIAL Routine 11/06/2024 1:08 PM EDT SARS COV2/INFLUENZA A/B AND RSV RNA QL NAAT Routine 11/06/2024 1:[address] HEAD WO CONTRAST Routine 11/06/2024 1 2:39 PM EDT HEMOGLOBIN A1C Routine 05/04/2024 9:36 AM EDT 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 11/06/2024 1:08 PM EDT 11/06/2024 1:11 PM EDT us Generic External Data Provider LAB BLOOD ORDERAB LES Final Result [facility] [address] [place] [phone] * SARS-CoV-2 RNA, Influenza A/B, and RSV RNA, Ql NAAT (11/06/2024 1:08 PM EDT) Pathologist [facility] [place] Influenza A PCR NEGATIVE Negative [facility] Influenza B PCR NEGATIVE Negative [facility] Resp Syncy Virus RNA Qual PCR NEGATIVE Negative [facility] SARS COV2 PCR NEGATIVE Negative [facility] Comment:All test results mus t [...] use by authorized laboratories.Testing performed on the [employer] GeneXpert utilizingreal-time RT-PCR.All SARS CoV2 and positive influenza A/B results arereported to [facility]. 11/06/2024 1:08 PM EDT 11/06/2024 1:11 PM EDT us Generic External Data Provider LAB MICROBIOLOGY - GENERAL ORDERABLES Final Result [facility] [address] [place] [phone] * (ABNORMAL) CBC auto differential (11/06/2024 1:08 PM EDT) White Blood Count 4.5(L) 4.8 - 10.8 X10*3/uL [facility] Red Blood Count 3.36(L) 4.20 - 5.50 X10*6/uL [facility] Hemoglobin 10.7(L) 12.0 - 16.0 g/dl [facility] Hematocrit 32.4(L) 37.0 - 47.0 % [facility] Mean Corpuscular Volume 96.4 80.0 - 98.0 fL [facility] Mean Corpuscular Hemoglobin 31.8 27.0 - 33.0 pg [facility] Mean Corpuscular HGB Conc 33.0 31.0 - 35.0 g/dl [facility] Red Cell Distribution Width 14.0 11.0 - 16.0 % [facility] Platelet Count 164 160 - 400 X10*3/uL [facility] Mean Platelet Volume 9.6 9.4 - 12.3 fL [facility] Neutrophils Percent Auto 62.4 45 - 73 % [facility] Imm Gran Pct Auto 0.0 0.0 - 0.4 % [facility] Lymphocytes Percent Auto 24.2 20 - 40 % [facility] Monocytes Percent Auto 11.9(H) 2 - 11 % [facility] Eosinophils Percent Auto 1.3 0 - 4 % [facility] Basophils Percent Auto 0.2 0 - 2 % [facility] NRBC Pct Auto 0.0 0.0 - 0.2 /100WBC [facility] Neutrophils Absolute Auto 2.8 2.0 - 8.3 x10*3/uL [facility] Imm Gran Abs Auto 0.00 0.00 - 0.03 X10*3/uL [facility] Lymphocytes Absolute Auto 1.1(L) 1.2 - 4.9 X10*3/uL [facility] Monocytes Absolute Auto 0.5 0.1 - 1.2 X10*3/uL [facility] Eosinophils Absolute Auto 0.1 0.0 - 0.4 X10*3/uL [facility] Basophils Absolute Auto 0.0 0.0 - 0.2 X10*3/uL [facility] NRBC Abs Auto 0.000 0.0 - 0.012 X10*3/uL [facility] 11/06/2024 1:08 PM EDT 11/06/2024 1:11 PM EDT us Generic External Data Provider LAB BLOOD ORDERAB LES Final Result Performing Organization Address [facility]/ZIP Co de Phone Number [facility] [address] [place] [phone] * Partial Thromboplastin Time, Activated (APTT) (11/06/2024 1:08 PM EDT) Partial Thromboplastin Time 28.7 26.0 - 36.8 SEC [facility] Comment:For information rega rding the monitoring of direct thrombininhibitors, please refer to Pharmacy. 11/06/2024 1:08 PM EDT 11/06/2024 1:11 PM EDT us Generic External Data Provider LAB BLOOD ORDERAB LES Final Result Performing Organization Address City/[facility]/ZIP Co de Phone Number [facility] [address] [place] [phone] * Prothrombin Time-INR (11/06/2024 1:08 PM EDT) [facility] Prothrombin Time 11.6 10.9 - 12.4 SEC [facility] INTERNATIONAL NORM RATIO 1.0 0.9 - 1.1 [facility] Comment:INTERNATIONAL NORMAL IZED RATIO (INR) [...] ORDERAB LES Final Result Performing Organization Address [facility] de Phone Number [facility] [address] [place] [phone] * Lipase (11/06/2024 1:08 PM EDT) [facility] Lipase 33 8 - 78 U/L [facility] 11/06/2024 1:08 PM EDT 11/06/2024 1:11 PM EDT Generic External Data Provider LAB BLOOD ORDERAB LES Final Result Performing Organization Address [facility] de Phone Number [facility] [address] [place] [phone] * (ABNORMAL) Comprehensive Metabolic Panel (11/06/2024 1:08 PM EDT) [facility] Sodium 140 135 - 145 mmol/L [facility] Potassium 4.2 3.3 - 5.1 mmol/L [facility] Chloride 109(H) 96 - 108 mmol/L [facility] Carbon Dioxide 24 22 - 29 mmol/L [facility] Anion Gap 11(L) 12 - 20 [facility] Urea Nitrogen (BUN) 27(H) 9 - 16 mg/dL [facility] Creatinine, Serum 1.88(H) 0.5 - 1.4 mg/dL [facility] Creatinine Clr Calc Pharmacy 20.3 [facility] Comment:Provided height and weight: 160.02 cm,63.503 kg.eGFR (calculated from the MDRD study equation) and eCrCl(calculated from the Cockcroft-Gault equation) are based ondifferent parameters and may not yield comparable results.If eCrCl result is absurd, please check patient'sheight/weight. Estimated Glomerular Filt Rate 26 [facility] Comment:Chronic Kidney Disea se: Estimated GFR < 60 mL/min/[id number] Kidney Disease: Estimated GFR < 15 mL/min/1.73m2 Glucose 81 60 - 115 mg/dL [facility] Calcium 10.0 8.4 - 10.2 mg/dL [facility] Bilirubin, Total 0.4 0.0 - 1.0 mg/dL [facility] Aspartate Amino Transferase 25 5 - 31 U/L [facility] Alanine Aminotransferase 16 0 - 31 U/L [facility] Total Protein 7.4 6.5 - 8.0 g/dL [facility] Albumin Level 4.1 3.5 - 5.0 g/dL [facility] Alkaline Phosphatase 59 39 - 117 U/L [facility] 11/06/2024 1:08 PM EDT 11/06/2024 1:11 PM EDT us Generic External Data Provider LAB BLOOD ORDERAB LES Final Result [facility] [address] [place] [phone] * CT Head w/o Contrast (11/06/2024 12:39 PM EDT) Anatomical Region Laterality Modality Head, Neck Computed Tomogra phy 11/06/2024 12:3 9 PM EDT Narrative 11/06/2024 2:24 PM EDT ? [facility] ?[address] ?[place] [address] ? CT Scan Report ? Signed ? Patient: Manuel,Shellie ?MR#: [id number] ?? [id number] ? : 1940 ?Acct:[id number] ? Age/Sex: 84 / F ?ADM Date: 11/06/24 ? Loc: HO.ED ? Attending Dr: ? Ordering Physician: Vj Jones ?? Date of Service: 11/06/24 ?? Procedure(s): CT head/brain wo IV con ?? Accession Number(s): [id number] ? cc: Vj Jones; Irma Brennan MD ? Report Number: ?? [id number]: Total DLP = ??539.00 mGy-cm ?? EXAMINATION: [...] DD/ 1239 ? TD/TT: 11/06/24 1350 ? Child Protective Services Social Worker: ? Procedure Note Fred, Image - 11/06/[address] [place] [address] [address] Scan Report Signed Patient: Shellie JacksonMR#: [id number] : 2Acct:[id number] Age/Sex: 84 / FADM Date: 11/06/24 Loc: HO.ED Attending Dr: Ordering Physician: Vj Jones Date of Service: 11/06/24 Procedure(s): CT head/brain wo IV con Accession Number(s): [id number] cc: Vj Jones; Irma Brennan MD Report Number: [id number]: Total DLP = 539.00 mGy-cm EXAMINATION: CT [...] 11/06/24 1421 DD/ 1239 TD/TT: 11/06/24 1350 Child Protective Services Social Worker: [facility] External Provider IMG CT PROCEDURES Final Result * (ABNORMAL) Hemoglobin A1c (05/04/2024 9:36 AM EDT) Hemoglobin A1c 6.1(H) <6.0 % [facility] Comment:Hemoglobin A1C Refer ence Range Adults: 4.8 - 6.0 % Non diabetic: < 6.0 % Goal: < 7.0 %Additional Action Suggested: > 8.0 %Note: Hemoglobin A1c results are invalid for patients with abnormal amounts of HbF. Blood transfusions may impact the HbA1c concentration in the patient sample. Estimated Average Glucose 128 mg/dL [facility] Comment:eAG = Estimated ave rage glucose which is %A1C expressed asaverage glucose, using the formula of the [id number] Glucose study (ADAG), Diabetes Care, Vol.31,#8,Feb. 2007 Blood Venous blood specimen / Unknown 05/04/2024 9:36 AM EDT 05/04/2024 9:38 AM EDT us Irma Alexander MD LAB BLOOD ORDERABLES Final Result [facility] [address] [place] [phone] [phone] * (ABNORMAL) LIPID PANEL, STANDARD (08/15/2021 [...] ?? LDL-C is now calculated using the Vishal-Joe ?? calculation, which is a validated novel method providing ?? better accuracy than the Friedewald equation in the ?? estimation of LDL-C. ?? Vishal THOMAS et al. GARCÍA. 2013;310(19): 0444-2474 ?? (http://education.TapTrak.com/faq/NUT155) Non-HDL Cholesterol 160(H) <130 mg/dL (calc) [facility] Comment: For patients with diabetes plus 1 major ASCVD risk ?? factor, treating to a non-HDL-C goal of <100 mg/dL ?? (LDL-C of <70 mg/dL) is considered a therapeutic ?? option. Triglycerides 78 <150 mg/dL [facility] 08/15/2021 3:16 PM EST us Irma Alexander MD LAB BLOOD ORDERABLES Final Result [facility] [address] from Last 3 Months or Most Recently Relevant to Health Maintenance Insurance STANDARD * Guarantor: Shellie Jackson Account Type Relation to Patient Date of Phone Billing Address Personal/Family Self [address] Care Teams Photographic Developer And Printer Relationship Specialty Start Date End Date Irma Brennan MD [address] [place] [address] PCP - General Family Medicine 11/09/18
== END 2024-11-06 17:20 | disposition home or self-care (01) ==
PROVIDERS: Physician Assistant; Emergency Provider Emergency Medicine; PCP Internal Medicine
DX: R51.9 Headache, unspecified (principal); R42 Dizziness and giddiness; R10.9 Unspecified abdominal pain; E11.22 Type 2 diabetes mellitus with diabetic chronic kidney disease; I12.9 Hypertensive chronic kidney disease with stage 1 through stage 4 chronic kidney disease, or unspecified chronic kidney disease; N18.9 Chronic kidney disease, unspecified; R11.0 Nausea; Z79.899 Other long term (current) drug therapy
CPT/HCPCS: 0241U; 70450; 80053; 83690; 84484; 85025; 85610; 85730; 93005; 99283; 99284

== ENCOUNTER → 2024-11-06 12:39 | Outpatient (BNV) | payer OTHER, SELFPAY | PROVIDERS: PCP Internal Medicine; Visit Provider Radiology Diagnostic Radiology | DX: R51.9 Headache, unspecified (principal) | CPT/HCPCS: 70450 ==

== ENCOUNTER → 2024-11-06 12:39 | Outpatient (BNV) | payer OTHER, SELFPAY | PROVIDERS: Emergency Provider Emergency Medicine; PCP Internal Medicine; Visit Provider Internal Medicine | DX: R00.1 Bradycardia, unspecified (principal) | CPT/HCPCS: 93010 ==

== ENCOUNTER 2025-01-30 08:59 | Outpatient (REF) | payer OTHER, SELFPAY ==
[2025-01-30 09:12] LABS: MANUAL DIFF FLAG NO
--- OUTSIDE RECORDS SUMMARY | 2025-01-30 09:20 | XMS_ITS | Encounter Summary ---
Author Organization [employer] Address [address] [facility] [address] [place] [address] Care Team Providers Care Bulb Planter Name Role Phone Irma Brennan MD Primary Care Provide r Reason for Visit * Reason Comments Med Refill Encounter Details Date Type Department Care Team ([facility] st Contact Info) Description 05/18/[address] [facility] [address] [place], [place] [phone] Irma Brennan MD [address] [place], [place] [phone] Controlled type 2 diabetes mellitus with microalbuminuric [...] documented as of this encounter Care Teams Bulb Planter Relationship Specialty Start Date End Date Irma Brennan MD [address] [place] [address] PCP - General Family Medicine 11/09/18 documented as of this encounter
--- OUTSIDE RECORDS SUMMARY | 2025-01-30 09:20 | XMS_ITS | Encounter Summary ---
Demographics Address [address] [place] [address] Home Phone Preferred Language es Marital Status Unknown Roman Catholic Affiliation Unknown Race White Ethnic Group Unknown Author Organization [facility], Address [address] [place] [address] Phone Care Team Providers Care Lumber Tying Machine Operator Name Role Phone Irma Brennan MD Primary Care Provide r Encounter Details Date Type Department Care Team (Late st Contact Info) Description 02/24/2023 Documentation Only [facility], [address] [place] [phone] Irma Brennan MD [address] [facility] [address] [place] [phone] Social History Tobacco Use Types [...] on filedocumented in this encounter Care Teams Lumber Tying Machine Operator Relationship Specialty Start Date End Date Irma Brennan MD [address] [facility] [address] [place] [phone] PCP - General Internal Medicine 02/23/23 documented as of this encounter
--- OUTSIDE RECORDS SUMMARY | 2025-01-30 09:20 | XMS_ITS | Data Portability ---
Author Organization [facility] Address [address] [place] [address] Care Team Providers Care Materials Handling Coordinator Name Role Phone HIM CCA OTHER Assessment [...] Assessment and Plan as documented by the Hybrid Powertrain Development Engineer. Patient given the opportunity to ask questions. Our service contacted for an assessment of: Dizziness As per above, patient patient unable to give a history but does have a past medical history of hypertension. Lives alone and apparently her daughter lives next door who is the 1 who called for visit unfortunately we are unable to get touch with her. Patient is Icelandic-speaking only and was communicated with via an physician internist however there does appear to be some cognitive impairment precluding accurate history taking. She is able to state she has been dizzy for quite some period of time but denies falls although I see she fell and we evaluated her in the house in February of 2023. Per electrical laboratory technician on the scene, she has orthostatic by [...] are by different prescribers as well. Per electrical laboratory technician on the scene 1 of the the [...] and preferably with the daughter present. The electrical laboratory technician has attempted to sort through the medications [...] BMP, serum or plasma [email or web address], [id number] 4 14:50:21 Referral None recorded. Procedures None recorded. Surgeries None recorded. Imaging electrocard iogram [email or web address], [id number] 4 13:45:22 Medication Orders ketorolac 15 mg/mL injection solution 2022 023 [email or web address] Not available 3 11:08:40 Patient TargetsNo targets recorded. Patient InstructionsNo instructions recorded. Reason for Referral None Reported. Results Created Date Observation Date Name Description Value Unit Range Abnormal Flag Note LastModifiedBy Organization Detail LastModifiedTime 12/28/19 24 12/28/2023 elect stuart diogr am No observ ation record ed. [email or web address] [address] [place] [address], [phone] 12/28/2023 12:44:49 Result Notes None recorded. Medical Equipment None Reported. [...] Available N ot Available Vitals Date Recorded Respiratory rate Oxygen saturation Oxygen saturation in Arterial blood by Pulse oximetry Heart rate Body temperature Heart rate Systolic And Diastolic Systolic And Diastolic Provider Name and Address Organization Details Last Updated DateTime 4 16 /min 98 % 98 % 89 /min 98 [degF] 100 /min 123/79 mm[Hg] 92/66 mm[Hg] Not Available [facility] 4 10:41:25 Date Recorded Oxygen saturation Oxygen saturation in Arterial blood by Pulse oximetry Body temperature Body height Heart rate Body weight Respiratory rate Systolic And Diastolic Provider Name and Address Organization Details Last Updated DateTime 3 98 % 98 % 97.4 [degF] 157.48 cm 84 /min 57670 g 18 /min 142/84 mm[Hg] Not Available [facility] 3 10:50:30 Social History None recorded. Functional Status None recorded. Mental Status None recorded. Family History Nothing Reported. Medical History No medical history recorded. Gynecological HistoryNo gynecological history recorded. Obstetrics History GPAL:G 0 P 0 0 0 0 Past Encounters Encounter ID Performer Location Encounter Start Date Encounter Closed Date Diagnosis/Indication Diagnosis SNOMED-CT Code Diagnosis ICD10 Code Diagnosis Note [id number] Denise Mcgarry MD [facility] [address] [place] [phone] 02/05/2023 10:47:03 11/03/2024 12:58:28 Fall W19.XXXA [id number] Janis Ellis MD [facility] [address] [place] [id number] 12/28/2023 10:41:08 12/28/2023 16:17:45 Chronic orthostatic hypotension 71936234 I95.1 Health Concerns Section Related Observation LastModified by Organization Detai ls LastModified Time None Recorded Concern Status LastModified by Organization Details LastModified Time None Recorded Advance Directives Directive None Recorded Payers Insurance Date Sequence Insurance Name Policy Number Policy Felix Covered Member ID Felix Member ID Guarantor Name 11/03/2024 1 [facility] - DOS PRIOR TO 2022 - DUAL ELIGIBLE (MEDICARE REPLACEMENT/ADV ANTAGE - HMO) Shellie Jackson [id number] Shellie Jackson 11/03/2024 1 [facility] - DOS ON OR AFTER 2022 - DUAL ELIGIBLE - [facility] OPTIONS AND ONE CARE (MEDICARE REPLACEMENT/ADV ANTAGE - HMO) Shellie Jackson [id number] Shellie Jackson OBGyn Episode No OBEpisode recorded.
[2025-01-30 09:40] LABS: Hematocrit 33.4 % (37.0-47.0); Hemoglobin 10.8 g/dl (12.0-16.0); Imm Gran Abs Auto 0.01 X10*3/uL (0.00-0.03); Imm Gran Pct Auto 0.2 % (0.0-0.4); Lymphocytes Absolute Auto 1.2 X10*3/uL (1.2-4.9); Mean Corpuscular HGB Conc 32.3 g/dl (31.0-35.0); Mean Corpuscular Hemoglobin 31.7 pg (27.0-33.0); Mean Corpuscular Volume 97.9 fL (80.0-98.0); NRBC Abs Auto 0.000 X10*3/uL (0.0-0.012); NRBC Pct Auto 0.0 /100WBC (0.0-0.2); Platelet Count 228 X10*3/uL (160-400); Red Blood Count 3.41 X10*6/uL (4.20-5.50); White Blood Count 4.7 X10*3/uL (4.8-10.8)
[2025-01-30 10:38] LABS: Parathyroid Hormone Intact 98.3 pg/mL (8.7-77.1)
[2025-01-30 10:40] LABS: Anion Gap 14 (12-20); Blood Urea Nitrogen 22 mg/dL (9-16); Calcium 9.9 mg/dL (8.4-10.2); Carbon Dioxide 21 mmol/L (22-29); Chloride 114 mmol/L (96-108); Estimated Glomerular Filt Rate 25; Potassium 4.7 mmol/L (3.3-5.1); Sodium 144 mmol/L (135-145)
== END 2025-01-30 09:00 | disposition home or self-care (01) ==
LOC: HO.LAB 08:59
PROVIDERS: PCP Family Medicine; Visit Provider Internal Medicine Nephrology
DX: I12.9 Hypertensive chronic kidney disease with stage 1 through stage 4 chronic kidney disease, or unspecified chronic kidney disease (principal); N18.4 Chronic kidney disease, stage 4 (severe)
CPT/HCPCS: 36415; 80051; 82306; 82310; 82565; 83970; 84100; 84520; 85025

== ENCOUNTER 2025-01-31 11:42 | Outpatient (AMB) | payer OTHER, SELFPAY ==
--- NOTE | 2025-01-31 12:05 | HO.NEPHOV ---
Vital Signs 01/31/25 12:06 Height 5 ft 3 in Weight 138 lb 2 oz BMI 24.5 BP 134/84 Blood Pressure Location Lt brachial Position Sitting Pulse 78 Pulse Source Pulse Oximeter Pulse Oximetry (%) 99 Oxygen Delivery Method Room Air Intake Visit Reasons: R/S 11/24/24-Conf w/daughter Network Operations Project Manager Required: Yes Network Operations Project Manager Language: Account Leader Services: Network Operations Project Manager Offered & Declined [place] [place] Operations Project Manager [place] refused ) Accompanied by: Daughter Allergies No Known Allergies (No Known Allergies*) Allergy (Verified 01/31/25 12:05) HPI Comments Details: 84 year old women with history of hypertension, diabetes mellitus, depression as well as chronic kidney disease . She is known to be hypertensive and had been on medications. She denied chest pain, sob, fever, chills, recent illness, recent travel. She denies any coronary artery disease, CVA, PVD, DAVID or excessive use of nonsteroidal anti-inflammatories. She denies any history of nephrolithiasis, hematuria or pedal edema. Her recent serum creatinine is stable [facility] Medical History Anxiety Diabetes HTN (hypertension) Asthma Surgical History Hx laparoscopic cholecystectomy H/O colonoscopy H/O esophagogastroduodenoscopy Social History Household Members: None Are you a primary menagerie caretaker to a significant other at home: No Do you presently have visiting nurse or other home services: No Unable to assess alcohol history related to: Unknown Alcohol intake: never Patient Tobacco Use Status: Never used Tobacco service: No Review of Systems Const All systems reviewed & are unremarkable except as noted in HPI and below Physical Exam Vital Signs: Last Vital Signs Pulse 78 01/31/25 12:06 BP 134/84 01/31/25 12:06 Pulse Ox 99 01/31/25 12:06 Oxygen Delivery Method Room Air 01/31/25 12:06 BMI result Body Mass Index 24.5 Const General: comfortable and no acute distress Orientation/consciousness: patient oriented x3 HEENT Head: Yes normocephalic Mouth: Normal oral and palatal mucosa present Eyes EOM: EOMs intact bilaterally Neck Neck: Yes supple Resp Auscultation: clear to auscultation bilaterally Cardio Jugular venous distension: no JVD Rate: regular rate GI Palpation (GI): Soft to palpation Auscultation: normal bowel sounds General: Yes no CVA tenderness Back/Spine/Pelvis Back: no CVA tenderness Skin General skin exam: no rashes or lesions noted Neuro General: patient oriented x3 and moves all extremities Extrem General: Yes no pedal edema Results Reviewed Nephrology Results: Hgb, (12.0-16.0) 10.8 g/dl L 01/30/25 WBC, (4.8-10.8) 4.7 X10*3/uL L 01/30/25 Plt Count, (160-400) 228 X10*3/uL Δ 01/30/25 Sodium, (135-145) 144 mmol/L 01/30/25 Potassium, (3.3-5.1) 4.7 mmol/L 01/30/25 Chloride, (96-108) 114 mmol/L H 01/30/25 Carbon Dioxide, (22-29) 21 mmol/L L 01/30/25 BUN, (9-16) 22 mg/dL H 01/30/25 Creatinine, (0.5-1.4) 1.93 mg/dL H 01/30/25 Calcium, (8.4-10.2) 9.9 mg/dL 01/30/25 Phosphorus, (2.7-4.5) 2.9 mg/dL 01/30/25 PTH Intact, (8.7-77.1) 98.3 pg/mL H 01/30/25 Renal US 05/18/24 Assessment & Plan Assessment & Plan (1) HTN (hypertension): Code(s): I10 - Essential (primary) hypertension Category: Medical Qualifiers: Hypertension type: primary hypertension Qualified Code(s): I10 - Essential (primary) hypertension (2) CKD (chronic kidney disease) stage 4, GFR 15-29 ml/min: Code(s): N18.4 - Chronic kidney disease, stage 4 (severe) Category: Medical Plan Shellie has chronic kidney disease at baseline. She is off lisinopril. Her renal functions are stable. She is on amlodipine and Carvedilol 6.25 mg bid. She does not need more BP medications to keep her BP at goal. She is going to check her BP twice a day along with her BS. I plan to adjust medications based on the data. She may be a candidate for Jardiance. All her and her daughter's questions were answered. Follow-up appointment given Orders: Orders Blood Urea Nitrogen 3 Months I10 - Essential (primary) hypertension, N18.4 - Chronic kidney disease, stage 4 (severe) Electrolytes 3 Months I10 - Essential (primary) hypertension, N18.4 - Chronic kidney disease, stage 4 (severe) Creatinine 3 Months I10 - Essential (primary) hypertension, N18.4 - Chronic kidney disease, stage 4 (severe) Medications: New cholecalciferol (vitamin D3) 25 mcg PO DAILY 90 caps 4RF Coding Level of Care Code Est Pt Level 4 (76559) Diagnoses Primary hypertension I10 Hypertension type: primary hypertension CKD (chronic kidney disease) stage 4, GFR 15-29 ml/min N18.4
[2025-01-31 12:06] VITALS: BP 134/84; PULSE 78; O2SAT 99; BMI 24.5
--- OUTSIDE RECORDS SUMMARY | 2025-01-31 12:41 | XMS_ITS | Clinical Summary ---
Author Organization [facility] [address] Address [address] [place] [address] Care Team Providers Care Industrial Training Specialist Name Role Phone Irma Brennan MD [...] to complete this topic Insurance MEDICARE MANAGED [facility] [place] [facility] [place]ICARE [place] [facility] Care Teams Industrial Training Specialist Relationship Specialty Start Date End Date Irma Brennan MD [address] [address] PCP - General Internal Medicine 07/11/19
--- OUTSIDE RECORDS SUMMARY | 2025-01-31 12:41 | XMS_ITS | Encounter Summary ---
Demographics Address [address] [place] [address] Home Phone Preferred Language es Marital Status Unknown Episcopalian Affiliation Unknown Race White Ethnic Group Unknown Author Organization [facility], Address [address] [place] [address] Phone Care Team Providers Care Rice Milling Supervisor Name Role Phone Irma Brennan MD Primary Care Provide r Encounter Details Date Type Department Care Team (Late st Contact Info) Description 02/24/2023 Documentation Only [facility], [address] [place] [address] Irma Brennan MD 230 [facility] [address] [place] [address] Social History Tobacco Use Types [...] on filedocumented in this encounter Care Teams Rice Milling Supervisor Relationship Specialty Start Date End Date Irma Brennan MD 230 [facility] [address] [place] [address] PCP - General Internal Medicine 02/23/23 documented as of this encounter
--- OUTSIDE RECORDS SUMMARY | 2025-01-31 12:41 | XMS_ITS | Encounter Summary ---
Author Organization [employer] Address [address] [facility] [address] [place] [address] Care Team Providers Care Emergency Management Specialist Name Role Phone Irma Brennan MD Primary Care Provide r Reason for Visit * Reason Comments Med Refill Encounter Details Date Type Department Care Team ([facility] st Contact Info) Description 05/18/2023 Refill [facility] [address] [place], [place] [phone] Irma Brennan MD [address] [place], [place] [phone] Controlled type 2 diabetes mellitus with microalbuminuric [...] documented as of this encounter Care Teams Emergency Management Specialist Relationship Specialty Start Date End Date Irma Brennan MD [address] [place] [address] PCP - General Family Medicine 11/09/18 documented as of this encounter
== END 2025-01-31 12:18 | disposition home or self-care (01) ==
LOC: HO.HKA 11:42
PROVIDERS: PCP Internal Medicine; Visit Provider Internal Medicine Nephrology
DX: I12.9 Hypertensive chronic kidney disease with stage 1 through stage 4 chronic kidney disease, or unspecified chronic kidney disease (principal); N18.4 Chronic kidney disease, stage 4 (severe)
CPT/HCPCS: 99214

== ENCOUNTER → 2025-01-31 11:42 | Outpatient (BNVA) | payer OTHER, SELFPAY | PROVIDERS: PCP Internal Medicine; Visit Provider Internal Medicine Nephrology | DX: I10 Essential (primary) hypertension (principal); F32.A Depression, unspecified; N18.4 Chronic kidney disease, stage 4 (severe); E11.9 Type 2 diabetes mellitus without complications | CPT/HCPCS: 99212 ==

== ENCOUNTER 2025-02-22 17:03 | Emergency (ER) | payer OTHER, SELFPAY ==
--- NOTE | ~2025-02-22 | CT_ITS ---
CLINICAL HISTORY: abdominal pain CT abdomen and pelvis without contrast Comparison: CT/REG/SR - CT ABDOMEN PELVIS WITHOUT IV CONTRAST - 07/03/23 22:11 EST Findings: Bibasilar atelectatic/dependent changes. Status post cholecystectomy. Atrophic liver with nodular contour. Remainder of the solid organs are within normal limits. No bowel obstruction, pneumoperitoneum, or pneumatosis. Moderate colonic diverticulosis without evidence of diverticulitis. Pelvic contents unremarkable. Normal appendix. No acute fracture. Moderate multilevel spondylosis of the visualized thoracolumbar spine with moderate chronic compression deformities involving T11, L1, L2 inferior endplate, and L4 superior endplate. IMPRESSION: No acute findings. Cirrhotic appearing liver without any focal lesions. Status post cholecystectomy. Moderate colonic diverticulosis without evidence of diverticulitis. Moderate multilevel spondylosis of the visualized thoracolumbar spine with chronic compression deformities involving T11, L1, L2, and L4 vertebral bodies. This document has been electronically signed by: Flori Barbour MD on 02/22/2025 19:35:01
--- NOTE | 2025-02-22 17:07 | ED.GENADULT ---
HPI - General Adult General Chief complaint: Abdominal Pain Stated complaint: abd pain,nausea Time Seen by Provider: 02/22/25 17:24 Related Data Home Medications ?Medication ?Instructions ?Recorded ?Confirmed quetiapine 25 mg tablet 25 mg PO BEDTIME 04/26/23 06/06/24 gabapentin 100 mg capsule 100 mg PO DAILY 10/06/23 06/06/24 aspirin 81 mg tablet,delayed 81 mg PO DAILY 03/20/24 06/06/24 release blood pressure test kit-large #1 ea 03/20/24 06/06/24 blood sugar diagnostic (FreeStyle #10 ea 03/20/24 06/06/24 Lite Strips) blood-glucose meter (FreeStyle #1 ea 03/20/24 06/06/24 Kimberly Lite kit) glimepiride 1 mg tablet 1 mg PO DAILY 03/20/24 06/06/24 lancets 33 gauge (TRUEplus Lancets) #100 ea 03/20/24 06/06/24 levothyroxine 50 mcg tablet 50 mcg PO DAILY 03/20/24 06/06/24 paroxetine HCl 40 mg tablet 40 mg PO DAILY 03/20/24 06/06/24 topiramate 25 mg tablet 25 mg PO DAILY 03/20/24 06/06/24 ondansetron 8 mg disintegrating 8 mg PO DAILY PRN 07/14/24 tablet ferrous gluconate 324 mg (38 mg 324 mg PO Q OTHER DAY 09/18/24 iron) tablet Previous Rx's ?Medication ?Instructions ?Recorded bisacodyl 5 mg tablet,delayed 10 mg (2 x 5 mg) PO BEDTIME #60 03/20/24 release (Dulcolax (bisacodyl)) tabs pantoprazole 20 mg tablet,delayed 20 mg PO DAILY #90 tabs 09/18/24 release amlodipine 2.5 mg tablet 2.5 mg PO DAILY #30 tabs 11/20/24 docusate sodium 100 mg capsule 100 mg PO DAILY #30 caps 01/12/25 (Stool Softener) cholecalciferol (vitamin D3) 25 25 mcg PO DAILY #90 caps 01/31/25 mcg (1,000 unit) capsule carvedilol 6.25 mg tablet 6.25 mg PO BID #60 tabs 02/19/25 omeprazole 20 mg capsule,delayed 20 mg PO DAILY 30 days #30 caps 02/22/25 release ondansetron HCl 4 mg tablet 4 mg PO Q8H PRN nausea and 02/22/25 vomiting #14 tabs Allergies Allergy/AdvReac Type Severity Reaction Status Date / Time No Known Allergies (No Known Allergy Verified 02/22/25 17:13 Allergies*) COUNT INCLUDES THE [facility] Past Medical History Medical History Anxiety Diabetes HTN (hypertension) Asthma Surgical History Hx laparoscopic cholecystectomy H/O colonoscopy H/O esophagogastroduodenoscopy Social History Social History Household Members: None Are you a primary infant childcare provider to a significant other at home: No Do you presently have visiting nurse or other home services: No Unable to assess alcohol history related to: Unknown Alcohol intake: never Patient Tobacco Use Status: Never used Tobacco service: No Physical Exam ED Vital Signs: Vital Signs - 24 hr 02/22/25 17:08 02/22/25 20:32 Temperature 97.1 F 97.1 F Pulse Rate 75 75 Respiratory Rate 18 18 Blood Pressure 177/80 H 177/80 H Pulse Oximetry 98 98 Oxygen Delivery Method Room Air Room Air BMI result Body Mass Index 25.6 Course Course Course Narrative: This is a rapid medical exam performed by Kiera Hernandez NP: Additional HPI, ROS, PE not included below will be deferred to primary provider. Patient is an 84-year-old Nigerien speaking female with history of HTN, CKD 4, anemia presenting to the ED [facility] complaint of depression, nausea. Feels like vomiting after eating. States she has been very sad since her dog recently . Perseverating about the dog in triage. Very difficult obtaining history/reason for visit as patient repeatedly talking about the dog. Plan: EKG, labs Medications Administered Discontinued Medications Generic Name Dose Route Start Last Admin Trade Name Freq PRN Reason Stop Dose Admin Al Hydroxide/Mg Hydroxide 30 ml 02/22/25 18:57 02/22/25 19:01 Magnesium Hydrox/Alum Hydrox 30 Ml Oral.Susp PO 02/22/25 18:58 30 ml ONCE ONE Administration Famotidine 20 mg 02/22/25 17:44 02/22/25 18:03 Famotidine/Pf 20 Mg/2 Ml Vial IVPUSH 02/22/25 17:45 20 mg ONCE ONE Administration Lactated Ringer's 1,000 mls @ 999 mls/hr 02/22/25 17:45 02/22/25 20:22 Lr IV 02/22/25 18:45 Infused .Q1H1M YOHANNES Infusion Lidocaine HCl 15 ml 02/22/25 18:57 02/22/25 19:01 Lidocaine Hcl Viscous 2 % 15 Ml Solution MUCOUS MEM 02/22/25 18:58 15 ml ONCE ONE Administration Ondansetron HCl 4 mg 02/22/25 17:44 02/22/25 18:03 Ondansetron Hcl 4 Mg/2 Ml Vial IVPUSH 02/22/25 17:45 4 mg ONCE ONE Administration Medical Decision Making Lab Data 02/22/25 17:26 02/22/25 17:26 Labs: Lab Results 02/22/25 Range/Units 17:26 WBC 6.0 (4.8-10.8) X10*3/uL RBC 3.14 L (4.20-5.50) X10*6/uL Hgb 10.2 L (12.0-16.0) g/dl Hct 30.3 L (37.0-47.0) % MCV 96.5 (80.0-98.0) fL MCH 32.5 (27.0-33.0) pg MCHC 33.7 (31.0-35.0) g/dl RDW 13.4 (11.0-16.0) % Plt Count 156 L D (160-400) X10*3/uL MPV 9.5 (9.4-12.3) fL Immature Gran % (Auto) 0.2 (0.0-0.4) % Neut % (Auto) 58.9 (45-73) % Lymph % (Auto) 26.2 (20-40) % [place] % (Auto) 13.8 H (2-11) % Eos % (Auto) 0.7 (0-4) % Baso % (Auto) 0.2 (0-2) % Lymph # (Auto) 1.6 (1.2-4.9) X10*3/uL [place] # (Auto) 0.8 (0.1-1.2) X10*3/uL Eos # (Auto) 0.0 (0.0-0.4) X10*3/uL Baso # (Auto) 0.0 (0.0-0.2) X10*3/uL Abs Immat Gran (auto) 0.01 (0.00-0.03) X10*3/uL Absolute Neuts (auto) 3.5 (2.0-8.3) x10*3/uL Absolute Nucleated RBC 0.000 (0.0-0.012) X10*3/uL Nucleated RBC % (auto) 0.0 (0.0-0.2) /100WBC Sodium 142 (135-145) mmol/L Potassium 4.7 (3.3-5.1) mmol/L Chloride 111 H (96-108) mmol/L Carbon Dioxide 22 (22-29) mmol/L Anion Gap 14 (12-20) BUN 24 H (9-16) mg/dL Creatinine 2.12 H (0.5-1.4) mg/dL Estim Creat Clear Calc 16.8 Estimated GFR 22 Random Glucose 120 H (60-115) mg/dL Calcium 10.0 (8.4-10.2) mg/dL Magnesium 2.5 (1.6-2.6) mg/dL Total Bilirubin 0.4 (0.0-1.0) mg/dL AST 22 (5-31) U/L ALT 11 (0-31) U/L Alkaline Phosphatase 51 (39-117) U/L Troponin I High Sens 13.7 (<3.5-17.0) ng/L Total Protein 7.0 (6.5-8.0) g/dL Albumin 4.0 (3.5-5.0) g/dL Lipase 89 H (8-78) U/L Influenza Type A (PCR) NEGATIVE (Negative) Influenza Type B (PCR) NEGATIVE (Negative) RSV RNA Qual (PCR) NEGATIVE (Negative) SARS-CoV-2 RNA (RT-PCR) NEGATIVE (Negative) Discharge Plan Discharge Clinical Impression: Gastritis Qualifiers: Gastritis type: unspecified gastritis Chronicity: acute Gastritis bleeding: without bleeding Qualified Code(s): K29.00 - Acute gastritis without bleeding Patient Disposition: Home, Self-Care Additional Instructions: Follow up with primary care doctor for your gastritis Prescriptions: New omeprazole 20 mg capsule,delayed release(DR/EC) 20 mg PO DAILY 30 Days Qty: 30 0RF ondansetron HCl 4 mg tablet 4 mg PO Q8H PRN (Reason: nausea and vomiting) Qty: 14 0RF No Action amlodipine 2.5 mg tablet 2.5 mg PO DAILY Qty: 30 6RF docusate sodium [Stool Softener] 100 mg capsule 100 mg PO DAILY Qty: 30 3RF carvedilol 6.25 mg tablet 6.25 mg PO BID Qty: 60 3RF quetiapine 25 mg tablet 25 mg PO BEDTIME gabapentin 100 mg capsule 100 mg PO DAILY ferrous gluconate 324 mg (38 mg iron) tablet 324 mg PO Q OTHER DAY pantoprazole 20 mg tablet,delayed release (DR/EC) 20 mg PO DAILY Qty: 90 3RF cholecalciferol (vitamin D3) 25 mcg (1,000 unit) capsule 25 mcg PO DAILY Qty: 90 4RF (DME) lancets [TRUEplus Lancets] 33 gauge misc See Rx Instructions .ROUTE .MEDSUPPLY Qty: 100 Rx Instructions: As directed glimepiride 1 mg tablet 1 mg PO DAILY (DME) FreeStyle Lite Strips Strip See Rx Instructions .ROUTE BID Qty: 10 Rx Instructions: As directed topiramate 25 mg tablet 25 mg PO DAILY aspirin 81 mg tablet,delayed release (DR/EC) 81 mg PO DAILY (DME) blood pressure test kit-large Kit See Rx Instructions .ROUTE DAILY Qty: 1 Rx Instructions: As directed levothyroxine 50 mcg tablet 50 mcg PO DAILY paroxetine HCl 40 mg tablet 40 mg PO DAILY (DME) blood-glucose meter [FreeStyle Kimberly Lite] Kit See Rx Instructions .ROUTE .MEDSUPPLY Qty: 1 Rx Instructions: As directed bisacodyl [Dulcolax (bisacodyl)] 5 mg tablet,delayed release (DR/EC) 10 mg PO BEDTIME Qty: 60 4RF ondansetron 8 mg tablet,disintegrating 8 mg PO DAILY PRN Interventions: ED Discharge Assessment Last Done: 02/22/25 20:32 Discharge Date/Time: 02/22/25 20:32 Print Language: Nigerien
[2025-02-22 17:08] VITALS: BP 177/80; PULSE 75; RESP 18; TEMP 36.2; O2SAT 98; BMI 25.6
--- NOTE | 2025-02-22 17:10 | ECG_ITS ---
Test Reason : abd pain Blood Pressure : */* mmHG Vent. Rate : 68 BPM Atrial Rate : 68 BPM P-R Int : 116 ms QRS Dur : 74 ms QT Int : 414 ms P-R-T Axes : 49 21 77 degrees QTcB Int : 440 ms Normal sinus rhythm Normal ECG When compared with ECG of 06-Nov-2024 12:59, No significant change was found Referred By: Nay Hernandez Electronically Signed By: BELLO BOURGEOIS MD
[2025-02-22 17:30] LABS: MANUAL DIFF FLAG NO
--- NOTE | 2025-02-22 17:31 | ED.GENADULT ---
HPI - General Adult General Chief complaint: Abdominal Pain Stated complaint: abd pain,nausea Time Seen by Provider: 02/22/25 17:24 History of Present Illness ED Provider: Dr. Chinchilla HPI narrative: This is a 84-year-old female history of gastritis, CKD, hypertension presented hospital today for evaluation of epigastric pain. And nausea. Patient stated that this is her stomach ulcer. She does have ulcers in the past. She has tried taking some liquid antacid without any alleviation she states she is feels really nauseous every single time she eats. Denies any fever denies any diarrhea. Denies any abdominal surgery. Related Data Home Medications ?Medication ?Instructions ?Recorded ?Confirmed quetiapine 25 mg tablet 25 mg PO BEDTIME 04/26/23 06/06/24 gabapentin 100 mg capsule 100 mg PO DAILY 10/06/23 06/06/24 aspirin 81 mg tablet,delayed 81 mg PO DAILY 03/20/24 06/06/24 release blood pressure test kit-large #1 ea 03/20/24 06/06/24 blood sugar diagnostic (FreeStyle #10 ea 03/20/24 06/06/24 Lite Strips) blood-glucose meter (FreeStyle #1 ea 03/20/24 06/06/24 Tyler Lite kit) glimepiride 1 mg tablet 1 mg PO DAILY 03/20/24 06/06/24 lancets 33 gauge (TRUEplus Lancets) #100 ea 03/20/24 06/06/24 levothyroxine 50 mcg tablet 50 mcg PO DAILY 03/20/24 06/06/24 paroxetine HCl 40 mg tablet 40 mg PO DAILY 03/20/24 06/06/24 topiramate 25 mg tablet 25 mg PO DAILY 03/20/24 06/06/24 ondansetron 8 mg disintegrating 8 mg PO DAILY PRN 07/14/24 tablet ferrous gluconate 324 mg (38 mg 324 mg PO Q OTHER DAY 09/18/24 iron) tablet Previous Rx's ?Medication ?Instructions ?Recorded bisacodyl 5 mg tablet,delayed 10 mg (2 x 5 mg) PO BEDTIME #60 03/20/24 release (Dulcolax (bisacodyl)) tabs pantoprazole 20 mg tablet,delayed 20 mg PO DAILY #90 tabs 09/18/24 release amlodipine 2.5 mg tablet 2.5 mg PO DAILY #30 tabs 11/20/24 docusate sodium 100 mg capsule 100 mg PO DAILY #30 caps 01/12/25 (Stool Softener) cholecalciferol (vitamin D3) 25 25 mcg PO DAILY #90 caps 01/31/25 mcg (1,000 unit) capsule carvedilol 6.25 mg tablet 6.25 mg PO BID #60 tabs 02/19/25 omeprazole 20 mg capsule,delayed 20 mg PO DAILY 30 days #30 caps 02/22/25 release ondansetron HCl 4 mg tablet 4 mg PO Q8H PRN nausea and 02/22/25 vomiting #14 tabs Allergies Allergy/AdvReac Type Severity Reaction Status Date / Time No Known Allergies (No Known Allergy Verified 02/22/25 17:13 Allergies*) Review of Systems Review of Systems: Pertinent review of systems as mentioned in [facility]. All other system otherwise negative. [facility] Past Medical History Attestation statement: The following information was validated with the patient. [facility] Narrative: Medical history as mentioned in HPI Medical History Anxiety Diabetes HTN (hypertension) Asthma Surgical History Hx laparoscopic cholecystectomy H/O colonoscopy H/O esophagogastroduodenoscopy Social History Social History Household Members: None Are you a primary care coordination manager to a significant other at home: No Do you presently have visiting nurse or other home services: No Unable to assess alcohol history related to: Unknown Alcohol intake: never Patient Tobacco Use Status: Never used Tobacco Smoked in Last 30 Days: No Use of substances other than those prescribed or required for medical reasons: No Advance Directives: No Advance Directives Information Provided: No Do you have a plan to hurt others: No Plan service: No Physical Exam ED Exam Exam: General: Pleasant, no distress, interacting appropriately Head: Normacephalic, atraumatic ENT: oral mucosa moist, neck supple, no tracheal deviation Cardiovascular: regular rate, regular rhythm, no murmurs, rubbing, gallops Respiratory: CTAB, no wheeze, rales, rhonchi Gastrointestinal: Soft, epigastric tenderness on palpation Neurological: Awake and alert, no facial droop noted Skin: Warm and dry Psychiatric: Appropriate mood and thoughts Vital Signs: Vital Signs - 24 hr 02/22/25 17:08 Temperature 97.1 F Pulse Rate 75 Respiratory Rate 18 Blood Pressure 177/80 H Pulse Oximetry 98 Oxygen Delivery Method Room Air BMI result Body Mass Index 25.6 Medications Administered Discontinued Medications Generic Name Dose Route Start Last Admin Trade Name Freq PRN Reason Stop Dose Admin Al Hydroxide/Mg Hydroxide 30 ml 02/22/25 18:57 02/22/25 19:01 Magnesium Hydrox/Alum Hydrox 30 Ml Oral.Susp PO 02/22/25 18:58 30 ml ONCE ONE Administration Famotidine 20 mg 02/22/25 17:44 02/22/25 18:03 Famotidine/Pf 20 Mg/2 Ml Vial IVPUSH 02/22/25 17:45 20 mg ONCE ONE Administration Lactated Ringer's 1,000 mls @ 999 mls/hr 02/22/25 17:45 02/22/25 18:03 Lr IV 02/22/25 18:45 999 mls/hr .Q1H1M YOHANNES Administration Lidocaine HCl 15 ml 02/22/25 18:57 02/22/25 19:01 Lidocaine Hcl Viscous 2 % 15 Ml Solution MUCOUS MEM 02/22/25 18:58 15 ml ONCE ONE Administration Ondansetron HCl 4 mg 02/22/25 17:44 02/22/25 18:03 Ondansetron Hcl 4 Mg/2 Ml Vial IVPUSH 02/22/25 17:45 4 mg ONCE ONE Administration Medical Decision Making Medical Decision Making MDM Narrative: A 84-year-old female history of hypertension, CKD presented hospital today for evaluation of epigastric abdominal pain nausea vomiting. Worsened when eating. I suspect patient likely has gastritis. We will plan to give patient some IV Pepcid IV Zofran IV fluid. I have again patient's age and risk factor we will obtain a CT abdomen and pelvis. Patient has no has CKD stage 4. We will plan to pursue a dry scan for the patient. Abdominal lab work will be obtained from the patient as well. Including CBC CMP lipase. UA will be obtained as well. marine engineer cpvec was used for this encounter. Although I am considering a UTI I do not think patient has sepsis. Patient has slight anemia at 10.2, creatinine was 2.12 similar to her prior creatinine level, patient states that clinically she is feeling better at this time. We will plan to discharge patient home with omeprazole course. Have her follow up with primary care doctor. Patient agrees and understands this plan all questions are addressed. CT imaging is negative for any signs of acute intra-abdominal pathologies. She has incidental finding Differential Diagnosis Differential Diagnoses: The differential diagnosis associated with the presentation includes Gastritis, colitis, Nausea, UTI Lab Data MDM Lab Attestation statement: I reviewed the patient's lab results. 02/22/25 17:26 02/22/25 17:26 Labs: Lab Results 02/22/25 Range/Units 17:26 WBC 6.0 (4.8-10.8) X10*3/uL RBC 3.14 L (4.20-5.50) X10*6/uL Hgb 10.2 L (12.0-16.0) g/dl Hct 30.3 L (37.0-47.0) % MCV 96.5 (80.0-98.0) fL MCH 32.5 (27.0-33.0) pg MCHC 33.7 (31.0-35.0) g/dl RDW 13.4 (11.0-16.0) % Plt Count 156 L D (160-400) X10*3/uL MPV 9.5 (9.4-12.3) fL Immature Gran % (Auto) 0.2 (0.0-0.4) % Neut % (Auto) 58.9 (45-73) % Lymph % (Auto) 26.2 (20-40) % [place] % (Auto) 13.8 H (2-11) % Eos % (Auto) 0.7 (0-4) % Baso % (Auto) 0.2 (0-2) % Lymph # (Auto) 1.6 (1.2-4.9) X10*3/uL [place] # (Auto) 0.8 (0.1-1.2) X10*3/uL Eos # (Auto) 0.0 (0.0-0.4) X10*3/uL Baso # (Auto) 0.0 (0.0-0.2) X10*3/uL Abs Immat Gran (auto) 0.01 (0.00-0.03) X10*3/uL Absolute Neuts (auto) 3.5 (2.0-8.3) x10*3/uL Absolute Nucleated RBC 0.000 (0.0-0.012) X10*3/uL Nucleated RBC % (auto) 0.0 (0.0-0.2) /100WBC Sodium 142 (135-145) mmol/L Potassium 4.7 (3.3-5.1) mmol/L Chloride 111 H (96-108) mmol/L Carbon Dioxide 22 (22-29) mmol/L Anion Gap 14 (12-20) BUN 24 H (9-16) mg/dL Creatinine 2.12 H (0.5-1.4) mg/dL Estim Creat Clear Calc 16.8 Estimated GFR 22 Random Glucose 120 H (60-115) mg/dL Calcium 10.0 (8.4-10.2) mg/dL Magnesium 2.5 (1.6-2.6) mg/dL Total Bilirubin 0.4 (0.0-1.0) mg/dL AST 22 (5-31) U/L ALT 11 (0-31) U/L Alkaline Phosphatase 51 (39-117) U/L Troponin I High Sens 13.7 (<3.5-17.0) ng/L Total Protein 7.0 (6.5-8.0) g/dL Albumin 4.0 (3.5-5.0) g/dL Lipase 89 H (8-78) U/L Influenza Type A (PCR) NEGATIVE (Negative) Influenza Type B (PCR) NEGATIVE (Negative) RSV RNA Qual (PCR) NEGATIVE (Negative) SARS-CoV-2 RNA (RT-PCR) NEGATIVE (Negative) Independent Interpretation I performed an independent interpretation of an: CT Scan Radiology Impression Discussion of test interpretation with radiology: I have reviewed the radiologist's reading. Discharge Plan Discharge Clinical Impression: Gastritis Qualifiers: Gastritis type: unspecified gastritis Chronicity: acute Gastritis bleeding: without bleeding Qualified Code(s): K29.00 - Acute gastritis without bleeding Patient Disposition: Home, Self-Care Additional Instructions: Follow up with primary care doctor for your gastritis Prescriptions: New omeprazole 20 mg capsule,delayed release(DR/EC) 20 mg PO DAILY 30 Days Qty: 30 0RF ondansetron HCl 4 mg tablet 4 mg PO Q8H PRN (Reason: nausea and vomiting) Qty: 14 0RF No Action amlodipine 2.5 mg tablet 2.5 mg PO DAILY Qty: 30 6RF docusate sodium [Stool Softener] 100 mg capsule 100 mg PO DAILY Qty: 30 3RF carvedilol 6.25 mg tablet 6.25 mg PO BID Qty: 60 3RF quetiapine 25 mg tablet 25 mg PO BEDTIME gabapentin 100 mg capsule 100 mg PO DAILY ferrous gluconate 324 mg (38 mg iron) tablet 324 mg PO Q OTHER DAY pantoprazole 20 mg tablet,delayed release (DR/EC) 20 mg PO DAILY Qty: 90 3RF cholecalciferol (vitamin D3) 25 mcg (1,000 unit) capsule 25 mcg PO DAILY Qty: 90 4RF (DME) lancets [TRUEplus Lancets] 33 gauge misc See Rx Instructions .ROUTE .MEDSUPPLY Qty: 100 Rx Instructions: As directed glimepiride 1 mg tablet 1 mg PO DAILY (DME) FreeStyle Lite Strips Strip See Rx Instructions .ROUTE BID Qty: 10 Rx Instructions: As directed topiramate 25 mg tablet 25 mg PO DAILY aspirin 81 mg tablet,delayed release (DR/EC) 81 mg PO DAILY (DME) blood pressure test kit-large Kit See Rx Instructions .ROUTE DAILY Qty: 1 Rx Instructions: As directed levothyroxine 50 mcg tablet 50 mcg PO DAILY paroxetine HCl 40 mg tablet 40 mg PO DAILY (DME) blood-glucose meter [FreeStyle Tyler Lite] Kit See Rx Instructions .ROUTE .MEDSUPPLY Qty: 1 Rx Instructions: As directed bisacodyl [Dulcolax (bisacodyl)] 5 mg tablet,delayed release (DR/EC) 10 mg PO BEDTIME Qty: 60 4RF ondansetron 8 mg tablet,disintegrating 8 mg PO DAILY PRN Print Language: Japanese
[2025-02-22 17:32] LABS: Hematocrit 30.3 % (37.0-47.0); Hemoglobin 10.2 g/dl (12.0-16.0); Imm Gran Abs Auto 0.01 X10*3/uL (0.00-0.03); Imm Gran Pct Auto 0.2 % (0.0-0.4); Lymphocytes Absolute Auto 1.6 X10*3/uL (1.2-4.9); Mean Corpuscular HGB Conc 33.7 g/dl (31.0-35.0); Mean Corpuscular Hemoglobin 32.5 pg (27.0-33.0); Mean Corpuscular Volume 96.5 fL (80.0-98.0); NRBC Abs Auto 0.000 X10*3/uL (0.0-0.012); NRBC Pct Auto 0.0 /100WBC (0.0-0.2); Platelet Count 156 X10*3/uL (160-400); Red Blood Count 3.14 X10*6/uL (4.20-5.50); White Blood Count 6.0 X10*3/uL (4.8-10.8)
[2025-02-22 17:49] LABS: Alanine Aminotransferase 11 U/L (0-31); Albumin Level 4.0 g/dL (3.5-5.0); Alkaline Phosphatase 51 U/L (39-117); Anion Gap 14 (12-20); Aspartate Amino Transferase 22 U/L (5-31); Blood Urea Nitrogen 24 mg/dL (9-16); Calcium 10.0 mg/dL (8.4-10.2); Carbon Dioxide 22 mmol/L (22-29); Chloride 111 mmol/L (96-108); Creatinine Clr Calc Pharmacy 16.8; Estimated Glomerular Filt Rate 22; Lipase 89 U/L (8-78); Magnesium 2.5 mg/dL (1.6-2.6); Potassium 4.7 mmol/L (3.3-5.1); Sodium 142 mmol/L (135-145); Total Protein 7.0 g/dL (6.5-8.0)
[2025-02-22 17:56] LABS: Troponin-I High Sensitivity 13.7 ng/L (<3.5-17.0)
[2025-02-22] MEDS: Lactated Ringers 1,000 ML 999 ML IV (18:03)
[2025-02-22 18:12] LABS: Resp Syncy Virus RNA Qual PCR NEGATIVE (Negative); SARS COV2 PCR INHOUSE NEGATIVE (Negative)
[2025-02-22] MEDS: Lidocaine HCl Viscous 2 % 15 ML SOLUTION MUCOUS MEM (19:01)
[2025-02-22] MEDS: Magnesium Hydrox/Alum Hydrox 30 ML ORAL.SUSP PO (19:01)
--- NOTE | 2025-02-22 20:31 | PC.NURSE ---
reviewed discharge instructions with pt. pt verbalized understanding, no sign of distress.
[2025-02-22 20:32] VITALS: BP 177/80; PULSE 75; RESP 18; TEMP 36.2; O2SAT 98
== END 2025-02-22 20:32 | disposition home or self-care (01) ==
PROVIDERS: Registered Nurse Emergency; Emergency Provider Student in an Organized Health Care Education/Training Program; PCP Internal Medicine
DX: K29.00 Acute gastritis without bleeding (principal); R10.2 Pelvic and perineal pain; R11.2 Nausea with vomiting, unspecified; R10.13 Epigastric pain; I10 Essential (primary) hypertension; Z79.899 Other long term (current) drug therapy; Z03.818 Encounter for observation for suspected exposure to other biological agents ruled out
CPT/HCPCS: 36415; 74176; 80053; 83690; 83735; 84484; 85025; 87637; 93005; 96361; 96374; 96375; 99284; 99285; J1308; J2405; J7120

== ENCOUNTER → 2025-02-22 17:10 | Outpatient (BNV) | payer OTHER, SELFPAY | PROVIDERS: Emergency Provider Student in an Organized Health Care Education/Training Program; PCP Internal Medicine; Visit Provider Internal Medicine Cardiovascular Disease | DX: R10.9 Unspecified abdominal pain (principal) | CPT/HCPCS: 93010 ==

== ENCOUNTER → 2025-02-22 17:47 | Outpatient (BNV) | payer OTHER, SELFPAY | PROVIDERS: Emergency Provider Student in an Organized Health Care Education/Training Program; PCP Internal Medicine; Visit Provider Student in an Organized Health Care Education/Training Program | DX: K57.30 Diverticulosis of large intestine without perforation or abscess without bleeding (principal) | CPT/HCPCS: 74176 ==

== ENCOUNTER 2025-03-19 09:24 | Outpatient (AMB) | payer OTHER, SELFPAY ==
--- NOTE | 2025-03-19 09:36 | MHC.OFFVIS ---
Vital Signs 03/19/25 09:41 Height 5 ft 1 in Weight 137 lb BMI 25.9 BP 138/86 Blood Pressure Location Rt brachial Position Sitting Pulse 72 Pulse Source Pulse Oximeter Pulse Oximetry (%) 99 Oxygen Delivery Method Room Air Intake Visit Reasons: 6m constipation Intake Note: ESTABLISHED PATIENT for mgmt of constipation + colitis. Seen in ED since [facility]. Chief Complaint; C.O. nausea and persistent GERD. Pt states that she has been having issues over the last few months. Upon examination, it appears that the pt was taken off of pantoprazole and placed on omeprazole by another provider. Graphic User Interface Designer Required: No Accompanied by: Self / Same As Patient Allergies No Known Allergies (No Known Allergies*) Allergy (Verified 02/22/25 17:13) HPI HPI 6m constipation: Details: LAST VISIT GERD (gastroesophageal reflux disease) IBS (irritable bowel syndrome) Constipation Postprandial epigastric pain Postprandial abdominal bloating Plan Decrease pantoprazole to 20 mg daily. Avoid dietary triggers and late night snacking. Staying upright for minimum 3 hours after meals discussed patient. Continue Dulcolax. Follow-up in the office in 6 months, sooner on as needed basis. Patient is agreeable to this plan and verbalizes understanding of instructions. She was given the opportunity to ask questions and all questions answered. ? Thank you for allowing me to participate in her care New pantoprazole 20 mg PO DAILY 90 tabs 3RF Refilled docusate sodium 100 mg PO DAILY 30 caps 3RF K59.00 Discontinued pantoprazole take one tablet half an hour before breakfast Discontinued Reason: Doctor's Order 40 mg PO DAILY 30 tabs 2RF K21.9 TODAY'S VISIT Patient is here today for follow-up. Patient is accompanied by her daughter. Patient reports that she has been feeling well, however in the past month or so she has been reporting epigastric pain postprandially. Patient was seen in the ED in February for epigastric pain and was given omeprazole. Patient reports that omeprazole is not working for her as well as pantoprazole did. Patient's daughter reports that patient is not following any diet. Patient eats what she wants. Usually food is either bought at a fast food restaurant or her son makes it for patient. Patient has not seen dietitian. Patient's daughter reports that she does not want to go and see any other providers. Patient takes Dulcolax and is moving her bowels better. PFSH Medical History Anxiety Diabetes HTN (hypertension) Asthma Surgical History Hx laparoscopic cholecystectomy H/O colonoscopy H/O esophagogastroduodenoscopy Social History Household Members: None Are you a primary managed care coordinator to a significant other at home: No Do you presently have visiting nurse or other home services: No Unable to assess alcohol history related to: Unknown Alcohol intake: never Patient Tobacco Use Status: Never used Tobacco service: No Review of Systems Const Denies weight gain and Denies weight loss ENT Reports no additional complaints, Denies dysphagia and Denies odynophagia Card Reports no additional complaints Resp Reports no additional complaints GI Denies abdominal pain, Denies belching, Denies melena, Denies bloating, Denies change in bowel habits, Denies dysphagia, Denies excessive flatus, Denies dyspepsia, Denies heartburn, Denies diarrhea, Denies loose stools, Denies nausea, Denies odynophagia and Denies vomiting Musc Reports no additional complaints Neuro Reports no additional complaints Psych Reports no additional complaints Endo Reports no additional complaints Physical Exam Vital Signs: Last Vital Signs Pulse 72 03/19/25 09:41 BP 138/86 03/19/25 09:41 Pulse Ox 99 03/19/25 09:41 Oxygen Delivery Method Room Air 03/19/25 09:41 BMI result Body Mass Index 25.9 Const General: no acute distress Nutritional Appearance: well nourished Orientation/consciousness: patient oriented x3 Resp Effort & Inspection: normal respiratory effort, able to speak in complete sentences, no tracheal deviation and symmetric chest movement Auscultation: clear to auscultation bilaterally Cardio Rate: regular rate GI Inspection: Yes normal to inspection and No distended Palpation (GI): Soft to palpation, not firm, nontender and No hepatosplenomegaly present Auscultation: normal bowel sounds General: Yes no CVA tenderness Back/Spine/Pelvis Back: no CVA tenderness Skin General skin exam: elasticity normal, turgor normal and dry skin Neuro General: patient oriented x3 Psych Mental Status: mental status grossly normal Assessment & Plan Assessment & Plan (1) Gastroesophageal reflux disease: Code(s): K21.9 - Gastro-esophageal reflux disease without esophagitis Qualifiers: Esophagitis presence: esophagitis presence not specified Qualified Code(s): K21.9 - Gastro-esophageal reflux disease without esophagitis (2) Irritable bowel syndrome: Code(s): K58.9 - Irritable bowel syndrome, unspecified Qualifiers: Irritable bowel syndrome type: without diarrhea Qualified Code(s): K58.9 - Irritable bowel syndrome, unspecified (3) Constipation: Code(s): K59.00 - Constipation, unspecified Qualifiers: Constipation type: slow transit constipation Qualified Code(s): K59.01 - Slow transit constipation (4) Postprandial epigastric pain: Code(s): R10.13 - Epigastric pain (5) Postprandial abdominal bloating: Code(s): R14.0 - Abdominal distension (gaseous) Plan Continue Dulcolax as needed. Increase fluid intake and activity to promote better bowel motility. Patient will stop omeprazole and start taking pantoprazole. Discussed with patient the importance of avoiding dietary triggers and late night snacking. Staying upright for minimum 3 hours after meals discussed with patient. Patient will follow-up in 6 months, sooner on as needed basis. Patient is agreeable to this plan and verbalizes understanding of instructions. She was given the opportunity to ask questions and all questions answered. Thank you for allowing me to participate in her care Medications: New pantoprazole 20 mg PO DAILY 90 tabs 1RF Discontinued omeprazole Discontinued Reason: Doctor's Order 20 mg PO DAILY 30 days 30 caps 0RF Coding Level of Care Code Est Pt Level 4 (58132) Complex EM visit Add On G2211 Diagnoses Gastroesophageal reflux disease, unspecified whether esophagitis present K21.9 Esophagitis presence: esophagitis presence not specified Irritable bowel syndrome without diarrhea K58.9 Irritable bowel syndrome type: without diarrhea Slow transit constipation K59.01 Constipation type: slow transit constipation Postprandial epigastric pain R10.13 Postprandial abdominal bloating R14.0 Time Spent (min) 35 Comment 25 minutes spent with patient and additional 10 minutes spent reviewing her records
[2025-03-19 09:41] VITALS: BP 138/86; PULSE 72; O2SAT 99; BMI 25.9
--- OUTSIDE RECORDS SUMMARY | 2025-03-19 11:13 | XMS_ITS | Encounter Summary ---
Author Organization [employer] Address [address] [facility] [address] [place] [address] Care Team Providers Care Division Commander Name Role Phone rIma Brennan MD Primary Care Provide r Reason for Visit * Reason Comments Med Refill Encounter Details Date Type Department Care Team ([facility] st Contact Info) Description 06/02/2023 Refill [facility] [address] [place], [place] [phone] Irma Brennan MD [address] [place], [place] [phone] Acute low back pain, unspecified back pain [...] documented as of this encounter Care Teams Division Commander Relationship Specialty Start Date End Date Irma Brennan MD [address] [place] [id number] PCP - General Family Medicine 11/09/18 documented as of this encounter
--- OUTSIDE RECORDS SUMMARY | 2025-03-19 11:13 | XMS_ITS | Encounter Summary ---
Demographics Address [address] [place] [address] Home Phone Preferred Language es Marital Status Unknown Jewish Affiliation Unknown Race White Ethnic Group Unknown Author Organization [facility], Address [address] [place] [address] Phone Care Team Providers Care Label Sewer Name Role Phone Irma Brennan MD Primary Care Provide r Encounter Details Date Type Department Care Team (Late st Contact Info) Description 02/24/2023 Documentation Only [facility], [address] [place] [address] Irma Brennan MD [address] [facility] [address] [place] [address] Social History Tobacco Use Types [...] on filedocumented in this encounter Care Teams Label Sewer Relationship Specialty Start Date End Date Irma Brennan MD [address] [facility] [address] [place] [address] PCP - General Internal Medicine 02/23/23 documented as of this encounter
--- OUTSIDE RECORDS SUMMARY | 2025-03-19 11:13 | XMS_ITS | Encounter Summary ---
Author Organization [employer] Address [address] [facility] [address] [place] [address] Care Team Providers Care Oil Well Directional Surveyor Name Role Phone Irma Brennan MD Primary Care Provide r Reason for Visit * Reason Comments Med Refill Encounter Details Date Type Department Care Team ([facility] st Contact Info) Description 05/31/2023 Refill [facility] [address] [place], [place] [phone] Irma Brennan MD [address] [place], [place] [phone] Acute low back pain, unspecified back pain [...] documented as of this encounter Care Teams Oil Well Directional Surveyor Relationship Specialty Start Date End Date Irma Brennan MD [address] [place] [id number] PCP - General Family Medicine 11/09/18 documented as of this encounter
--- OUTSIDE RECORDS SUMMARY | 2025-03-19 11:13 | XMS_ITS | Encounter Summary ---
Demographics Address [address] [facility] [address] [place] [address] Home Phone Mobile Phone Phone Phone Email Address Preferred Language Pakistani; Castilian Marital Status Religion Affiliation Unknown Race Unknown Ethnic Group or Author Organization [facility] [employer] [facility] Address [address] [place] [address] Care Team Providers Care Weaver Hand Loom Name Role Phone Irma Brennan MD Primary Care Provide r Encounter Details Date Type Department Care Team (Late st Contact Info) Description 07/11/2019 Abstract [facility] [address] [facility] [address] [place] [address] Jeronimo Olson MD [address] [place] [phone] Social History Tobacco Use Types Packs/Day Years [...] on filedocumented in this encounter Care Teams Weaver Hand Loom Relationship Specialty Start Date End Date Irma Brennan MD [address] [facility] [address] [place] [phone] PCP - General Internal Medicine 07/11/19 documented as of this encounter
--- OUTSIDE RECORDS SUMMARY | 2025-03-19 11:13 | XMS_ITS | Encounter Summary ---
Demographics Address [address] [facility] [address] [place] [address] Home Phone Mobile Phone Phone Phone Email Address Preferred Language [place] Islander; Castilian Marital Status Episcopal Affiliation Unknown Race Unknown Ethnic Group or Author Organization [facility] [employer] [facility] Address [address] [place] [address] Care Team Providers Care Manager Graphic Name Role Phone Irma Brennan MD Primary Care Provide r Encounter Details Date Type Department Care Team (Late st Contact Info) Description 09/12/2019 Scanned Document [facility] [address] [place], [place] [phone] Jeronimo Olson MD [address] [place] [phone] Social History Tobacco Use Types Packs/Day Years [...] on filedocumented in this encounter Care Teams Manager Graphic Relationship Specialty Start Date End Date Irma Brennan MD [address] [facility] [address] [place] [phone] PCP - General Internal Medicine 07/11/19 documented as of this encounter
--- OUTSIDE RECORDS SUMMARY | 2025-03-19 11:13 | XMS_ITS | Encounter Summary ---
Author Organization [employer] Address [address] [facility] [address] [place] [address] Care Team Providers Care Roof Bolter Name Role Phone Irma Brennan MD Primary Care Provide r Reason for Visit * Reason Comments Med Refill Encounter Details Date Type Department Care Team ([facility] st Contact Info) Description 05/18/[address] [facility] [address] [place], [place] [phone] Irma Brennan MD [address] [place], [place] [phone] Controlled type 2 diabetes mellitus with microalbuminuric [...] documented as of this encounter Care Teams Roof Bolter Relationship Specialty Start Date End Date Irma Brennan MD [address] [place] [address] PCP - General Family Medicine 11/09/18 documented as of this encounter
--- OUTSIDE RECORDS SUMMARY | 2025-03-19 11:13 | XMS_ITS | Encounter Summary ---
Author Organization [employer] Address [address] [facility] [address] [place] [address] Care Team Providers Care Buckshot Swage Operator Name Role Phone Irma Brennan MD Primary Care Provide r Reason for Visit * Reason Onset Date Comments Appointment Request 10/28/2023 Encounter Details Date Type Department Care Team ([facility] st Contact Info) Description 10/28/2023 Telephone [facility] [address] [place], [place] [phone] Irma Brennan MD [address] [place], [place] [phone] Appointment Request Social History Tobacco Use Types [...] documented as of this encounter Care Teams Buckshot Swage Operator Relationship Specialty Start Date End Date Irma Brennan MD [address] [place] [phone] PCP - General Family Medicine 11/09/18 documented as of this encounter
--- OUTSIDE RECORDS SUMMARY | 2025-03-19 11:13 | XMS_ITS | Encounter Summary ---
Author Organization [employer] Address [address] [facility] [address] [place] [address] Care Team Providers Care Child Care Associate Name Role Phone Irma Brennan MD Primary Care Provide r Reason for Visit * Reason Onset Date Comments Referral 09/15/2023 Encounter Details Date Type Department Care Team ([facility] st Contact Info) Description 09/15/[address] [facility] [address] [place], [place] [phone] Irma Brennan MD [address] [place], [place] [phone] Referral Social History Tobacco Use Types Packs/Day [...] Glenis Hutchinson - 09/23/2023 3:24 PM EDT Broadcast Producer called and spoke with daughter Eri. Pt had a scheduled appt and no showed. Daughter was given number to call and reschedule. * Telephone Encounter - Nany Zhao - 09/15/2023 1:13 PM EDT Tc from pt daughter requesting a referral to a cosmetics machine operator. Referral still pending from 06/22/23 documented in this encounter Plan of Treatment Not on file documented as of this encounter Visit Diagnoses Not on filedocumented in this encounter Additional Health Concerns Assessment Noted Time PHQ-9 Depression Total Score: 0 06/22/20 23 9:55 AM EST documented as of this encounter Care Teams Child Care Associate Relationship Specialty Start Date End Date Irma Brennan MD [address] [place] [phone] PCP - General Family Medicine 11/09/18 documented as of this encounter
--- OUTSIDE RECORDS SUMMARY | 2025-03-19 11:13 | XMS_ITS | Clinical Summary ---
Author Organization [facility] [address] Address [address] [place] [address] Care Team Providers Care Department Store Door Greeter Name Role Phone Irma Brennan MD Primary [...] series) 2016 Covid-19 vaccine series (1 - season) 2025 Influenza vaccine 03/05/2025 Breast cancer screening Discontinued Cervical cancer screening Discontinued Colon cancer screening, Colonoscopy Discontinued Meningococcal B Vaccine Aged Out No l onger eligible based on patient's age to complete this topic Meningococcal Vaccine Aged Out No driss elvin eligible based on patient's age to complete this topic Insurance MEDICARE MANAGED [facility] MEDICARE MANAGED [facility] MEDICARE MANAGED [facility] Care Teams Department Store Door Greeter Relationship Specialty Start Date End Date Irma Brennan MD [address] [phone] PCP - General Internal Medicine 07/11/19
--- OUTSIDE RECORDS SUMMARY | 2025-03-19 11:13 | XMS_ITS | Clinical Summary ---
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 1 each 01/14/20 24 Active ondansetron ODT (Zofran-ODT) 8 MG disintegrating tabletIndications:Ch ronic gastritis without bleeding, unspecified gastritis type,Nausea DISSOLVE 1 TABLET BY MOUTH EVERY 8 HOURS NEEDED FOR NAUSEA AND VOMITING 30 tablet 1 05/05/20 24 Active levothyroxine (Synthroid, Levoxyl) 50 MCG tabletIndications:Ac quired hypothyroidism TAKE 1 TABLET BY MOUTH EVERY MORNING 90 tablet 3 09/13/19 25 Active glucose blood (FREESTYLE LITE) test stripIndications:Typ e 2 diabetes mellitus with diabetic peripheral angiopathy without gangrene, unspecified whether custodial insulin use ([facility]) TEST BLOOD SUGAR TWICE DAILY 100 strip 11 11/03/19 Active TRUEplus Lancets 33G miscIndications:Type 2 diabetes mellitus with diabetic peripheral angiopathy without gangrene, unspecified whether custodial insulin use ([facility]) TEST BLOOD SUGAR TWICE DAILY 100 each 11 11/03/19 25 Active PARoxetine (Paxil) 40 MG tablet TAKE 1 TABLET BY MOUTH EVERY DAY 90 tablet 12/20/19 25 Active glimepiride (Amaryl) 1 MG tabletIndications:Ty pe 2 diabetes mellitus without complication, unspecified whether meterman insulin use (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) TAKE 1 TABLET BY MOUTH EVERY OTHER DAY 45 tablet 1 01/25/20 25 Active carvedilol (Coreg) 6.25 MG tablet Take 1 tablet by mouth 2 times daily. 12/21/19 25 Active docusate sodium (Colace) 100 MG capsule Take 1 capsule by mouth Once per day. 12/21/19 25 Active pantoprazole (ProtoNix) 20 MG EC tablet Take 1 tablet by mouth Once per day. 12/21/19 25 Active amLODIPine (Norvasc) 2.5 MG tablet Take 1 tablet by mouth Once per day. 01/02/20 25 Active topiramate (Topamax) 25 MG tabletIndications:Ch ronic migraine without aura without status migrainosus, not intractable TAKE 1 TABLET BY MOUTH AT BEDTIME 30 tablet 1 02/08/20 25 Active Active Problems Problem Noted Date [...] injury superimp osed on chronic kidney disease ([facility]) 02/16/2023 Assessment & Plan (05/06/2023 5:07 PM EDT): -Apparently resolved. Instrument Sterilizer regarding hydration, check prior to next appointment. [...] and fu w PCP May/ not need VEST TAILOR, needs OV to evaluate risk and need [...] up with PCP in 3 weeks - dependency counselor daughter and patient small and fractioned [...] Encounters Date Type Department Care Team Description 02/22/2025 Orders Only GENERIC EXTERNAL DATA DEPARTMENT Provider, Generic External Data 02/07/2025 Refill [facility] [address] [place] [phone] Irma Brennan MD Chronic migraine without aura without status migrainosus, not intractable 01/30/2025 Orders Only GENERIC EXTERNAL DATA DEPARTMENT Provider, Generic External Data 01/24/2025 Refill [facility] [address] [place] [address] Irma Brennan MD Rhinitis, unspecified type; Anemia due to stage 3b chronic kidney disease ([facility]) 01/16/2025 2:30 PM EDT Office Visit [facility] [address] [place] [address] Van, Jackie, OD 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.] 98 01/14/2024 10:46 AM EDT Temperature 37.2 C (98.9 F) 01/14/2024 10:46 AM EDT Respiratory Rate 18 01/14/2024 10:46 AM EDT Oxygen Saturation 99% 12/02/2022 10:04 AM EDT Inhaled Oxygen Concentration - - Weight 59.4 kg (131 lb) 01/14/2024 10:46 AM EDT Height 165.1 cm (5' 5 ) 01/14/2024 10:46 AM EDT Body Mass Index 21.8 01/14/2024 10:46 AM EDT Plan of Treatment Health Maintenance Due Date Last Done Comments Diabetes: Foot Exam 10/21/1950 Alcohol/Substance Use Screening 1953 Zoster Vaccines (2 of 3) 09/18/2014 07/24/2014 RSV Patients and Patients Aged 60 years or older (1 - 1-dose 75+ series) 2016 Hepatitis B Vaccines (3 of 3 - 19+ 3-dose series) 11/08/2017 09/13/2017, 02/01/2014 DTaP/Tdap/Td Vaccines (2 - Td or Tdap) 08/10/2021 08/10/2011 Lipid Panel 08/15/2022 08/15/2021, 07/18/2020 Depression Screening 06/22/2024 06/22/2023, 06/22/20 Diabetes: Hemoglobin A1C 11/01/2024 024, 01/14/2024, 12/02/2022, Additional history exists SDOH Screening 01/13/2025 01/14/2024 COVID-19 Vaccine ( season) 2025 Influenza Vaccine (#1) 2025 , 04/18/2020, 06/23/2019, Additional history exists Eye Exam 01/16/2026 01/16/2025, 01/02, 01/16/2025, Additional history exists Tobacco Screening 01/31/2026 01/31/2025 Pneumococcal Vaccine: 50+ Years Completed 04/02/2015, 08/10/2011 [...] patient's age to complete this topic Meningococcal B Vaccine Aged Out No l [...] Procedure Name Priority Date/Time Associated Diagnosis Comments CT ABDOMEN PELVIS WO CONTRAST Routine 02/22/2025 7:35 PM EDT HIGH SENSITIVITY TROPONIN I Routine 02/22/2025 5:26 PM EDT LIPASE Routine 02/22/2025 5:26 PM EDT MAGNESIUM Routine 02/22/2025 5:26 PM EDT COMPREHENSIVE METABOLIC PANEL Routine 02/22/2025 5:26 PM EDT CBC WITH AUTO DIFFERENTIAL Routine 02/22/2025 5:26 PM EDT SARS COV2/INFLUENZA A/B AND RSV RNA QL NAAT Routine 02/22/2025 5:26 PM EDT VITAMIN D,25-OH,TOTAL,IA Routine 01/30/2025 9:11 AM EDT PHOSPHATE ( PHOSPHORUS) Routine 01/30/2025 9:11 AM EDT CALCIUM Routine 01/30/2025 9:11 AM EDT CREATININE, SERUM Routine 01/30/2025 9:1 1 AM EDT UREA NITROGEN (BUN) Routine 01/30/2025 9 :11 AM EDT ELECTROLYTE PANEL Routine 01/30/2025 9:1 1 AM EDT PTH, INTACT WITHOUT CALCIUM Routine 01/30/2025 9:11 AM EDT CBC WITH AUTO DIFFERENTIAL Routine 01/30/2025 9:11 AM EDT OCT, RETINA - OU - BOTH EYES Routine 01/16/2025 2:30 PM EDT 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 (CMS/HCC) HEMOGLOBIN A1C Routine 05/04/2024 9:36 AM EDT 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 (CMS/HCC) LIPID PANEL, STANDARD Routine 08/15/2021 3:16 PM EST from Last 3 Months or Most Recently Relevant to Health Maintenance Results * CT Abdomen Pelvis w/o Contrast (02/22/2025 7:35 PM EDT) Anatomical Region Laterality Modality Body, Pelvis, Abdomen Computed T omography 02/22/2025 7:3 5 PM EDT Narrative 02/22/2025 7:36 PM EDT [place] [id number] CT Scan Report Signed Patient: Shellie Jackson MR#: [id number] : 1940 Acct:[id number] Age/Sex: 84 / F ADM Date: 02/22/25 Loc: .ED Attending Dr: Ordering Physician: Seble Chinchilla DO Date of Service: 02/22/25 Procedure(s): CT abdomen pelvis wo IV con Accession Number(s): [id number] cc: Irma Brennan MD; Seble Chinchilla DO Report Number: [id number]: Total DLP = 547.00 mGy-cm CLINICAL HISTORY: abdominal pain CT abdomen and pelvis without contrast Comparison: CT/REG/SR - CT ABDOMEN PELVIS WITHOUT IV CONTRAST - 07/03/23 22:11 EST Findings: Bibasilar atelectatic/dependent changes. Status post cholecystectomy. Atrophic liver with nodular contour. Remainder of the solid organs are within normal limits. No bowel obstruction, pneumoperitoneum, or pneumatosis. Moderate colonic diverticulosis without evidence of diverticulitis. Pelvic contents unremarkable. Normal appendix. No acute fracture. Moderate multilevel spondylosis of the visualized thoracolumbar spine with moderate chronic compression deformities involving T11, L1, L2 inferior endplate, and L4 superior endplate. IMPRESSION: No acute findings. Cirrhotic appearing liver without any focal lesions. Status post cholecystectomy. Moderate colonic diverticulosis without evidence of diverticulitis. Moderate multilevel spondylosis of the visualized thoracolumbar spine with chronic compression deformities involving T11, L1, L2, and L4 vertebral bodies. This document has been electronically signed by: Flori Barbour MD on 02/22/2025 19:35:01 Dictated By: Flori Barbour MD Signed By: <Electronically signed by Folri Barbour MD in OV> 02/22/251935 DD/ 34 TD/TT: 02/22/251934 Quality Project Manager: Procedure Note Donotuseinterpreter, Image - 02/22/[address] [place] [id number] [address] Scan Report Signed Patient: Edgardo Jackson#: [id number] : 2Acct:[id number] Age/Sex: 84 / FADM Date: 02/22/25 Loc: HO.ED Attending Dr: Ordering Physician: Seble Chinchilla DO Date of Service: 02/22/25 Procedure(s): CT abdomen pelvis wo IV con Accession Number(s): [id number] cc: Irma Brennan MD; Seble Chinchilla DO Report Number: [id number]: Total DLP = 547.00 mGy-cm CLINICAL HISTORY: abdominal pain CT abdomen and pelvis without contrast Comparison: CT/REG/SR - CT ABDOMEN PELVIS WITHOUT IV CONTRAST - 07/03/23 22:11 EST Findings: Bibasilar atelectatic/dependent changes. Status post cholecystectomy. Atrophic liver with nodular contour. Remainder of the solid organs are within normal limits. No bowel obstruction, pneumoperitoneum, or pneumatosis. Moderate colonic diverticulosis without evidence of diverticulitis. Pelvic contents unremarkable. Normal appendix. No acute fracture. Moderate multilevel spondylosis of the visualized thoracolumbar spine with moderate chronic compression deformities involving T11, L1, L2 inferior endplate, and L4 superior endplate. IMPRESSION: No acute findings. Cirrhotic appearing liver without any focal lesions. Status post cholecystectomy. Moderate colonic diverticulosis without evidence of diverticulitis. Moderate multilevel spondylosis of the visualized thoracolumbar spine with chronic compression deformities involving T11, L1, L2, and L4 vertebral bodies. This document has been electronically signed by: Flori Barbour MD on 02/22/2025 19:35:01 Dictated By: Flori Barbour MD Signed By: <Electronically signed by Flori Barbour MD in OV> 02/22/251935 DD/ 34 TD/TT: 02/22/251934 Quality Project Manager: [facility] External Provider IMG CT PROCEDURES Final Result * High Sensitivity Troponin I (02/22/2025 5:26 PM EDT) Pathologist [facility] TROPONIN I HIGH SENSITIVITY 13.7 <3.5 - 17.0 ng/L [facility] Comment:The Meyer high sens itivity Troponin-I results should beused in conjunction with other diagnostic information suchas ECG, clinical observations and information, and patientsymptoms to aid in the diagnosis of SC. 02/22/2025 5:26 PM EDT 02/22/2025 5:30 PM EDT Generic External Data Provider LAB BLOOD ORDERAB LES Final Result [facility] [address] [place] [phone] * SARS-CoV-2 RNA, Influenza A/B, and RSV RNA, Ql NAAT (02/22/2025 5:26 PM EDT) Pathologist [facility] Influenza A PCR NEGATIVE Negative [facility] Influenza B PCR NEGATIVE Negative [facility] Resp Syncy Virus RNA Qual PCR NEGATIVE Negative [facility] SARS COV2 PCR NEGATIVE Negative [facility] Comment:All test results mus t [...] use by authorized laboratories.Testing performed on the [employer] GeneXpert utilizingreal-time RT-PCR.All SARS CoV2 and positive influenza A/B results arereported to [facility]. 02/22/2025 5:26 PM EDT 02/22/2025 5:30 PM EDT us Generic External Data Provider LAB MICROBIOLOGY - GENERAL ORDERABLES Final Result [facility] [address] [place] [address] [phone] * (ABNORMAL) CBC auto differential (02/22/2025 5:26 PM EDT) Only the most recent of2 resultswithin the time period is included. White Blood Count 6.0 4.8 - 10.8 X10*3/uL [facility] Red Blood Count 3.14(L) 4.20 - 5.50 X10*6/uL [facility] Hemoglobin 10.2(L) 12.0 - 16.0 g/dl [facility] Hematocrit 30.3(L) 37.0 - 47.0 % [facility] Mean Corpuscular Volume 96.5 80.0 - 98.0 fL [facility] Mean Corpuscular Hemoglobin 32.5 27.0 - 33.0 pg [facility] Mean Corpuscular HGB Conc 33.7 31.0 - 35.0 g/dl [facility] Red Cell Distribution Width 13.4 11.0 - 16.0 % [facility] Platelet Count 156(L) 160 - 400 X10*3/uL [facility] Mean Platelet Volume 9.5 9.4 - 12.3 fL [facility] Neutrophils Percent Auto 58.9 45 - 73 % [facility] Imm Gran Pct Auto 0.2 0.0 - 0.4 % [facility] Lymphocytes Percent Auto 26.2 20 - 40 % [facility] Monocytes Percent Auto 13.8(H) 2 - 11 % [facility] Eosinophils Percent Auto 0.7 0 - 4 % [facility] Basophils Percent Auto 0.2 0 - 2 % [facility] NRBC Pct Auto 0.0 0.0 - 0.2 /100WBC [facility] Neutrophils Absolute Auto 3.5 2.0 - 8.3 x10*3/uL [facility] Imm Gran Abs Auto 0.01 0.00 - 0.03 X10*3/uL [facility] Lymphocytes Absolute Auto 1.6 1.2 - 4.9 X10*3/uL [facility] Monocytes Absolute Auto 0.8 0.1 - 1.2 X10*3/uL [facility] Eosinophils Absolute Auto 0.0 0.0 - 0.4 X10*3/uL [facility] Basophils Absolute Auto 0.0 0.0 - 0.2 X10*3/uL [facility] NRBC Abs Auto 0.000 0.0 - 0.012 X10*3/uL [facility] 02/22/2025 5:26 PM EDT 02/22/2025 5:30 PM EDT us Generic External Data Provider LAB BLOOD ORDERAB LES Final Result Performing Organization Address [facility] Co de Phone Number [facility] [address] [place] [address] [phone] * Magnesium (02/22/2025 5:26 PM EDT) Magnesium 2.5 1.6 - 2.6 mg/dL [facility] 02/22/2025 5:26 PM EDT 02/22/2025 5:30 PM EDT Generic External Data Provider LAB BLOOD ORDERAB LES Final Result Performing Organization Address [facility]/ZIP Co de Phone Number [facility] [address] [place] [address] [phone] * (ABNORMAL) Lipase (02/22/2025 5:26 PM EDT) Lipase 89(H) 8 - 78 U/L [facility] 02/22/2025 5:26 PM EDT 02/22/2025 5:30 PM EDT us Generic External Data Provider LAB BLOOD ORDERAB LES Final Result [facility] [address] [place] [phone] * (ABNORMAL) Comprehensive Metabolic Panel (02/22/2025 5:26 PM EDT) Sodium 142 135 - 145 mmol/L [facility] Potassium 4.7 3.3 - 5.1 mmol/L [facility] Chloride 111(H) 96 - 108 mmol/L [facility] Carbon Dioxide 22 22 - 29 mmol/L [facility] Anion Gap 14 12 - 20 [facility] Urea Nitrogen (BUN) 24(H) 9 - 16 mg/dL [facility] Creatinine, Serum 2.12(H) 0.5 - 1.4 mg/dL [facility] Creatinine Clr Calc Pharmacy 16.8 [facility] Comment:Provided height and weight: 154.94 cm,61.4 kg.eGFR (calculated from the MDRD study equation) and eCrCl(calculated from the Cockcroft-Gault equation) are based ondifferent parameters and may not yield comparable results.If eCrCl result is absurd, please check patient'sheight/weight. Estimated Glomerular Filt Rate 22 [facility] Comment:Chronic Kidney Disea se: Estimated GFR < 60 mL/min/1.48r9Klcvhb Kidney Disease: Estimated GFR < 15 mL/min/1.73m2 Glucose 120(H) 60 - 115 mg/dL [facility] Calcium 10.0 8.4 - 10.2 mg/dL [facility] Bilirubin, Total 0.4 0.0 - 1.0 mg/dL [facility] Aspartate Amino Transferase 22 5 - 31 U/L [facility] Alanine Aminotransferase 11 0 - 31 U/L [facility] Total Protein 7.0 6.5 - 8.0 g/dL [facility] Albumin Level 4.0 3.5 - 5.0 g/dL [facility] Alkaline Phosphatase 51 39 - 117 U/L [facility] 02/22/2025 5:26 PM EDT 02/22/2025 5:30 PM EDT us Generic External Data Provider LAB BLOOD ORDERAB LES Final Result [facility] [address] [place] [address] [phone] * (ABNORMAL) Vitamin D, 25-Hydroxy, Total, Immunoassay (01/30/2025 9:11 AM EDT) Vitamin D 25-OH Total 29.8(L) >30 ng/mL [facility] Comment: Health Based Reference Values*< 20 ng/mL Fsgnzdfgj12-13 ng/mL Insufficient> 30 ng/mL Sufficient*Stephani BUNN. N Engl J Med. 2007;357:266-280There is no well-established upper level of normal vitamin Dlevels. Some laboratories use 50 ng/mL as an upper limit ofnormal. However, toxicity is patient-dependent and may occurat any level. Careful correlation with the patient'spresentation is necessary and, if there is concern forvitamin D toxicity, treatment should be consideredirrespective of the serum level.Care must be taken in interpreting Vitamin D results fromdifferent laboratories and methodologies. Published datademonstrated that results from patients undergoinghemodialysis may show a negative bias when tested withvarious automated 25-OH vitamin D assays when compared toLC-MS/MS.When testing samples from patients whose predominant form ofVitamin D is Vitamin D2, such as patients receiving VitaminD2 supplementation, results that are subtherapeutic shouldbe confirmed with another method such as LC-MS/MS. 01/30/2025 9:11 AM EDT 01/30/2025 9:11 AM EDT us Generic External Data Provider LAB BLOOD ORDERAB LES Final Result Performing Organization Address [facility] Co de Phone Number [facility] [address] [place] [phone] * (ABNORMAL) Creatinine, Serum (01/30/2025 9:11 AM EDT) Creatinine, Serum 1.93(H) 0.5 - 1.4 mg/dL [facility] Estimated Glomerular Filt Rate 25 [facility] Comment:Chronic Kidney Disea se: Estimated GFR < 60 mL/min/1.95s1Vicpxg Kidney Disease: Estimated GFR < 15 mL/min/1.73m2 01/30/2025 9:11 AM EDT 01/30/2025 9:11 AM EDT Generic External Data Provider LAB BLOOD ORDERAB LES Final Result Performing Organization Address [facility] Co de Phone Number [facility] [address] [place] [phone] * (ABNORMAL) BUN (Blood Urea Nitrogen) (01/30/2025 9:11 AM EDT) Urea Nitrogen (BUN) 22(H) 9 - 16 mg/dL [facility] 01/30/2025 9:11 AM EDT 01/30/2025 9:11 AM EDT us Generic External Data Provider LAB BLOOD ORDERAB LES Final Result Performing Organization Address [facility] de Phone Number [facility] [address] [place] [phone] * Phosphate (As Phosphorus) (01/30/2025 9:11 AM EDT) Phosphorus 2.9 2.7 - 4.5 mg/dL [facility] 01/30/2025 9:11 AM EDT 01/30/2025 9:11 AM EDT us Generic External Data Provider LAB BLOOD ORDERAB LES Final Result Performing Organization Address [facility] Co de Phone Number [facility] [address] [place] [phone] * (ABNORMAL) PTH, Intact Without Calcium (01/30/2025 9:11 AM EDT) Parathyroid Hormone, Intact 98.3(H) 8.7 - 77.1 pg/mL [facility] 01/30/2025 9:11 AM EDT 01/30/2025 9:11 AM EDT us Generic External Data Provider LAB BLOOD ORDERAB LES Final Result Performing Organization Address [facility] Co de Phone Number [facility] [address] [place] [phone] * Calcium (01/30/2025 9:11 AM EDT) Calcium 9.9 8.4 - 10.2 mg/dL [facility] 01/30/2025 9:11 AM EDT 01/30/2025 9:11 AM EDT us Generic External Data Provider LAB BLOOD ORDERAB LES Final Result Performing Organization Address [facility] de Phone Number [facility] [address] [place] [phone] * (ABNORMAL) Electrolyte Panel (01/30/2025 9:11 AM EDT) Sodium 144 135 - 145 mmol/L [facility] Potassium 4.7 3.3 - 5.1 mmol/L [facility] Chloride 114(H) 96 - 108 mmol/L [facility] Carbon Dioxide 21(L) 22 - 29 mmol/L [facility] Anion Gap 14 12 - 20 [facility] 01/30/2025 9:11 AM EDT 01/30/2025 9:11 AM EDT us Generic External Data Provider LAB BLOOD ORDERAB LES Final Result [facility] [address] [place] [phone] * OCT, Retina - OU - Both Eyes (01/16/2025 2:30 PM EDT) Narrative Jackie Araujo, OD - 02/01/2025 10:27 AM EDT Images from the original result were not included. OCT [facility] [employer] Optical Coherence Tomography Interpretation Report Measurements: OD OS Macula Thickness 220 microns 223 microns Test findings: OD: Normal foveal contour, intraretinal exudate temporal to fovea, no cystoid macular edema, CWS inferonasal to fovea, no retinal pigment epithelium disruption, no subretinal fluid (SRF) OS: Normal foveal contour, intraretinal exudate inferotemporal to fovea, no cystoid macular edema, no retinal pigment epithelium disruption, no subretinal fluid (SRF) Impression and Plan: Moderate non-proliferative diabetic retinopathy (NPDR) without macular edema in both eyes. No treatment indicated at this time. Will monitor at her next exam. us Jackie Araujo OD OPHTH TOMOGRAPHY Edited Resul t - Final * (ABNORMAL) Hemoglobin A1c (05/04/2024 9:36 AM EDT) Hemoglobin A1c 6.1(H) <6.0 % [facility] Comment:Hemoglobin A1C Refer ence Range Adults: 4.8 - 6.0 % Non diabetic: < 6.0 % Goal: < 7.0 %Additional Action Suggested: > 8.0 %Note: Hemoglobin A1c results are invalid for patients with abnormal amounts of HbF. Blood transfusions may impact the HbA1c concentration in the patient sample. Estimated Average Glucose 128 mg/dL [facility] Comment:eAG = Estimated ave rage glucose which is %A1C expressed asaverage glucose, using the formula of the M8M-SekagwcUzxhpao Glucose study (ADAG), Diabetes Care, Vol.31,#8,Feb. 2007 Blood Venous blood specimen / Unknown 05/04/2024 9:36 AM EDT 05/04/2024 9:38 AM EDT us Irma Alexander MD LAB BLOOD ORDERABLES Final Result Performing Organization Address City/[facility]/ZIP Co de Phone Number [facility] [address] [place] [address] [phone] * (ABNORMAL) LIPID PANEL, STANDARD (08/15/2021 3:16 PM EST) Chol/HDLC Ratio 3.3 <5.0 (calc) [facility] Cholesterol, Total 231(H) <200 mg/dL [facility] HDL Cholesterol 71 > OR = 50 mg/dL [facility] LDL Cholesterol 142(H) mg/dL (calc) [facility] Comment: Reference range: <100 Desirable range <100 mg/dL for primary prevention; <70 mg/dL for patients with CHD or diabetic patients with > or = 2 CHD risk factors. LDL-C is now calculated using the Vishal-Diaz calculation, which is a validated novel method providing better accuracy than the Friedewald equation in the estimation of LDL-C. Vishal SS et al. GARCÍA. 2013;310(19): 4483-9081 (http://education.[employer] Education.com/faq/PAU330) Non-HDL Cholesterol 160(H) <130 mg/dL (calc) [facility] Comment: For patients with diabetes plus 1 major ASCVD risk factor, treating to a non-HDL-C goal of <100 mg/dL (LDL-C of <70 mg/dL) is considered a therapeutic option. Triglycerides 78 <150 mg/dL [facility] 08/15/2021 3:16 PM EST us Irma Alexander MD LAB BLOOD ORDERABLES Final Result [facility] [address] [place] [address], from Last 3 Months or Most Recently Relevant to Health Maintenance Insurance * Guarantor: Shellie Jackson Account Type Relation to Patient Date of Phone Billing Address Personal/Family Self [address] [place] [address] [facility] STANDARD [facility] HALF-WAY OPTIONS (HMO D-SNP) * Guarantor: Shellie Jackson Account Type Relation to Patient Date of Phone Billing Address Personal/Family Self [address] [place] [address] * Guarantor: Shellie Jackson Account Type Relation to Patient Date of Phone Billing Address Personal/Family Self [address] [place] [address] Care Teams Center Receptionist Relationship Specialty Start Date End Date Irma Brennan MD 230 [place] [address] PCP - General Family Medicine 11/09/18
--- OUTSIDE RECORDS SUMMARY | 2025-03-19 11:13 | XMS_ITS | Encounter Summary ---
Demographics Address [address] [facility] [address] [place] [address] Home Phone Mobile Phone Phone Phone Email Address Preferred Language Canadian; Castilian Marital Status Yazidism Affiliation Unknown Race Unknown Ethnic Group or Author Organization [facility] and [facility] Address [address] [place] [address] Care Team Providers Care Pulmonary Function Technologist Name Role Phone Irma Brennan MD Primary Care Provide r Encounter Details Date Type Department Care Team (Late st Contact Info) Description 09/12/2019 Scanned Document [facility] 800 [facility] 800 [facility] [place] [address] Jeronimo Piedra MD [address] [place] [phone] Social History Tobacco Use Types Packs/Day [...] on filedocumented in this encounter Care Teams Pulmonary Function Technologist Relationship Specialty Start Date End Date Irma Brennan MD 230 [facility] 1 [place] [address] PCP - General Internal Medicine 07/11/19 documented as of this encounter
--- OUTSIDE RECORDS SUMMARY | 2025-03-19 11:13 | XMS_ITS | Encounter Summary ---
Author Organization [employer] Address 75 [facility] 7t [place] [address] Care Team Providers Care Project Construction Manager Name Role Phone Irma Brennan MD Primary Care Provide r Reason for Visit * Reason Comments Med Refill Encounter Details Date Type Department Care Team ([facility] st Contact Info) Description 02/11/2024 Refill [facility] MEDICINE 230 [place], [place] [phone] Irma Brennan MD 230 [place], [place] [phone] Migraine, unspecified, not intractable, without status migrainosus [...] documented as of this encounter Care Teams Project Construction Manager Relationship Specialty Start Date End Date Irma Brennan MD [address] [place] [address] PCP - General Family Medicine 11/09/18 documented as of this encounter
--- OUTSIDE RECORDS SUMMARY | 2025-03-19 11:13 | XMS_ITS | Encounter Summary ---
Demographics Address [address] [facility] [address] [place] [address] Home Phone Mobile Phone Phone Phone Email Address Preferred Language Anguillan; Castilian Marital Status Anglican Affiliation Unknown Race Unknown Ethnic Group or Author Organization [facility] and [facility] Address 20 [place] [address] Care Team Providers Care Director Security Management Name Role Phone Irma Brennan MD Primary Care Provide r Encounter Details Date Type Department Care Team (Late st Contact Info) Description 07/11/2019 Scanned Document Neurosurgery at 800 [facility] [address] [place] [address] Provider, Historical . Social History Tobacco Use [...] on filedocumented in this encounter Care Teams Director Security Management Relationship Specialty Start Date End Date Irma Brennan MD 230 [facility] 1 [place] [phone] PCP - General Internal Medicine 07/11/19 documented as of this encounter
--- OUTSIDE RECORDS SUMMARY | 2025-03-19 11:13 | XMS_ITS | Encounter Summary ---
Author Organization [email or web address] Address 75 [facility] 7t [place] [address] Care Team Providers Care Butting Saw Operator Name Role Phone Irma Brennan MD Primary Care Provide r Encounter Details Date Type Department Care Team ([facility] st Contact Info) Description 09/06/2023 Orders Only [facility] MEDICINE 230 [place], [place] [phone] Irma Brennan MD 230 [place], [place] [phone] Social History Tobacco Use Types Packs/Day Years [...] documented as of this encounter Care Teams Butting Saw Operator Relationship Specialty Start Date End Date Irma Brennan MD 230 [place] [address] PCP - General Family Medicine 11/09/18 documented as of this encounter
--- OUTSIDE RECORDS SUMMARY | 2025-03-19 11:14 | XMS_ITS | Encounter Summary ---
Author Organization [employer] Address 75 [facility] 7t [place] [address] Care Team Providers Care Grain Cleaner Name Role Phone Irma Brennan MD Primary Care Provide r Reason for Visit * Reason Onset Date Comments Triage 09/23/2022 Encounter Details Date Type Department Care Team ([facility] st Contact Info) Description 09/23/2022 Telephone [facility] MEDICINE 230 [place], [place] [phone] Irma Brennan MD 230 [place] [address] Triage Social History Tobacco Use Types Packs/Day [...] accepted this outcome Please contact pt at [phone] Kazakh Speaker documented in this encounter Plan of Treatment Not on file documented as of this encounter Visit Diagnoses Not on filedocumented in this encounter Care Teams Grain Cleaner Relationship Specialty Start Date End Date Irma Brennan MD 230 [place] [address] PCP - General Family Medicine 11/09/18 documented as of this encounter
--- OUTSIDE RECORDS SUMMARY | 2025-03-19 11:14 | XMS_ITS | Clinical Summary ---
Author Organization [facility] Address 100 [facility] 20 0 [place] [address] Phone Care Team Providers Care Child Health Associate Name Role Phone Irma Brennan MD [...] of 2 - PCV) 1959 Influenza Vaccine (#1) 2025 Hepatitis B Vaccine Aged Out No longe r eligible based on patient's age to complete this topic Insurance [facility] ([id number]) CCA One Care Dual SNP ([id number]) [place] [phone] Care Teams Child Health Associate Relationship Specialty Start Date End Date Irma Brennan MD [address] [place] [address] [place] [phone] PCP - General Internal Medicine 02/23/23
--- OUTSIDE RECORDS SUMMARY | 2025-03-19 11:14 | XMS_ITS | Encounter Summary ---
Author Organization [employer] Address 75 [facility] 7t [place] [address] Care Team Providers Care Ticker Wirer Name Role Phone Irma Brennan MD Primary Care Provide r Reason for Visit * Reason Comments Med Refill Encounter Details Date Type Department Care Team ([facility] st Contact Info) Description 12/07/2022 Refill [facility] MEDICINE 230 [place], [place] [phone] Eri Rodriguez MD 230 [place] [address] Seasonal allergic rhinitis, unspecified trigger Social History [...] documented as of this encounter Care Teams Ticker Wirer Relationship Specialty Start Date End Date Irma Brennan MD 230 [place] [address] PCP - General Family Medicine 11/09/18 documented as of this encounter
--- OUTSIDE RECORDS SUMMARY | 2025-03-19 11:14 | XMS_ITS | Encounter Summary ---
Author Organization [employer] Address 75 [facility] 7t [place] [address] Care Team Providers Care Articulation Officer Name Role Phone Irma Brennan MD Primary Care Provide r Encounter Details Date Type Department Care Team ([facility] st Contact Info) Description 12/31/2023 Orders Only [facility] MEDICINE 230 [place], [place] [phone] Irma Brennan MD 230 [place], [place] [phone] Type 2 diabetes mellitus without complication, unspecified whether terminal gauger insulin use ([facility]) Social History Tobacco [...] 2 diabetes mellitus without complication, unspecified whether terminal gauger insulin use ([facility]) documented in this encounter Additional Health Concerns Assessment Noted Time PHQ-9 Depression Total Score: 0 06/22/20 23 9:55 AM EST documented as of this encounter Care Teams Articulation Officer Relationship Specialty Start Date End Date Irma Brennan MD [address] [place] [address] PCP - General Family Medicine 11/09/18 documented as of this encounter
--- OUTSIDE RECORDS SUMMARY | 2025-03-19 11:14 | XMS_ITS | Encounter Summary ---
Author Organization [employer] Address 75 [facility] 7t [place] [address] Care Team Providers Care Boat Canvas Maker And Installer Name Role Phone Irma Brennan MD Primary Care Provide r Reason for Visit * Reason Onset Date Comments Nurse Triage 12/27/2023 Encounter Details Date Type Department Care Team ([facility] st Contact Info) Description 12/27/2023 Telephone [facility] MEDICINE 230 [place], [place] [phone] Irma Brennan MD 230 [place], [place] [phone] Nurse Triage Social History Tobacco Use Types [...] neurology referral The caller accepted this outcome Dominican speaker documented in this encounter Plan of Treatment Not on file documented as of this encounter Visit Diagnoses Not on filedocumented in this encounter Additional Health Concerns Assessment Noted Time PHQ-9 Depression Total Score: 0 06/22/20 23 9:55 AM EST documented as of this encounter Care Teams Boat Canvas Maker And Installer Relationship Specialty Start Date End Date Irma Brennan MD 230 [place] [address] PCP - General Family Medicine 11/09/18 documented as of this encounter
== END 2025-03-19 10:08 | disposition home or self-care (01) ==
LOC: HO.HGI 09:25
PROVIDERS: PCP Internal Medicine; Visit Provider Nurse Practitioner Family
DX: K21.9 Gastro-esophageal reflux disease without esophagitis (principal); K58.9 Irritable bowel syndrome, unspecified; K59.01 Slow transit constipation; R10.13 Epigastric pain; R14.0 Abdominal distension (gaseous)
CPT/HCPCS: 99214; G2211

== ENCOUNTER → 2025-03-19 09:24 | Outpatient (BNVA) | payer OTHER, SELFPAY | PROVIDERS: PCP Internal Medicine; Visit Provider Nurse Practitioner Family | DX: K21.9 Gastro-esophageal reflux disease without esophagitis (principal); K58.9 Irritable bowel syndrome, unspecified; K59.01 Slow transit constipation; R10.13 Epigastric pain; R14.0 Abdominal distension (gaseous) | CPT/HCPCS: 99212 ==

== ENCOUNTER 2025-04-30 09:09 | Outpatient (REF) | payer OTHER, SELFPAY ==
--- OUTSIDE RECORDS SUMMARY | 2025-04-30 09:59 | XMS_ITS | Data Portability ---
Author Organization [employer] [facility] Address [address] [place] [address] Care Team Providers Care Tooling Specialist Name Role Phone HIM [facility] OTHER Assessment [...] Assessment and Plan as documented by the Perinatal Educator. Patient given the opportunity to ask questions. Our service contacted for an assessment of: Dizziness As per above, patient patient unable to give a history but does have a past medical history of hypertension. Lives alone and apparently her daughter lives next door who is the 1 who called for visit unfortunately we are unable to get touch with her. Patient is Gambian-speaking only and was communicated with via an spanish medical interpreter however there does appear to be some cognitive impairment precluding accurate history taking. She is able to state she has been dizzy for quite some period of time but denies falls although I see she fell and we evaluated her in the house in February of 2023. Per barrel drainer on the scene, she has orthostatic by [...] are by different prescribers as well. Per barrel drainer on the scene 1 of the the [...] and preferably with the daughter present. The barrel drainer has attempted to sort through the medications [...] BMP, serum or plasma [address], [phone] 4 14:50:21 Referral None recorded. Procedures None recorded. Surgeries None recorded. Imaging electrocard iogram [email or web address], [phone] 4 13:45:22 Medication Orders ketorolac 15 mg/mL injection solution 2022 023 [email or web address] Not available 3 11:08:40 Patient TargetsNo targets recorded. Patient InstructionsNo instructions recorded. Reason for Referral None Reported. Results Created Date Observation Date Name Description Value Unit Range Abnormal Flag Note LastModifiedBy Organization Detail LastModifiedTime 12/28/19 24 12/28/2023 elect stuart diogr am No observ ation record ed. [email or web address] [address] [place] [address], [phone] 12/28/2023 12:44:49 Result Notes None recorded. Medical [...] /min 123/79 mm[Hg] 92/66 mm[Hg] Not Available [employer] 4 10:41:25 Date Recorded Oxygen saturation Oxygen saturation in Arterial blood by Pulse oximetry Body temperature Body height Heart rate Body weight Respiratory rate Systolic And Diastolic Provider Name and Address Organization Details Last Updated DateTime 3 98 % 98 % 97.4 [degF] 157.48 cm 84 /min 03999 g 18 /min 142/84 mm[Hg] Not Available [employer] 3 10:50:30 Social History None recorded. Functional Status None recorded. Mental Status None recorded. Family History Nothing Reported. Medical History No medical history recorded. Gynecological HistoryNo gynecological history recorded. Obstetrics History GPAL:G 0 P 0 0 0 0 Past Encounters Encounter ID Performer Location Encounter Start Date Encounter Closed Date Diagnosis/Indication Diagnosis SNOMED-CT Code Diagnosis ICD10 Code Diagnosis IMO Codes Diagnosis Note [id number] Denise Mcgarry MD [facility] [address] [place] [phone] 02/05/2023 10:47:03 11/03/2024 12:58:28 Fall W19.XXXA [id number] Janis Ellis MD [facility] [address] [place] [phone] 12/28/2023 10:41:08 12/28/2023 16:17:45 Chronic orthostatic hypotension 83087854 I95.1 Health Concerns Section Related Observation LastModified by Organization Detai ls LastModified Time None Recorded Concern Status LastModified by Organization Details LastModified Time None Recorded Advance Directives Directive None Recorded Payers Insurance Date Sequence Insurance Name Policy Number Policy Felix Covered Member ID Felix Member ID Guarantor Name 11/03/2024 1 [facility] - [facility] PRIOR TO 2022 - DUAL ELIGIBLE (MEDICARE REPLACEMENT/ADV ANTAGE - HMO) Shellie Jackson [id number] Shellie Jackson 11/03/2024 1 [facility] - DOS ON OR AFTER 2022 - DUAL ELIGIBLE - CUSTODIAL OPTIONS AND ONE CARE (MEDICARE REPLACEMENT/ADV ANTAGE - HMO) Shellie Jackson [id number] Shellie Jackson Notes Date Note Type Note Provider Name and Address Organization Details Recorded Time 02/05/2023 text/html HPI: 82 Year old, female, Gambian speaking, reporting a fall on 02/01/2023, went to [facility] and left AMA after waiting for hrs, [...] .................... .................... .................... .................... .................... .................... . Perinatal Educator Note From Yasir Reyna: Pt caox3 complains of lower left back pain after a slip and fall in the bathroom 6 days ago. Pt went to ED [...] noted. Red flags and pt education discussed. [facility] Medication Orders: ketorolac 15 mg/mL injection solution: Administered Comment: pain decreased .................... .................... .................... .................... .................... .................... .................... . Disposition: Fulfilled Denise Mcgarry MD [address] [place] [address],[address] [facility], [place], [phone] [employer] 02/05/2023 15:53:19 12/28/2023 text/html HPI: HX: DM,LOONEY, GERD,MIGRAINE: CKD; HTN; IMPAIRED BALANCE.Patient with complaint of sever headache and dizziness yesterday. Takes med for Migraines Daughter unable to identify. Remains dizzy off balance and not walking well. PCP for new provider .................... .................... .................... .................... .................... .................... .................... . CRC Nurse Triage Notes (Jeimy Watson): Comments: Reviewed HPI and will place referral [facility] , Mother is asleep .................... .................... .................... .................... .................... .................... .................... . Baseline Information: Baseline Hb: 10.4 g/dL Baseline HCt: 30% Baseline Creatinine: 1.63 mg/dL .................... .................... .................... .................... .................... .................... .................... . Perinatal Educator Note From Km Lai: Pt is an 83 Gambian speaking female who lives alone (daughter lives next door). Pt sts she has felt dizzy f or a while. Pt sts she only feels dizzy when standing or moving. Pt s daily medications are in bottles on [...] tried several times to knock on the daughter s door and call her number with no answer. Pt is alert, NAD. Orthostatic BP. Afebrile. Non focal neuro exam. Normal gait. Lungs CTA. Benign ABD exam. No LE edema. Unremarkable EKG. I all of her duplicate meds and d/c her amlodipine. CRC RN Michelle made aware of the pts need for VNA services, med rec, etc. .................... .................... .................... .................... .................... .................... .................... . Disposition: Fulfilled Janis Ellis MD [address] [place] [address],[address], [place], [phone], [employer] 12/28/2023 10:55:15 OBGyn Episode No OBEpisode recorded.
--- OUTSIDE RECORDS SUMMARY | 2025-04-30 10:00 | XMS_ITS | Encounter Summary ---
Author Organization [employer] Address 75 [facility] 7t [place] [address] Care Team Providers Care Wallpaper Hanger Name Role Phone Irma Brennan MD Primary Care Provide r Reason for Visit * Reason Comments Med Refill Encounter Details Date Type Department Care Team ([facility] st Contact Info) Description 02/11/2024 Refill [facility] MEDICINE 230 [place], [place] [phone] Irma Brennan MD 230 [place], [place] [phone] Migraine, unspecified, not intractable, without status migrainosus [...] documented as of this encounter Care Teams Wallpaper Hanger Relationship Specialty Start Date End Date Irma Brennan MD [address] [place] [address] PCP - General Family Medicine 11/09/18 documented as of this encounter
--- OUTSIDE RECORDS SUMMARY | 2025-04-30 10:00 | XMS_ITS | Encounter Summary ---
Demographics Address [address] [facility] [address] [place] [address] Home Phone Mobile Phone Phone Phone Email Address Preferred Language Hebrew; Castilian Marital Status Muslim Affiliation Unknown Race Unknown Ethnic Group or Author Organization [facility] [facility] and [facility] Address 20 [place] [address] Care Team Providers Care Bryologist Name Role Phone Irma Brennan MD Primary Care Provide r Encounter Details Date Type Department Care Team (Late st Contact Info) Description 07/11/2019 Abstract [facility] 800 [facility][Note 2] [address] [place] [address] Jeronimo Olson MD 800 [place] [phone] Social History Tobacco Use Types Packs/Day Years [...] on filedocumented in this encounter Care Teams Bryologist Relationship Specialty Start Date End Date Irma Brennan MD 230 [facility] 1 [place] [phone] PCP - General Internal Medicine 07/11/19 documented as of this encounter
--- OUTSIDE RECORDS SUMMARY | 2025-04-30 10:00 | XMS_ITS | Encounter Summary ---
Demographics Address [address] [place] [address] Home Phone Preferred Language es Marital Status Unknown Mormon Affiliation Unknown Race White Ethnic Group Unknown Author Organization [facility], Address [address] [place] [address] Phone Care Team Providers Care Landscaping Supervisor Name Role Phone Irma Brennan MD Primary Care Provide r Encounter Details Date Type Department Care Team (Late st Contact Info) Description 02/24/2023 Documentation Only [facility], [address] [place] [address] Irma Brennan MD 230 [facility] 1 [place] [address] Social History Tobacco Use Types [...] on filedocumented in this encounter Care Teams Landscaping Supervisor Relationship Specialty Start Date End Date Irma Brennan MD 230 [facility] 1 [place] [address] PCP - General Internal Medicine 02/23/23 documented as of this encounter
--- OUTSIDE RECORDS SUMMARY | 2025-04-30 10:00 | XMS_ITS | Encounter Summary ---
Author Organization [facility] Address 75 [facility] 7t [place] [address] Care Team Providers Care Administrative Fellow Name Role Phone Irma Brennan MD Primary Care Provide r Reason for Visit * Reason Onset Date Comments Referral 09/15/2023 Encounter Details Date Type Department Care Team ([facility] st Contact Info) Description 09/15/2023 Telephone [facility] MEDICINE 230 [place], [place] [phone] Irma Brennan MD 230 [place], [place] [phone] Referral Social History Tobacco Use Types Packs/Day [...] Glenis Hutchinson - 09/23/2023 3:24 PM EDT [facility] Tanner called and spoke with daughter Eri. Pt had a scheduled appt and no showed. Daughter was given number to call and reschedule. * Telephone Encounter - Nany Zhao - 09/15/2023 1:13 PM EDT Tc from pt daughter requesting a referral to a oil burner installer. Referral still pending from 06/22/23 documented in this encounter Plan of Treatment Not on file documented as of this encounter Visit Diagnoses Not on filedocumented in this encounter Additional Health Concerns Assessment Noted Time PHQ-9 Depression Total Score: 0 06/22/20 23 9:55 AM EST documented as of this encounter Care Teams Administrative Fellow Relationship Specialty Start Date End Date Irma Brennan MD [address] [place] [address] PCP - General Family Medicine 11/09/18 documented as of this encounter
--- OUTSIDE RECORDS SUMMARY | 2025-04-30 10:00 | XMS_ITS | Encounter Summary ---
Demographics Address [address] [facility] [address] [place] [address] Home Phone Mobile Phone Phone Phone Email Address Preferred Language Wolof; Castilian Marital Status Nondenominational Affiliation Unknown Race Unknown Ethnic Group or Author Organization [facility] and [facility] Address [address] [place] [address] Care Team Providers Care Credit Authorizer Name Role Phone Irma Brennan MD Primary Care Provide r Encounter Details Date Type Department Care Team (Late st Contact Info) Description 09/12/2019 Scanned Document [facility] [address] [place], [place] [address] Jeronimo Olson MD [address] [place] [phone] Social History Tobacco Use Types Packs/Day Years [...] on filedocumented in this encounter Care Teams Credit Authorizer Relationship Specialty Start Date End Date Irma Brennan MD 230 [facility] 1 [place] [phone] PCP - General Internal Medicine 07/11/19 documented as of this encounter
--- OUTSIDE RECORDS SUMMARY | 2025-04-30 10:00 | XMS_ITS | Encounter Summary ---
Author Organization [employer] Address [address] [facility] 7t [place] [address] Care Team Providers Care Gastroenterology Nurse Practitioner Name Role Phone Irma Brennan MD Primary Care Provide r Encounter Details Date Type Department Care Team ([facility] st Contact Info) Description 09/06/2023 Orders Only [facility] [address] [place], [place] [phone] Irma Brennan MD [address] [place], [place] [phone] Social History Tobacco Use Types Packs/Day Years [...] documented as of this encounter Care Teams Gastroenterology Nurse Practitioner Relationship Specialty Start Date End Date Irma Brennan MD [address] [place] [address] PCP - General Family Medicine 11/09/18 documented as of this encounter
--- OUTSIDE RECORDS SUMMARY | 2025-04-30 10:00 | XMS_ITS | Encounter Summary ---
Author Organization [employer] Address [address] [facility] 7t [place] [address] Care Team Providers Care Cupola Melter Helper Name Role Phone Irma Brennan MD Primary Care Provide r Reason for Visit * Reason Comments Med Refill Encounter Details Date Type Department Care Team ([facility] st Contact Info) Description 05/31/2023 Refill [facility] [address] [place], [place] [phone] Irma Brennan MD [address] [place], [place] [phone] Acute low back pain, unspecified back pain [...] documented as of this encounter Care Teams Cupola Melter Helper Relationship Specialty Start Date End Date Irma Brennan MD [address] [place] [phone] PCP - General Family Medicine 11/09/18 documented as of this encounter
--- OUTSIDE RECORDS SUMMARY | 2025-04-30 10:00 | XMS_ITS | Encounter Summary ---
Author Organization [employer] Address [address] [facility] 7t [place] [address] Care Team Providers Care Roofing Apprentice Name Role Phone Irma Brennan MD Primary Care Provide r Reason for Visit * Reason Comments Med Refill Encounter Details Date Type Department Care Team ([facility] st Contact Info) Description 12/07/2022 Refill [facility] [address] [place], [place] [phone] Eri Rodriguez MD [address] [place] [address] Seasonal allergic rhinitis, unspecified trigger Social History [...] documented as of this encounter Care Teams Roofing Apprentice Relationship Specialty Start Date End Date Irma Brennan MD [address] [place] [phone] PCP - General Family Medicine 11/09/18 documented as of this encounter
--- OUTSIDE RECORDS SUMMARY | 2025-04-30 10:00 | XMS_ITS | Clinical Summary ---
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 1 each 024 Active ondansetron ODT (Zofran-ODT) 8 MG disintegrating tabletIndications:C hronic gastritis without bleeding, unspecified gastritis type,Nausea DISSOLVE 1 TABLET BY MOUTH EVERY 8 HOURS NEEDED FOR NAUSEA AND VOMITING 30 tablet 1 024 Active levothyroxine (Synthroid, Levoxyl) 50 MCG tabletIndications:A cquired hypothyroidism TAKE 1 TABLET BY MOUTH EVERY MORNING 90 tablet 3 025 Active glucose blood (FREESTYLE LITE) test stripIndications:Ty pe 2 diabetes mellitus with diabetic peripheral angiopathy without gangrene, unspecified whether intermediate insulin use ([facility]) TEST BLOOD SUGAR TWICE DAILY 100 strip 11 Active TRUEplus Lancets 33G miscIndications:Typ e 2 diabetes mellitus with diabetic peripheral angiopathy without gangrene, unspecified whether intermediate insulin use ([facility]) TEST BLOOD SUGAR TWICE DAILY 100 each Active PARoxetine (Paxil) 40 MG tablet TAKE 1 TABLET BY MOUTH EVERY DAY 90 tablet 1 Active fluticasone (Flonase) 50 MCG/ACT nasal sprayIndications:Rh initis, unspecified type INSTILL 1-2 SPRAYS IN EACH NOSTRIL ONCE DAILY NEEDED 48 g 1 Active Aspirin Low Dose 81 MG EC tablet TAKE 1 TABLET BY MOUTH EVERY DAY IN THE MORNING 90 tablet Active ferrous gluconate (Fergon) 324 (38 Fe) MG tabletIndications: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 Active docusate sodium (Colace) 100 MG capsule Take 1 capsule by mouth Once per day. Active pantoprazole (ProtoNix) 20 MG EC tablet Take 1 tablet by mouth Once per day. Active amLODIPine (Norvasc) 2.5 MG tablet Take 1 tablet by mouth Once per day. Active topiramate (Topamax) 25 MG tabletIndications:C hronic migraine without aura without status migrainosus, not intractable TAKE 1 TABLET BY MOUTH DAILY AT BEDTIME 30 tablet 1 Active glimepiride (Amaryl) 1 MG tablet TAKE 1 TABLET BY MOUTH EVERY MORNING BEFORE BREAKFAST 30 tablet 2 Active famotidine (Pepcid) 40 MG tabletIndications:N ausea TAKE 1 TABLET BY MOUTH TWICE DAILY 60 tablet 2 Active topiramate 50 MG tablet TAKE 1 TABLET BY MOUTH ONCE DAILY 023 2024 Discontinued glimepiride (Amaryl) 1 MG tabletIndications:T ype 2 diabetes mellitus without complication, unspecified whether intermediate insulin use TAKE 1 TABLET BY MOUTH EVERY MORNING BEFORE BREAKFAST 30 tablet 2 025 2024 Discontinued famotidine (Pepcid) 40 MG tabletIndications:N ausea TAKE 1 TABLET BY MOUTH TWICE DAILY 60 tablet 2 025 2024 Discontinued topiramate (Topamax) 25 MG tabletIndications:C hronic migraine without aura without status migrainosus, not intractable TAKE 1 TABLET BY MOUTH AT BEDTIME 30 tablet 1 025 2024 Discontinued Active Problems Problem Noted Date Diagnosed Date Nausea 08/06/2023 Assessment & Plan (01/14/2024 3:08 PM EDT): Zofran prescribed Stage 4 chronic kidney disease ([facility]) 023 Assessment & Plan (06/22/2023 10:44 AM EST): [...] tums prn abd pain. Acute kidney injury superimposed on chronic kidn ey disease 02/16/2023 Assessment & Plan (05/06/2023 5:07 PM EDT): -Apparently resolved. Professional Nursing Tutor regarding hydration, check prior to next appointment. [...] and fu w PCP May/ not need GOLD LEAF PRINTER, needs OV to evaluate risk and need for assistance at home Pain in lower back 02/16/2023 Anemia due to chronic kidney disease 02/16/2023 Depression with anxiety 02/16/2023 Assessment & Plan (02/16/2023 12:19 PM EDT): Counseling done patient will benefit form therapist and psychiatrist Chronic gastritis 10/05/2022 Assessment & Plan (01/14/2024 3:08 PM EDT): Continue to follow with GI Jose prescribed today Assessment & Plan (08/06/2023 11:18 [...] up with PCP in 3 weeks - public relations counselor daughter and patient small and fractioned [...] 03/04/2012 Chronic kidney disease, stage III (moderate) (CM S/HCC) 01/21/2012 Depressive disorder 01/21/2012 Temporal headache 01/21/2012 Cerebral aneurysm, nonruptured 10/22/2011 Overview (03/10/2023): 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 Encounters Date Type Department Care Team Description 04/08/2025 Refill [facility] [address] [place] [address] Irma Brennan MD Chronic migraine without aura without status migrainosus, not intractable; Type 2 diabetes mellitus without complications (HCC); Nausea 02/22/2025 Orders Only GENERIC EXTERNAL DATA DEPARTMENT Provider, Generic External Data 02/07/2025 Refill C [facility] [address] [place] [address] Irma Brennan MD Chronic migraine without aura without status migrainosus, not intractable 01/30/2025 Orders Only GENERIC EXTERNAL DATA DEPARTMENT Provider, Generic External Data from Last 3 Months Immunizations Immunization Administration [...] :11 AM EDT ELECTROLYTE PANEL Routine 01/30/2025 9: 11 AM EDT PTH, INTACT WITHOUT CALCIUM Routine 01/30/2025 9:11 AM EDT CBC WITH AUTO DIFFERENTIAL Routine 01/30/2025 9:11 AM EDT HEMOGLOBIN A1C Routine 05/04/2024 9:36 AM EDT 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 (CMS/HCC) LIPID PANEL, STANDARD Routine 08/15/2021 3:16 PM EST from Last 3 Months or Most Recently Relevant to Health Maintenance Results * CT Abdomen Pelvis w/o Contrast (02/22/2025 7:35 PM EDT) Anatomical Region Laterality Modality Body, Pelvis, Abdomen Computed T omography 02/22/2025 7:35 PM EDT Narrative 02/22/2025 7:36 PM EDT [place] [address] CT Scan Report Signed Patient: Shellie Jackson MR#: [id number] : 1940 Acct:[id number] Age/Sex: 84 / F ADM Date: 02/22/25 Loc: HO.ED Attending Dr: Ordering Physician: Seble Chinchilla DO Date of Service: 02/22/25 Procedure(s): CT abdomen pelvis wo IV con Accession Number(s): [id number] cc: Irma Brennan MD; Seble Chinchilla DO Report Number: [id number]: Total DLP = 547.00 mGy-cm CLINICAL HISTORY: [...] in OV> 02/22/251935 DD/ 34 TD/TT: 02/22/251934 Fire Dispatcher: Procedure Note Donotuseinterpreter, Image - 02/22/[address] [address] [address] Scan Report Signed Patient: Shellie JacksonMR#: [id number] : 2Acct:[id number] Age/Sex: 84 / FADM Date: 02/22/25 Loc: HO.ED Attending Dr: Ordering Physician: Seble Chinchilla DO Date of Service: 02/22/25 Procedure(s): CT abdomen pelvis wo IV con Accession Number(s): [id number] cc: Irma Brennan MD; Seble Chinchilla DO Report Number: [id number]: Total DLP = 547.00 mGy-cm CLINICAL HISTORY: [...] in OV> 02/22/251935 DD/ 34 TD/TT: 02/22/251934 Fire Dispatcher: [facility] External Provider IMG CT PROCEDURES Final Result * High Sensitivity Troponin I (02/22/2025 5:26 PM EDT) TROPONIN I HIGH SENSITIVITY 13.7 <3.5 - 17.0 ng/L [facility] Comment:The Meyer high sens itivity Troponin-I results should beused in conjunction with other diagnostic information suchas ECG, clinical observations and information, and patientsymptoms to aid in the diagnosis of MT. 02/22/2025 5:26 PM EDT 02/22/2025 5:30 PM EDT Generic External Data Provider LAB BLOOD ORDERAB LES Final Result [facility] [address] [place] [phone] * SARS-CoV-2 RNA, Influenza A/B, and RSV RNA, Ql NAAT (02/22/2025 5:26 PM EDT) Pathologist [facility] [place] Influenza A PCR NEGATIVE Negative [facility] Influenza B PCR NEGATIVE Negative [facility] Resp Syncy Virus RNA Qual PCR NEGATIVE Negative [facility] SARS COV2 PCR NEGATIVE Negative [facility] Comment:All test results mus t be [...] use by authorized laboratories.Testing performed on the [employer] GeneXpert utilizingreal-time RT-PCR.All SARS CoV2 and positive influenza A/B results arereported to [facility]. 02/22/2025 5:26 PM EDT 02/22/2025 5:30 PM EDT us Generic External Data Provider LAB MICROBIOLOGY - GENERAL ORDERABLES Final Result [facility] [address] [place], [place] [phone] * (ABNORMAL) CBC auto differential (02/22/2025 5:26 PM EDT) Only the most recent of2 resultswithin the time period is included. White Blood Count 6.0 4.8 - 10.8 X10*3/uL [facility] Red Blood Count 3.14(L) 4.20 - 5.50 X10*6/uL [facility] Hemoglobin 10.2(L) 12.0 - 16.0 g/dl [facility] Hematocrit 30.3(L) 37.0 - 47.0 % [facility] Mean Corpuscular Volume 96.5 80.0 - 98.0 fL [facility] Mean Corpuscular Hemoglobin 32.5 27.0 - 33.0 pg [facility] Mean Corpuscular HGB Conc 33.7 31.0 - 35.0 g/dl [facility] Red Cell Distribution Width 13.4 11.0 - 16.0 % [facility] Platelet Count 156(L) 160 - 400 X10*3/uL [facility] Mean Platelet Volume 9.5 9.4 - 12.3 fL [facility] Neutrophils Percent Auto 58.9 45 - 73 % [facility] Imm Gran Pct Auto 0.2 0.0 - 0.4 % [facility] Lymphocytes Percent Auto 26.2 20 - 40 % [facility] Monocytes Percent Auto 13.8(H) 2 - 11 % [facility] Eosinophils Percent Auto 0.7 0 - 4 % [facility] Basophils Percent Auto 0.2 0 - 2 % [facility] NRBC Pct Auto 0.0 0.0 - 0.2 /100WBC [facility] Neutrophils Absolute Auto 3.5 2.0 - 8.3 x10*3/uL [facility] Imm Gran Abs Auto 0.01 0.00 - 0.03 X10*3/uL [facility] Lymphocytes Absolute Auto 1.6 1.2 - 4.9 X10*3/uL [facility] Monocytes Absolute Auto 0.8 0.1 - 1.2 X10*3/uL [facility] Eosinophils Absolute Auto 0.0 0.0 - 0.4 X10*3/uL [facility] Basophils Absolute Auto 0.0 0.0 - 0.2 X10*3/uL [facility] NRBC Abs Auto 0.000 0.0 - 0.012 X10*3/uL [facility] 02/22/2025 5:26 PM EDT 02/22/2025 5:30 PM EDT us Generic External Data Provider LAB BLOOD ORDERAB LES Final Result Performing Organization Address [facility]/ZIP Co de Phone Number [facility] [address] [place] [phone] * Magnesium (02/22/2025 5:26 PM EDT) Magnesium 2.5 1.6 - 2.6 mg/dL [facility] 02/22/2025 5:26 PM EDT 02/22/2025 5:30 PM EDT Generic External Data Provider LAB BLOOD ORDERAB LES Final Result Performing Organization Address [facility]/ZIP Co de Phone Number [facility] [address] [place] [phone] * (ABNORMAL) Lipase (02/22/2025 5:26 PM EDT) Lipase 89(H) 8 - 78 U/L [facility] 02/22/2025 5:26 PM EDT 02/22/2025 5:30 PM EDT us Generic External Data Provider LAB BLOOD ORDERAB LES Final Result Performing Organization Address City/[facility]/ZIP Co de Phone Number [facility] [address] [place] [phone] * (ABNORMAL) Comprehensive Metabolic Panel (02/22/2025 5:26 PM EDT) Sodium 142 135 - 145 mmol/L [facility] Potassium 4.7 3.3 - 5.1 mmol/L [facility] Chloride 111(H) 96 - 108 mmol/L [facility] Carbon Dioxide 22 22 - 29 mmol/L [facility] Anion Gap 14 12 - 20 [facility] Urea Nitrogen (BUN) 24(H) 9 - 16 mg/dL [facility] Creatinine, Serum 2.12(H) 0.5 - 1.4 mg/dL [facility] Creatinine Clr Calc Pharmacy 16.8 [facility] Comment:Provided height and weight: 154.94 cm,61.4 kg.eGFR (calculated from the MDRD study equation) and eCrCl(calculated from the Cockcroft-Gault equation) are based ondifferent parameters and may not yield comparable results.If eCrCl result is absurd, please check patient'sheight/weight. Estimated Glomerular Filt Rate 22 [facility] Comment:Chronic Kidney Disea se: Estimated GFR < 60 mL/min/1.62h6Wknkpr Kidney Disease: Estimated GFR < 15 mL/min/1.73m2 Glucose 120(H) 60 - 115 mg/dL [facility] Calcium 10.0 8.4 - 10.2 mg/dL [facility] Bilirubin, Total 0.4 0.0 - 1.0 mg/dL [facility] Aspartate Amino Transferase 22 5 - 31 U/L [facility] Alanine Aminotransferase 11 0 - 31 U/L [facility] Total Protein 7.0 6.5 - 8.0 g/dL [facility] Albumin Level 4.0 3.5 - 5.0 g/dL [facility] Alkaline Phosphatase 51 39 - 117 U/L [facility] 02/22/2025 5:26 PM EDT 02/22/2025 5:30 PM EDT us Generic External Data Provider LAB BLOOD ORDERAB LES Final Result Performing Organization Address City/[facility]/ZIP Co de Phone Number [facility] [address] [place] [phone] * (ABNORMAL) Vitamin D, 25-Hydroxy, Total, Immunoassay (01/30/2025 9:11 AM EDT) Vitamin D 25-OH Total 29.8(L) >30 ng/mL [facility] Comment: Health Based Reference Values*< 20 ng/mL Uycqmxefk83-97 ng/mL Insufficient> 30 ng/mL Sufficient*Stephani BUNN. N [...] ORDERAB LES Final Result Performing Organization Address City/[facility]/ZIP Co de Phone Number [facility] [address] [place] [phone] * (ABNORMAL) Creatinine, Serum (01/30/2025 9:11 AM EDT) Creatinine, Serum 1.93(H) 0.5 - 1.4 mg/dL [facility] Estimated Glomerular Filt Rate 25 [facility] Comment:Chronic Kidney Disea se: Estimated GFR < 60 mL/min/1.77l8Wnptoe Kidney Disease: Estimated GFR < 15 mL/min/1.73m2 01/30/2025 9:11 AM EDT 01/30/2025 9:11 AM EDT us Generic External Data Provider LAB BLOOD ORDERAB LES Final Result Performing Organization Address [facility] Co de Phone Number [facility] [address] [place] [phone] * (ABNORMAL) BUN (Blood Urea Nitrogen) (01/30/2025 9:11 AM EDT) Urea Nitrogen (BUN) 22(H) 9 - 16 mg/dL [facility] 01/30/2025 9:11 AM EDT 01/30/2025 9:11 AM EDT Generic External Data Provider LAB BLOOD ORDERAB LES Final Result Performing Organization Address [facility] de Phone Number [facility] [address] [place] [phone] * Phosphate (As Phosphorus) (01/30/2025 9:11 AM EDT) Phosphorus 2.9 2.7 - 4.5 mg/dL [facility] 01/30/2025 9:11 AM EDT 01/30/2025 9:11 AM EDT Generic External Data Provider LAB BLOOD ORDERAB LES Final Result Performing Organization Address [facility] Co de Phone Number [facility] [address] [place] [phone] * (ABNORMAL) PTH, Intact Without Calcium (01/30/2025 9:11 AM EDT) Parathyroid Hormone, Intact 98.3(H) 8.7 - 77.1 pg/mL [facility] 01/30/2025 9:11 AM EDT 01/30/2025 9:11 AM EDT Generic External Data Provider LAB BLOOD ORDERAB LES Final Result Performing Organization Address [facility] Co de Phone Number [facility] [address] [place] [phone] * Calcium (01/30/2025 9:11 AM EDT) Pathologist [facility] Calcium 9.9 8.4 - 10.2 mg/dL [facility] 01/30/2025 9:11 AM EDT 01/30/2025 9:11 AM EDT Generic External Data Provider LAB BLOOD ORDERAB LES Final Result Performing Organization Address [facility] de Phone Number [facility] [address] [place] [phone] * (ABNORMAL) Electrolyte Panel (01/30/2025 9:11 AM EDT) Pathologist [facility] Sodium 144 135 - 145 mmol/L [facility] Potassium 4.7 3.3 - 5.1 mmol/L [facility] Chloride 114(H) 96 - 108 mmol/L [facility] Carbon Dioxide 21(L) 22 - 29 mmol/L [facility] Anion Gap 14 12 - 20 [facility] 01/30/2025 9:11 AM EDT 01/30/2025 9:11 AM EDT Generic External Data Provider LAB BLOOD ORDERAB LES Final Result Performing Organization Address [facility] Co de Phone Number [facility] [address] [place] [phone] * (ABNORMAL) Hemoglobin A1c (05/04/2024 9:36 AM EDT) Hemoglobin A1c 6.1(H) <6.0 % [facility] Comment:Hemoglobin A1C Refer ence Range Adults: 4.8 - 6.0 % Non diabetic: < 6.0 % Goal: < 7.0 %Additional Action Suggested: > 8.0 %Note: Hemoglobin A1c results are invalid for patients with abnormal amounts of HbF. Blood transfusions may impact the HbA1c concentration in the patient sample. Estimated Average Glucose 128 mg/dL [facility] Comment:eAG = Estimated ave rage glucose which is %A1C expressed asaverage glucose, using the formula of the P3B-EjkssrzOenrfnf Glucose study (ADAG), Diabetes Care, Vol.31,#8,Feb. 2007 Blood Venous blood specimen / Unknown 05/04/2024 9:36 AM EDT 05/04/2024 9:38 AM EDT Irma Alexander MD LAB BLOOD ORDERABLES Final Result [facility] [address] [place] [phone] * (ABNORMAL) LIPID PANEL, STANDARD (08/15/2021 3:16 PM EST) Chol/HDLC Ratio 3.3 <5.0 (calc) [facility] Cholesterol, Total 231(H) <200 mg/dL [facility] HDL Cholesterol 71 > OR = 50 mg/dL [facility] LDL Cholesterol 142(H) mg/dL (calc) [facility] Comment: Reference range: <100 Desirable range <100 mg/dL for primary prevention; <70 mg/dL for patients with CHD or diabetic patients with > or = 2 CHD risk factors. LDL-C is now calculated using the Raymon calculation, which is a validated novel method providing better accuracy than the Friedewald equation in the estimation of LDL-C. Vishal THOMAS et al. GARCÍA. 2013;310(19): 8587-9551 (http://education.[employer]/faq/YWR578) Non-HDL Cholesterol 160(H) <130 mg/dL (calc) [facility] Comment: For patients with diabetes plus 1 major ASCVD risk factor, treating to a non-HDL-C goal of <100 mg/dL (LDL-C of <70 mg/dL) is considered a therapeutic option. Triglycerides 78 <150 mg/dL [facility] 08/15/2021 3:16 PM EST Irma Alexander MD LAB BLOOD ORDERABLES Final Result [facility] [address] [place] [address], from Last 3 Months or Most Recently Relevant to Health Maintenance Insurance [facility] ADV STANDARD [facility] [employer] OPT[employer] (O D-SNP) Care Teams Hot Worker Relationship Specialty Start Date End Date Irma Brennan MD [address] [place] [phone] PCP - General Family Medicine 11/09/18
--- OUTSIDE RECORDS SUMMARY | 2025-04-30 10:00 | XMS_ITS | Encounter Summary ---
Author Organization [employer] Address [address] [facility] 7t [place] [address] Care Team Providers Care Trackless Trolley Driver Name Role Phone Irma Brennan MD Primary Care Provide r Reason for Visit * Reason Onset Date Comments Nurse Triage 12/27/2023 Encounter Details Date Type Department Care Team ([facility] st Contact Info) Description 12/27/2023 Telephone [facility] [address] [place], [place] [phone] Irma Brennan MD [address] [place], [place] [phone] Nurse Triage Social History Tobacco Use Types [...] The caller accepted this outcome Citizen [place] speaker documented in this encounter Plan of Treatment Not on file documented as of this encounter Visit Diagnoses Not on filedocumented in this encounter Additional Health Concerns Assessment Noted Time PHQ-9 Depression Total Score: 0 06/22/20 23 9:55 AM EST documented as of this encounter Care Teams Trackless Trolley Driver Relationship Specialty Start Date End Date Irma Brennan MD [address] [place] [address] PCP - General Family Medicine 11/09/18 documented as of this encounter
--- OUTSIDE RECORDS SUMMARY | 2025-04-30 10:00 | XMS_ITS | Clinical Summary ---
Author Organization [facility] Address [address] [facility] [address] [place] [phone] Phone Care Team Providers Care Comb Fixer Name Role Phone Irma Brennan MD Primary [...] patient's age to complete this topic Insurance [facility] ([id number]) [employer] Dual SNP ([id number]) [place] [phone] Care Teams Comb Fixer Relationship Specialty Start Date End Date Irma Brennan MD [address] [place] [address] [place] CANALES [phone] PCP - General Internal Medicine 02/23/23
--- OUTSIDE RECORDS SUMMARY | 2025-04-30 10:00 | XMS_ITS | Encounter Summary ---
Demographics Address [address] [facility] [place] [address] [place] [address] Home Phone Mobile Phone Phone Phone Email Address Preferred Language Gibraltarian; Castilian Marital Status Hoahaoism Affiliation Unknown Race Unknown Ethnic Group or Author Organization [facility] [employer] and [facility] Address [address] [place] [address] Care Team Providers Care Senior Interaction Designer Name Role Phone Irma Brennan MD Primary Care Provide r Encounter Details Date Type Department Care Team (Late st Contact Info) Description 09/12/2019 Scanned Document [facility] Neurosurgery at 800 [facility] 800 [facility] [place] [address] Jeronimo Piedra MD [address] [place] [phone] Social History Tobacco Use Types Packs/Day [...] filedocumented in this encounter Care Teams Senior Interaction Designer Relationship Specialty Start Date End Date Irma Brennan MD 230 [facility] 1 [place] [address] PCP - General Internal Medicine 07/11/19 documented as of this encounter
--- OUTSIDE RECORDS SUMMARY | 2025-04-30 10:00 | XMS_ITS | Clinical Summary ---
Author Organization [facility] [address] Address [address] [place] [address] Care Team Providers Care Food Service Hotel Runner Name Role Phone Irma Brennan MD Primary [...] Immunization (1 - 1-dose 75+ series) 2016 Influenza vaccine 02/02/2025 Covid-19 vaccine series ( - 2024- season) 2025 Breast cancer screening Discontinued Cervical cancer screening Discontinued Colon cancer screening, Colonoscopy Discontinued Meningococcal B Vaccine Aged Out No l onger eligible based on patient's age to complete this topic Meningococcal Vaccine Aged Out No driss elvin eligible based on patient's age to complete this topic Insurance MEDICARE MANAGED [facility] [place] [address] MEDICARE MANAGED [facility] MEDICARE MANAGED [facility] Care Teams Food Service Hotel Runner Relationship Specialty Start Date End Date Irma Brennan MD [address] [phone] PCP - General Internal Medicine 07/11/19
--- OUTSIDE RECORDS SUMMARY | 2025-04-30 10:00 | XMS_ITS | Encounter Summary ---
Author Organization [employer] Address 75 [facility] 7t [place] [address] Care Team Providers Care Eap Consultant Name Role Phone Irma Brennan MD Primary Care Provide r Reason for Visit * Reason Comments Med Refill Encounter Details Date Type Department Care Team ([facility] st Contact Info) Description 06/02/[address] [facility] MEDICINE 230 [place], [place] [phone] Irma Brennan MD 230 [place], [place] [phone] Acute low back pain, unspecified back pain [...] documented as of this encounter Care Teams Eap Consultant Relationship Specialty Start Date End Date Irma Brennan MD [address] [place] [address] PCP - General Family Medicine 11/09/18 documented as of this encounter
--- OUTSIDE RECORDS SUMMARY | 2025-04-30 10:00 | XMS_ITS | Encounter Summary ---
Demographics Address [address] [facility] [address]L [place] [address] Home Phone Mobile Phone Phone Phone Email Address Preferred Language British; Castilian Marital Status Sabianism Affiliation Unknown Race Unknown Ethnic Group or Author Organization [facility] [employer] and [facility] Address [address] [place] [address] Care Team Providers Care Park Worker Name Role Phone Irma Brennan MD Primary Care Provide r Encounter Details Date Type Department Care Team (Late st Contact Info) Description 07/11/2019 Scanned Document Neurosurgery at 800 [facility] 800 [place] [address] Provider, Historical . Social History Tobacco Use [...] on filedocumented in this encounter Care Teams Park Worker Relationship Specialty Start Date End Date Irma Brennan MD 230 [facility] 1 [place] [phone] PCP - General Internal Medicine 07/11/19 documented as of this encounter
--- OUTSIDE RECORDS SUMMARY | 2025-04-30 10:00 | XMS_ITS | Encounter Summary ---
Author Organization [employer] Address 75 [facility] 7t [place] [address] Care Team Providers Care Bakery Pastry Internship Name Role Phone Irma Brennan MD Primary Care Provide r Reason for Visit * Reason Onset Date Comments Appointment Request 10/28/2023 Encounter Details Date Type Department Care Team ([facility] st Contact Info) Description 10/28/2023 Telephone [facility] MEDICINE 230 [place], [place] [phone] Irma Brennan MD 230 [place], [place] [phone] Appointment Request Social History Tobacco Use Types [...] like a call back to reschedule appt machine sign writer did attempt to schedule however they refused and would like a Televisit appt instead documented in this encounter Plan of Treatment Not on file documented as of this encounter Visit Diagnoses Not on filedocumented in this encounter Additional Health Concerns Assessment Noted Time PHQ-9 Depression Total Score: 0 06/22/20 23 9:55 AM EST documented as of this encounter Care Teams Bakery Pastry Internship Relationship Specialty Start Date End Date Irma Brennan MD [address] [place] [address] PCP - General Family Medicine 11/09/18 documented as of this encounter
--- OUTSIDE RECORDS SUMMARY | 2025-04-30 10:00 | XMS_ITS | Encounter Summary ---
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
--- OUTSIDE RECORDS SUMMARY | 2025-04-30 10:00 | XMS_ITS | Encounter Summary ---
Author Organization [employer] Address 75 [facility] 7t [place] [address] Care Team Providers Care Woodworking Shop Laborer Name Role Phone Irma Brennan MD Primary Care Provide r Encounter Details Date Type Department Care Team ([facility] st Contact Info) Description 12/31/2023 Orders Only [facility] MEDICINE 230 [place], [place] [phone] Irma Brennan MD 230 [place], [place] [phone] Type 2 diabetes mellitus without complication, unspecified whether long-term insulin use ([facility]) Social History Tobacco Use Types [...] 2 diabetes mellitus without complication, unspecified whether asl interpreter insulin use documented in this encounter Additional Health Concerns Assessment Noted Time PHQ-9 Depression Total Score: 0 06/22/20 23 9:55 AM EST documented as of this encounter Care Teams Woodworking Shop Laborer Relationship Specialty Start Date End Date Irma Brennan MD [address] [place] [phone] PCP - General Family Medicine 11/09/18 documented as of this encounter
--- OUTSIDE RECORDS SUMMARY | 2025-04-30 10:01 | XMS_ITS | Encounter Summary ---
Author Organization [employer] Address 75 [facility] 7t [place] [address] Care Team Providers Care Features Reporter Name Role Phone Irma Brennan MD Primary Care Provide r Reason for Visit * Reason Onset Date Comments Triage 09/23/2022 Encounter Details Date Type Department Care Team ([facility] st Contact Info) Description 09/23/2022 Telephone [facility] MEDICINE 230 [place], [place] [phone] Irma Brennan MD 230 [place] [address] Triage Social History Tobacco Use Types Packs/Day [...] accepted this outcome Please contact pt at [phone] Georgian Speaker documented in this encounter Plan of Treatment Not on file documented as of this encounter Visit Diagnoses Not on filedocumented in this encounter Care Teams Features Reporter Relationship Specialty Start Date End Date Irma Brennan MD 230 [place] [address] PCP - General Family Medicine 11/09/18 documented as of this encounter
[2025-04-30 11:15] LABS: Anion Gap 12 (12-20); Blood Urea Nitrogen 35 mg/dL (9-16); Carbon Dioxide 23 mmol/L (22-29); Chloride 112 mmol/L (96-108); Estimated Glomerular Filt Rate 23; Potassium 4.1 mmol/L (3.3-5.1); Sodium 143 mmol/L (135-145)
== END 2025-04-30 09:10 | disposition home or self-care (01) ==
LOC: HO.LAB 09:09
PROVIDERS: PCP Internal Medicine; Visit Provider Internal Medicine Nephrology
DX: I12.9 Hypertensive chronic kidney disease with stage 1 through stage 4 chronic kidney disease, or unspecified chronic kidney disease (principal); N18.4 Chronic kidney disease, stage 4 (severe)
CPT/HCPCS: 36415; 80051; 82565; 84520

== ENCOUNTER 2025-05-02 11:36 | Outpatient (AMB) | payer OTHER, SELFPAY ==
--- NOTE | 2025-05-02 11:59 | HO.NEPHOV_ITS ---
Vital Signs 05/02/25 12:03 Height 5 ft 1 in Weight 138 lb 2 oz BMI 26.1 BP 158/80 H Blood Pressure Location Rt brachial Position Sitting Pulse 72 Pulse Source Pulse Oximeter Pulse Oximetry (%) 97 Oxygen Delivery Method Room Air Intake Visit Reasons: FU-LVM Chain Puller Required: Yes Chain Puller Language: Manager Environmental Health And Safety Services: Chain Puller Offered & Declined ([facility] Chain Puller services refused ) Accompanied by: Daughter Allergies No Known Allergies (No Known Allergies*) Allergy (Verified 05/02/25 12:02) HPI Comments Details: 84 year old women with history of hypertension, diabetes mellitus, depression as well as chronic kidney disease . She is known to be hypertensive and had been on medications. She denied chest pain, sob, fever, chills, recent illness, recent travel. She denies any coronary artery disease, CVA, PVD, DAVID or excess yvette use of nonsteroidal anti-inflammatories. She denies any history of nephrolithiasis, hematuria or pedal edema. Her recent serum creatinine is stable [facility] Medical History Anxiety Diabetes HTN (hypertension) Asthma Surgical History Hx laparoscopic cholecystectomy H/O colonoscopy H/O esophagogastroduodenoscopy Social History Household Members: None Are you a primary care transitions manager to a significant other at home: No Do you presently have visiting nurse or other home services: No Unable to assess alcohol history related to: Unknown Alcohol intake: never Patient Tobacco Use Status: Never used Tobacco service: No Review of Systems Const All systems reviewed & are unremarkable except as noted in HPI and below Physical Exam Vital Signs: Last Vital Signs Pulse 72 05/02/25 12:03 BP 158/80 H 05/02/25 12:03 Pulse Ox 97 05/02/25 12:03 Oxygen Delivery Method Room Air 05/02/25 12:03 BMI result Body Mass Index 26.1 Const General: comfortable and no acute distress Orientation/consciousness: patient oriented x3 HEENT Head: Yes normocephalic Mouth: Normal oral and palatal mucosa present Eyes EOM: EOMs intact bilaterally Neck Neck: Yes supple Resp Auscultation: clear to auscultation bilaterally Cardio Jugular venous distension: no JVD Rate: regular rate GI Palpation (GI): Soft to palpation Auscultation: normal bowel sounds General: Yes no CVA tenderness Back/Spine/Pelvis Back: no CVA tenderness Skin General skin exam: no rashes or lesions noted Neuro General: patient oriented x3 and moves all extremities Extrem General: Yes no pedal edema Results Reviewed Nephrology Results: Hgb, (12.0-16.0) 10.2 g/dl L 02/22/25 WBC, (4.8-10.8) 6.0 X10*3/uL 02/22/25 Plt Count, (160-400) 156 X10*3/uL L Δ 02/22/25 Sodium, (135-145) 143 mmol/L 04/30/25 Potassium, (3.3-5.1) 4.1 mmol/L 04/30/25 Chloride, (96-108) 112 mmol/L H 04/30/25 Carbon Dioxide, (22-29) 23 mmol/L 04/30/25 BUN, (9-16) 35 mg/dL H 04/30/25 Creatinine, (0.5-1.4) 2.03 mg/dL H 04/30/25 Calcium, (8.4-10.2) 10.0 mg/dL 02/22/25 Phosphorus, (2.7-4.5) 2.9 mg/dL 01/30/25 PTH Intact, (8.7-77.1) 98.3 pg/mL H 01/30/25 Renal US 05/18/24 Assessment & Plan Assessment & Plan (1) CKD (chronic kidney disease) stage 4, GFR 15-29 ml/min: Code(s): N18.4 - Chronic kidney disease, stage 4 (severe) Category: Medical (2) HTN (hypertension): Code(s): I10 - Essential (primary) hypertension Category: Medical Qualifiers: Hypertension type: primary hypertension Qualified Code(s): I10 - Essential (primary) hypertension Plan Shellie has chronic kidney disease at baseline. She is off lisinopril. Her renal functions are stable. She is on amlodipine and Carvedilol 6.25 mg bid. She does not need more BP medications to keep her BP at goal. She is going to check her BP twice a day along with her BS. I plan to adjust medications based on the data. All her and her daughter's questions were answered. Follow-up appointment given Orders: Orders Creatinine 3 Months I10 - Essential (primary) hypertension, N18.4 - Chronic kidney disease, stage 4 (severe) Electrolytes 3 Months I10 - Essential (primary) hypertension, N18.4 - Chronic kidney disease, stage 4 (severe) Calcium 3 Months I10 - Essential (primary) hypertension, N18.4 - Chronic kidney disease, stage 4 (severe) Blood Urea Nitrogen 3 Months I10 - Essential (primary) hypertension, N18.4 - Chronic kidney disease, stage 4 (severe) Coding Level of Care Code Est Pt Level 4 (90654) Diagnoses CKD (chronic kidney disease) stage 4, GFR 15-29 ml/min N18.4 Primary hypertension I10 Hypertension type: primary hypertension
[2025-05-02 12:03] VITALS: BP 158/80; PULSE 72; O2SAT 97; BMI 26.1
--- OUTSIDE RECORDS SUMMARY | 2025-05-02 15:02 | XMS_ITS | Encounter Summary ---
Author Organization [employer] Address 75 [facility] 7t [place] [address] Care Team Providers Care Commissary Worker Name Role Phone Irma Brennan MD Primary Care Provide r Encounter Details Date Type Department Care Team ([facility] st Contact Info) Description 09/06/2023 Orders Only [facility] MEDICINE 230 [place], [place] [phone] Irma Brennan MD 230 [place], [place] [phone] Social History Tobacco Use Types Packs/Day Years [...] documented as of this encounter Care Teams Commissary Worker Relationship Specialty Start Date End Date Irma Brennan MD 230 [place] [address] PCP - General Family Medicine 11/09/18 documented as of this encounter
--- OUTSIDE RECORDS SUMMARY | 2025-05-02 15:02 | XMS_ITS | Data Portability ---
Author Organization [employer] [facility] Address [address] [place] [address] Care Team Providers Care Brand Representative Name Role Phone HIM CCA OTHER Assessment [...] Assessment and Plan as documented by the Big 6 Dealer. Patient given the opportunity to ask questions. Our service contacted for an assessment of: Dizziness As per above, patient patient unable to give a history but does have a past medical history of hypertension. Lives alone and apparently her daughter lives next door who is the 1 who called for visit unfortunately we are unable to get touch with her. Patient is [place] Islander-speaking only and was communicated with via an shoulder pad molder however there does appear to be some cognitive impairment precluding accurate history taking. She is able to state she has been dizzy for quite some period of time but denies falls although I see she fell and we evaluated her in the house in February of 2023. Per director experimental medicine on the scene, she has orthostatic by [...] are by different prescribers as well. Per director experimental medicine on the scene 1 of the the [...] and preferably with the daughter present. The director experimental medicine has attempted to sort through the medications [...] BMP, serum or plasma [address], [phone] 4 14:50:21 Referral None recorded. Procedures None recorded. Surgeries None recorded. Imaging electrocard iogram [email or web address], [address] 4 13:45:22 Medication Orders ketorolac 15 mg/mL injection solution 2022 023 [email or web address] Not available 3 11:08:40 Patient TargetsNo targets recorded. Patient InstructionsNo instructions recorded. Reason for Referral None Reported. Results Created Date Observation Date Name Description Value Unit Range Abnormal Flag Note LastModifiedBy Organization Detail LastModifiedTime 12/28/19 24 12/28/2023 elect stuart diogr am No observ ation record ed. [email or web address] [address] [place] [address], [id number] 12/28/2023 12:44:49 Result Notes None recorded. Medical [...] /min 123/79 mm[Hg] 92/66 mm[Hg] Not Available [employer] 4 10:41:25 Date Recorded Oxygen saturation Oxygen saturation in Arterial blood by Pulse oximetry Body temperature Body height Heart rate Body weight Respiratory rate Systolic And Diastolic Provider Name and Address Organization Details Last Updated DateTime 3 98 % 98 % 97.4 [degF] 157.48 cm 84 /min 67507 g 18 /min 142/84 mm[Hg] Not Available [employer] 3 10:50:30 Social History None recorded. Functional Status None recorded. Mental Status None recorded. Family History Nothing Reported. Medical History No medical history recorded. Gynecological HistoryNo gynecological history recorded. Obstetrics History GPAL:G 0 P 0 0 0 0 Past Encounters Encounter ID Performer Location Encounter Start Date Encounter Closed Date Diagnosis/Indication Diagnosis SNOMED-CT Code Diagnosis ICD10 Code Diagnosis IMO Codes Diagnosis Note [id number] Denise Mcgarry MD [facility] [address] [place] [phone] 02/05/2023 10:47:03 11/03/2024 12:58:28 Fall W19.XXXA [id number] Janis Ellis MD [facility] [address] [place] [phone] 12/28/2023 10:41:08 12/28/2023 16:17:45 Chronic orthostatic hypotension 46716747 I95.1 Health Concerns Section Related Observation LastModified by Organization Detai ls LastModified Time None Recorded Concern Status LastModified by Organization Details LastModified Time None Recorded Advance Directives Directive None Recorded Payers Insurance Date Sequence Insurance Name Policy Number Policy Felix Covered Member ID Felix Member ID Guarantor Name 11/03/2024 1 [facility] - DOS PRIOR TO 2022 - DUAL ELIGIBLE (MEDICARE REPLACEMENT/ADV ANTAGE - HMO) Shellie Jackson [id number] Shellie Jackson 11/03/2024 1 [facility] - DOS ON OR AFTER 2022 - DUAL ELIGIBLE - RETIREMENT OPTIONS AND ONE CARE (MEDICARE REPLACEMENT/ADV ANTAGE - HMO) Shellie Jackson [id number] Shellie Jackson Notes Date Note Type Note Provider Name and Address Organization Details Recorded Time 02/05/2023 text/html HPI: 82 Year old, female, [place] Islander speaking, reporting a fall on 02/01/2023, went [place] [facility] and left AMA after waiting for hrs, [...] .................... .................... .................... .................... .................... .................... . Big 6 Dealer Note From Yasir Reyna: Pt caox3 complains [...] noted. Red flags and pt education discussed. [facility] Medication Orders: ketorolac 15 mg/mL injection solution: Administered Comment: pain decreased .................... .................... .................... .................... .................... .................... .................... . Disposition: Fulfilled Denise Mcgarry MD [address] [place] [address],[address] [facility], [place], [phone] [employer] 02/05/2023 15:53:19 12/28/2023 text/html HPI: HX: DM,LOONEY, GERD,MIGRAINE: CKD; HTN; IMPAIRED BALANCE.Patient with complaint of sever headache and dizziness yesterday. Takes med for Migraines Daughter unable to identify. Remains dizzy off balance and not walking well. PCP for new provider .................... .................... .................... .................... .................... .................... .................... . CRC Nurse Triage Notes (Jeimy Watson): Comments: Reviewed HPI and will place referral [facility] and [facility] visit r/s , Mother is asleep .................... .................... .................... .................... .................... .................... .................... . Baseline Information: Baseline Hb: 10.4 g/dL Baseline HCt: 30% Baseline Creatinine: 1.63 mg/dL .................... .................... .................... .................... .................... .................... .................... . Big 6 Dealer Note From Km Lai: Pt is an 83 British [place]er speaking female who lives alone (daughter lives [...] .................... . Disposition: Fulfilled Janis Ellis MD [address] [place] [address],[address], [place], [phone], [employer] 12/28/2023 10:55:15 OBGyn Episode No OBEpisode recorded.
--- OUTSIDE RECORDS SUMMARY | 2025-05-02 15:02 | XMS_ITS | Encounter Summary ---
Author Organization [employer] Address 75 [facility] 7t [place] [address] Care Team Providers Care Accounts Receivable Specialist Name Role Phone Irma Brennan MD Primary Care Provide r Reason for Visit * Reason Onset Date Comments Referral 09/15/2023 Encounter Details Date Type Department Care Team ([facility] st Contact Info) Description 09/15/2023 Telephone [facility] MEDICINE 230 [place], [place] [phone] Irma Brennan MD 230 [place], [place] [phone] Referral Social History Tobacco Use Types Packs/Day [...] Glenis Hutchinson - 09/23/2023 3:24 PM EDT Brand Sales Manager called and spoke with daughter Eri. Pt had a scheduled appt and no showed. Daughter was given number to call and reschedule. * Telephone Encounter - Nany Zhao - 09/15/2023 1:13 PM EDT Tc from pt daughter requesting a referral to a shellfish processing machine tender. Referral still pending from 06/22/23 documented in this encounter Plan of Treatment Not on file documented as of this encounter Visit Diagnoses Not on filedocumented in this encounter Additional Health Concerns Assessment Noted Time PHQ-9 Depression Total Score: 0 06/22/20 23 9:55 AM EST documented as of this encounter Care Teams Accounts Receivable Specialist Relationship Specialty Start Date End Date Irma Brennan MD [address] [place] [address] PCP - General Family Medicine 11/09/18 documented as of this encounter
--- OUTSIDE RECORDS SUMMARY | 2025-05-02 15:02 | XMS_ITS | Encounter Summary ---
Author Organization [employer] Address 75 [facility] 7t [place] [address] Care Team Providers Care Stockfeed Miller Name Role Phone Irma Brennan MD Primary Care Provide r Reason for Visit * Reason Comments Med Refill Encounter Details Date Type Department Care Team ([facility] st Contact Info) Description 05/18/2023 Refill [facility] MEDICINE 230 [place], [place] [phone] Irma Brennan MD 230 [place], [place] [phone] Controlled type 2 diabetes mellitus with microalbuminuric [...] documented as of this encounter Care Teams Stockfeed Miller Relationship Specialty Start Date End Date Irma Brennan MD 230 [place] [address] PCP - General Family Medicine 11/09/18 documented as of this encounter
--- OUTSIDE RECORDS SUMMARY | 2025-05-02 15:02 | XMS_ITS | Clinical Summary ---
Author Organization [facility] [address] Address [address] [place] [address] Care Team Providers Care Speeder Worker Name Role Phone Irma Brennan MD [...] to complete this topic Insurance MEDICARE [place] [facility] [place] [facility] [place] [facility] Care Teams Speeder Worker Relationship Specialty Start Date End Date Irma Brennan MD [address] [phone] PCP - General Internal Medicine 07/11/19
--- OUTSIDE RECORDS SUMMARY | 2025-05-02 15:02 | XMS_ITS | Encounter Summary ---
Demographics Address [address] [place] [address] Home Phone Mobile Phone Phone Phone Email Address Preferred Language Tongan; Castilian Marital Status Denominational Affiliation Unknown Race Unknown Ethnic Group or Author Organization [facility] [employer] [facility] and [facility] Address [address] [place] [address] Care Team Providers Care Automatic Spreader Operator Name Role Phone Irma Brennan MD Primary Care Provide r Encounter Details Date Type Department Care Team (Late st Contact Info) Description 09/12/2019 Scanned Document [facility] [address] [place] [address] Jeronimo Piedra MD [address] [place] [phone] Social History Tobacco Use Types Packs/Day [...] on filedocumented in this encounter Care Teams Automatic Spreader Operator Relationship Specialty Start Date End Date Irma Brennan MD [address] [facility] 1 [place] [phone] PCP - General Internal Medicine 07/11/19 documented as of this encounter
--- OUTSIDE RECORDS SUMMARY | 2025-05-02 15:02 | XMS_ITS | Encounter Summary ---
Demographics Address [address] [facility] [address] [place] [address] Home Phone Mobile Phone Phone Phone Email Address Preferred Language Urdu; Castilian Marital Status Religion Affiliation Unknown Race Unknown Ethnic Group or Author Organization [facility] [email or web address] [facility] and [facility] Address [address] [place] [address] Care Team Providers Care Freight Loading Supervisor Name Role Phone Irma Brennan MD Primary Care Provide r Encounter Details Date Type Department Care Team (Late st Contact Info) Description 09/12/2019 Scanned Document [facility] [address] [place], [place] [address] Jeronimo Olson MD [address] [place] [phone] Social History Tobacco Use Types Packs/Day Years [...] on filedocumented in this encounter Care Teams Freight Loading Supervisor Relationship Specialty Start Date End Date Irma Brennan MD 230 [facility] 1 [place] [phone] PCP - General Internal Medicine 07/11/19 documented as of this encounter
--- OUTSIDE RECORDS SUMMARY | 2025-05-02 15:02 | XMS_ITS | Encounter Summary ---
Demographics Address [address] [facility] [address] [place] [address] Home Phone Mobile Phone Phone Phone Email Address Preferred Language Swedish; Castilian Marital Status Hoahaoism Affiliation Unknown Race Unknown Ethnic Group or Author Organization [facility] [employer] [facility] and [facility] Address [address] [place] [address] Care Team Providers Care Truck Farmer Name Role Phone Irma Brennan MD Primary Care Provide r Encounter Details Date Type Department Care Team (Late st Contact Info) Description 07/11/2019 Abstract [facility] [address] [facility] 800 [place] [address] Jeronimo Olson MD 800 [place] [phone] Social History Tobacco Use Types Packs/Day Years [...] on filedocumented in this encounter Care Teams Truck Farmer Relationship Specialty Start Date End Date Irma Brennan MD 230 [facility] 1 [place] [phone] PCP - General Internal Medicine 07/11/19 documented as of this encounter
--- OUTSIDE RECORDS SUMMARY | 2025-05-02 15:03 | XMS_ITS | Encounter Summary ---
Author Organization [employer] Address [address] [facility] 7t [place] [address] Care Team Providers Care Air Brush Operator Name Role Phone Irma Brennan MD Primary Care Provide r Reason for Visit * Reason Onset Date Comments Nurse Triage 12/27/2023 Encounter Details Date Type Department Care Team ([facility] st Contact Info) Description 12/27/2023 Telephone [facility] MED[facility]INE 230 [place], [place] [phone] Irma Brennan MD 230 [place], [place] [phone] Nurse Triage Social History Tobacco Use Types [...] neurology referral The caller accepted this outcome Gabonese speaker documented in this encounter Plan of Treatment Not on file documented as of this encounter Visit Diagnoses Not on filedocumented in this encounter Additional Health Concerns Assessment Noted Time PHQ-9 Depression Total Score: 0 06/22/20 23 9:55 AM EST documented as of this encounter Care Teams Air Brush Operator Relationship Specialty Start Date End Date Irma Brennan MD 230 [place] [address] PCP - General Family Medicine 11/09/18 documented as of this encounter
--- OUTSIDE RECORDS SUMMARY | 2025-05-02 15:03 | XMS_ITS | Encounter Summary ---
Author Organization [employer] Address [address] [facility] 7t [place] [address] Care Team Providers Care Adapted Physical Education Aide Name Role Phone Irma Brennan MD Primary Care Provide r Reason for Visit * Reason Onset Date Comments Appointment Request 10/28/2023 Encounter Details Date Type Department Care Team ([facility] st Contact Info) Description 10/28/2023 Telephone [facility] MEDICINE 230 [place], [place] [phone] Irma Brennan MD 230 [place], [place] [phone] Appointment Request Social History Tobacco Use Types [...] like a call back to reschedule appt policy writer typist did attempt to schedule however they refused and would like a Televisit appt instead documented in this encounter Plan of Treatment Not on file documented as of this encounter Visit Diagnoses Not on filedocumented in this encounter Additional Health Concerns Assessment Noted Time PHQ-9 Depression Total Score: 0 06/22/20 23 9:55 AM EST documented as of this encounter Care Teams Adapted Physical Education Aide Relationship Specialty Start Date End Date Irma Brennan MD [address] [place] [phone] PCP - General Family Medicine 11/09/18 documented as of this encounter
--- OUTSIDE RECORDS SUMMARY | 2025-05-02 15:03 | XMS_ITS | Encounter Summary ---
Author Organization [employer] Address [address] [facility] 7t [place] [address] Care Team Providers Care Welding Machine Setter Name Role Phone Irma Brennan MD Primary Care Provide r Reason for Visit * Reason Comments Med Refill Encounter Details Date Type Department Care Team ([facility] st Contact Info) Description 05/31/2023 Refill [facility] MEDICINE 230 [place], [place] [phone] Irma Brennan MD 230 [place], [place] [phone] Acute low back pain, unspecified back pain [...] documented as of this encounter Care Teams Welding Machine Setter Relationship Specialty Start Date End Date Irma Brennan MD [address] [place] [phone] PCP - General Family Medicine 11/09/18 documented as of this encounter
--- OUTSIDE RECORDS SUMMARY | 2025-05-02 15:03 | XMS_ITS | Encounter Summary ---
Demographics Address [address] [place] [address] Home Phone Preferred Language es Marital Status Unknown Anglican Affiliation Unknown Race White Ethnic Group Unknown Author Organization [facility], Address [address] [place] [address] Phone Care Team Providers Care Senior Account Clerk Name Role Phone Irma Brennan MD Primary Care Provide r Encounter Details Date Type Department Care Team (Late st Contact Info) Description 02/24/2023 Documentation Only [facility], [address] [place] [address] Irma Brennan MD 230 [facility] 1 [place] [address] Social History Tobacco Use Types [...] filedocumented in this encounter Care Teams Senior Account Clerk Relationship Specialty Start Date End Date Irma Brennan MD 230 [facility] 1 [place] [phone] PCP - General Internal Medicine 02/23/23 documented as of this encounter
--- OUTSIDE RECORDS SUMMARY | 2025-05-02 15:03 | XMS_ITS | Encounter Summary ---
Author Organization [employer] Address [address] [facility] 7t [place] [address] Care Team Providers Care Policewoman Name Role Phone Irma Brennan MD Primary Care Provide r Encounter Details Date Type Department Care Team (Late st Contact Info) Description 04/30/2025 Orders Only GENERIC EXTERNAL DATA DEPARTMENT Provider, [...] Date/Time Associated Diagnosis Comments CREATININE, SERUM Routine 04/30/2025 9:1 7 AM EDT UREA NITROGEN (BUN) Routine 04/30/2025 9 :17 AM EDT ELECTROLYTE PANEL Routine 04/30/2025 9:1 7 AM EDT documented in this encounter Results * (ABNORMAL) Creatinine, Serum (04/30/2025 9:17 AM EDT) Creatinine, Serum 2.03(H) 0.5 - 1.4 mg/dL [facility] Estimated Glomerular Filt Rate 23 [facility] Comment:Chronic Kidney Disea se: Estimated GFR < 60 mL/min/1.49p1Ptrguk Kidney Disease: Estimated GFR < 15 mL/min/1.73m2 04/30/2025 9:17 AM EDT 04/30/2025 9:17 AM EDT us Generic External Data Provider LAB BLOOD ORDERAB LES Final Result [facility] [address] [place] [phone] * (ABNORMAL) BUN (Blood Urea Nitrogen) (04/30/2025 9:17 AM EDT) Urea Nitrogen (BUN) 35(H) 9 - 16 mg/dL [facility] 04/30/2025 9:17 AM EDT 04/30/2025 9:17 AM EDT us Generic External Data Provider LAB BLOOD ORDERAB LES Final Result Performing Organization Address [facility] de Phone Number [facility] [address] [place] [phone] * (ABNORMAL) Electrolyte Panel (04/30/2025 9:17 AM EDT) Sodium 143 135 - 145 mmol/L [facility] Potassium 4.1 3.3 - 5.1 mmol/L [facility] Chloride 112(H) 96 - 108 mmol/L [facility] Carbon Dioxide 23 22 - 29 mmol/L [facility] Anion Gap 12 12 - 20 [facility] 04/30/2025 9:17 AM EDT 04/30/2025 9:17 AM EDT Generic External Data Provider LAB BLOOD ORDERAB LES Final Result Performing Organization Address [facility] de Phone Number [facility] [address] [place] [phone] documented in this encounter Visit Diagnoses Not on filedocumented in this encounter Additional Health Concerns Assessment Noted Time PHQ-9 Depression Total Score: 0 06/22/20 23 9:55 AM EST documented as of this encounter Care Teams Policewoman Relationship Specialty Start Date End Date Irma Brennan MD 230 [place] [address] PCP - General Family Medicine 11/09/18 documented as of this encounter
--- OUTSIDE RECORDS SUMMARY | 2025-05-02 15:03 | XMS_ITS | Encounter Summary ---
Author Organization [employer] Address [address] [facility] 7t [place] [address] Care Team Providers Care Hospice Director Name Role Phone Irma Brennan MD Primary Care Provide r Reason for Visit * Reason Onset Date Comments Triage 09/23/2022 Encounter Details Date Type Department Care Team ([facility] st Contact Info) Description 09/23/2022 Telephone [facility] MEDICINE 230 [place], [place] [phone] Irma Brennan MD 230 [place] [address] Triage Social History Tobacco Use Types Packs/Day [...] accepted this outcome Please contact pt at [phone] Arabic Speaker documented in this encounter Plan of Treatment Not on file documented as of this encounter Visit Diagnoses Not on filedocumented in this encounter Care Teams Hospice Director Relationship Specialty Start Date End Date Irma Brennan MD 230 [place] [address] PCP - General Family Medicine 11/09/18 documented as of this encounter
--- OUTSIDE RECORDS SUMMARY | 2025-05-02 15:03 | XMS_ITS | Clinical Summary ---
Author Organization [employer] Address [address] [facility] 7t [place] [address] Care Team Providers Care Flag Signaler Name Role Phone Irma Brennan MD Primary [...] 023 Active Blood Glucose Monitoring Suppl (FreeStyle Grafton Lite) w/Device kitIndications:Cont rolled type 2 diabetes [...] diabetic peripheral angiopathy without gangrene, unspecified whether assisted insulin use ([facility]) TEST BLOOD SUGAR TWICE DAILY 100 strip 11 Active TRUEplus Lancets 33G miscIndications:Typ e 2 diabetes mellitus with diabetic peripheral angiopathy without gangrene, unspecified whether assisted insulin use ([facility]) TEST BLOOD SUGAR TWICE DAILY 100 [...] due to stage 3b chronic kidney disease ([facility]) ([facility]) TAKE 1 TABLET BY MOUTH EVERY [...] 2 diabetes mellitus without complication, unspecified whether assisted insulin use TAKE 1 TABLET BY MOUTH [...] Zofran prescribed Stage 4 chronic kidney disease ([facility]) 023 Assessment & Plan (06/22/2023 10:44 [...] Plan (05/06/2023 5:07 PM EDT): -Apparently resolved. Skates Operator regarding hydration, check prior to next appointment. [...] and fu w PCP May/ not need RIP SAWYER, needs OV to evaluate risk and need [...] up with PCP in 3 weeks - financial services counselor daughter and patient small and fractioned [...] Encounters Date Type Department Care Team Description 04/30/2025 Orders Only GENERIC EXTERNAL DATA DEPARTMENT Provider, Generic External Data 04/08/2025 Refill [facility] [address] [place] [address] Irma Brennan MD Chronic migraine without aura without status migrainosus, not intractable; Type 2 diabetes mellitus without complications (HCC); Nausea 02/22/2025 Orders Only GENERIC EXTERNAL DATA DEPARTMENT Provider, Generic External Data 02/07/2025 Refill [facility] [address] [place] [address] Irma Brennan MD Chronic migraine without aura [...] PANEL Routine 04/30/2025 9:[address] ABDOMEN PELVIS WO CONTRAST Routine 02/22/2025 [...] Health Maintenance Results * (ABNORMAL) Creatinine, Serum (04/30/2025 9:17 AM EDT) Only the most recent of2 resultswithin the time period is included. Creatinine, Serum 2.03(H) 0.5 - 1.4 mg/dL [facility] Estimated Glomerular Filt Rate 23 [facility] Comment:Chronic Kidney Disea se: Estimated GFR < 60 mL/min/1.91g2Bxdtyr Kidney Disease: Estimated GFR < 15 mL/min/1.73m2 04/30/2025 9:17 AM EDT 04/30/2025 9:17 AM EDT us Generic External Data Provider LAB BLOOD ORDERAB LES Final Result Performing Organization Address [facility]/RUST de Phone Number [facility] [address] [place] [phone] * (ABNORMAL) BUN (Blood Urea Nitrogen) (04/30/2025 9:17 AM EDT) Only the most recent of2 resultswithin the time period is included. Urea Nitrogen (BUN) 35(H) 9 - 16 mg/dL [facility] 04/30/2025 9:17 AM EDT 04/30/2025 9:17 AM EDT us Generic External Data Provider LAB BLOOD ORDERAB LES Final Result Performing Organization Address City/[facility]/ZIP Co de Phone Number [facility] [address] [place] [phone] * (ABNORMAL) Electrolyte Panel (04/30/2025 9:17 AM EDT) Only the most recent of2 resultswithin the time period is included. Sodium 143 135 - 145 mmol/L [facility] Potassium 4.1 3.3 - 5.1 mmol/L [facility] Chloride 112(H) 96 - 108 mmol/L [facility] Carbon Dioxide 23 22 - 29 mmol/L [facility] Anion Gap 12 12 - 20 [facility] 04/30/2025 9:17 AM EDT 04/30/2025 9:17 AM EDT us Generic External Data Provider LAB BLOOD ORDERAB LES Final Result Performing Organization Address City/State/RUST de Phone Number [facility] [address] [place] [phone] * CT Abdomen Pelvis w/o Contrast (02/22/2025 7:35 PM EDT) Anatomical Region Laterality Modality Body, Pelvis, Abdomen Computed T omography 02/22/2025 7:35 PM EDT Narrative 02/22/2025 7:36 PM EDT [address] [address] [address] Scan Report Signed Patient: Shellie Jackson MR#: [id number] : 1940 Acct:[id number] Age/Sex: 84 / F ADM Date: 02/22/25 Loc: .ED Attending Dr: Ordering Physician: Seble Chinchilla DO Date of Service: 02/22/25 Procedure(s): CT abdomen pelvis wo IV con Accession Number(s): [id number] cc: Irma Brennan MD; Seble Chinchilla DO Report Number: [id number]: Total DLP = 547.00 mGy-cm CLINICAL HISTORY: [...] in OV> 02/22/251935 DD/ 34 TD/TT: 02/22/251934 Cloth Printing Utility Worker: Procedure Note Donotuseinterpreter, Image - 02/22/[address] [place] [address] [address] Scan Report Signed Patient: Edgardo Jackson#: [id number] : 2Acct:[id number] Age/Sex: 84 / FADM Date: 02/22/25 Loc: HO.ED Attending Dr: Ordering Physician: Seble Chinchilla DO Date of Service: 02/22/25 Procedure(s): CT abdomen pelvis wo IV con Accession Number(s): [id number] cc: Irma Brennan MD; Seble Chinchilla DO Report Number: [id number]: Total DLP = 547.00 mGy-cm CLINICAL HISTORY: [...] in OV> 02/22/251935 DD/ 34 TD/TT: 02/22/251934 Cloth Printing Utility Worker: [facility] External Provider IMG CT PROCEDURES Final Result * High Sensitivity Troponin I (02/22/2025 5:26 PM EDT) TROPONIN I HIGH SENSITIVITY 13.7 <3.5 - 17.0 ng/L [facility] Comment:The Meyer high sens itivity Troponin-I results should beused in conjunction with other diagnostic information suchas ECG, clinical observations and information, and patientsymptoms to aid in the diagnosis of [place]. 02/22/2025 5:26 PM EDT 02/22/2025 5:30 PM EDT Generic External Data Provider LAB BLOOD ORDERAB LES Final Result [facility] [address] [place] [phone] * SARS-CoV-2 RNA, Influenza A/B, and RSV RNA, Ql NAAT (02/22/2025 5:26 PM EDT) Pathologist [facility] Influenza A PCR NEGATIVE Negative [facility] Influenza B PCR NEGATIVE Negative [facility] Resp Syncy Virus RNA Qual PCR NEGATIVE Negative [facility] SARS COV2 PCR NEGATIVE Negative [facility] Comment:All test results mus t [...] use by authorized laboratories.Testing performed on the [employer] GeneXpert utilizingreal-time RT-PCR.All SARS CoV2 and positive influenza A/B results arereported to [facility]. 02/22/2025 5:26 PM EDT 02/22/2025 5:30 PM EDT Generic External Data Provider LAB MICROBIOLOGY - GENERAL ORDERABLES Final Result [facility] [address] [place] [phone] * (ABNORMAL) CBC auto differential (02/22/2025 5:26 PM EDT) Only the most recent of2 resultswithin the time period is included. White Blood Count 6.0 4.8 - 10.8 X10*3/uL [facility] Red Blood Count 3.14(L) 4.20 - 5.50 X10*6/uL [facility] Hemoglobin 10.2(L) 12.0 - 16.0 g/dl [facility] Hematocrit 30.3(L) 37.0 - 47.0 % [facility] Mean Corpuscular Volume 96.5 80.0 - 98.0 fL [facility] Mean Corpuscular Hemoglobin 32.5 27.0 - 33.0 pg [facility] Mean Corpuscular HGB Conc 33.7 31.0 - 35.0 g/dl [facility] Red Cell Distribution Width 13.4 11.0 - 16.0 % [facility] Platelet Count 156(L) 160 - 400 X10*3/uL [facility] Mean Platelet Volume 9.5 9.4 - 12.3 fL [facility] Neutrophils Percent Auto 58.9 45 - 73 % [facility] Imm Gran Pct Auto 0.2 0.0 - 0.4 % [facility] Lymphocytes Percent Auto 26.2 20 - 40 % [facility] Monocytes Percent Auto 13.8(H) 2 - 11 % [facility] Eosinophils Percent Auto 0.7 0 - 4 % [facility] Basophils Percent Auto 0.2 0 - 2 % [facility] NRBC Pct Auto 0.0 0.0 - 0.2 /100WBC [facility] Neutrophils Absolute Auto 3.5 2.0 - 8.3 x10*3/uL [facility] Imm Gran Abs Auto 0.01 0.00 - 0.03 X10*3/uL [facility] Lymphocytes Absolute Auto 1.6 1.2 - 4.9 X10*3/uL [facility] Monocytes Absolute Auto 0.8 0.1 - 1.2 X10*3/uL [facility] Eosinophils Absolute Auto 0.0 0.0 - 0.4 X10*3/uL [facility] Basophils Absolute Auto 0.0 0.0 - 0.2 X10*3/uL [facility] NRBC Abs Auto 0.000 0.0 - 0.012 X10*3/uL [facility] 02/22/2025 5:26 PM EDT 02/22/2025 5:30 PM EDT us Generic External Data Provider LAB BLOOD ORDERAB LES Final Result [facility] [address] [place] [phone] * Magnesium (02/22/2025 5:26 PM EDT) Magnesium 2.5 1.6 - 2.6 mg/dL [facility] 02/22/2025 5:26 PM EDT 02/22/2025 5:30 PM EDT Generic External Data Provider LAB BLOOD ORDERAB LES Final Result Performing Organization Address [facility]/ZIP Co de Phone Number [facility] [address] [place] [phone] * (ABNORMAL) Lipase (02/22/2025 5:26 PM EDT) Lipase 89(H) 8 - 78 U/L [facility] 02/22/2025 5:26 PM EDT 02/22/2025 5:30 PM EDT [place] External Data Provider LAB BLOOD ORDERAB LES Final Result Performing Organization Address [facility] Co de Phone Number [facility] [address] [place] [phone] * (ABNORMAL) Comprehensive Metabolic Panel (02/22/2025 5:26 PM EDT) Sodium 142 135 - 145 mmol/L [facility] Potassium 4.7 3.3 - 5.1 mmol/L [facility] Chloride 111(H) 96 - 108 mmol/L [facility] Carbon Dioxide 22 22 - 29 mmol/L [facility] Anion Gap 14 12 - 20 [facility] Urea Nitrogen (BUN) 24(H) 9 - 16 mg/dL [facility] Creatinine, Serum 2.12(H) 0.5 - 1.4 mg/dL [facility] Creatinine Clr Calc Pharmacy 16.8 [facility] Comment:Provided height and weight: 154.94 cm,61.4 kg.eGFR (calculated from the MDRD study equation) and eCrCl(calculated from the Cockcroft-Gault equation) are based ondifferent parameters and may not yield comparable results.If eCrCl result is absurd, please check patient'sheight/weight. Estimated Glomerular Filt Rate 22 [facility] Comment:Chronic Kidney Disea se: Estimated GFR < 60 mL/min/1.69a7Gulmba Kidney Disease: Estimated GFR < 15 mL/min/1.73m2 Glucose 120(H) 60 - 115 mg/dL [facility] Calcium 10.0 8.4 - 10.2 mg/dL [facility] Bilirubin, Total 0.4 0.0 - 1.0 mg/dL [facility] Aspartate Amino Transferase 22 5 - 31 U/L [facility] Alanine Aminotransferase 11 0 - 31 U/L [facility] Total Protein 7.0 6.5 - 8.0 g/dL [facility] Albumin Level 4.0 3.5 - 5.0 g/dL [facility] Alkaline Phosphatase 51 39 - 117 U/L [facility] 02/22/2025 5:26 PM EDT 02/22/2025 5:30 PM EDT us Generic External Data Provider LAB BLOOD ORDERAB LES Final Result [facility] [address] [place] [phone] * (ABNORMAL) Vitamin D, 25-Hydroxy, Total, Immunoassay (01/30/2025 9:11 AM EDT) Vitamin D 25-OH Total 29.8(L) >30 ng/mL [facility] Comment: Health Based Reference Values*< 20 ng/mL Zwhqkscpd99-49 ng/mL Insufficient> 30 ng/mL Sufficient*Stephani BUNN. N [...] ORDERAB LES Final Result Performing Organization Address [facility]/ZIP Co de Phone Number [facility] [address] [place] [phone] * Phosphate (As Phosphorus) (01/30/2025 9:11 AM EDT) Phosphorus 2.9 2.7 - 4.5 mg/dL [facility] 01/30/2025 9:11 AM EDT 01/30/2025 9:11 AM EDT Generic External Data Provider LAB BLOOD ORDERAB LES Final Result Performing Organization Address [facility] Co de Phone Number [facility] [address] [place] [phone] * (ABNORMAL) PTH, Intact Without Calcium (01/30/2025 9:11 AM EDT) Parathyroid Hormone, Intact 98.3(H) 8.7 - 77.1 pg/mL [facility] 01/30/2025 9:11 AM EDT 01/30/2025 9:11 AM EDT Generic External Data Provider LAB BLOOD ORDERAB LES Final Result Performing Organization Address [facility] Co de Phone Number [facility] [address] [place] [phone] * Calcium (01/30/2025 9:11 AM EDT) Calcium 9.9 8.4 - 10.2 mg/dL [facility] 01/30/2025 9:11 AM EDT 01/30/2025 9:11 AM EDT us Generic External Data Provider LAB BLOOD ORDERAB LES Final Result Performing Organization Address City/[facility]/ZIP Co de Phone Number [facility] [address] [place] [phone] * (ABNORMAL) Hemoglobin A1c (05/04/2024 9:36 AM EDT) Pathologist [facility] Hemoglobin A1c 6.1(H) <6.0 % [facility] Comment:Hemoglobin A1C Refer ence Range Adults: 4.8 - 6.0 % Non diabetic: < 6.0 % Goal: < 7.0 %Additional Action Suggested: > 8.0 %Note: Hemoglobin A1c results are invalid for patients with abnormal amounts of HbF. Blood transfusions may impact the HbA1c concentration in the patient sample. Estimated Average Glucose 128 mg/dL [facility] Comment:eAG = Estimated ave rage glucose which is %A1C expressed asaverage glucose, using the formula of the V7N-SvmmqafPazdcmp Glucose study (ADAG), Diabetes Care, Vol.31,#8,Feb. 2007 Blood Venous blood specimen / Unknown 05/04/2024 9:36 AM EDT 05/04/2024 9:38 AM EDT us Irma Alexander MD LAB BLOOD ORDERABLES Final Result Performing Organization Address City/[facility]/ZIP Co de Phone Number [facility] [address] [place] [phone] * (ABNORMAL) LIPID PANEL, STANDARD (08/15/2021 3:16 PM EST) Pathologist [facility] Chol/HDLC Ratio 3.3 <5.0 (calc) [facility] LDL-C. Vishal SS et al. GARCÍA. 2013;310(19): 4487-9574 (http://education.[employer]/faq/SWQ946) Non-HDL Cholesterol 160(H) <130 mg/dL (calc) [facility] Comment: For patients with diabetes plus 1 major ASCVD risk factor, treating to a non-HDL-C goal of <100 mg/dL (LDL-C of <70 mg/dL) is considered a therapeutic option. Triglycerides 78 <150 mg/dL [facility] 08/15/2021 3:16 PM EST us Irma Alexander MD LAB BLOOD ORDERABLES Final Result [facility] [address] from Last 3 Months or Most Recently Relevant to Health Maintenance Insurance [facility] ADV Member Subscriber Plan / Payer (Ef fective 2012-Present) Name:Shellie Jackson Relation to Subscriber:Self Name:Shellie Jackson Payer ID:Not on file Group ID:[id number] Type:Not on file Address: [address] STANDARD [facility] RETIREMENT OPTIONS (HMO D-SNP) * Guarantor: Manuel Shellie Account Type Relation to Patient Date of Phone Billing Address Personal/Family Self [address] [place] [address] Care Teams Flag Signaler Relationship Specialty Start Date End Date Irma Brennan MD [address] [place] [phone] PCP - General Family Medicine 11/09/18
--- OUTSIDE RECORDS SUMMARY | 2025-05-02 15:03 | XMS_ITS | Encounter Summary ---
Author Organization [employer] Address [address] [facility] 7t [place] [address] Care Team Providers Care Band Sewer Name Role Phone Irma Brennan MD Primary Care Provide r Reason for Visit * Reason Comments Med Refill Encounter Details Date Type Department Care Team ([facility] st Contact Info) Description 02/11/2024 Refill [facility] [address] [place], [place] [phone] Irma Brennan MD [address] [place], [place] [phone] Migraine, unspecified, not intractable, without status migrainosus [...] documented as of this encounter Care Teams Band Sewer Relationship Specialty Start Date End Date Irma Brennan MD [address] [place] [phone] PCP - General Family Medicine 11/09/18 documented as of this encounter
--- OUTSIDE RECORDS SUMMARY | 2025-05-02 15:03 | XMS_ITS | Encounter Summary ---
Author Organization [employer] Address [address] [facility] 7t [place] [address] Care Team Providers Care Hoop Coiling Machine Operator Name Role Phone Irma Brennan MD Primary Care Provide r Reason for Visit * Reason Comments Med Refill Encounter Details Date Type Department Care Team ([facility] st Contact Info) Description 12/07/2022 Refill [facility] [address] [place], [place] [phone] Eri Rodriguez MD [address] [place] [phone] Seasonal allergic rhinitis, unspecified trigger Social History [...] documented as of this encounter Care Teams Hoop Coiling Machine Operator Relationship Specialty Start Date End Date Irma Brennan MD [address] [place] [phone] PCP - General Family Medicine 11/09/18 documented as of this encounter
--- OUTSIDE RECORDS SUMMARY | 2025-05-02 15:03 | XMS_ITS | Encounter Summary ---
Author Organization [employer] Address [address] [facility] 7t [place] [address] Care Team Providers Care Spot Checker Name Role Phone Irma Brennan MD Primary Care Provide r Reason for Visit * Reason Comments Med Refill Encounter Details Date Type Department Care Team ([facility] st Contact Info) Description 06/02/2023 Refill [facility] [address] [place], [place] [phone] Irma Brennan MD [address] [place], [place] [phone] Acute low back pain, unspecified back pain [...] documented as of this encounter Care Teams Spot Checker Relationship Specialty Start Date End Date Irma Brennan MD [address] [place] [phone] PCP - General Family Medicine 11/09/18 documented as of this encounter
--- OUTSIDE RECORDS SUMMARY | 2025-05-02 15:03 | XMS_ITS | Clinical Summary ---
Author Organization [facility] Address [address] [facility] [address] [place] [address] Phone Care Team Providers Care Electrical Manufacturing Technician Name Role Phone Irma Brennan MD [...] patient's age to complete this topic Insurance [facility] [place] [facility] ([id number]) [employer] Dual SNP ([id number]) [place] [phone] Care Teams Electrical Manufacturing Technician Relationship Specialty Start Date End Date Irma Brennan MD [address] [place] [address] [place] [phone] PCP - General Internal Medicine 02/23/23
--- OUTSIDE RECORDS SUMMARY | 2025-05-02 15:03 | XMS_ITS | Encounter Summary ---
Author Organization [employer] Address [address] [facility] [address] [place] [address] Care Team Providers Care Rail Loader Name Role Phone Irma Brennan MD Primary Care Provide r Encounter Details Date Type Department Care Team ([facility] st Contact Info) Description 12/31/2023 Orders Only [facility] [address] [place], [place] [phone] Irma Brennan MD [address] [place], [place] [phone] Type 2 diabetes mellitus without complication, unspecified whether residential insulin use ([facility]) Social History Tobacco Use Types [...] 2 diabetes mellitus without complication, unspecified whether emt intermediate insulin use documented in this encounter Additional Health Concerns Assessment Noted Time PHQ-9 Depression Total Score: 0 06/22/20 23 9:55 AM EST documented as of this encounter Care Teams Rail Loader Relationship Specialty Start Date End Date Irma Brennan MD [address] [place] [phone] PCP - General Family Medicine 11/09/18 documented as of this encounter
--- OUTSIDE RECORDS SUMMARY | 2025-05-02 15:03 | XMS_ITS | Encounter Summary ---
Demographics Address [address] [facility] [address] [place] [address] Home Phone Mobile Phone Phone Phone Email Address Preferred Language Ugandan; Castilian Marital Status Taoism Affiliation Unknown Race Unknown Ethnic Group or Author Organization [facility] [employer] [facility] Address [address] [place] [address] Care Team Providers Care Studio Director Name Role Phone Irma Brennan MD Primary Care Provide r Encounter Details Date Type Department Care Team (Late st Contact Info) Description 07/11/2019 Scanned Document Neurosurgery at [address] [facility] [address] [place] [address] Provider, Historical . Social History Tobacco Use [...] on filedocumented in this encounter Care Teams Studio Director Relationship Specialty Start Date End Date Irma Brennan MD [address] [facility] [address] [place] [phone] PCP - General Internal Medicine 07/11/19 documented as of this encounter
== END 2025-05-02 12:28 | disposition home or self-care (01) ==
LOC: HO.HKA 11:36
PROVIDERS: PCP Internal Medicine; Visit Provider Internal Medicine Nephrology
DX: I12.9 Hypertensive chronic kidney disease with stage 1 through stage 4 chronic kidney disease, or unspecified chronic kidney disease (principal); N18.4 Chronic kidney disease, stage 4 (severe)
CPT/HCPCS: 99214

== ENCOUNTER → 2025-05-02 11:36 | Outpatient (BNVA) | payer OTHER, SELFPAY | PROVIDERS: PCP Internal Medicine; Visit Provider Internal Medicine Nephrology | DX: I12.9 Hypertensive chronic kidney disease with stage 1 through stage 4 chronic kidney disease, or unspecified chronic kidney disease (principal); N18.4 Chronic kidney disease, stage 4 (severe) | CPT/HCPCS: 99212 ==